=== PATIENT | male | born 1965 | race Caucasian/White ===

== ENCOUNTER 2017-10-14 12:00 | Emergency (ER) | payer MEDICARE ==
[2017-10-14] MEDS ORDERED: LIDOCAINE 1% MPF 5 ML VIAL ONE (13:00)
--- NOTE | 2017-10-14 13:34 | EDPHYS ---
Physician Documentation [facility] Name: Brennon Pinedo Age: 52 yrs Sex: Male : 1965 Arrival Date: 10/14/2017 Time: 12:03 Bed 13 Private MD: out of town, doctor ED Physician Cody Sierra HPI: 10/14 13:36 This 52 yrs old Male presents to ER via Ambulatory with complaints of jr8 Laceration To Hand. 13:36 The patient has a laceration related to: working, occurred at home. The laceration(s) jr8 is(are) located on the left hand. Onset: The symptoms/episode began/occurred acutely, today. Associated signs and symptoms: The patient has no apparent associated signs or symptoms. The patient has not experienced similar symptoms in the past. The patient has not recently seen a physician. was cut with glass accidently . Historical: - Allergies: 12:38 No Known Allergies; lk1 - PMHx: 12:38 Hypertension; CHF; chronic kidney disease; lk1 - PSHx: 12:38 L BKA; Heart stents; lk1 - Immunization history:: Adult Immunizations up to date. - Social history:: Smoking status: Patient/guardian denies using tobacco. - Ebola Screening: : No symptoms or risks identified at this time. ROS: 13:36 Eyes: Negative for injury, pain, redness, and discharge, ENT: Negative for injury, jr8 pain, and discharge, Neck: Negative for injury, pain, and swelling, Cardiovascular: Negative for chest pain, palpitations, and edema, Respiratory: Negative for shortness of breath, cough, wheezing, and pleuritic chest pain, Abdomen/GI: Negative for abdominal pain, nausea, vomiting, diarrhea, and constipation, Back: Negative for injury and pain, MS/Extremity: Negative for injury and deformity, Neuro: Negative for headache, weakness, numbness, tingling, and seizure. 13:36 Skin: Positive for laceration(s), of the left hand. Exam: 13:36 Cardiovascular: Regular rate and rhythm with a normal S1 and S2. No gallops, murmurs, jr8 or rubs. Normal PMI, no JVD. No pulse deficits. Respiratory: Lungs have equal breath sounds bilaterally, clear to auscultation and percussion. No rales, rhonchi or wheezes noted. No increased work of breathing, no retractions or nasal flaring. MS/ Extremity: Pulses equal, no cyanosis. Neurovascular intact. Full, normal range of motion. Neuro: Awake and alert, GCS 15, oriented to person, place, time, and situation. Cranial nerves II-XII grossly intact. Motor strength 5/5 in all extremities. Sensory grossly intact. Cerebellar exam normal. Normal gait. 13:36 Skin: injury, laceration(s), the wound is approximately 3 cm(s), with a depth of .5 cm(s), of the left hand, that can be described as no foreign body, linear, with mild bleeding. Vital Signs: 12:39 BP 158 / 76; Pulse 60; Resp 16; Temp 97.4(TE); Pulse Ox 95% on R/A; Weight 163.29 kg lk1 (R); Height 5 ft. 7 in. (170.18 cm); Pain 0/10; 12:39 Body Mass Index 56.38 (163.29 kg, 170.18 cm) lk1 Laceration: 13:32 Wound Repair of 3cm ( 1.2in ) subcutaneous laceration to left hand. Linear shaped.. jr8 Distal neuro/vascular/tendon intact. Anesthesia: Local anesthetic administered with 3 mls of 1% lidocaine. Wound prep: Extensive cleansing with betadine, Wound irrigation with saline, Wound explored extensively. Skin closed with 4 4-0 Prolene using interrupted sutures and sterile technique. Patient tolerated well. MDM: 12:47 Patient medically screened. [facility] 13:32 Data reviewed: vital signs, nurses notes. [facility] 13:33 Data reviewed: and as a result, I will discharge patient. Data interpreted: Pulse jr8 oximetry: on room air is 95 %. Interpretation: normal. Counseling: I had a detailed discussion with the patient and/or guardian regarding: the historical points, exam findings, and any diagnostic results supporting the discharge/admit diagnosis, the need for outpatient follow up, a family practitioner, to return to the emergency department if symptoms worsen or persist or if there are any questions or concerns that arise at home. Response to treatment: the patient's symptoms have markedly improved after treatment. 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 Exp: paddy 11/19/2019. Lot #: [id number]. } Route: IM; Site: right deltoid; 13:39 Follow up: Response: No adverse reaction hj Disposition: 10/14/17 13:34 Discharged to Home. Impression: Laceration without foreign body of left hand. - Condition is Stable. - Discharge Instructions: Laceration Care, Adult. - Medication Reconciliation Form, Thank You Letter, Antibiotic Education, Prescription Opioid Use form. - Follow up: Private Physician; When: 7 - 10 days; Reason: Wound Recheck, Recheck today's complaints, Continuance of care, Staple/Suture removal, Re-evaluation by your physician. - Problem is new. - Symptoms have improved. Addendum: 10/21/2017 11:22 Co-signature as Attending Physician, Cody Sierra MD I agree with the assessment and k dr plan of care. Signatures: Cody Sierra MD MD kdr Roszak, Josh, PA PA jr8 Nigel Lockhart RN RN Karyn Varghese RN RN lk1 Corrections: (The following items were deleted from the chart) 10/14 13:46 13:34 10/14/2017 13:34 Discharged to Home. Impression: Laceration without foreign body hj of left hand. Condition is Stable. Forms are Medication Reconciliation Form, Thank You Letter, Antibiotic Education, Prescription Opioid Use. Follow up: Private Physician; When: 7 - 10 days; Reason: Wound Recheck, Recheck today's complaints, Continuance of care, Staple/Suture removal, Re-evaluation by your physician. Problem is new. Symptoms have improved. jr8
--- NOTE | 2017-10-14 13:34 | ER ---
Nurse's Notes [facility] Name: Brennon Pinedo Age: 52 yrs Sex: Male : 1965 Arrival Date: 10/14/2017 Time: 12:03 Bed 13 Private MD: out of town, doctor Diagnosis: Laceration without foreign body of left hand Presentation: 10/14 12:36 Presenting complaint: Patient states: "I threw my trash away and a glass container cut lk1 my hand (left)". Transition of care: patient was not received from another setting of care. Complicating Factors: There are no complicating factors for this patient. Onset of symptoms was October 14, 2017 at 11:30. Risk Assessment: Do you want to hurt yourself or someone else? Patient reports no desire to harm self or others. Initial Sepsis Screen: Does the patient meet any 2 criteria? No. Patient's initial sepsis screen is negative. Does the patient have a suspected source of infection? No. Patient's initial sepsis screen is negative. Care prior to arrival: None. 12:36 Method Of Arrival: Ambulatory lk1 12:36 Acuity: STEPHANIE 4 lk1 Historical: - Allergies: 12:38 No Known Allergies; lk1 - PMHx: 12:38 Hypertension; CHF; chronic kidney disease; lk1 - PSHx: 12:38 L BKA; Heart stents; lk1 - Immunization history:: Adult Immunizations up to date. - Social history:: Smoking status: Patient/guardian denies using tobacco. - Ebola Screening: : No symptoms or risks identified at this time. Screenin:15 Abuse screen: Denies threats or abuse. Denies injuries from another. Nutritional hj screening: No deficits noted. Tuberculosis screening: No symptoms or risk factors identified. Fall Risk None identified. Assessment: 13:14 General: Appears in no apparent distress. uncomfortable, Behavior is calm, cooperative, hj appropriate for age. Pain: Complains of pain in left hand. Neuro: Level of Consciousness is awake, alert, obeys commands, Oriented to person, place, time, situation, Appropriate for age. Cardiovascular: Capillary refill < 3 seconds Patient's skin is warm and dry. Respiratory: Airway is patent Respiratory effort is even, unlabored, Respiratory pattern is regular, symmetrical. GI: No signs and/or symptoms were reported involving the gastrointestinal system. : No signs and/or symptoms were reported regarding the genitourinary system. EENT: No signs and/or symptoms were reported regarding the EENT system. Derm: No signs and/or symptoms reported regarding the dermatologic system. Musculoskeletal: No signs and/or symptoms reported regarding the musculoskeletal system. 13:15 Injury Description: Laceration. hj 13:45 Injury Description: Laceration is. Vital Signs: 12:39 BP 158 / 76; Pulse 60; Resp 16; Temp 97.4(TE); Pulse Ox 95% on R/A; Weight 163.29 kg lk1 (R); Height 5 ft. 7 in. (170.18 cm); Pain 0/10; 12:39 Body Mass Index 56.38 (163.29 kg, 170.18 cm) lk1 ED Course: 12:03 Patient arrived in ED. mr 12:03 out of town, doctor is Private Physician. mr 12:37 Triage completed. lk1 12:40 Arm band placed on right wrist. lk1 12:47 [facility] jr8 12:47 Cody Sierra MD is Attending Physician. jr8 13:13 Nigel Lockhart RN is Primary Nurse. 13:15 Patient has correct armband on for positive identification. Bed in low position. Call hj light in reach. Side rails up X 1. 13:45 No provider procedures requiring assistance completed. Patient did not have IV access hj during this emergency room visit. Administered Medications: 13:33 Drug: Tetanus-Diphtheria Toxoid Adult 0.5 ml {Rn Radiology: Chiasma. Exp: 11/19/2019. Lot #: [id number]. } Route: IM; Site: right deltoid; 13:39 Follow up: Response: No adverse reaction Outcome: 13:34 Discharge ordered by . jr8 13:45 Discharged to home ambulatory. 13:45 Condition: stable 13:45 Discharge instructions given to patient, Instructed on discharge instructions, follow up and referral plans. wound care, Demonstrated understanding of instructions, follow-up care, wound care. 13:46 Patient left the ED. Signatures: Janet Guzamn mr Prudencio Forte PA PA jr8 Nigel Lockhart RN RN hj Kluge, Leah, RN RN lk1
[2017-10-14] MEDS ORDERED: TETANUS & DIPHTHERIA TOX,ADULT 0.5 ML VIAL ONE (13:37)
[2017-10-14 13:49] VITALS: BP 158/76; TEMP 97.4; O2SAT 95
== END 2017-10-14 13:46 | disposition home or self-care (01) ==
LOC: ER 12:00
PROC: 0JQK0ZZ Repair Left Hand Subcutaneous Tissue and Fascia, Open Approach (ICD-10-PCS; principal; 2017-10-14)
DX: S61.412A Laceration without foreign body of left hand, initial encounter (principal); I13.0 Hypertensive heart and chronic kidney disease with heart failure and stage 1 through stage 4 chronic kidney disease, or unspecified chronic kidney disease; N18.9 Chronic kidney disease, unspecified; I50.9 Heart failure, unspecified; W25.XXXA Contact with sharp glass, initial encounter; Y93.9 Activity, unspecified; Y92.018 Other place in single-family (private) house as the place of occurrence of the external cause
CPT/HCPCS: 90714; 99283

== ENCOUNTER 2017-11-07 02:33 | Inpatient (IN) | payer MEDICARE ==
[2017-11-07 03:19] LABS: Arterial Blood Carboxyhemoglob 1.7 % (0-1.5); Blood Gas Oxyhemoglobin 89.8 % (94-97); Blood O2 Saturation 92.5 % (92-98.5)
[2017-11-07] MEDS ORDERED: ONDANSETRON 4 MG/2 ML VIAL ONE (03:21)
[2017-11-07 03:35] LABS: Absolute Lymphocytes (CBC) 1.6 K/uL (0.7-4.9); Absolute Monocytes 0.8 K/uL (0.1-1.3); Absolute Neutrophil 9.2 K/uL (1.8-8.0); Basophils % 0.5 % (0-1.3); Hematocrit 43.6 % (39.6-49.0); Lymphocytes % 13.9 % (15.3-44.8); MCH 33.1 pg (27.0-35.0); MCV 99.3 fL (80-100); Monocytes % 6.6 % (3.3-12.3); RBC Red Blood Cell Count 4.39 M/uL (4.33-5.43)
[2017-11-07 03:36] LABS: Protime INR 1.06
[2017-11-07 03:56] LABS: Bilirubin Direct 0.5 mg/dL (0-0.2); Bilirubin Total 1.2 mg/dL (0.2-1.0); Protein, Total 6.9 g/dL (6.4-8.2)
[2017-11-07 03:57] LABS: Potassium 7.4 mmol/L (3.5-5.1)
[2017-11-07] MEDS ORDERED: IPRATROPIUM BROM 0.5MG/2.5ML ONE (04:09)
[2017-11-07] MEDS ORDERED: ALBUTEROL 2.5 MG/3 ML NEB SOL ONE ×2 (04:09→04:34)
[2017-11-07] MEDS ORDERED: INSULIN -REGULAR HUMAN 50 UNIT/0.5 ML ML ONE (04:09)
[2017-11-07] MEDS ORDERED: SODIUM BICARB 50 MEQ/50ML VIAL ONE (04:10)
[2017-11-07] MEDS ORDERED: D50W 25 GM/50 ML SYRINGE IV ONE ×3 (04:10→20:31)
[2017-11-07] MEDS ORDERED: SOD POLYSTYREN SUL 15 GM/60 ML UCUP ONE (04:10)
[2017-11-07] MEDS ORDERED: Caclcium Chloride 10% INJ SYR IV ONE (04:11)
--- NOTE | 2017-11-07 04:36 | ER ---
Nurse's Notes [facility] Name: Brennon Pinedo Age: 52 yrs Sex: Male : 1965 Arrival Date: 11/07/2017 Time: 02:33 Bed 15 Private MD: out of town, doctor Diagnosis: Hyperkalemia. Severe bradycardia. Chronic kidney disease. Morbid obesity Presentation: 11/07 02:50 Presenting complaint: Patient states: I've been feeling nauseous, light headed and tl2 dizzy for the past week. Denies pain. Transition of care: patient was not received from another setting of care. Onset of symptoms was October 31, 2017. Risk Assessment: Do you want to hurt yourself or someone else? Patient reports no desire to harm self or others. Initial Sepsis Screen: Does the patient meet any 2 criteria? No. Patient's initial sepsis screen is negative. Does the patient have a suspected source of infection? No. Patient's initial sepsis screen is negative. Care prior to arrival: None. 02:50 Method Of Arrival: Ambulatory tl2 02:50 Acuity: STEPHANIE 2 tl2 Triage Assessment: 02:56 General: Appears in no apparent distress. uncomfortable, Behavior is calm, cooperative, tl2 appropriate for age. Pain: Denies pain. Neuro: Level of Consciousness is awake, alert, obeys commands, Oriented to person, place, time, situation. Neuro: Reports dizziness, weakness. Cardiovascular: Denies chest pain, Rhythm is sinus bradycardia. Respiratory: Airway is patent Respiratory effort is even, unlabored, Respiratory pattern is tachypnea. GI: Reports nausea. : No signs and/or symptoms were reported regarding the genitourinary system. Derm: Skin is pink, warm \T\ dry. Historical: - Allergies: 02:56 No Known Allergies; tl2 - Home Meds: 02:56 atorvastatin 40 mg oral tab 1 tab once daily [Active]; levothyroxine 125 mcg tab 1 tab tl2 once daily [Active]; zinc sulfate 220 (50) mg Oral cap [Active]; furosemide 20 mg Oral tab 1 tab 3 times per day [Active]; clopidogrel 75 mg oral tab 1 tab once daily [Active]; atorvastatin 40 mg oral tab 1 tab once daily [Active]; allopurinol 300 mg Oral tab 1 tab once daily [Active]; metoprolol tartrate 50 mg Oral tab 1 tab 2 times per day [Active]; diltiazem HCl 120 mg Oral cpER 1 cap TID [Active]; lisinopril 40 mg Oral tab 1 tab once daily [Active]; aspirin 81 mg Oral chew 1 tab once daily [Active]; - PMHx: 02:56 CHF; chronic kidney disease; Hypertension; Diabetes - NIDDM; tl2 - PSHx: 02:56 Heart stents; tl2 - Immunization history:: Adult Immunizations up to date. - Social history:: Smoking status: Patient/guardian denies using tobacco. - Ebola Screening: : No symptoms or risks identified at this time. Screenin:58 Abuse screen: Denies threats or abuse. Nutritional screening: No deficits noted. tl2 Tuberculosis screening: No symptoms or risk factors identified. Fall Risk Ambulatory Aid- Crutches/Cane/Walker (15 pts). Gait- Impaired (20 pts.). Assessment: 03:15 Reassessment: O2 sat decreased to 84%, placed pt on 3 L O2, increased to 93%. Pt in no tl2 apparent distress. General: see triage assessment. 03:15 General: Appears distressed, comfortable, obese, Behavior is cooperative, appropriate bp for age, anxious. Pain: Denies pain. Neuro: Level of Consciousness is awake, alert, obeys commands, Oriented to person, place, time, situation, Appropriate for age. Cardiovascular: Rhythm is junctional rhythm. Respiratory: Airway is patent Respiratory effort is even, labored, Respiratory pattern is tachypnea. GI: Abdomen is obese, Reports nausea. : Reports OLIGURIA. EENT: No deficits noted. Derm: No deficits noted. Musculoskeletal: Circulation, motion, and sensation intact. Range of motion: intact in all extremities, GEN WEAKNESS. 04:00 Reassessment: CRITICAL LAB VALUE K 7.4. PROVIDER NOTIFIED. bp 04:58 Reassessment: REPEAT BMP DRAWN/SENT, ICU ADMIT IN PROCESS. ADMIT MD AT B/S FOR EVAL. bp 06:05 Reassessment: ADMIT ON HOLD FOR ICU BED AVAILABILITY. bp Vital Signs: 02:56 BP 146 / 68; Pulse 41; Resp 26; Temp 97.7; Pulse Ox 94% on R/A; Weight 167.38 kg; tl2 Height 5 ft. 7 in. (170.18 cm); Pain 0/10; 03:15 BP 120 / 54; Pulse 36; Resp 17; Pulse Ox 94% on 3 lpm NC; tl2 04:00 BP 118 / 52; Pulse 37; Resp 15; Pulse Ox 95% on NC; bp 04:30 BP 128 / 61; Pulse 55; Resp 15; Pulse Ox 96% ; bp 04:58 BP 138 / 65; Pulse 59; Resp 18; Pulse Ox 100% ; bp 06:00 BP 115 / 93; Pulse 61; Resp 14; Pulse Ox 92% on NC; bp 02:56 Body Mass Index 57.79 (167.38 kg, 170.18 cm) tl2 Vitals: 03:15 Cardiac Rhythm Assessment Sinus katty. tl2 ED Course: 02:33 Patient arrived in ED. ds1 02:34 out of town, doctor is Private Physician. ds1 02:37 Masoud Olivarez, VIKTORIYA is Primary Nurse. bp 02:42 Sal Mackenzie MD is Attending Physician. pkl 02:52 Triage completed. tl2 02:56 Arm band placed on right wrist. tl2 02:58 Patient has correct armband on for positive identification. Placed in gown. Bed in low tl2 position. Call light in reach. Side rails up X 1. 03:15 X-ray completed. Portable x-ray completed in exam room. Patient tolerated procedure tm4 well. 03:16 Inserted saline lock: 20 gauge in right wrist, using aseptic technique. Blood collected.tl2 03:18 XRAY Chest (1 view) In Process Unspecified. EDMS 03:57 Notified ED physician of a critical lab result(s). potassium 7.4. fc 04:33 Vickie White MD is Hospitalizing Provider. pkl 04:58 No provider procedures requiring assistance completed. Patient admitted, IV remains in bp place. Administered Medications: 03:22 Drug: Zofran 4 mg Route: IVP; Site: right wrist; tl2 04:26 Follow up: Response: No adverse reaction; Nausea is decreased bp 04:10 Drug: DuoNeb (3:1) (2.5 mg - 0.5 mg) 3 ml Route: Nebulizer; bp 04:26 Follow up: Response: No adverse reaction bp 04:10 Drug: Kayexalate 30 grams Route: PO; bp 04:26 Follow up: Response: No adverse reaction bp 04:10 Drug: Calcium Chloride 1 grams Route: IVP; Site: right hand; bp 04:27 Follow up: Response: No adverse reaction bp 04:11 Drug: D50W 50 ml Route: IVP; Site: right hand; bp 04:27 Follow up: Response: No adverse reaction bp 04:12 Drug: Insulin Regular Human 10 units {Co-Signature: tl2 (Elizabeth Rangel RN).} Route: IVP; bp Site: right hand; 04:27 Follow up: Response: No adverse reaction bp 04:13 Drug: Sodium Bicarbonate 1 amp Route: IVP; Site: right hand; bp 04:27 Follow up: Response: No adverse reaction bp Outcome: 04:35 Decision to Hospitalize by Provider. pkl 06:19 Admitted to ICU accompanied by nurse, via stretcher, room 3, with oxygen, on monitor, bp with chart, Report called to ROBERTO SADLER 06:19 Condition: stable 06:19 Instructed on the need for admit. 06:33 Patient left the ED. ak1 Signatures: Dispatcher [employer] EDMS Sal Mackenzie MD MD pkl Fátima Valdivia tm4 Meghan Vinson, RN RN Emmy Moyer ds1 Liat Reeves RN RN ak1 Elizabeth Rangel RN RN tl2 Masoud Olivarez RN RN bp Elizabeth Rangel RN tl2 Corrections: (The following items were deleted from the chart) 03:33 03:15 Pulse 36bpm; Resp 17bpm; Pulse Ox 94% 3 lpm Nasal Cannula; tl2 tl2 04:59 04:58 Reassessment: REPEAT BMP DRAWN/SENT, ICU ADMIT IN PROCESS bp bp
--- NOTE | 2017-11-07 04:36 | EDPHYS ---
Physician Documentation [facility] Name: Brennon Pinedo Age: 52 yrs Sex: Male : 1965 Arrival Date: 11/07/2017 Time: 02:33 Bed 15 Private MD: out of town, doctor ED Physician Sal Mackenzie HPI: 11/07 03:04 This 52 yrs old Male presents to ER via Ambulatory with complaints of General pkl Weakness, Nausea. 03:04 The patient has shortness of breath at rest. Onset: The symptoms/episode began/occurred pkl 1 week(s) ago. Associated signs and symptoms: Pertinent positives: nausea, lightheaded and generalized weakness. Historical: - Allergies: 02:56 No Known Allergies; tl2 - Home Meds: 02:56 atorvastatin 40 mg oral tab 1 tab once daily [Active]; levothyroxine 125 mcg tab 1 tab tl2 once daily [Active]; zinc sulfate 220 (50) mg Oral cap [Active]; furosemide 20 mg Oral tab 1 tab 3 times per day [Active]; clopidogrel 75 mg oral tab 1 tab once daily [Active]; atorvastatin 40 mg oral tab 1 tab once daily [Active]; allopurinol 300 mg Oral tab 1 tab once daily [Active]; metoprolol tartrate 50 mg Oral tab 1 tab 2 times per day [Active]; diltiazem HCl 120 mg Oral cpER 1 cap TID [Active]; lisinopril 40 mg Oral tab 1 tab once daily [Active]; aspirin 81 mg Oral chew 1 tab once daily [Active]; - PMHx: 02:56 CHF; chronic kidney disease; Hypertension; Diabetes - NIDDM; tl2 - PSHx: 02:56 Heart stents; tl2 - Immunization history:: Adult Immunizations up to date. - Social history:: Smoking status: Patient/guardian denies using tobacco. - Ebola Screening: : No symptoms or risks identified at this time. ROS: 03:04 Eyes: Negative for injury, pain, redness, and discharge, ENT: Negative for injury, pkl pain, and discharge, Neck: Negative for injury, pain, and swelling, Cardiovascular: Negative for chest pain, palpitations, and edema. 03:04 Respiratory: Positive for shortness of breath. 03:04 Abdomen/GI: Positive for morbid obesity. 03:04 Back: Negative for acute changes. 03:04 : Negative for urinary symptoms. 03:04 MS/extremity: Negative for acute changes. 03:04 Skin: Negative for rash. 03:04 Neuro: Negative for altered mental status. Exam: 03:04 Head/Face: Normocephalic, atraumatic. Eyes: Pupils equal round and reactive to light, pkl extra-ocular motions intact. Lids and lashes normal. Conjunctiva and sclera are non-icteric and not injected. Cornea within normal limits. Periorbital areas with no swelling, redness, or edema. ENT: Nares patent. No nasal discharge, no septal abnormalities noted. Tympanic membranes are normal and external auditory canals are clear. Oropharynx with no redness, swelling, or masses, exudates, or evidence of obstruction, uvula midline. Mucous membranes moist. Neck: Trachea midline, no thyromegaly or masses palpated, and no cervical lymphadenopathy. Supple, full range of motion without nuchal rigidity, or vertebral point tenderness. No Meningismus. Chest/axilla: Normal chest wall appearance and motion. Nontender with no deformity. No lesions are appreciated. Cardiovascular: Regular rate and rhythm with a normal S1 and S2. No gallops, murmurs, or rubs. Normal PMI, no JVD. No pulse deficits. Respiratory: Lungs have equal breath sounds bilaterally, clear to auscultation and percussion. No rales, rhonchi or wheezes noted. No increased work of breathing, no retractions or nasal flaring. 03:04 Abdomen/GI: Inspection: morbid obesity, Bowel sounds: normal, Palpation: abdomen is soft and non-tender, in all quadrants. 03:04 Back: Exam negative for acute changes. 03:04 : Exam negative for dysuria. 03:04 Musculoskeletal/extremity: Exam is negative for acute changes. 03:04 Skin: Exam negative for rash. 03:04 Neuro: Orientation: appropriate for stated age, Mentation: is normal, Cranial nerves: grossly normal, Motor: is normal. Vital Signs: 02:56 BP 146 / 68; Pulse 41; Resp 26; Temp 97.7; Pulse Ox 94% on R/A; Weight 167.38 kg; tl2 Height 5 ft. 7 in. (170.18 cm); Pain 0/10; 03:15 BP 120 / 54; Pulse 36; Resp 17; Pulse Ox 94% on 3 lpm NC; tl2 04:00 BP 118 / 52; Pulse 37; Resp 15; Pulse Ox 95% on NC; bp 04:30 BP 128 / 61; Pulse 55; Resp 15; Pulse Ox 96% ; bp 04:58 BP 138 / 65; Pulse 59; Resp 18; Pulse Ox 100% ; bp 06:00 BP 115 / 93; Pulse 61; Resp 14; Pulse Ox 92% on NC; bp 02:56 Body Mass Index 57.79 (167.38 kg, 170.18 cm) tl2 MDM: 02:42 Patient medically screened. pkl 04:32 Data reviewed: vital signs, nurses notes, lab test result(s), EKG, radiologic studies, pkl plain films. 11/07 03:01 Order name: Basic Metabolic Panel; Complete Time: 04:20 pkl 11/07 03:01 Order name: CBC with Diff; Complete Time: 04:20 pkl 11/07 03:01 Order name: Ckmb; Complete Time: 04:20 pkl 11/07 03:01 Order name: CPK; Complete Time: 04:20 pkl 11/07 03:01 Order name: LFT's; Complete Time: 04:20 pkl 11/07 03:01 Order name: Magnesium; Complete Time: 04:20 pkl 11/07 03:01 Order name: NT PRO-BNP; Complete Time: 04:20 pkl 11/07 03:01 Order name: PT-INR; Complete Time: 04:20 pkl 11/07 03:01 Order name: Ptt, Activated; Complete Time: 04:20 pkl 11/07 03:01 Order name: Troponin (emerg Dept Use Only); Complete Time: 04:20 pkl 11/07 03:01 Order name: XRAY Chest (1 view) pkl 11/07 03:01 Order name: ABG; Complete Time: 03:24 pkl 11/07 04:23 Order name: Chem 7: Repeat 30 minutes after medications administered; Complete Time: tl2 06:00 11/07 03:01 Order name: EKG; Complete Time: 03:02 pkl 11/07 03:01 Order name: Cardiac monitoring; Complete Time: 03:16 pkl 11/07 03:01 Order name: EKG - Nurse/Tech; Complete Time: 03:17 pkl 11/07 03:01 Order name: IV Saline Lock; Complete Time: 03:17 pkl 11/07 03:01 Order name: Labs collected and sent; Complete Time: : pkl 11/07 03:01 Order name: O2 Per Protocol; Complete Time: : pkl 11/07 03:01 Order name: O2 Sat Monitoring; Complete Time: : pkl Administered Medications: 03:22 Drug: Zofran 4 mg Route: IVP; Site: right wrist; tl2 04:26 Follow up: Response: No adverse reaction; Nausea is decreased bp 04:10 Drug: DuoNeb (3:1) (2.5 mg - 0.5 mg) 3 ml Route: Nebulizer; bp 04:26 Follow up: Response: No adverse reaction bp 04:10 Drug: Kayexalate 30 grams Route: PO; bp 04:26 Follow up: Response: No adverse reaction bp 04:10 Drug: Calcium Chloride 1 grams Route: IVP; Site: right hand; bp 04:27 Follow up: Response: No adverse reaction bp 04:11 Drug: D50W 50 ml Route: IVP; Site: right hand; bp 04:27 Follow up: Response: No adverse reaction bp 04:12 Drug: Insulin Regular Human 10 units {Co-Signature: tl2 (Elizabeth Rangel RN).} Route: IVP; bp Site: right hand; 04:27 Follow up: Response: No adverse reaction bp 04:13 Drug: Sodium Bicarbonate 1 amp Route: IVP; Site: right hand; bp 04:27 Follow up: Response: No adverse reaction bp Disposition: 04:32 Critical Care:. pkl Disposition: 11/07/17 04:35 Hospitalization ordered by Vickie White for Inpatient Admission. Preliminary diagnosis is Hyperkalemia. Severe bradycardia. Chronic kidney disease. Morbid obesity. - Bed requested for Intensive Care Unit. - Status is Inpatient Admission. ak1 - Condition is Stable. - Problem is new. - Symptoms are unchanged. UTI on Admission? No Signatures: Dispatcher [employer] EDKY Lisa Parker RN RN mw Lam, Pin, MD MD pkl Liat Reeves RN RN ak1 Elizabeth Rangel RN RN tl2 Masoud Olivarez RN RN bp Elizabeth Rangel RN tl2 Corrections: (The following items were deleted from the chart) 04:48 04:35 Hospitalization Ordered by Vickie White MD for Inpatient Admission. Preliminary mw diagnosis is Hyperkalemia. Severe bradycardia. Chronic kidney disease. Morbid obesity. Bed requested for Intensive Care Unit. Status is Inpatient Admission. Condition is Stable. Problem is new. Symptoms are unchanged. UTI on Admission? No. pkl 06:33 04:48 11/07/2017 04:35 Hospitalization Ordered by Vickie White MD for Inpatient ak1 Admission. Preliminary diagnosis is Hyperkalemia. Severe bradycardia. Chronic kidney disease. Morbid obesity. Bed requested for Intensive Care Unit. Status is Inpatient Admission. Condition is Stable. Problem is new. Symptoms are unchanged. UTI on Admission? No. mw
[2017-11-07] MEDS ORDERED: FUROSEMIDE 40 MG/4 ML VIAL IV ONE ×3 (05:06→20:30)
[2017-11-07 05:22] LABS: Potassium 6.9 mmol/L (3.5-5.1)
--- NOTE | 2017-11-07 05:26 | P.HP ---
Certification for Inpatient Patient admitted to: Inpatient With expected LOS: >2 Midnights Practitioner: I am a practitioner with admitting privileges, knowledge of patient current condition, hospital course, and medical plan of care. Services: Services provided to patient in accordance with Admission requirements found in Title 42 Section 412.3 of the Code of Federal Regulations Patient History Date of Service: 11/07/17 Reason for admission: hyperkalemia History of Present Illness: Mr Pinedo is a 52 years old male with history of morbid obesity, DM II, CKD, HTN , CAD, who start about 1 week ago, feeling progressively more tired. He also was complaining of SOB. Today, he start feeling generalized body cramps, associated with nausea. He states that was making less urine than usual the last few days. He denied chest pain, or palpitations. At arrival to ED, EKG was remarkable for junctional rhythm at 30 bpm. Potassium level was 7.4. CXR remarkable for pulmonary edema. He was afebrile at arrival, O2 Sat between 83-93 % on RA. Allergies No Known Allergies Allergy (Unverified 01/18/12 17:03) Home medications list reviewed: Yes Home Medications: Diltiazem HCl [Cardizem Cd] 120 mg PO TID 01/19/12 Insulin Glargine Human [Lantus*] 100 unit SQ TID 01/19/12 Lisinopril 40 mg PO DAILY 01/19/12 Metoprolol Tartrate 50 mg PO BID 01/19/12 Clopidogrel Bisulfate [Plavix*] 75 mg PO DAILY #30 tablet 01/22/12 [place]-3 Fatty Acids/Fish Oil [Fish Oil 1,000 mg Softgel] 1 each PO DAILY Atorvastatin Calcium [Lipitor*] 40 mg PO BEDTIME #30 tab 05/28/13 Allopurinol [Zyloprim*] 1 tab PO DAILY 04/29/17 Aspirin 1 tab PO DAILY 04/29/17 Ferrous Sulfate [Ferrous Sulfate*] 1 tab PO DAILY 04/29/17 Fluocinonide [Lidex] 1 dose TOP DAILY 04/29/17 Furosemide [Lasix] 0.5 tab PO DAILY 04/29/17 Insulin Glargine,Hum.rec.anlog [Janice Luevano] 100 units SQ BID 04/29/17 - Past Medical/Surgical History Diabetic: Yes -: chf -: htn -: hypothyrid -: CKD -: lbka -: cardiac stents - Family History Family History: Reviewed- Non-Contributory - Social History Smoking Status: Former smoker Alcohol use: No CD- Drugs: No Caffeine use: Yes Place of Residence: Home Review of Systems 10-point ROS is otherwise unremarkable Physical Examination - Physical Exam General: Alert, In no apparent distress HEENT: Atraumatic, PERRLA, Mucous membr. moist/pink, EOMI, Sclerae nonicteric Neck: Supple, 2+ carotid pulse no bruit, No LAD, JVD distended Respiratory: Diminished, Crackles/rales (bilateral rales) Cardiovascular: Regular rate/rhythm, Normal S1 S2 Gastrointestinal: Normal bowel sounds, No tenderness Musculoskeletal: No tenderness Integumentary: No rashes Neurological: Normal speech, Normal tone, Normal affect Lymphatics: No axilla or inguinal lymphadenopathy - Studies Laboratory Data (last 24 hrs) 11/07/17 03:05: PT 12.5, INR 1.06, APTT 31.4 11/07/17 03:05: WBC 11.8 H, Hgb 14.6, Hct 43.6, Plt Count 152 11/07/17 03:05: Sodium 137, Potassium 7.4 H*, BUN 59 H, Creatinine 3.40 H, Glucose 171 H, Magnesium 2.0, Total Bilirubin 1.2 H, AST 31, ALT 49, Alkaline Phosphatase 170 H Assessment and Plan - Problems (Diagnosis) (1) Acute kidney injury superimposed on CKD Current Visit: Yes Status: Acute (2) Hyperkalemia Current Visit: Yes Status: Acute (3) Bradycardia Current Visit: Yes Status: Acute (4) CAD (coronary artery disease) Current Visit: Yes Status: Acute Qualifiers: Coronary Disease-Associated Artery/Lesion type: [place] artery [place] vs. transplanted heart: [place] heart Associated angina: without angina Qualified Code(s): I25.10 - Atherosclerotic heart disease of [place] coronary artery without angina pectoris (5) Morbid obesity with BMI of 50.0-59.9, adult Current Visit: No Status: Acute - Plan Mr Pinedo will be admitted to the hospital due to hyperkalemia, pulmonary edema secondary to acute on CKD. Initial cardiac rhythm was junctional at 30 bpm. After administered calcium chloride, glucose-insulin, Kayexalate and sodium bicarbonate, his rhythm changed to sinus at 60 bpm. This patient has indication for emergent HD. Will consult Dr Tse and also Dr Garibay for HD catheter placement. - Advance Directives Does patient have a Living Will: No Does patient have a Durable POA for Healthcare: No - Code Status/Comfort Care Code Status Assessed: Yes Code Status: Full Code
[2017-11-07] MEDS ORDERED: ONDANSETRON 4 MG/2 ML VIAL IV PRN (06:21)
[2017-11-07] MEDS: INSULIN -REGULAR HUMAN 50 UNIT/0.5 ML ML SQ SCH ×4 (06:21→21:00)
[2017-11-07] MEDS ORDERED: GLUCAGON 1 MG/VIAL IM PRN (07:02)
[2017-11-07] MEDS ORDERED: D50W 25 GM/50 ML SYRINGE IV PRN (07:02)
[2017-11-07] MEDS ORDERED: INSULIN -REGULAR HUMAN 50 UNIT/0.5 ML ML IV ONE (07:04)
[2017-11-07] MEDS ORDERED: ALBUTEROL 2.5 MG/3 ML NEB SOL NEB ONE ×2 (07:05→20:30)
[2017-11-07] MEDS ORDERED: CALCIUM GLUCONATE 1 GM IVPB 1 GM/50 ML BAG IV ONE ×2 (07:25→20:52)
[2017-11-07] MEDS ORDERED: SOD POLYSTYREN SUL 15 GM/60 ML UCUP PO ONE (08:00)
[2017-11-07] MEDS ORDERED: CALCIUM GLUC 10% INJ 4.65 MEQ in NA CHLORIDE 0.9% 100 ML IV ONE ×2 (08:00→20:30)
--- NOTE | 2017-11-07 08:39 | RAD REPORT ---
EXAM DESCRIPTION: RAD - Chest Single View - 11/07/2017 3:18 am CLINICAL HISTORY: Dizziness, weakness, shortness of breath, chronic kidney disease, history of CHF COMPARISON: Portable chest May 2013 TECHNIQUE: AP portable chest image was obtained 0311 hours . FINDINGS: Lung volumes are relatively low. Large body habitus, shallow inspiration and portable tech nique limit the examination. Cardiomegaly is present. Vascular engorgement and prominent central lung markings noted. Mediastinum is distorted by rotation. Left base is obscured by exam limitations and cardiomegaly. No tracheal dev iation. No pneumothorax is seen and no large pleural effusion present. No gross bony abnormality seen . No acute aortic findings suspected. IMPRESSION: Moderate CHF/ volume overload pattern. Cardiomegaly, portable technique and large body habitus limit assessment of infiltrate or atelectasis in the left base.
[2017-11-07 08:47] LABS: Thyroid Stimulating Hormone 4.39 uIU/mL (0.36-3.74)
--- NOTE | 2017-11-07 09:04 | P.OP ---
Preoperative diagnosis: Acute Renal Failure Postoperative diagnosis: Acute Renal Failure Primary procedure: Placement of Temporary LEFT Femoral Hemodialysis Catheter Secondary procedure: Ultrasound guidance and microintroducer used Anesthesia: Local 1% lidocaine Estimated blood loss: <30cc Specimen: None Findings: Dark Non-pusatile blood returned Complications: None Transferred to: ICU Condition: Serious
[2017-11-07 11:16] LABS: Potassium 6.2 mmol/L (3.5-5.1)
[2017-11-07] MEDS ORDERED: NA CHLORIDE 0.9% 1,000 ML IV PRN (11:45)
[2017-11-07] MEDS ORDERED: MANNITOL 25% 12.5 GM/50 ML VIAL IV PRN (11:45)
[2017-11-07] MEDS ORDERED: ALBUMIN HUMAN 25% 50 ML IV SCH (12:00)
--- NOTE | 2017-11-07 12:20 | CON ---
Date of Consultation: 11/07/2017 Reason For Consultation: Need for emergent hemodialysis. Brief History Of Present Illness: The patient is a 52-year-old male with a history of morb id obesity, diabetes type 2, CKD, hypertension, and coronary artery disease, who stated about 1 week ago began feeling progressively more fatigued and tired. He was also having increased shortness of b reath. He came to the hospital with generalized weakness, cramps, nausea, and he was making less uri ne the last few days. He had no chest pain, palpitations. in the emergency room, his EKG was remark able for a junctional rhythm at 30 beats per minute and his potassium level was 7.4 on admission. He additionally had a chest x-ray, which showed pulmonary edema. He was afebrile. His O2 sats were be tween 83 and 93% on room air. Therefore, I am consulted to place an emergent hemodialysis catheter f or the above-stated problems, acute kidney dysfunction. Past Medical History: As above, CHF, hypertension, hypothyroidism, and CKD. Past Surgical History: He has had cardiac stents placed as well. Social History: He is a former smoker. Denies alcohol or recreational drug use. Allergies: NO KNOWN DRUG ALLERGIES. Medications: Include Cardizem, Lantus, lisinopril, metoprolol, Plavix, fish oil, Lipitor, allopurino l, aspirin, ferrous sulfate, Lidex, Lasix, and insulin glargine. Review of Systems: A 10-point review of systems other than HPI denies. Physical Examination: Vital Signs: At the time of my examination, his BMI is 40.3. General: He is awake, alert, and conversive. HEENT: He is normocephalic. He has supplemental nasal cannula oxygen administered at this time. Neck: Supple. No JVD. Chest: Normal expansion and excursion. Cardiac: Regular rate and rhythm currently. Pulmonary: Decreased breath sounds bilaterally. Abdomen: Very obese. Extremities: There is edema and obesity present in all 4 extremities, more significant lower extremit ies than upper. Skin: Warm and dry otherwise. Laboratory Data: He had a laboratory exam, which reveals a white blood cell count of 11.8, hemoglobi n is 14.6, hematocrit of 43.6, and platelet count is 152. His PT is 12.5, INR 1.06, and PTT 31.4. H is last chemistry shows a potassium of 6.9, sodium 140, chloride 111, carbon dioxide 25, BUN 60, crea tinine 3.4, glucose is 122, and calcium 9.0. His alkaline phosphatase on admission was 170. Total b ilirubin 1.7. His troponin was less than 0.02. CK-MB is 1.0. His blood gas showed a pH 7.33, pCO2 39, pO2 68, bicarb is 28.3, base excess -4.9, oxyhemoglobin is 89.8. ABG, O2 saturation is 92.5,, in spired O2 was 21% on this. He had a chest x-ray performed as described from the emergency room. Assessment And Plan: This is a 52-year-old male, who presents with signs and symptoms of acute kidne y failure on chronic symptoms include the likely fluid overload, rising creatinine, hyperkalemia, and electrolyte abnormalities. I have been asked to place a temporary hemodialysis catheter for the abo ve-stated problem. I have explained the risks, benefits, and alternatives of the above-stated plan i ncluding, but not limited to bleeding, infection, damage to surrounding tissues, need for further ope rations and procedures. The patient agrees to proceed as indicated. DAMIR/LYUDMILA Voice ID: [id number] Report ID: [id number]
[2017-11-07 13:01] LABS: Urine Protein/Creatinine Ratio 3.97 ratio (<0.15)
--- NOTE | 2017-11-07 16:26 | CON ---
Date of Consultation: 11/07/2017 History Of Present Illness: This is a pleasant 52-year-old gentleman with significant past medical h istory of diabetes, complicated with neuropathy and nephropathy, hypertension, coronary artery diseas e complicated with congestive heart failure, chronic kidney disease, baseline creatinine of 2, GFR of 30 back in June 2017. The patient was in his regular state of health till almost 10 days ago when the patient started having shortness of breath, decreased urine output. For that reason, he reported to the emergency room. In the emergency room a primary workup showed elevated BUN and creatinine, a nd severe hyperkalemia with bradycardia; for that reason, the patient get the treatment for hyperkale georgina and admitted to the ICU. In the ICU his potassium is still elevated and still bradycardia. We g ave him another around of calcium gluconate, albuterol and D50 with insulin and Lasix. The patient i s still short winded. The patient denied taking any nonsteroidal. No IV contrast. According to the patient, the patient was in the ER almost 1 month back, at that time, he was prescribed some antibio tic. The patient do not remember the name of the antibiotic. The patient denied any fever or chills . We called dialysis for urgent dialysis. Past Medical History: Include: 1.Hypertension. 2.Diabetes complicated with neuropathy and nephropathy. 3.Peripheral vascular disease, status post left below-knee amputation. 4.Hyperlipidemia. 5.Coronary artery disease status post PTCA. 6.Uroplasty. 7.Congestive heart failure. Social History: Ex-smoker 1 pack for 30 years, stop back in 2009, active alcohol. No drugs abuse. Allergies: NO KNOWN DRUG ALLERGY. Past Surgical History: 1.Left below-knee amputation. 2.PTCA. Family History: Positive for diabetes, hypertension, hyperlipidemia, questionable chronic kidney dis ease with the mother. Review of Systems: Head and Neck: No red eye. No ear pain. GI: No nausea, no vomiting. : Has difficulty urinating even with the Lasix, has nocturia. DIABETES PHYSICIAN: Not applicable. Respiratory: Has shortness of breath. Cardiovascular: Has leg swelling. Has orthopnea. Musculoskeletal: No joint pain. Endocrine: No polydipsia. Skin: No rash. Neuro: Has neuropathy. Musculoskeletal: No joint pain. Home Medications: Include omega-3, metoprolol, lisinopril 40, insulin, Lasix half tablet daily, ferr ous sulfate, diltiazem, atorvastatin, allopurinol 1 tablet daily. Medications: Current medication in the hospital include insulin. Physical Examination: Vital Signs: When I saw the patient, the patient lying in bed, on nasal cannula. Blood pressure of 122/68, pulse of 86. Chest: Crackles bilateral with decreased entry both base. Heart: S1, S2. Regular. Abdomen: Morbidly obese. Could not appreciate any organomegaly or any bruit. Extremity: +1 edema. Left below-knee amputation. Neurological: Alert and oriented x3. No focal. No tremor. Vascular exam: No carotid bruit. Could not appreciate any renal bruits given the body habit. Laboratory Data: WBC 11.8, H and H 14.6/43.6, platelet 152. Sodium 140, potassium 6.9, bicarb 25, B UN 60, creatinine 3.4, calcium of 9. BNP 2700, earlier potassium 7.4 back in June, creatinine 2, GF R of 30. ABG; pH 7.33, CO2 39, O2 68, base access -5. Assessment And Plan: 1.Acute kidney injury on chronic kidney disease secondary to cardiorenal, over volume with hyperkale georgina symptomatic with bradycardia. I going to go ahead and arrange for urgent dialysis. The patient is going to be dialyzed on low-potassium bath and I am going to start the patient on diuresis to esta blish better volume control and more potassium diuresis. Unfortunately could not do renal scan, coul d not do Ruiz as the patient had difficulty cannulating the Ruiz. We will do ultrasound and bladde r scan. I am going to go ahead and send for renal ultrasound, protein, creatinine and we will follow up. 2.Hyperkalemia, symptomatic, already received cocktail. We will get the patient urgent dialysis. T he patient is going to be dialyze on 2 K bath for 2 hours. Then 1 K bath for the last 1 hour. We wi ll try to challenge the patient with fluid removal and we will follow up. 3.Acidosis, hypercapnic respiratory acidosis. Continue treatment. 4.Congestive heart failure exacerbation. Start the patient on Lasix. We will dialyze the patient an d challenge. 5.Diabetes as by primary. Case discussed with the patient, verbalized understanding. Discussed with staff, time spent 75 minut es. PLATA/LYUDMILA Voice ID: [id number] Report ID: [id number]
--- NOTE | 2017-11-07 19:48 | OP ---
Date of Procedure: 11/07/2017 Surgeon: Jasen Garibay MD, Preoperative Diagnosis: Acute renal failure. Postoperative Diagnosis: Acute renal failure. Procedure Performed: Placement of an ultrasound-guided temporary left femoral hemodialysis catheter. Additionally, micro introducer set was used. Anesthesia: Local 1% lidocaine without epinephrine. Estimated Blood Loss: Less than 30 cc. Specimen: None. Findings: Dark red nonpulsatile blood was returned and ultrasound guidance was used to cannulate the femoral vein directly under visualization. Complications: None. Disposition: The patient remained in the ICU in serious condition. Procedure In Detail: After informed consent was obtained, the patient was prepped and draped in the usual sterile fashion after adequate anesthesia was achieved with lidocaine in the area of the left f emoral vein. I used ultrasound guidance to isolate the left femoral vein in this patient, who had a very large abdominal pannus. I used a micro introducer set to cannulate this under direct visualizat ion. Dark red nonpulsatile blood was returned and the micro wire was advanced at this time. The nee dle was removed at this time. A small puncture was made with a scalpel around the insertion site adj acent to the micro wire. After this was performed, the micro introducer sheath was introduced. The micro wire out was called at this time. Dark red nonpulsatile blood was returned at this time. Hubert dard wire was then advanced through the introducer sheath after removing the inner catheter without i ncident or complication. The wire advanced quite easily and the sheath was removed. Sequential dila tation was performed in Seldinger technique over the wire and the catheter was introduced into the le ft femoral vein without evidence of complication. The wire out was called for the second time and da rk red nonpulsatile blood was returned. At this time, the catheter was found to be in good position, flushed quite easily, and was packed with heparin 2 cc per port and the catheter was stitched into t he adjacent skin and sterile dressing was placed over the top. The patient tolerated the procedure w ithout evidence of complication and remained in the ICU in serious condition. All counts were correc t at the end of the case. DAMIR/LYUDMILA Voice ID: [id number] Report ID: [id number]
[2017-11-07] MEDS ORDERED: NA CHLORIDE 0.9% 50 ML ONE (20:53)
--- NOTE | 2017-11-07 23:41 | RAD REPORT ---
EXAM DESCRIPTION: US - Renal Ultrasound-Complete - 11/07/2017 9:38 pm CLINICAL HISTORY: Acute kidney injury COMPARISON: CT study June 17, 2016 FINDINGS: The right kidney measures 11.9 x 5.9 x 6.5 cm. The left kidney measures 12.8 x 7.5 x 7.1 cm.. Cortical thickness is normal. Echogenicity is increased slightly. This may simply be the affects of body habitus rather than medical renal disease. No hydronephrosis or suspicious renal mass. Urinary bladder assessment was very limited. Exam was limited by large body habitus and immobility of the patient IMPRESSION: No hydronephrosis or suspicious renal mass. Increased cortical echogenicity is present and could be body habitus artifact or medical renal diseas e.
[2017-11-08 05:17] LABS: Absolute Lymphocytes (CBC) 0.8 K/uL (0.7-4.9); Basophils % 0.5 % (0-1.3); Eosinophils % 0.3 % (0-4.4); Hematocrit 41.7 % (39.6-49.0); MCH 32.8 pg (27.0-35.0); MCV 99.8 fL (80-100); MPV 9.2 fL (7.6-11.3); Monocytes % 12.4 % (3.3-12.3); RBC Red Blood Cell Count 4.18 M/uL (4.33-5.43)
[2017-11-08 05:35] VITALS: BMI 54.8
[2017-11-08 05:37] LABS: Albumin 2.8 g/dL (3.4-5.0); Phosphorus 4.3 mg/dL (2.5-4.9); Potassium 5.2 mmol/L (3.5-5.1)
[2017-11-08] MEDS: INSULIN -REGULAR HUMAN 50 UNIT/0.5 ML ML SQ SCH ×4 (07:30→20:35)
--- NOTE | 2017-11-08 07:43 | EKG ---
Test Date: 2017-11-07 Test Time: 02:51:20 Marine Steam Fitter: TIFFANY MEASUREMENT RESULTS: Intervals: Rate: 35 [place]: QRSD: 102 QT: 512 QTc: 390 [place]: P: OR: QRS: 142 T: 91 INTERPRETIVE STATEMENTS: Junctional bradycardia Incomplete right bundle branch block Right ventricular hypertrophy with repolarization abnormality Abnormal ECG Compared to ECG 05/24/2013 19:30:18 Incomplete right bundle-branch block now present Right ventricular hypertrophy now present Early repolarization now present Sinus rhythm no longer present Electronically Signed On 11-08-17 07:42:35 CDT by Hosea Cervantes
[2017-11-08] MEDS ORDERED: METOPROLOL TARTRATE 5 MG/5 ML INJ IV STA (09:24)
[2017-11-08] MEDS ORDERED: METOPROLOL TARTRATE 5 MG/5 ML INJ IV ONE (09:29)
--- NOTE | 2017-11-08 11:32 | RAD REPORT ---
EXAM DESCRIPTION: RAD - Chest Single View - 11/08/2017 11:23 am CLINICAL HISTORY: CHF Chest pain. COMPARISON: Chest Single View dated 11/07/2017; CHEST SINGLE VIEW dated 05/27/2013; CHEST SINGLE VIEW d ated 05/24/2013; CHEST SINGLE VIEW dated 01/19/2012 FINDINGS: Portable technique limits examination quality. Mild bilateral pulmonary opacities are again noted, compatible pulmonary edema. The heart is signific antly prominent. No displaced fractures. IMPRESSION: Mild CHF is again noted, appearing mildly improved since the comparative study.
[2017-11-08 11:41] LABS: Urine Appearance TURBID; Urine Bilirubin NEGATIVE (NEG); Urine Blood 3+ (NEG); Urine Color DK YELLOW; Urine Glucose NEGATIVE (NEG); Urine Protein 3+ (NEG); Urine Specific Gravity 1.015 (1.005-1.030)
[2017-11-08 12:14] LABS: Urine Microscopic Reflex ORDER UMIC
--- NOTE | 2017-11-08 12:20 | PN ---
Date of Progress Note: 11/08/2017 Subjective: The patient seen and examined, chart reviewed, and case discussed with RN. The patient receiving dialysis. Has no complaints. Feels better. Medications: List reviewed. Review of Systems: Negative except as above. Objective: Vital Signs: Temperature 97.1, heart rate 84, blood pressure 131/48 , respirations 18, and O2 94% on 2 L via nasal cannula. General: Awake, alert, oriented x3, not in any acute distress. Appears older than stated age. Morbidly obese male. BMI 54. CV: S1, S2. No murmurs. Peripheral pulses present. Respiratory: Diminished breath sounds. Some crackles heard. No use of accessory muscles. No tachypnea Gastrointestinal: Abdomen is distended. No tenderness to palpation. Positive bowel sounds. Umbilical hernia present. Extremities: No clubbing, cyanosis. The patient does have lower extremity edema right. Left BKA Skin: Excoriation of the skin of the abdominal pannus in the inguinal fold. Neurologic: Nonfocal. Laboratory Data: Sodium 143, potassium 5.2, chloride 106, CO2 31, BUN 38, creatinine 2.7, glucose 180, calcium 8.6, phosphorus 4.3, and albumin 2.8. WBC 7.8, H and H 13.7 and 41.7, platelets 118, neutrophils 76%. Blood cultures pending. Renal ultrasound, no hydronephrosis or suspicious renal mass. Increased cortical echogenicity is present and could be body habitus artifact or medical renal disease. Assessment: A 52-year-old male with; 1. Acute on chronic kidney injury. The patient has been dialyzed emergently due to electrolyte abnormalities, fluid status. 2. Hyperkalemia, improving. 3. Bradycardia, improved. The patient had a run of supraventricular tachycardia, rate in the 130s. We will treat accordingly. Give metoprolol 5 mg IV x1. Continue to monitor. 4. Coronary artery disease, [place] artery, [place] heart without angina. 5. Morbid obesity. Body mass index 54. 6. Essential hypertension. 7. Diabetes mellitus type 2, insulin requiring with hyperglycemia. We will continue with sliding scale insulin and home dose of insulin. 8. s/p L BKA Plan: We will continue dialysis. Monitor heart rate. Gastrointestinal and deep venous thrombosis prophylaxis addressed. /LYUDMILA Voice ID: [id number] Report ID: [id number] MTDD
[2017-11-08 12:45] LABS: Urine Bacteria >50 /HPF (NONE SEEN); Urine Culture Reflex Order REFLEXED; Urine RBC >50 /HPF (NONE SEEN)
[2017-11-08] MEDS: METOPROLOL TAR 50 MG TAB PO SCH ×2 (13:01→20:34)
[2017-11-08 13:19] LABS: Phosphorus 3.3 mg/dL (2.5-4.9)
--- NOTE | 2017-11-08 13:26 | EKG ---
Test Date: 2017-11-08 Test Time: 09:07:07 Managing Consultant Clinical Professor: DEANNA MEASUREMENT RESULTS: Intervals: Rate: 158 [place]: QRSD: 96 QT: 314 QTc: 509 [place]: P: [place]: QRS: 182 T: 102 INTERPRETIVE STATEMENTS: Atrial fibrillation with rapid ventricular response Right superior axis deviation Pulmonary disease pattern Incomplete right bundle branch block Right ventricular hypertrophy Marked ST abnormality, possible inferior subendocardial injury Abnormal ECG Compared to ECG 11/07/2017 02:51:20 Atrial fibrillation with rapid ventricular response now present Right superior axis now present ST (T wave) deviation now present Junctional rhythm is no longer present Electronically Signed On 11-08-17 13:25:26 CDT by Hosea Cervantes
[2017-11-08] MEDS: ATORVASTATIN 40 MG TAB PO SCH (20:35)
--- NOTE | 2017-11-08 23:00 | PN ---
Date of Progress Note: 11/08/2017 Chief Complaint: Acute kidney injury, nonoliguric in setting of chronic kidney disease stage 3, associated with hyperkalemia. Subjective: The patient is admitted to ICU because of severe hyperkalemia associated with bradycardia. The patient denies IV contrast. He was not taking nonsteroidal anti-inflammatory medications. He was found to have elevated BUN and creatinine, worsening of the renal function, and hyperkalemia. The patient is scheduled to have dialysis today. On arrival to the hospital, potassium was 6.9 and bicarbonate was 25, BUN 60, and creatinine 3.4. The patient was medicated with Kayexalate, subsequently urgent dialysis was ordered , and the patient has a temporary dialysis catheter. The patient was found to have hypercapnic respiratory acidosis and has CHF exacerbation and was started on Lasix. Review of Systems: The patient is feeling better. He remains on O2 nasal cannula. Review of Systems: Denies fever, chills. He is complaining of generalized weakness. Denies chest pain, nausea, or vomiting. Objective: Lungs: Crackles bilaterally present. Heart: S1, S2. Abdomen: Soft, benign. Extremities: 1+ edema. Laboratory Data: Hemoglobin 13.7, WBC 7.8, platelet count is 118,000. Sodium 141, potassium 5.0, chloride 105, CO2 30, BUN 24, creatinine 2.2, calcium 8.6, phosphorus 3.3, and magnesium 2.2. Impression And Plan: 1. Acute kidney injury, severe, associated with hyperkalemia, symptomatic. Urine output is somewhat improving. The patient has urine output up to 300 per shift. Continue Lasix for volemia control and for congestive heart failure control. The patient will have dialysis today to control hyperkalemia. Continue low-potassium diet. 2. Fluid overload anasarca. The patient received ultrafiltration today to treat fluid overload. 3. Chronic kidney disease stage 3, associated with diabetes mellitus, hypertension. Monitor electrolytes and continue to assess ABG. The patient developed respiratory acidosis associated with hypoxemia, respiratory failure, congestive heart failure. 4. Chronic kidney disease stage 3. JACK inhibitor on hold because of hyperkalemia. Potassium on arrival to the hospital primarily was 7.4. ABG showed pH of 7.33, pCO2 was 39, and O2 saturation was 68. BNP was up to 2700. I spent total 36 min including 26 min to coordinate care plan EB/MODL Voice ID: [id number] Report ID: [id number] YEFRI
[2017-11-09 05:19] LABS: Absolute Lymphocytes (CBC) 1.7 K/uL (0.7-4.9); Absolute Neutrophil 6.5 K/uL (1.8-8.0); Basophils % 0.3 % (0-1.3); Hematocrit 41.9 % (39.6-49.0); Lymphocytes % 18.4 % (15.3-44.8); MCH 33.1 pg (27.0-35.0); MCV 99.8 fL (80-100); MPV 9.3 fL (7.6-11.3); Monocytes % 10.4 % (3.3-12.3); RBC Red Blood Cell Count 4.19 M/uL (4.33-5.43)
[2017-11-09 05:30] LABS: Albumin 2.8 g/dL (3.4-5.0); Phosphorus 3.7 mg/dL (2.5-4.9); Potassium 5.3 mmol/L (3.5-5.1)
[2017-11-09] MEDS: LEVOTHYROXINE SOD 0.125 MG TAB PO SCH (06:18)
[2017-11-09] MEDS: INSULIN -REGULAR HUMAN 50 UNIT/0.5 ML ML SQ SCH ×4 (07:28→21:21)
--- NOTE | 2017-11-09 07:39 | EKG ---
Test Date: 2017-11-08 Test Time: 22:04:03 Senior Data Architect: RT-O MEASUREMENT RESULTS: Intervals: Rate: 65 SD: 176 QRSD: 96 QT: 414 QTc: 430 [place]: P: 44 SD: 176 QRS: 66 T: 93 INTERPRETIVE STATEMENTS: Normal sinus rhythm Low voltage QRS Incomplete right bundle branch block Borderline ECG Compared to ECG 11/08/2017 09:07:07 Low QRS voltage now present Atrial fibrillation no longer present Right superior axis no longer present Right ventricular hypertrophy no longer present ST (T wave) deviation no longer present Electronically Signed On 11-09-17 07:39:20 CDT by Hosea Cervantes
[2017-11-09] MEDS: METOPROLOL TAR 50 MG TAB PO SCH ×2 (08:17→21:19)
[2017-11-09] MEDS ORDERED: SOD POLYSTYREN SUL 15 GM/60 ML UCUP PO ONE (08:19)
--- NOTE | 2017-11-09 11:39 | PN ---
Date of Progress Note: 11/09/2017 Subjective: The patient seen and examined, chart reviewed, and case discussed with RN. The patient had dialysis yesterday. Otherwise doing well. No complaints. Shortness of breath has improved. Review of Systems: Negative except as above. Medications: List reviewed. Objective: Vital Signs: Temperature 98, heart rate 74, blood pressure 118/63, respirations 24, oxygen saturation 94% on 3 L via nasal cannula. General: Awake, alert, oriented x3, not in any acute distress. Mildly ill- appearing male, morbidly obese, BMI 56. CV: S1 and S2. pulses are present. Respiratory: Diminished breath sounds, however, improving. No wheezing. The patient is slightly tachypneic. Gastrointestinal: Abdomen is soft, nontender, nondistended. Positive bowel sounds. Extremities: No clubbing, cyanosis. Peripheral edema present. Neurologic: Nonfocal. Laboratory Data: Sodium 139, potassium 5.3, chloride 104, CO2 30, BUN 41, creatinine 3.2, glucose 161, calcium 8.3, and albumin 2.8. WBC 9.3, H and H 13.9 and 41.9, platelets 146. Blood cultures, no growth to date. EKG shows normal sinus rhythm, rate of 65, incomplete right bundle-branch block. Chest x- ray from 11/07/2017, mild CHF noted, appearing mildly improved since comparative study. Assessment: A 52-year-old male with; 1. Acute on chronic kidney injury. The patient had dialysis yesterday. 2. Hyperkalemia. We will continue with Kayexalate. Level is corrected after dialysis. 3. Bradycardia. The patient had run of supraventricular tachycardia, was on metoprolol. 4. Coronary artery disease, [place] artery and [place] heart without angina, stable. 5. Morbid obesity. Body mass index 54. 6. Essential hypertension, stable. 7. Diabetes mellitus type 2, insulin requiring with hyperglycemia. We will continue sliding scale insulin and home dose. 8. Gastrointestinal and deep venous thrombosis prophylaxis addressed. 9. Afib w RVR new onset: start anti-coagulation. Metoprolol for rate control. Plan: Move out of ICU if okay with Nephrology. Monitor potassium level. SA/MODL Voice ID: [id number] Report ID: [id number] MTDD
--- NOTE | 2017-11-09 11:50 | RAD REPORT ---
EXAM DESCRIPTION: RAD - Abdomen 1 View (KUB) - 11/09/2017 11:43 am CLINICAL HISTORY: Abdominal pain, hyperkalemia COMPARISON: None. FINDINGS: Portable supine images were obtained. Exam is very limited due to large body habitus can u se of portable technique. Normal size air-filled stomach is identified. Nondilated large and small bowel loops are identifiable . No free air or pneumatosis identifiable on this examination. Dilated bowel loops are not confirmed. No suspicious calcifications. No significant bony findings IMPRESSION: No gross abnormality identified. Exam is very limited.
--- NOTE | 2017-11-09 13:12 | PN ---
Date of Progress Note: 11/09/2017 Subjective: The patient admitted with acute kidney injury, severe hyperkalemia. Dialyzed yesterday and today. Managed to remove so far off 3kg. Still shortness of breath. Cannot lay flat. Objective: Vital Signs: Blood pressure 118/63, pulse of 73. Had urine output only 200. Chest: Crackles bilateral. Heart: S1, S2. Regular. Had AFib yesterday, converted. Pause of few seconds , resolved spontaneously. Abdomen: Morbidly obese. No tenderness. Extremities: +1 edema. Laboratory Data: Chest x-ray, congestion with left-sided pleural effusion. WBC 9.3, H and H 13.9/41.9, and platelet 146. Sodium 139, potassium 5.3, bicarb 30, BUN 41, creatinine 3.2, even though after dialysis yesterday, calcium 8.3 phos 3.7, albumin 2.8. Current Medications: The patient is on include; 1. Atorvastatin. 2. Metoprolol 50 b.i.d. 3. Tylenol. 4. Levothyroxine. Assessment And Plan: 1. Acute kidney injury on chronic kidney disease. Still over volume. 2. Hyperkalemia. I am going to arrange for dialysis today. We will avoid giving any Kayexalate. 3. Hypertension. Currently blood pressure on the lower side. We will utilize the blood pressure for more ultrafiltration. 4. Congestive heart failure as by cardiology. 5. Persistent hyperkalemia. CK within normal limit. TSH not elevated, still pending. CT could not be done given his condition that he cannot lay flat. We will get abdominal x-ray. We will follow up again. Please avoid any Kayexalate. Urinalysis. Case was discussed with the patient, who verbalized understanding. JESSY Voice ID: [id number] Report ID: [id number] YEFRI
[2017-11-09] MEDS ORDERED: ENOXAPARIN 30 MG/0.3 ML SQ SCH (17:00)
[2017-11-09] MEDS ORDERED: Enoxaparin 120 MG/0.8 ML SYR SQ SCH (17:00)
[2017-11-09] MEDS: ATORVASTATIN 40 MG TAB PO SCH (21:19)
[2017-11-10 04:58] LABS: Absolute Lymphocytes (CBC) 1.6 K/uL (0.7-4.9); Absolute Neutrophil 5.2 K/uL (1.8-8.0); Basophils % 0.8 % (0-1.3); Eosinophils % 1.6 % (0-4.4); Hematocrit 43.2 % (39.6-49.0); Lymphocytes % 20.2 % (15.3-44.8); MCH 33.3 pg (27.0-35.0); MCV 99.5 fL (80-100); Monocytes % 12.4 % (3.3-12.3); RBC Red Blood Cell Count 4.34 M/uL (4.33-5.43)
[2017-11-10 05:22] LABS: Albumin 2.8 g/dL (3.4-5.0); Phosphorus 3.5 mg/dL (2.5-4.9); Potassium 4.9 mmol/L (3.5-5.1)
[2017-11-10] MEDS: LEVOTHYROXINE SOD 0.125 MG TAB PO SCH (06:31)
[2017-11-10] MEDS: INSULIN -REGULAR HUMAN 50 UNIT/0.5 ML ML SQ SCH ×5 (07:27→21:41)
[2017-11-10] MEDS: METOPROLOL TAR 50 MG TAB PO SCH ×2 (08:31→20:08)
--- NOTE | 2017-11-10 10:26 | RAD REPORT ---
EXAM DESCRIPTION: RAD - Chest Single View - 11/10/2017 9:35 am CLINICAL HISTORY: CHF/volume overload COMPARISON: November 08 TECHNIQUE: AP portable chest image was obtained 0900 hours . FINDINGS: Lungs are underinflated. Large body habitus, shallow inspiration and portable imaging acce ntuate chest findings. The failure/ volume overload pattern seen November 08 has improved but not fully resolved. No progressive finding. Cardiac silhouette remains enlarged. No pneumothorax or enlarging pleural effusion. No gross bony abnormality seen. No acute aortic findings suspected. IMPRESSION: Partial resolution of CHF/ volume overload pattern.
--- NOTE | 2017-11-10 12:08 | P.PN ---
Subjective Date of Service: 11/10/17 Chief Complaint: hyperkalemia doing much better, sleep flat no SOB Physical Examination - Vital Signs Temperature: 97.6 F Blood Pressure: 129/67 Pulse: 64 Respirations: 24 Pulse Ox (%): 97 - Physical Exam General: Alert, In no apparent distress, Obese HEENT: Atraumatic, PERRLA, EOMI Neck: Supple, JVD not distended Respiratory: Clear to auscultation bilaterally, Normal air movement Cardiovascular: Regular rate/rhythm, Normal S1 S2 Gastrointestinal: Normal bowel sounds, No tenderness Musculoskeletal: No tenderness Integumentary: No rashes Neurological: Normal speech, Normal tone, Normal affect Lymphatics: No axilla or inguinal lymphadenopathy - Studies Medications List Reviewed: Yes Assessment And Plan - Current Problems (Diagnosis) (1) Acute kidney injury superimposed on CKD Onset Date: 11/08/17 Current Visit: Yes Status: Acute (2) Bradycardia Onset Date: 11/08/17 Current Visit: Yes Status: Acute (3) CAD (coronary artery disease) Onset Date: 11/08/17 Current Visit: Yes Status: Acute Qualifiers: Coronary Disease-Associated Artery/Lesion type: [place] artery [place] vs. transplanted heart: [place] heart Associated angina: without angina Qualified Code(s): I25.10 - Atherosclerotic heart disease of [place] coronary artery without angina pectoris (4) Hyperkalemia Onset Date: 11/08/17 Current Visit: Yes Status: Acute (5) Morbid obesity with BMI of 50.0-59.9, adult Onset Date: 11/08/17 Current Visit: Yes Status: Acute (6) Chronic renal failure syndrome Current Visit: No Status: Acute (7) Congestive heart failure Current Visit: No Status: Acute (8) Diabetes Current Visit: No Status: Acute (9) History of left below knee amputation Current Visit: No Status: Acute (10) Hx of heart artery stent Current Visit: No Status: Acute (11) Lymphedema Current Visit: No Status: Acute - Plan clinically improving with HD PLANS --Cont HD as per nephrology --Start Levaquin 250mg for UTI --Tele --Floor today
[2017-11-10] MEDS: levoFLOXacin 250 MG TAB PO SCH (15:02)
--- NOTE | 2017-11-10 15:30 | CON ---
Identification: A 52-year-old man. Additional Attending Physician: Dr. Chandler. Chief Complaint: Shortness of breath on exertion. Reason For Cardiology Consult: Atrial fib. History Of Present Illness: Mr. Pinedo is a gentleman, who has had renal failure progressing over sev eral years. In 2011, Dr. Saldivar did a cardiac cath and at that time, he needed a stent. It was 1 v essel disease. It was in the mid circumflex and successful stent. Since then, he has had no chest p ain or acute coronary syndrome. He is in the hospital because he developed renal failure. His potas sium was over 8 and creatinine nearly 4, so he has been on dialysis for about 3 days and yesterday, h e had AFib. Response was rapid. He was given metoprolol. He is now in sinus rhythm. He does not r ecall having AFib before. Medications: Outpatient medications have been metoprolol, lisinopril, diltiazem, atorvastatin, furos emide, and levothyroxine. Presently, he is getting metoprolol. He is no longer getting diltiazem be cause he was bradycardic a bit ago and he is getting heparin and enoxaparin. Physical Examination: General: He is 5 feet 7 inches, morbidly obese, 353 pounds. HEENT: Normal. Lungs: Clear. Heart: Regular rate and rhythm. Abdomen: Soft. Extremities: He has had a left [id number] amputation. Right leg has lymphedema. He is under wr aps. No wounds. Distal pulses diminished. The patient is in sinus rhythm now. I think perhaps his AFib was caused by this profound metabolic a bnormalities. We can use metoprolol. This is the only antiarrhythmic drug for now. We can consider long-term anticoagulation with either Coumadin or Eliquis 2.5 b.i.d. It would probably be a better idea to give him Coumadin, but for now, we will leave him on Lovenox. JONATHAN/KEVINL Voice ID: [id number] Report ID: [id number]
[2017-11-10] MEDS: FUROSEMIDE 40 MG/4 ML VIAL IV SCH (16:23)
[2017-11-10] MEDS ORDERED: Enoxaparin 120 MG/0.8 ML SYR SQ SCH (17:00)
[2017-11-10] MEDS ORDERED: ENOXAPARIN 80 MG/0.8 ML SQ SCH (17:00)
--- NOTE | 2017-11-10 17:21 | ECHO ---
HEIGHT: 5 ft 7 in WEIGHT: 353 lb 6 oz DATE OF STUDY: 11/10/[address]: Hosea Cervantes MD 2-DIMENSIONAL: YES M.MODE: YES DOPPLER: YES COLOR FLOW: YES TDS: YES PORTABLE: DEFINITY: BUBBLE STUDY: DIAGNOSIS: ATRIAL FIBRILLATION CARDIAC HISTORY: CATHERIZATION: YES SURGERY: NO PROSTHETIC VALVE: NO PACEMAKER: NO MEASUREMENTS (cm) DIASTOLIC (NORMALS) SYSTOLIC (NORMALS) IVSd 1.4 (0.6-1.2) LA Diam 3.7 (1.9-4.0) LVEF 58% LVIDd 4.3 (3.5-5.7) LVIDs 3.0 (2.0-3.5) %FS 30% LVPWd 1.2 (0.6-1.2) Ao Diam 3.0 (2.0-3.7) 2 DIMENSIONAL ASSESSMENT: RIGHT ATRIUM: NORMAL LEFT ATRIUM: DILATED RIGHT VENTRICLE: NORMAL LEFT VENTRICLE: LEFT VENTRICULAR HYPERTROPHY TRICUSPID VALVE: NORMAL MITRAL VALVE: NORMAL PULMONIC VALVE: NORMAL AORTIC VALVE: NORMAL PERICARDIAL EFFUSION: NONE AORTIC ROOT: NORMAL LEFT VENTRICULAR WALL MOTION: NORMAL DOPPLER/COLOR FLOW: NORMAL COMMENTS: NORMAL LEFT VENTRICULAR EJECTION FRACTION. LEFT VENTRICULAR HYPERTROPHY. DILATED LEFT ATRIUM. NORMAL SINUS RHYTHM. TECHNOLOGIST: LUIS RODRIGUEZ
--- NOTE | 2017-11-10 18:54 | PN ---
Date of Progress Note: 11/10/2017 Subjective: The patient doing slightly better. Shortness of breath subsided. Physical Examination: Vital Signs: Blood pressure 128/67, pulse of 64, afebrile. General: The patient still oliguric. Had urine output only 400. We manage yesterday to ultrafiltra te 2800. Chest: Crackles bilateral base. Heart: S1, S2. Regular. Abdomen: Soft, nontender. Extremities: +1 edema. Laboratory Data: WBC 8, H and H 14.4/43.2, platelet 123. Sodium 139, potassium 4.9, bicarb 33, BUN 40, creatinine of 3, calcium 8.5, phos 3.5. Current Medications: The patient on include Levaquin 250 daily, Lovenox, atorvastatin, metoprolol 50 b.i.d., Tylenol, Zofran, and levothyroxine. Assessment And Plan: 1.Acute kidney injury on chronic kidney disease. Still over volume. Hyperkalemia has been subside. I going to do another session of dialysis today, then we will schedule the patient to be Wednesday, , and Wednesday and we will watch for recovery in between. 2.Hypertension, controlled, optimal. Continue current medication. 3.Hyperkalemia secondary to renal failure. Still hopefully today after finishing dialysis, the nivia ent will be able to do the CAT scan as patient CK and TSH was within normal limit. Just to rule out any other source for his hyperkalemia. 4.Congestive heart failure. We will establish better volume control with the ultra filtration. Hop efully tomorrow we can start the patient on diuresis back. 5.Urinary tract infection secondary to Escherichia coli. Continue cephalosporin and we will follow up. SHERLYN/LYUDMILA Voice ID: [id number] Report ID: [id number]
--- NOTE | 2017-11-10 19:39 | CON ---
History Of Present Illness: A 52-year-old male with a history of morbid obesity , diabetes type 2, chronic kidney disease, hypertension Crohn disease, who has seen Dr. Aguilar in the past. He is not sure why. He is a poor historian, but he said Dr. Aguilar performed a cystoscopy and he is not sure what the results were or what the plan is for. The only thing he knows is that he has some urgency and frequency. Apparently, he came in with shortness of breath with nausea, muscle pain, and aches. He is now on dialysis and a Ruiz catheter was attempted, placement about 4-5 days ago in the ER. Since then, he has been having gross hematuria. He is on Lovenox daily. There is blood at the meatus. Chest x-ray on admission shows pulmonary edema. Potassium was 7.4 when he was admitted. Allergies: NO KNOWN DRUG ALLERGIES. Medications: Diltiazem, insulin, lisinopril, metoprolol, Plavix, fish oil, Lipitor, allopurinol, aspirin, ferrous sulfate, Lasix, and insulin. Past Medical History: Diabetes, hypertension, hypothyroid, chronic kidney disease, below the knee amputation on the left, cardiac stents in the past. Family History: Noncontributory. Social History: Former smoker. No alcohol. No drug use. Some caffeine use. Resides at home. Review of Systems: A 10-point review of systems otherwise unremarkable. Physical Examination: General: The patient is afebrile. Stable. Has 2 friends in the room with him. HEENT: Atraumatic, normocephalic. Neck: Supple. Respiratory: Clear. Heart: S1, S2. Abdomen: Soft, nontender. Musculoskeletal: No tenderness. Extremities: He has a left xhfay-bui-jayd amputation and he had blood at the meatus on the scrotum. The nurse said his urine has been bloody. Studies: Show he has a renal ultrasound done 11/05/2017, showed no hydro, no suspicious renal masses, but difficult ultrasound due to body habitus. He had an echocardiogram that showed normal left ventricular ejection fraction, left ventricular hypertrophy, dilated left atrium. Normal sinus rhythm. Assessment: Possible urethral trauma or gross hematuria since he has been in the hospital. The patient is on blood thinners. Unable to stop bleeding. Therefore, I am recommending we do a cystoscopy, possible fulguration, get a catheter in the patient since they want a catheter to monitor his I's and O's. He has acute kidney injury superimposed on chronic kidney disease, history of bradycardia, history of coronary artery disease, history of hyperkalemia, history of morbid obesity with body mass index of greater than 50, history of chronic renal failure, history of congestive heart failure, history of diabetes , history of left xsqma-jeb-jqch amputation, history of heart stents, history of lymphedema. Assessment: Possible traumatic urethra, gross hematuria over the last 5 days. Plan: For cystoscopy, fulguration, Ruiz placement in a.m. The patient ate dinner so it would not be until 6:30 a.m. to do case. He understands the risks and benefits, alternatives and wishes to proceed. Informed consent obtained. CARMINA Voice ID: [id number] Report ID: [id number] YEFRI
[2017-11-10] MEDS: ATORVASTATIN 40 MG TAB PO SCH (20:08)
[2017-11-11 04:17] LABS: HBsAG Nonreactive (Nonreactive)
[2017-11-11 05:33] LABS: Absolute Lymphocytes (CBC) 1.5 K/uL (0.7-4.9); Absolute Neutrophil 4.8 K/uL (1.8-8.0); Basophils % 0.6 % (0-1.3); Eosinophils % 1.7 % (0-4.4); Hematocrit 43.5 % (39.6-49.0); Lymphocytes % 20.5 % (15.3-44.8); MCH 32.7 pg (27.0-35.0); MCV 98.8 fL (80-100); MPV 8.7 fL (7.6-11.3); Monocytes % 12.9 % (3.3-12.3)
[2017-11-11 05:38] LABS: Albumin 2.9 g/dL (3.4-5.0); Phosphorus 4.1 mg/dL (2.5-4.9); Potassium 4.7 mmol/L (3.5-5.1)
[2017-11-11] MEDS: LEVOTHYROXINE SOD 0.125 MG TAB PO SCH (05:47)
[2017-11-11] MEDS ORDERED: NA CHLORIDE 0.9% 0 ML ONE (06:02)
[2017-11-11] MEDS ORDERED: NA CHLORIDE 0.9% 500 ML ONE (06:04)
[2017-11-11] MEDS ORDERED: SUCCINYLCHOLINE 20 MG/ML (10 ML) IV ONE (06:34)
[2017-11-11] MEDS ORDERED: FENTANYL CITR 100 MCG/2 ML ONE (06:36)
[2017-11-11] MEDS ORDERED: PROPOFOL 200 MG/20 ML VIAL IV ONE (06:36)
[2017-11-11] MEDS: INSULIN -REGULAR HUMAN 50 UNIT/0.5 ML ML SQ SCH ×6 (07:30→20:58)
[2017-11-11] MEDS ORDERED: OXYBUTYNIN CHLORIDE 5 MG TAB ONE (07:31)
[2017-11-11] MEDS: CLOPIDOGREL 75 MG TABLET PO SCH (08:23)
[2017-11-11] MEDS: levoFLOXacin 250 MG TAB PO SCH (09:49)
[2017-11-11] MEDS: FUROSEMIDE 40 MG/4 ML VIAL IV SCH ×2 (09:50→17:59)
[2017-11-11] MEDS: METOPROLOL TAR 50 MG TAB PO SCH ×2 (09:51→20:57)
--- NOTE | 2017-11-11 14:59 | P.PN ---
Subjective Date of Service: 11/11/17 Chief Complaint: hyperkalemia She has seen and examined at bedside with RN. Chart reviewed. Case discussed with nephrology. Currently patient is being monitored closely for his improvement in BUN and creatinine for the next 24-48 hr. Patient has no complaints to offer overnight states that he has been having some difficulty speaking and feels that he needs to go the bathroom but has not been able to see properly overnight. No other complaints to offer. Review of Systems General: As per HPI Physical Examination - Vital Signs Temperature: 97.1 F Blood Pressure: 129/63 Pulse: 43 Respirations: 16 Pulse Ox (%): 94 - Physical Exam General: Alert, In no apparent distress HEENT: Atraumatic, PERRLA, EOMI Neck: Supple, JVD not distended Respiratory: Clear to auscultation bilaterally, Normal air movement Cardiovascular: Regular rate/rhythm, Normal S1 S2 Gastrointestinal: Normal bowel sounds, No tenderness Musculoskeletal: No tenderness Integumentary: No rashes Neurological: Normal speech, Normal tone, Normal affect Lymphatics: No axilla or inguinal lymphadenopathy - Studies Medications List Reviewed: Yes Assessment & Plan - Problems (Diagnosis) (1) Acute kidney injury superimposed on CKD Onset Date: 11/08/17 Current Visit: Yes Status: Acute Plan: VIK on CKD -nephrology consulted. Appreciated recommendations. -currently patient has temporary dialysis catheter. The plan is for us to monitor BUN and creatinine for next 24-48 hr if patient has worsening of his BUN and creatinine. We will plan for a permanent catheter and patient will be on Wednesday dialysis. If patient has improvement in his BUN and creatinine that patient will be followed up outpatient with Nephrology for close monitoring. -currently BUN and creatinine stable (2) CAD (coronary artery disease) Onset Date: 11/08/17 Current Visit: Yes Status: Chronic Qualifiers: Coronary Disease-Associated Artery/Lesion type: [place] artery [place] vs. transplanted heart: [place] heart Associated angina: without angina Qualified Code(s): I25.10 - Atherosclerotic heart disease of [place] coronary artery without angina pectoris (3) Congestive heart failure Current Visit: No Status: Chronic (4) Diabetes Current Visit: No Status: Chronic Qualifiers: Diabetes mellitus type: type 2 Diabetes mellitus communication spec insulin use: without communication spec use Diabetes mellitus complication status: with skin complications Diabetes mellitus complication detail: with foot ulcer Qualified Code(s): E11.621 - Type 2 diabetes mellitus with foot ulcer; L97.509 - Non-pressure chronic ulcer of other part of unspecified foot with unspecified severity (5) Gout Current Visit: No Status: Chronic Qualifiers: Gout site: knee Gout etiology: unspecified cause Chronicity: chronic Laterality: unspecified laterality Qualified Code(s): M1A.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, unspecified knee, without tophus (tophi) (6) History of left below knee amputation Current Visit: No Status: Chronic (7) Hx of heart artery stent Current Visit: No Status: Chronic (8) Morbid obesity with BMI of 50.0-59.9, adult Onset Date: 11/08/17 Current Visit: Yes Status: Chronic Discharge Plan: Home Plan to discharge in: 24 Hours - Code Status/Comfort Care Code Status Assessed: Yes Critical Care: No
[2017-11-11] MEDS ORDERED: ALLOPURINOL 300 MG TAB PO ONE (15:00)
[2017-11-11] MEDS: ATORVASTATIN 40 MG TAB PO SCH (20:57)
--- NOTE | 2017-11-11 21:49 | PN ---
Date of Progress Note: 11/11/2017 Subjective: The patient was admitted with acute kidney injury secondary to cardiorenal complicated w ith severe hyperkalemia, had jwjt-[id number] dialysis of 4 session. Currently his potassium started merritt ng controlled. The patient still oliguric, last dialysis yesterday, feeling better. Physical Examination: General: When I saw the patient, the patient lying in bed, not in any distress, still on nasal cannu la. Vital Signs: Blood pressure of 138/70, pulse of 88. Chest: Crackles bilateral. Heart: S1, S2. Regular. Systolic murmur. Abdomen: Soft, nontender. Extremity: Plus edema on the left. Above-knee amputation on the right. Neuro: Alert, oriented x3. Non focal. Current Medications: 1.Tylenol. 2.Breathing treatment. 3.Allopurinol 300. 4.Cholecalciferol. 5.Atorvastatin. 6.Plavix. 7.Insulin. 8.Lasix 40 b.i.d. 9.Metoprolol. Laboratory Data: WBC 7.5, H and H 14.4/43.5. Sodium 138, potassium 4.7, bicarb 29, BUN 44, creatini ne 3.1, calcium 8.6, phos 4.1. Assessment And Plan: 1.Acute kidney injury on chronic kidney disease secondary to cardiorenal, still on the wet side for recovery. I am going to continue dialysis on Wednesday, Wednesday, Wednesday. We will check labs tomorrow . If kidney function start to improve as the predialysis at that time would watch, if it is not, the patient is going to need PermCath for arrangement for outpatient hemodialysis. 2.Hypertension. We will keep vitalizing the blood pressure to establish better volume control with the dialysis and ultrafiltration and diuresis. 3.Coronary artery disease. Continue current treatment. 4.Congestive heart failure. As above, we will ultrafiltrate and diurese. 5.Hyperkalemia, resolved. 6.Chronic obstructive pulmonary disease. Continue BiPAP. Case discussed with hospitalist and agreed on the plan. Discussed with Dr. Jones. Discussed with th e patient who verbalized understanding. JESSY Voice ID: [id number] Report ID: [id number]
[2017-11-12] MEDS: LEVOTHYROXINE SOD 0.125 MG TAB PO SCH (06:00)
[2017-11-12] MEDS: INSULIN -REGULAR HUMAN 50 UNIT/0.5 ML ML SQ SCH ×4 (07:30→20:54)
[2017-11-12] MEDS: CLOPIDOGREL 75 MG TABLET PO SCH (09:00)
[2017-11-12] MEDS: VITAMIN D 1000 UNIT TAB PO SCH (09:00)
[2017-11-12] MEDS: ALLOPURINOL 300 MG TAB PO SCH ×2 (09:00→17:06)
[2017-11-12] MEDS: FERROUS SULFATE 325 MG TAB PO SCH (09:00)
[2017-11-12] MEDS: DOCOSAHEXANOIC AC/EPA 1000 MG PO SCH (09:00)
[2017-11-12] MEDS: FUROSEMIDE 40 MG/4 ML VIAL IV SCH ×2 (09:00→17:06)
[2017-11-12] MEDS: levoFLOXacin 250 MG TAB PO SCH ×2 (09:00→17:06)
[2017-11-12] MEDS: METOPROLOL TAR 50 MG TAB PO SCH ×2 (09:00→20:53)
[2017-11-12] MEDS: ASCORBIC ACID 500 MG TABLET PO SCH (09:00)
[2017-11-12] MEDS: ZINC SULFATE 220 MG CAP PO SCH (09:00)
[2017-11-12 09:18] LABS: Albumin 2.8 g/dL (3.4-5.0); Phosphorus 4.7 mg/dL (2.5-4.9); Potassium 4.6 mmol/L (3.5-5.1)
--- NOTE | 2017-11-12 11:30 | P.PN ---
Subjective Date of Service: 11/12/17 Chief Complaint: hyperkalemia She has seen and examined at bedside with RN. Chart reviewed. Case discussed with nephrology. BUN/CR elevated this AM. Patient currently is in dialysis. Had breakfast this morning. Will keep NPO at this time for possibility of permanent catheter today. Overnight desaturated down to 70% on 2 L nasal cannula. Oxygen was turned up and patient saturated 94% on 4 L of nasal cannula Review of Systems General: As per HPI Physical Examination - Vital Signs Temperature: 97.4 F Blood Pressure: 129/65 Pulse: 59 Respirations: 20 Pulse Ox (%): 95 - Physical Exam General: Alert, In no apparent distress HEENT: Atraumatic, PERRLA, EOMI Neck: Supple, JVD not distended Respiratory: Normal air movement, Crackles/rales Cardiovascular: Regular rate/rhythm, Normal S1 S2 Gastrointestinal: Normal bowel sounds, No tenderness Musculoskeletal: No tenderness Integumentary: No rashes Neurological: Normal speech, Normal tone, Normal affect Lymphatics: No axilla or inguinal lymphadenopathy - Studies Medications List Reviewed: Yes Assessment & Plan - Problems (Diagnosis) (1) Acute kidney injury superimposed on CKD Onset Date: 11/08/17 Current Visit: Yes Status: Acute Plan: VIK on CKD -nephrology consulted. Appreciated recommendations. -currently patient has temporary dialysis catheter. Due to Worsening of the BUN.CR, We will plan for a permanent catheter and patient will be on Wednesday dialysis. (2) CAD (coronary artery disease) Onset Date: 11/08/17 Current Visit: Yes Status: Chronic Qualifiers: Coronary Disease-Associated Artery/Lesion type: [place] artery [place] vs. transplanted heart: [place] heart Associated angina: without angina Qualified Code(s): I25.10 - Atherosclerotic heart disease of [place] coronary artery without angina pectoris (3) Congestive heart failure Current Visit: No Status: Chronic (4) Diabetes Current Visit: No Status: Chronic Qualifiers: Diabetes mellitus type: type 2 Diabetes mellitus rn long term care insulin use: without fpc use Diabetes mellitus complication status: with skin complications Diabetes mellitus complication detail: with foot ulcer Qualified Code(s): E11.621 - Type 2 diabetes mellitus with foot ulcer; L97.509 - Non-pressure chronic ulcer of other part of unspecified foot with unspecified severity (5) Gout Current Visit: No Status: Chronic Qualifiers: Gout site: knee Gout etiology: unspecified cause Chronicity: chronic Laterality: unspecified laterality Qualified Code(s): M1A.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, unspecified knee, without tophus (tophi) (6) History of left below knee amputation Current Visit: No Status: Chronic (7) Hx of heart artery stent Current Visit: No Status: Chronic (8) Morbid obesity with BMI of 50.0-59.9, adult Onset Date: 11/08/17 Current Visit: Yes Status: Chronic Discharge Plan: Home Plan to discharge in: 48 Hours - Code Status/Comfort Care Code Status Assessed: Yes Critical Care: No
[2017-11-12] MEDS: ATORVASTATIN 40 MG TAB PO SCH (20:53)
--- NOTE | 2017-11-13 00:28 | PN ---
Date of Progress Note: 11/12/2017 Chief Complaint/history Of Present Illness: Acute kidney injury secondary to cardiorenal syndrome as sociated with hyperkalemia. The patient is dialysis dependent. He received dialysis daily with 4-se ssion course. The patient is feeling better today. He remains borderline oliguric. Last dialysis w as done on November 08, although the patient is feeling better. Blood pressure has been in good control. Review of Systems: Denies fever or chills. Physical Examination: Lungs: Few crackles at bases. Heart: S1, S2. Abdomen: Soft, benign. Extremities: Slight edema. Laboratory Data: Hemoglobin 14.4, WBC 7.5, platelet count is 127,000. Sodium 137, potassium 4.6, ch loride 101, CO2 29, BUN 58, creatinine 3.4, creatinine level is trending up. Plan is to monitor urine output. Urine output is somewhat improving. Over the last 24 hours, urine output increased up to 1.5 L. Continue diuretic as needed for cardiorenal syndrome. Assessment And Plan: 1.Hyperuricemia. The patient is on allopurinol. Currently, gout is controlled. 2.Vitamin D deficiency. Continue D3 replacement. 3.Anemia with iron deficiency. Continue iron supplement. 4.Cardiorenal syndrome, on Lasix. The patient will continue Lasix. Monitor potassium and renal panel. 5.Diabetes mellitus with renal manifestation. Continue insulin. JASON/KEVINL Voice ID: [id number] Report ID: [id number]
[2017-11-13 05:28] LABS: Potassium 4.9 mmol/L (3.5-5.1)
[2017-11-13] MEDS: LEVOTHYROXINE SOD 0.125 MG TAB PO SCH (05:33)
[2017-11-13] MEDS: INSULIN -REGULAR HUMAN 50 UNIT/0.5 ML ML SQ SCH ×4 (08:22→22:02)
[2017-11-13] MEDS: CLOPIDOGREL 75 MG TABLET PO SCH ×2 (09:00→09:28)
[2017-11-13] MEDS: ACETAMINOPHEN 500 MG TAB PO PRN ×2 (09:26→14:46)
[2017-11-13] MEDS: VITAMIN D 1000 UNIT TAB PO SCH (09:27)
[2017-11-13] MEDS: ASCORBIC ACID 500 MG TABLET PO SCH (09:27)
[2017-11-13] MEDS: METOPROLOL TAR 50 MG TAB PO SCH ×2 (09:28→22:00)
[2017-11-13] MEDS: DOCOSAHEXANOIC AC/EPA 1000 MG PO SCH (09:28)
[2017-11-13] MEDS: FERROUS SULFATE 325 MG TAB PO SCH (09:28)
[2017-11-13] MEDS: levoFLOXacin 250 MG TAB PO SCH (09:28)
[2017-11-13] MEDS: ALLOPURINOL 300 MG TAB PO SCH (09:29)
[2017-11-13] MEDS: ZINC SULFATE 220 MG CAP PO SCH (09:29)
[2017-11-13] MEDS: FUROSEMIDE 40 MG/4 ML VIAL IV SCH (09:29)
--- NOTE | 2017-11-13 12:22 | P.PN ---
Subjective Date of Service: 11/13/17 Chief Complaint: hyperkalemia She has seen and examined at bedside with RN. Chart reviewed. Case discussed with nephrology. Patient got dialysis yesterday. Feeling much better this morning. Still has been complaining of having some shortness of breath. No other complaints overnight. Awaiting improvement in kidney function at this time. Tentatively scheduled to place a permanent catheter on Wednesday Review of Systems General: As per HPI Physical Examination - Vital Signs Temperature: 98.4 F Blood Pressure: 138/53 Pulse: 64 Respirations: 18 Pulse Ox (%): 96 - Physical Exam General: Alert, In no apparent distress, Oriented x3, Obese HEENT: Atraumatic Neck: Supple, JVD not distended Respiratory: Clear to auscultation bilaterally, Normal air movement Cardiovascular: Regular rate/rhythm, Normal S1 S2 Gastrointestinal: Normal bowel sounds, No tenderness Musculoskeletal: Other (Left BKA and Right LE wrapped in artur wrap) Integumentary: No rashes Neurological: Normal speech, Normal tone, Normal affect Lymphatics: No axilla or inguinal lymphadenopathy - Studies Medications List Reviewed: Yes Assessment & Plan - Problems (Diagnosis) (1) Acute kidney injury superimposed on CKD Onset Date: 11/08/17 Current Visit: Yes Status: Acute Plan: VIK on CKD -nephrology consulted. Appreciated recommendations. -currently patient has temporary dialysis catheter. -Monitoring for improvement of BUN.CR. -If further Worsening of the BUN.CR, We will plan for a permanent catheter. -BUN/CR improved today. Pt however s.p Dialysis yesterday (2) CAD (coronary artery disease) Onset Date: 11/08/17 Current Visit: Yes Status: Chronic Qualifiers: Coronary Disease-Associated Artery/Lesion type: [place] artery [place] vs. 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 [facility] use Diabetes mellitus complication status: with skin complications Diabetes mellitus complication detail: with foot ulcer Qualified Code(s): E11.621 - Type 2 diabetes mellitus with foot ulcer; L97.509 - Non-pressure chronic ulcer of other part of unspecified foot with unspecified severity (5) Gout Current Visit: No Status: Chronic Qualifiers: Gout site: knee Gout etiology: unspecified cause Chronicity: chronic Laterality: unspecified laterality Qualified Code(s): M1A.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, unspecified knee, without tophus (tophi) (6) History of left below knee amputation Current Visit: No Status: Chronic (7) Hx of heart artery stent Current Visit: No Status: Chronic (8) Morbid obesity with BMI of 50.0-59.9, adult Onset Date: 11/08/17 Current Visit: Yes Status: Chronic (9) Idiopathic stricture of urethra Current Visit: Yes Status: Acute Plan: S.P Cystoscopy POD # 2 -Ruiz Catheter in Place -Will observe Discharge Plan: Home Plan to discharge in: 72 Hours - Code Status/Comfort Care Code Status Assessed: Yes Critical Care: No
[2017-11-13] MEDS: FUROSEMIDE 40 MG TABLET PO SCH (16:20)
[2017-11-13] MEDS: ATORVASTATIN 40 MG TAB PO SCH (22:01)
--- NOTE | 2017-11-14 04:26 | PN ---
Date of Progress Note: 11/13/2017 Chief Complaint: Cenlk-ok-cqvifzf kidney injury. History Of Present Illness: The patient is undergoing reevaluation with daily renal panel to check for any evidence of renal function recovery. His serum creatinine is plateauing, yesterday creatinine was 3.4. Review of Systems: Denies complaints. Physical Examination: Lungs: Few crackles at bases. Heart: S1, S2. Abdomen: Soft, benign. Extremities: Edema in both legs. Laboratory Data: Hemoglobin 14.4, WBC 7.5, platelet count is 127,000. Sodium 135, potassium 4.9, chloride 102, CO2 29, BUN 57, creatinine 3.3, glucose 118, calcium 9.2. Impression And Plan: 1. Acute kidney injury, in early recovery phase. Continue to monitor electrolytes and fluid balance. Avoid nonsteroidal anti-inflammatory medication. 2. Hypertension. Blood pressure controlled. 3. Fluid overload. The patient may require diuretics. Continue current treatment. DUYEN Voice ID: [id number] Report ID: [id number] YEFRI
[2017-11-14] MEDS: LEVOTHYROXINE SOD 0.125 MG TAB PO SCH (05:53)
[2017-11-14] MEDS: INSULIN -REGULAR HUMAN 50 UNIT/0.5 ML ML SQ SCH ×4 (07:30→21:54)
[2017-11-14] MEDS: DOCOSAHEXANOIC AC/EPA 1000 MG PO SCH (08:47)
[2017-11-14] MEDS: METOPROLOL TAR 50 MG TAB PO SCH ×2 (08:47→21:52)
[2017-11-14] MEDS: ZINC SULFATE 220 MG CAP PO SCH (08:47)
[2017-11-14] MEDS: levoFLOXacin 250 MG TAB PO SCH (08:47)
[2017-11-14] MEDS: VITAMIN D 1000 UNIT TAB PO SCH (08:47)
[2017-11-14] MEDS: FERROUS SULFATE 325 MG TAB PO SCH (08:48)
[2017-11-14] MEDS: ALLOPURINOL 300 MG TAB PO SCH (08:48)
[2017-11-14] MEDS: CLOPIDOGREL 75 MG TABLET PO SCH (08:48)
[2017-11-14] MEDS: ASCORBIC ACID 500 MG TABLET PO SCH (08:48)
[2017-11-14] MEDS: FUROSEMIDE 40 MG TABLET PO SCH ×2 (08:48→17:09)
[2017-11-14 10:35] LABS: Potassium 4.7 mmol/L (3.5-5.1)
--- NOTE | 2017-11-14 11:29 | P.PN ---
Subjective Date of Service: 11/14/17 Chief Complaint: hyperkalemia She has seen and examined at bedside with RN. Chart reviewed. Case discussed with nephrology. No other complaints overnight. Awaiting improvement in kidney function at this time. Tentatively scheduled to place a permanent catheter on Wednesday Review of Systems General: As per HPI Physical Examination - Vital Signs Temperature: 96.9 F Blood Pressure: 160/77 Pulse: 59 Respirations: 17 Pulse Ox (%): 96 - Physical Exam General: Alert, In no apparent distress, Oriented x3 HEENT: Atraumatic, PERRLA, EOMI Neck: Supple, JVD not distended Respiratory: Normal air movement, Crackles/rales Cardiovascular: Regular rate/rhythm, Normal S1 S2 Gastrointestinal: Normal bowel sounds, No tenderness Musculoskeletal: No tenderness Integumentary: Other (left sided BKA) Neurological: Normal speech, Normal tone, Normal affect Lymphatics: No axilla or inguinal lymphadenopathy - Studies Medications List Reviewed: Yes Assessment & Plan - Problems (Diagnosis) (1) Acute kidney injury superimposed on CKD Onset Date: 11/08/17 Current Visit: Yes Status: Acute Plan: VIK on CKD -nephrology consulted. Appreciated recommendations. -currently patient has temporary dialysis catheter. -Monitoring for improvement of BUN.CR. -If further Worsening of the BUN.CR, We will plan for a permanent catheter. (2) CAD (coronary artery disease) Onset Date: 11/08/17 Current Visit: Yes Status: Chronic Qualifiers: Coronary Disease-Associated Artery/Lesion type: [place] artery [place] vs. transplanted heart: [place] heart Associated angina: without angina Qualified Code(s): I25.10 - Atherosclerotic heart disease of [place] coronary artery without angina pectoris (3) Congestive heart failure Current Visit: No Status: Chronic (4) Diabetes Current Visit: No Status: Chronic Qualifiers: Diabetes mellitus type: type 2 Diabetes mellitus jail insulin use: without jail use Diabetes mellitus complication status: with skin complications Diabetes mellitus complication detail: with foot ulcer Qualified Code(s): E11.621 - Type 2 diabetes mellitus with foot ulcer; L97.509 - Non-pressure chronic ulcer of other part of unspecified foot with unspecified severity (5) Gout Current Visit: No Status: Chronic Qualifiers: Gout site: knee Gout etiology: unspecified cause Chronicity: chronic Laterality: unspecified laterality Qualified Code(s): M1A.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, unspecified knee, without tophus (tophi) (6) History of left below knee amputation Current Visit: No Status: Chronic (7) Hx of heart artery stent Current Visit: No Status: Chronic (8) Morbid obesity with BMI of 50.0-59.9, adult Onset Date: 11/08/17 Current Visit: Yes Status: Chronic (9) Idiopathic stricture of urethra Current Visit: Yes Status: Acute Plan: S.P Cystoscopy POD # 2 -Ruiz Catheter in Place -Will observe Discharge Plan: Home Plan to discharge in: 72 Hours - Code Status/Comfort Care Code Status Assessed: Yes Critical Care: No
--- NOTE | 2017-11-14 16:50 | RAD REPORT ---
EXAM DESCRIPTION: RAD - Chest Single View - 11/14/2017 3:49 pm CLINICAL HISTORY: Dyspnea COMPARISON: November 10 TECHNIQUE: AP portable chest image was obtained 1529 hours . FINDINGS: No focal consolidation or mass. Interstitial and minimal alveolar opacities are present. U pper lobe vasculature is mildly prominent. Heart size is upper normal for body habitus and portable i maging. Lung markings have increased over the comparison. No measurable pleural effusion and no pneum othorax. No gross bony abnormality seen. No acute aortic findings suspected. IMPRESSION: Interstitial and alveolar opacities have increased since November 10. Heart size is upper normal. Mild failure or volume overload suspected. Focal pneumonia is less likely.
--- NOTE | 2017-11-14 19:28 | PN ---
Date of Progress Note: 11/11/2017 Mr. Pinedo was admitted to Dr. Orta on 11/07/2017. Dr. Cervantes saw him because he had at [facility] fibrillation. He is now in sinus rhythm after beta-blockers. He is on hemodialysis now for acu te renal failure. Echocardiogram that was done yesterday showed LVH with normal ejection fraction. He should go home on beta-brittany and anticoagulant, probably Coumadin or the Eliquis depending on wh at his primary care physician decides. We would like to see him in the office in about 2 weeks. JESUS/LYUDMILA Voice ID: [id number] Report ID: [id number]
[2017-11-14] MEDS: ATORVASTATIN 40 MG TAB PO SCH (21:51)
--- NOTE | 2017-11-15 04:13 | PN ---
Date of Progress Note: 11/14/2017 Chief Complaint: Acute kidney injury on advanced chronic kidney disease, nonoliguric. History: Azotemia has worsened over last 24 hours. The patient is to have permanent dialysis catheter placement to continue dialysis in outpatient setting. The patient has multiple medical problems including history of congestive heart failure. He has been on diuretics for anasarca. The patient is bedbound. Remains on oxygen. He has diabetic kidney disease and hypertensive kidney disease. BUN is 71 today, creatinine 3.20. Review of Systems: Denies PND, orthopnea. Has dyspnea on exertion. Denies nausea, vomiting, melena, hematemesis. Physical Examination: Lungs: Crackles bilaterally present. Heart: S1, S2. Abdomen: Obese, soft, nontender. Extremities: Anasarca. Vital Signs: Blood pressure 140/64, SpO2 94% on 2 L nasal cannula, temperature 97. Laboratory Work: Sodium 134, potassium 4.7, chloride 101, CO2 29, BUN 71, creatinine 3.20, calcium 9.2. Impression And Plan: 1. Acute kidney injury, cardiorenal syndrome, fluid overload, anasarca. Plan is to continue dialysis 3 times per week. The patient has multiple comorbidities. He presented to the hospital with severe fluid overload, shortness of breath. He was admitted to ICU. The patient was started on dialysis for severe fluid overload and the patient will need to continue dialysis 3 times per week. Re-evaluate kidney function and electrolytes , continue renal diet and po fluid restriction, patient is dialysis dependent, continue dialysis. 2. Hypertension. Continue blood pressure medication. 3. Diabetes mellitus. Continue insulin. 4. Congestive heart failure, anasarca. Continue Lasix and dialysis with ultrafiltration. Adjust ultrafiltration goal to control fluid overload. I spemt total 36 min including 26 min to coordinate care plan. JASON/LYUDMILA Voice ID: [id number] Report ID: [id number] YEFRI
[2017-11-15 05:44] LABS: Potassium 4.6 mmol/L (3.5-5.1)
[2017-11-15] MEDS: LEVOTHYROXINE SOD 0.125 MG TAB PO SCH (06:00)
[2017-11-15] MEDS: INSULIN -REGULAR HUMAN 50 UNIT/0.5 ML ML SQ SCH ×4 (07:30→21:33)
[2017-11-15] MEDS: METOPROLOL TAR 50 MG TAB PO SCH ×2 (08:39→21:33)
[2017-11-15] MEDS: DOCOSAHEXANOIC AC/EPA 1000 MG PO SCH (09:00)
[2017-11-15] MEDS: ASCORBIC ACID 500 MG TABLET PO SCH (09:00)
[2017-11-15] MEDS: VITAMIN D 1000 UNIT TAB PO SCH (09:00)
[2017-11-15] MEDS: CLOPIDOGREL 75 MG TABLET PO SCH (09:00)
[2017-11-15] MEDS: FERROUS SULFATE 325 MG TAB PO SCH (09:00)
[2017-11-15] MEDS: ZINC SULFATE 220 MG CAP PO SCH (09:00)
--- NOTE | 2017-11-15 12:04 | PN ---
Date of Progress Note: 11/15/2017 Subjective: The patient is seen and examined. Chart reviewed and case discussed with RN. The patient is still continuing on hemodialysis. Review of Systems: Negative except as above. Medications: List reviewed. Physical Examination: Vital Signs: Temperature 97.5, heart rate 67, blood pressure 115/51, respirations 18, O2 94% on 2 L via nasal cannula. General: Awake, alert, oriented x3. Morbidly obese male, BMI 55. No acute distress, CV: S1, S2. No murmurs. Peripheral pulses present. Respiratory: Moving air well bilaterally. No wheezing. Gastrointestinal: Abdomen is soft, nontender, nondistended. Positive bowel sounds. Extremities: No clubbing, cyanosis. The patient does have lower extremity edema. Neurologic: Nonfocal. Laboratory Data: Sodium 135, potassium 4.6, chloride 100, CO2 29, BUN 80, creatinine 3.2, glucose 316, calcium 9.5. Blood cultures, no growth. Urine culture shows E. coli. Assessment And Plan: A 52-year-old male with: 1. Acute on chronic kidney injury. The patient continues on dialysis. Creatinine is stable. Appreciate Nephrology input. We will continue to monitor. May need a permanent catheter placement. 2. Coronary artery disease, [place] artery and [place] heart without angina. 3. Congestive heart failure, chronic, diastolic, EF is 58%. 4. Hypertensive heart disease. 5. Diabetes mellitus type 2 without long-term use of insulin. 6. Gout. 7. History of left BKA. 8. History of stricture of the urethra status post cystoscopy, postoperative day #3. Ruiz catheter in place. 9. Morbid obesity, BMI 55. 10. Gastrointestinal and deep venous thrombosis prophylaxis addressed. 11. Afib: currently sinus rhythm. Anti-coag on hold due to hematuria 12. Gross hematuria: improved. Catheter in place. Appreciate Dr. Victor input. SA/MODL Voice ID: [id number] Report ID: [id number] MTDD
[2017-11-15] MEDS: ALLOPURINOL 300 MG TAB PO SCH (13:32)
[2017-11-15] MEDS: levoFLOXacin 250 MG TAB PO SCH (13:32)
[2017-11-15] MEDS: FUROSEMIDE 40 MG TABLET PO SCH ×2 (13:40→17:00)
[2017-11-15] MEDS: ATORVASTATIN 40 MG TAB PO SCH (21:33)
--- NOTE | 2017-11-16 01:55 | PN ---
Subjective: The patient is doing well. Catheter does not hurt anymore as it was before. [facility] Catheter is draining well though. Vital signs stable. Urine output is g ood. He is still on dialysis. Laboratory Data: Shows white count 7.5, H and H 14 and 43, platelet count 127. Chemistry shows gluc ose 248, sodium 135, potassium 4.6, chloride 100, carbon dioxide 29, BUN 80, creatinine 3.2, GFR is 2 0, and microbiology shows E. coli infection. His urine that grew on 11/08/2017, was sensitive to Krzysztof trim, nitrofurantoin, Levaquin, and Cipro. The patient is on Levaquin now. Assessment: Urinary tract infection, urethral stricture, status post direct visual internal urethrot evelia, urine clear. Plan: Continue to leave the catheter in for at least 7 days. Treat the UTI. Continue medical manag ement. Renal dialysis as per Nephrology. PB/MODL Voice ID: [id number] Report ID: [id number]
--- NOTE | 2017-11-16 03:50 | PN ---
Chief Complaint: Acute kidney injury on advanced chronic kidney disease, nonoliguric. History Of Present Illness: The patient has severe azotemia. The patient is on diuretics to control volume overload. Dialysis will be resumed today via temporary dialysis catheter. The patient has acute on chronic kidney injury. Renal function has not improved significantly. Review of Systems: Denies fever, chills. Physical Examination: Lungs: Crackles bilaterally present. Heart: S1, S2. Abdomen: Soft, obese, benign. Extremities: Edema present in both legs. Lab Work: Hemoglobin 14.4, WBC 7.5, platelet count is 127,00. Chemistries: Sodium 135, potassium 4.3, chloride 100, CO2 29, BUN 80, creatinine 3.20, glucose 316, calcium 9.5. Impression And Plan: 1. Acute kidney injury. Dialysis is scheduled today with ultrafiltration. Monitor blood pressure closely. 2. Continue diuretics. 3. Anemia CKD. Monitor hemoglobin level. Adjust CRISTIANO. 4. Diabetes mellitus. Continue insulin per sliding scale. 5. Congestive heart failure, anasarca. Lasix will be used to control volemia. The patient needs to continue dialysis for azotemia control and volemia control. JASON/MODL Voice ID: [id number] Report ID: [id number] YEFRI
[2017-11-16] MEDS: LEVOTHYROXINE SOD 0.125 MG TAB PO SCH (06:00)
[2017-11-16] MEDS: INSULIN -REGULAR HUMAN 50 UNIT/0.5 ML ML SQ SCH ×6 (10:00→21:10)
[2017-11-16] MEDS: FUROSEMIDE 40 MG TABLET PO SCH ×2 (10:41→17:44)
[2017-11-16] MEDS: levoFLOXacin 250 MG TAB PO SCH (10:41)
[2017-11-16] MEDS: METOPROLOL TAR 50 MG TAB PO SCH ×2 (10:42→21:09)
[2017-11-16] MEDS: ALLOPURINOL 300 MG TAB PO SCH (10:43)
[2017-11-16] MEDS ORDERED: NS 0.9% VIAL 10 ML ONE (11:26)
[2017-11-16] MEDS ORDERED: LIDOCAINE 1% MPF 5 ML VIAL ONE (11:27)
[2017-11-16] MEDS ORDERED: HEPARIN 5000 UNIT/ML 1 ML VIAL ONE (11:27)
[2017-11-16] MEDS ORDERED: NA CHLORIDE 0.9% 100 ML IV ONE (11:27)
[2017-11-16] MEDS ORDERED: NA CHLORIDE 0.9% 500 ML ONE (11:28)
--- NOTE | 2017-11-16 11:58 | PN ---
Subjective: The patient is resting in bed. Objective: Vital Signs: Stable. Making urine Assessment: Status post direct vision internal urethrotomy. The patient on dialysis for acute on ch ronic renal failure. Plan: To keep the catheter at least for 7 days or at least while in the hospital and will follow up as an outpatient for serial dilations q. monthly. TERRI/LYUDMILA Voice ID: [id number] Report ID: [id number]
[2017-11-16] MEDS ORDERED: PROPOFOL 200 MG/20 ML VIAL IV ONE (13:10)
[2017-11-16] MEDS ORDERED: MORPHINE 4 MG/ML SYR ONE (13:11)
[2017-11-16] MEDS ORDERED: ONDANSETRON 4 MG/2 ML VIAL ONE (13:11)
[2017-11-16] MEDS ORDERED: FENTANYL CITR 100 MCG/2 ML ONE (13:12)
--- NOTE | 2017-11-16 13:32 | P.OP ---
Preoperative diagnosis: ESRD Postoperative diagnosis: same Primary procedure: RIJ Tesio Catheter Secondary procedure: Fluoroscopy Anesthesia: General Estimated blood loss: min Specimen: none Findings: normal anatomy Complications: None Transferred to: Recovery Room Condition: Good
--- NOTE | 2017-11-16 13:51 | RAD REPORT ---
EXAM DESCRIPTION: RAD - Fluoroscopy <1 Hour - 11/16/2017 1:41 pm FINDINGS: Fluoroscopic assisted Tessio catheter placement performed. The 2 submitted images show no suspicious or unexpected findings. Fluoro time was less than 0.1 minutes. Cumulative dose was 1.17 mGy.
--- NOTE | 2017-11-16 14:40 | RAD REPORT ---
EXAM DESCRIPTION: RAD - Chest Single View - 11/16/2017 2:15 pm CLINICAL HISTORY: Tessio catheter placement COMPARISON: November 14 TECHNIQUE: AP portable chest image was obtained 1403 hours . FINDINGS: Right-sided Tessio catheter has been placed. Long and short arm of the catheter are in the proximal and mid SVC. No pneumothorax. Heart, vasculature and lung markings are similar to the prior day study. Shallow inspiration accentua jeana these findings. IMPRESSION: Tessio catheter in good position. No pneumothorax.
--- NOTE | 2017-11-16 14:58 | PREOPCON ---
Reason: The patient needs Tesio catheter. History Of Present Illness: The patient is a 52-year-old gentleman with multiple medical problems wa s admitted with congestive heart failure, neuropathy and nephropathy and required emergent dialysis. Dr. Garibay placed a left groin temporary catheter and now the patient requires a Tesio catheter in his neck or chest so he can be discharged home. As Dr. Garibay is out of town, I was consulted. The patient is awake and alert. No complaints. No fever or chills. Review of Systems: Otherwise unremarkable. Past Medical History: Hypertension, diabetes, end-stage renal disease, peripheral vascular disease, status post left below-knee amputation, hyperlipidemia, coronary artery disease, status post PTCA, ur oplasty, congestive heart failure. Allergies: NONE. Social History: The patient did smoke and quit 8 years ago. Does not do any IV drugs; however, he d oes drink alcohol. Family History: Significant for diabetes, hypertension. Physical Examination: Vital Signs: Stable, afebrile. General: Awake, alert, and oriented x3. Head and Neck: No masses. Chest: Clear. Heart: S1, S2. Abdomen: Soft. Extremities: Neurovascularly intact. Neuro: Nonfocal. Laboratory Data: Reviewed. Assessment: End-stage renal disease. Plan: We will attempt to put a Tesio catheter. The patient understands the risks, benefits, and alt ernatives and agrees to the procedure. GABY/LYUDMILA Voice ID: [id number] Report ID: [id number]
[2017-11-16] MEDS: DOCOSAHEXANOIC AC/EPA 1000 MG PO SCH (15:19)
[2017-11-16] MEDS: ASCORBIC ACID 500 MG TABLET PO SCH (15:19)
[2017-11-16] MEDS: FERROUS SULFATE 325 MG TAB PO SCH (15:20)
[2017-11-16] MEDS: VITAMIN D 1000 UNIT TAB PO SCH (15:21)
[2017-11-16] MEDS: ZINC SULFATE 220 MG CAP PO SCH (15:21)
[2017-11-16] MEDS: CLOPIDOGREL 75 MG TABLET PO SCH (15:26)
--- NOTE | 2017-11-16 18:05 | PN ---
Date of Progress Note: 11/16/2017 Subjective: The patient is seen and examined. Chart reviewed and case discussed with Dr. Kapoor. Th e patient currently n.p.o., awaiting Tesio catheter placement. Review of Systems: Negative except as above. Medications: List reviewed. Physical Examination: Vital Signs: Temperature 97.2, heart rate 60, blood pressure 116/70, respirations 18, O2 93% on 1.5 L via nasal cannula. General: Awake, alert, oriented x3, not in any acute distress. Appears older than stated age, ill-a ppearing male, BMI 55. CV: S1, S2. Regular rate and rhythm. Peripheral pulses present. Respiratory: Moving air well bilaterally. No wheezing. Gastrointestinal: Abdomen is soft, nontender, nondistended. Positive bowel sounds. Extremities: No clubbing, cyanosis. The patient does have lower extremity edema bilaterally. Neurologic: Nonfocal. Laboratory Data: Sodium 135. Blood glucose level ranging from 267 to 213. Blood cultures, no growt h to date. Urine culture growing E. coli. Assessment And Plan: A 52-year-old male with: 1.Acute on chronic kidney injury. Continue dialysis. The patient is going for Tesio catheter place ment by Dr. Kapoor today. Appreciate Nephrology input. 2.Coronary artery disease, [place] artery and [place] heart without angina, stable. 3.Chronic diastolic heart failure with EF 58%. Monitor I's and O's. Fluid restriction. 4.Hypertensive heart disease. 5.Diabetes mellitus type 2 without long-term use of insulin with hyperglycemia. Continue sliding sc saroj insulin. 6.Gout. 7.History of left BKA. 8.Stricture of the urethra status post cystoscopy, postoperative day #4. The patient will need fritz hly dilatations. Appreciate Dr. Junior's input. 9.Morbid obesity, BMI 55. 10.Atrial fibrillation, currently in sinus rhythm. Anticoagulation on hold due to hematuria. 11.Gross hematuria, improved. Catheter in place. 12.Gastrointestinal and deep venous thrombosis prophylaxis addressed. Plan: Tesio catheter placement today. Appreciate Dr. Kapoor's input. SA/MODL Voice ID: [id number] Report ID: [id number]
[2017-11-16] MEDS: ATORVASTATIN 40 MG TAB PO SCH (21:10)
--- NOTE | 2017-11-17 00:23 | OP ---
Date of Procedure: 11/16/2017 Surgeon: Jose Kapoor MD Preoperative Diagnosis: End-stage renal disease. Postoperative Diagnosis: End-stage renal disease. Procedure Performed: Placement of right internal jugular Tesio catheter and interpretation of intrao perative fluoroscopy. Estimated Blood Loss: Minimal. Specimen: None. Findings: Normal anatomy. Anesthesia: General. Complications: None. Disposition: The patient tolerated the procedure in stable condition and taken to Recovery in good g eneral condition. Operative Note: The patient was brought to the OR and placed in supine position. General anesthesia was begun. The patient was prepped and draped in the usual sterile fashion. Lidocaine 1% infiltrat ed locally. An 18-gauge needle was used to access the right IJ vein. Guidewire was passed. Positio n was confirmed with fluoroscopy. A counterincision was made on the right anterior chest. Tunneling device was used to tunnel the catheter between the 2 wounds. Seldinger technique used, vein dilated , and then tip of the catheter placed in the SVC under fluoroscopy. Catheter was flushed with hepari n and packed with heparin with good blood flow, and then 3-0 chromic was used to close the subcutaneo us tissue and 3-0 nylon was used to secure the tube to the chest wall. Sterile dressing was applied. The patient was awakened and taken to Recovery Room in good general condition, and a chest x-ray has been ordered. GABY/LYUDMILA Voice ID: [id number] Report ID: [id number]
--- NOTE | 2017-11-17 02:34 | PN ---
Date of Progress Note: 11/16/2017 Subjective: The patient was admitted with acute kidney injury secondary to cardiorenal, required prateek lysis, with hyperkalemia. Objective: Vital Signs: When I saw the patient, blood pressure of 135/59, pulse of 60. Chest: Clear to auscultation. Heart: S1, S2. Regular. Abdomen: Soft, nontender. Extremities: Below-knee amputation on the right. Laboratory Data: H and H 14.4/43.5. Sodium 138, potassium 4.2. Medications: Reviewed. Assessment And Plan: 1.Acute kidney injury on advanced chronic kidney disease secondary to cardiorenal. We will continue dialysis. We will arrange for the dialysis tomorrow. 2.Hypertension, controlled optimal. Continue current medication. 3.Anemia of chronic kidney disease. No need for CRISTIANO. 4.Congestive heart failure. Currently better volume control. We will continue dialysis. The patiginna nt is cleared from the renal standpoint for discharge planning. JESSY Voice ID: [id number] Report ID: [id number]
[2017-11-17 05:01] LABS: Absolute Lymphocytes (CBC) 1.9 K/uL (0.7-4.9); Absolute Neutrophil 5.3 K/uL (1.8-8.0); Eosinophils % 1.5 % (0-4.4); Hematocrit 43.1 % (39.6-49.0); Lymphocytes % 22.2 % (15.3-44.8); MCH 32.5 pg (27.0-35.0); MCV 96.1 fL (80-100); MPV 9.1 fL (7.6-11.3); Monocytes % 11.8 % (3.3-12.3); RBC Red Blood Cell Count 4.49 M/uL (4.33-5.43)
[2017-11-17 05:19] LABS: Bilirubin Total 0.9 mg/dL (0.2-1.0); Potassium 4.9 mmol/L (3.5-5.1); Protein, Total 7.5 g/dL (6.4-8.2)
[2017-11-17] MEDS: LEVOTHYROXINE SOD 0.125 MG TAB PO SCH (06:01)
[2017-11-17] MEDS: INSULIN -REGULAR HUMAN 50 UNIT/0.5 ML ML SQ SCH ×7 (07:30→22:12)
[2017-11-17] MEDS: DOCOSAHEXANOIC AC/EPA 1000 MG PO SCH (08:19)
[2017-11-17] MEDS: ZINC SULFATE 220 MG CAP PO SCH (08:19)
[2017-11-17] MEDS: VITAMIN D 1000 UNIT TAB PO SCH (08:20)
[2017-11-17] MEDS: ALLOPURINOL 300 MG TAB PO SCH (08:20)
[2017-11-17] MEDS: CLOPIDOGREL 75 MG TABLET PO SCH (08:20)
[2017-11-17] MEDS: FERROUS SULFATE 325 MG TAB PO SCH (08:20)
[2017-11-17] MEDS: levoFLOXacin 250 MG TAB PO SCH (08:20)
[2017-11-17] MEDS: ASCORBIC ACID 500 MG TABLET PO SCH (08:20)
[2017-11-17] MEDS: FUROSEMIDE 40 MG TABLET PO SCH ×2 (08:21→17:00)
[2017-11-17] MEDS: METOPROLOL TAR 50 MG TAB PO SCH (08:21)
--- NOTE | 2017-11-17 13:42 | PN ---
Date of Progress Note: 11/17/2017 Subjective: The patient is doing well. The patient is status post PermCath placement yesterday, greg erated well. Physical Examination: Vital Signs: Blood pressure 144/61, pulse of 55. The patient still have some good urine output of 1 500. Chest: Clear to auscultation. Heart: S1, S2. Regular. Abdomen: Soft, nontender. Extremities: Plus edema. Below-knee amputation. Laboratory Data: H and H 14.6/43. Sodium 137, potassium 4.9, bicarb 29, BUN 92, creatinine 4.1, GFR of 15. Current Medications: The patient is on, its include: 1.Levaquin 250. 2.Oral iron. 3.Plavix. 4.Tylenol. 5.Lasix 80 b.i.d. 6.Zofran. 7.Insulin. 8.Allopurinol 300. 9.Cholecalciferol 2000. Assessment And Plan: 1.Acute kidney injury on chronic kidney disease, oliguric, over volume. Continue dialysis Wednesday, W , Wednesday. Scheduled for dialysis today. Okay for discharge after dialysis and if catheter or, to remove the temporary catheter. 2.Secondary hyperparathyroidism, stable. 3.Vitamin D deficiency. Decrease the dose to 1000 daily. 4.Hypertension, currently blood pressure on the lower side. We will decrease metoprolol to 25 b.i.d . 5.Gout. Decrease allopurinol to 100 daily. 6.Congestive heart failure. Continue diuresis. Continue ultrafiltration on the dialysis. JESSY Voice ID: [id number] Report ID: [id number]
--- NOTE | 2017-11-17 17:26 | PN ---
Subjective: The patient is in dialysis today. Plan to go home soon home. Objective: Vital Signs: Stable. Laboratory Data: H and H 14 and 43. Sodium 137, potassium 4.9, bicarb 29, BUN 92, creatinine 4.1, G FR 15. Assessment: Postoperative day 7 from a cysto, direct vision internal urethrotomy, Ruiz placement. Plan: Plan is to remove the catheter tonight at midnight. The patient may void and go home in the [facility]. We will send him home on some prophylactic antibiotics once a day. He will see me in a week, review dialyzing and possibly try to redialyzing once a month from there. TERRI/LYUDMILA Voice ID: [id number] Report ID: [id number]
--- NOTE | 2017-11-17 17:26 | DS ---
Date of Discharge: 11/17/2017 Consultants: Dr. West and Dr. Wolfe with Nephrology, Dr. Saldivar with Cardiology, Dr. Junior with Urology, Dr. Garibay with General Surgery, and Dr. Kapoor with General Surgery. Procedures: On 11/07/2017, placement of temporary left femoral hemodialysis catheter. On 11/11/2017 , Dr. Junior; cystoscopy, insertion of Ruiz catheter, fulguration. Procedures on 11/16/[address] Myra dennison; placement of right internal jugular Tesio catheter. Admitting Diagnoses: 1.Acute kidney injury superimposed on chronic kidney disease. 2.Hyperkalemia. 3.Bradycardia. 4.Coronary artery disease, [place] artery and [place] heart without angina. 5.Morbid obesity, BMI 51. Discharge Diagnoses: 1.Acute on chronic kidney injury, on dialysis. 2.Coronary artery disease, [place] artery and [place] heart without angina, stable. 3.Chronic diastolic heart failure, EF 58%. 4.Hypertensive heart disease. 5.Diabetes mellitus type 2 without long-term use of insulin with hyperglycemia. 6.Gout. 7.History of left BKA. 8.Stricture of the urethra, status post cystoscopy, postoperative day #5. We will continue with mon thly dilatations by Dr. Junior, Urology. 9.Morbid obesity, BMI 51. 10.Atrial fibrillation, paroxysmal, currently in sinus rhythm. We will resume anticoagulation. 11.Gross hematuria, resolved. 12.Urinary tract infection secondary to Escherichia coli. Hospital Course: The patient is a 52-year-old male, who was admitted to the hospital for hyperkalemi a. The patient has history of morbid obesity, diabetes, chronic kidney disease, hypertension, lai ry artery disease. He was found to have elevated potassium level of 7.4. His EKG showed junctional rhythm at 30 beats per minute. His chest x-ray also showed pulmonary edema. The patient was hypoxic about 83%. He was started on emergency dialysis with catheter placement by Dr. Garibay in the femor al artery. The patient was given cocktail to correct the potassium level, which did improve. The pa tient subsequently went into atrial fibrillation with RVR and was seen by Cardiology. The patient wa s placed on anticoagulation; however, developed gross hematuria. Anticoagulation was stopped. The p atient did convert back to sinus rhythm. He was seen by Dr. Junior with Urology, who performed the pr ocedure as mentioned above. With Ruiz catheter placement, his hematuria resolved. The patient was continued on hemodialysis by Nephrology and the chair time with dialysis outpatient dialysis center w as set up. The patient otherwise did well. He was able to ambulate well with assist. His white cou nt normalized. He was able to be on reduced level of oxygen; however, did qualify for home O2, which was set up by social workers. The patient did also have UTI secondary to Escherichia coli. The pat ient was found to have E. coli growing in his urine culture and was treated with antibiotics. Blood cultures were negative. The patient did complete treatment for the UTI. The patient was then cleare d for discharge. His anticoagulation will be resumed. He will need to follow up with multiple consu ltants including Cardiology for his atrial fibrillation as well as Dr. Junior with Urology for acute d ilatation of the urethra as well as Nephrology for his kidney function. The patient will continue [facility] dialysis as an outpatient. Followup: The patient to followup with his primary care physician in 2-3 days. Return to ER for wor sening condition. Physical Examination: General: Awake, alert, oriented x3, not in any acute distress. Appears older than stated age. Morb idly obese male. Respiratory: Moving air well bilaterally. No wheezing. No stridor. No use of accessory muscles. Gastrointestinal: Abdomen is soft, nontender, nondistended. Positive bowel sounds. No guarding or rigidity. Extremities: The patient has left BKA and does have right lower extremity edema. Neurologic: Nonfocal. Total time spent discharging the patient was 41 minutes. /LYUDMILA Voice ID: [id number] Report ID: [id number]
[2017-11-17] MEDS: METOPROLOL TAR 25 MG TAB PO SCH (20:11)
[2017-11-17] MEDS: ATORVASTATIN 40 MG TAB PO SCH (20:12)
[2017-11-17] MEDS ORDERED: APIXABAN 5 MG TABLET PO SCH (21:00)
[2017-11-17 23:29] VITALS: O2SAT 95
[2017-11-18] MEDS: LEVOTHYROXINE SOD 0.125 MG TAB PO SCH (05:09)
[2017-11-18 05:51] LABS: Albumin 3.2 g/dL (3.4-5.0); Potassium 4.7 mmol/L (3.5-5.1); Protein, Total 7.9 g/dL (6.4-8.2)
[2017-11-18] MEDS: INSULIN -REGULAR HUMAN 50 UNIT/0.5 ML ML SQ SCH ×6 (07:30→16:37)
[2017-11-18] MEDS: levoFLOXacin 250 MG TAB PO SCH (08:31)
[2017-11-18] MEDS: ZINC SULFATE 220 MG CAP PO SCH (08:33)
[2017-11-18] MEDS: DOCOSAHEXANOIC AC/EPA 1000 MG PO SCH (08:33)
[2017-11-18] MEDS: FERROUS SULFATE 325 MG TAB PO SCH (08:33)
[2017-11-18] MEDS: ASCORBIC ACID 500 MG TABLET PO SCH (08:33)
[2017-11-18] MEDS: CLOPIDOGREL 75 MG TABLET PO SCH (08:33)
[2017-11-18] MEDS: METOPROLOL TAR 25 MG TAB PO SCH (08:34)
[2017-11-18] MEDS: FUROSEMIDE 40 MG TABLET PO SCH ×2 (08:36→16:36)
[2017-11-18] MEDS ORDERED: ALLOPURINOL 100 MG TAB PO SCH (09:00)
[2017-11-18] MEDS ORDERED: VITAMIN D 1000 UNIT TAB PO SCH (09:00)
[2017-11-18 13:18] VITALS: TEMP 97
--- NOTE | 2017-11-18 15:34 | PN ---
Date of Progress Note: 11/18/2017 Subjective: The patient is seen and examined. Chart reviewed and case discussed with RN and Dr. Db moseley. The patient has been able to void after the Ruiz catheter has been removed; however, urinary ou tput has been on the low side. Review of Systems: Negative except as above. Medications: List reviewed. Physical Examination: Vital Signs: Temperature is 96.9, heart rate 68, blood pressure 127/58, respirations 17, O2 93% on 2 L via nasal cannula. General: Awake, alert, oriented x3. Morbidly obese male, BMI 51. CV: S1, S2. No murmurs. Regular rate and rhythm. Peripheral pulses present on the right lower ext remity. Respiratory: Clear to auscultation bilaterally. No wheezing. No stridor. No use of accessory musc les. Gastrointestinal: Abdomen is soft, nontender, nondistended. Positive bowel sounds. Extremities: No clubbing, cyanosis. The patient does have right lower extremity edema. Musculoskeletal: Left BKA. Neurologic: Nonfocal. Laboratory Data: Sodium 137, potassium 4.7, chloride 103, CO2 25, BUN 77, creatinine 4, glucose 255, calcium 9.1, phosphorus 3.5. Urine culture shows E. coli. Assessment And Plan: A 52-year-old male with: 1.Acute on chronic kidney injury, now on dialysis. 2.Coronary artery disease, [place] artery and [place] heart without angina, stable. 3.Urinary tract infection secondary to Escherichia coli, treatment completed. 4.Chronic diastolic heart failure, EF 58%. 5.Hypertensive heart disease. 6.Diabetes mellitus type 2 without long-term use of insulin with hyperglycemia. 7.Gout. 8.History of left BKA. 9.Urethral stricture status post cystoscopy, postoperative day #6. Will need monthly dilatation. 10.Morbid obesity, BMI 51. 11.Atrial fibrillation, paroxysmal, currently in sinus rhythm. Anticoagulation on hold due to hemat uria. 12.Gross hematuria, resolved. Plan: Discharge home once cleared by Dr. Junior, Urology. The patient may need a Ruiz catheter plac ement if urinary output is satisfactory. SA/MODL Voice ID: [id number] Report ID: [id number]
[2017-11-18 16:39] VITALS: BP 113/55
--- NOTE | 2017-11-18 18:55 | PN ---
Date of Progress Note: 11/18/2017 Chief Complaint: Accelerated and chronic kidney disease. Acute kidney injury, severe. History Of Present Illness: The patient has severe advanced chronic kidney disease. He developed acute kidney injury, he is dialysis dependent. The patient has history of congestive heart failure with diastolic dysfunction, fluid overload. He is on p.o. fluid restriction and he is maintained on dialysis for acute kidney injury with anasarca and severe azotemia. BUN predialysis was up to 80. The patient at this point may need to continue dialysis and I discussed with the patient that this may be his new baseline with end-stage renal disease. Review of Systems: Denies fever or chills. Physical Examination: Lungs: Clear to auscultation bilaterally. Heart: S1, S2. Abdomen: Soft, benign. Extremities: Edema present in both legs. Laboratory Data: BUN 77, creatinine 4.0. Sodium 137, potassium 4.7, and chloride 103, CO2 25. Impression And Plan: 1. End-stage renal disease. The patient will continue dialysis 3 times per week. 2. Renal osteodystrophy. Continue renal diet and binders. 3. Obesity. Monitor hyperlipidemia panel. 4. Peripheral vascular disease, history of left [id number], survey workup with primary team. 5. Diastolic congestive heart failure. Continue blood pressure medication. Hypertensive heart disease, volemia control with dialysis. Continue diuretics. JASON/LYUDMILA Voice ID: [id number] Report ID: [id number] YEFRI
== END 2017-11-18 17:41 | disposition home or self-care (01) | DRG 673 ==
LOC: ER 02:33 → ERHOLD 04:57 → 3RD-ICU 06:16 → 2ND 11-10 13:19 → 4TH 11-12 15:43
PROVIDERS: ADMIT Internal Medicine; ATTEND Family Medicine
PROC: 5A1D70Z Performance of Urinary Filtration, Intermittent, Less than 6 Hours Per Day (ICD-10-PCS; 2017-11-07)
PROC: 06HN33Z Insertion of Infusion Device into Left Femoral Vein, Percutaneous Approach (ICD-10-PCS; 2017-11-07)
PROC: 0T7D8ZZ Dilation of Urethra, Via Natural or Artificial Opening Endoscopic (ICD-10-PCS; 2017-11-11)
PROC: 0T9B70Z Drainage of Bladder with Drainage Device, Via Natural or Artificial Opening (ICD-10-PCS; 2017-11-11)
PROC: 02HV33Z Insertion of Infusion Device into Superior Vena Cava, Percutaneous Approach (ICD-10-PCS; 2017-11-16)
PROC: 0JH63XZ Insertion of Tunneled Vascular Access Device into Chest Subcutaneous Tissue and Fascia, Percutaneous Approach (ICD-10-PCS; principal; 2017-11-16 11:45)
DX: N17.9 Acute kidney failure, unspecified (principal); I50.33 Acute on chronic diastolic (congestive) heart failure; J96.91 Respiratory failure, unspecified with hypoxia; I13.2 Hypertensive heart and chronic kidney disease with heart failure and with stage 5 chronic kidney disease, or end stage renal disease; N39.0 Urinary tract infection, site not specified; Z68.43 Body mass index [BMI] 50.0-59.9, adult; E11.22 Type 2 diabetes mellitus with diabetic chronic kidney disease; N18.6 End stage renal disease; N25.0 Renal osteodystrophy; E66.01 Morbid (severe) obesity due to excess calories; E11.51 Type 2 diabetes mellitus with diabetic peripheral angiopathy without gangrene; I25.10 Atherosclerotic heart disease of native coronary artery without angina pectoris; B96.20 Unspecified Escherichia coli [E. coli] as the cause of diseases classified elsewhere; E11.65 Type 2 diabetes mellitus with hyperglycemia; N35.9 Urethral stricture, unspecified; I48.0 Paroxysmal atrial fibrillation; M1A.0690 Idiopathic chronic gout, unspecified knee, without tophus (tophi); E87.5 Hyperkalemia; R00.1 Bradycardia, unspecified; Z99.81 Dependence on supplemental oxygen; N25.81 Secondary hyperparathyroidism of renal origin; E55.9 Vitamin D deficiency, unspecified; D63.1 Anemia in chronic kidney disease; E11.21 Type 2 diabetes mellitus with diabetic nephropathy; E03.9 Hypothyroidism, unspecified; I89.0 Lymphedema, not elsewhere classified; J44.9 Chronic obstructive pulmonary disease, unspecified; E11.40 Type 2 diabetes mellitus with diabetic neuropathy, unspecified; Z89.512 Acquired absence of left leg below knee; Z87.891 Personal history of nicotine dependence; Z95.5 Presence of coronary angioplasty implant and graft; Z79.02 Long term (current) use of antithrombotics/antiplatelets; Z79.82 Long term (current) use of aspirin; Z79.4 Long term (current) use of insulin
CPT/HCPCS: 36415; 71045; 74018; 76000; 76770; 80048; 80053; 80069; 80076; 81003; 81015; 82550; 82553; 82570; 82805; 82962; 83735; 83880; 84100; 84132; 84156; 84439; 84443; 84484; 85025; 85610; 85730; 86317; 86704; 86706; 87040; 87077; 87086; 87088; 87186; 87340; 90935; 93005; 93306; 94640; 97163; 99285; C1752; J0330; J0610; J1644; J1650; J2405; J3010; J7030

== ENCOUNTER 2018-06-25 15:05 | Emergency (ER) | payer MEDICARE ==
--- OUTSIDE RECORDS SUMMARY | 2018-06-25 15:07 | XMS REPORT ---
:1965 Author Organization [facility] Address [address] [place] [address] Care Team Providers Name Role Phone Unavailable Unavailable Unavailable Problems This patient has no known problems. Allergies, Adverse Reactions, Alerts This patient has no known allergies or adverse reactions. Medications This patient has no known medications.
[2018-06-25 15:57] LABS: Absolute Lymphocytes (CBC) 0.5 K/uL (0.7-4.9); Absolute Monocytes 0.3 K/uL (0.1-1.3); Absolute Neutrophil 9.6 K/uL (1.8-8.0); Basophils % 0.3 % (0-1.3); Eosinophils % 0.1 % (0-4.4); Lymphocytes % 4.7 % (15.3-44.8); MPV 8.6 fL (7.6-11.3); Monocytes % 3.1 % (3.3-12.3)
[2018-06-25 16:29] LABS: Potassium 4.5 mmol/L (3.5-5.1)
--- NOTE | 2018-06-25 16:52 | EDPHYS ---
Physician Documentation [facility] Name: Brennon Pinedo Age: 53 yrs Sex: Male : 1965 Arrival Date: 06/25/2018 Time: 15:10 Bed 28 Private MD: ED Physician Eron Schwab HPI: 06/25 16:08 This 53 yrs old Male presents to ER via EMS with complaints of jr8 AMS/Hypoglycemia . 16:08 The patient presents with confusion, decreased mental status, decreased responsiveness. jr8 Onset: The symptoms/episode began/occurred acutely, today. Possible causes: low blood sugar, the patient uses insulin. Associated signs and symptoms: The patient has no apparent associated signs or symptoms. Current symptoms: In the emergency department the patient's symptoms have improved, markedly. Patient's baseline: Neuro: alert and fully oriented, Motor: no deficits, Ambulation: walks without assistance, Speech: normal. It is unknown whether or not the patient has had similar symptoms in the past. The patient has not recently seen a physician. Patient stated that he was having trouble thinking and talking. EMS called and found to have low blood sugar. Glucose given and now back to baseline. Stated that he took his insulin last night. Was around 300 mg/dl before taking it. Unknown why it dropped so much. Historical: - Allergies: 15:17 No Known Allergies; rv - Home Meds: 15:17 allopurinol 300 mg Oral tab 1 tab once daily [Active]; aspirin 81 mg Oral chew 1 tab rv once daily [Active]; atorvastatin 40 mg Oral tab 1 tab once daily [Active]; clopidogrel 75 mg Oral tab 1 tab once daily [Active]; furosemide 20 mg Oral tab 1 tab 3 times per day [Active]; 15:19 atorvastatin 40 mg Oral tab 1 tab once daily [Active]; diltiazem HCl 120 mg Oral cpER 1 rv cap TID [Active]; levothyroxine 125 mcg tab 1 tab once daily [Active]; lisinopril 40 mg Oral tab 1 tab once daily [Active]; metoprolol tartrate 50 mg Oral tab 1 tab 2 times per day [Active]; zinc sulfate 220 (50) mg Oral cap [Active]; 15:51 Novolin N 100 unit/mL Sub-Q susp 80 unit IN AM [Active]; Novolin N 100 unit/mL Sub-Q rv susp 70 unit IN PM [Active]; - PMHx: 15:17 CHF; chronic kidney disease; Diabetes - NIDDM; Hypertension; rv - PSHx: 15:19 AMPUTATION, LEFT LEG; rv - Immunization history:: Adult Immunizations unknown. - Social history:: Smoking status: Patient/guardian denies using tobacco, the patient reports quitting approximately 10 years ago. - Ebola Screening: : Patient negative for fever greater than or equal to 101.5 degrees Fahrenheit, and additional compatible Ebola Virus Disease symptoms Patient denies exposure to infectious person Patient denies travel to an Ebola-affected area in the 21 days before illness onset. ROS: 16:08 Eyes: Negative for injury, pain, redness, and discharge, ENT: Negative for injury, jr8 pain, and discharge, Neck: Negative for injury, pain, and swelling, Cardiovascular: Negative for chest pain, palpitations, and edema, Respiratory: Negative for shortness of breath, cough, wheezing, and pleuritic chest pain, Abdomen/GI: Negative for abdominal pain, nausea, vomiting, diarrhea, and constipation, Back: Negative for injury and pain, MS/Extremity: Negative for injury and deformity, Skin: Negative for injury, rash, and discoloration. 16:08 Neuro: Positive for altered mental status, speech changes. Exam: 16:08 Eyes: Pupils equal round and reactive to light, extra-ocular motions intact. Lids and jr8 lashes normal. Conjunctiva and sclera are non-icteric and not injected. Cornea within normal limits. Periorbital areas with no swelling, redness, or edema. ENT: Nares patent. No nasal discharge, no septal abnormalities noted. Tympanic membranes are normal and external auditory canals are clear. Oropharynx with no redness, swelling, or masses, exudates, or evidence of obstruction, uvula midline. Mucous membranes moist. Neck: Trachea midline, no thyromegaly or masses palpated, and no cervical lymphadenopathy. Supple, full range of motion without nuchal rigidity, or vertebral point tenderness. No Meningismus. Cardiovascular: Regular rate and rhythm with a normal S1 and S2. No gallops, murmurs, or rubs. Normal PMI, no JVD. No pulse deficits. Respiratory: Lungs have equal breath sounds bilaterally, clear to auscultation and percussion. No rales, rhonchi or wheezes noted. No increased work of breathing, no retractions or nasal flaring. Abdomen/GI: Soft, non-tender, with normal bowel sounds. No distension or tympany. No guarding or rebound. No evidence of tenderness throughout. Back: No spinal tenderness. No costovertebral tenderness. Full range of motion. Skin: Warm, dry with normal turgor. Normal color with no rashes, no lesions, and no evidence of cellulitis. MS/ Extremity: Pulses equal, no cyanosis. Neurovascular intact. Full, normal range of motion. Neuro: Awake and alert, GCS 15, oriented to person, place, time, and situation. Cranial nerves II-XII grossly intact. Motor strength 5/5 in all extremities. Sensory grossly intact. Cerebellar exam normal. Normal gait. Vital Signs: 15:10 BP 158 / 60 RA; Pulse 87; Resp 20 S; Temp 98(O); Pulse Ox 96% on R/A; Weight 90.72 kg rv (R); 15:30 BP 145 / 66 RA; Pulse 79; Resp 19 S; Pulse Ox 97% on R/A; rv 15:45 BP 125 / 43 RA; Pulse 75; Resp 16 S; Pulse Ox 98% on R/A; rv 16:30 BP 131 / 118 RA; Pulse 80; Resp 19 S; Pulse Ox 97% on R/A; rv 17:00 BP 133 / 90; Pulse 76; Resp 17; Pulse Ox 98% ; rv MDM: 15:19 Patient medically screened. [facility] 16:49 Data reviewed: vital signs, nurses notes, lab test result(s), and as a result, I will [facility] discharge patient. Data interpreted: Pulse oximetry: on room air is 97 %. Interpretation: normal. Counseling: I had a detailed discussion with the patient and/or guardian regarding: the historical points, exam findings, and any diagnostic results supporting the discharge/admit diagnosis, the need for outpatient follow up, a family practitioner, to return to the emergency department if symptoms worsen or persist or if there are any questions or concerns that arise at home. Response to treatment: the patient's symptoms have resolved after treatment. ED course: Patients sugar has been maintaining at acceptable level. Patient has eaten a meal here. Feels much better. Will d/c home to f/u with PCP . 06/25 15:35 Order name: CBC with Diff; Complete Time: 16:10 8 06/25 15:35 Order name: Basic Metabolic Panel; Complete Time: 16:32 jr8 06/25 15:35 Order name: IV; Complete Time: 15:41 jr8 06/25 15:35 Order name: Diet [place] 2000 [place]; Complete Time: 15:35 jr8 06/25 16:57 Order name: Glucose, Ancillary Testing; Complete Time: 17:19 EDMS 06/25 16:57 Order name: Glucose, Ancillary Testing; Complete Time: 17:19 EDMS Administered Medications: No medications were administered Point of Care Testing: Blood Glucose: 15:29 Blood Glucose: 156 mg/dL; rv Ranges: Critical Glucose Levels:Adult <50 mg/dl or >400 mg/dl <40 mg/dl or >180 mg/dl Disposition: 06/25/18 16:51 Discharged to Home. Impression: Hypoglycemia, unspecified. - Condition is Stable. - Discharge Instructions: Hypoglycemia, Blood Glucose Monitoring, Adult. - Medication Reconciliation Form, Thank You Letter, Antibiotic Education, Prescription Opioid Use form. - Follow up: Private Physician; When: 1 - 2 days; Reason: Recheck today's complaints, Continuance of care, Re-evaluation by your physician. - Problem is new. - Symptoms are resolved. Addendum: 06/27/2018 09:28 Co-signature as Attending Physician, Eron Schwab MD I agree with the assessment and c lang plan of care. Signatures: Dispatcher [employer] Eron Zarco MD MD cha Roszak, Josh, PA PA jr8 Juan Luis Marina RN RN rv Corrections: (The following items were deleted from the chart) 06/25 17:22 16:51 06/25/2018 16:51 Discharged to Home. Impression: Hypoglycemia, unspecified. rv Condition is Stable. Forms are Medication Reconciliation Form, Thank You Letter, Antibiotic Education, Prescription Opioid Use. Follow up: Private Physician; When: 1 - 2 days; Reason: Recheck today's complaints, Continuance of care, Re-evaluation by your physician. Problem is new. Symptoms are resolved. jr8
--- NOTE | 2018-06-25 16:52 | ER ---
Nurse's Notes [facility] Name: Brennon Pinedo Age: 53 yrs Sex: Male : 1965 Arrival Date: 06/25/2018 Time: 15:10 Bed 28 Private MD: Diagnosis: Hypoglycemia, unspecified Presentation: 06/25 15:11 Presenting complaint: EMS states: "EMS CALLED FOR SEIZURE. STEPMOTHER STATED THAT rv PATIENT WAS CONFUSED AND OUT OF HIS USUAL SELF. SUGAR WAS ONLY 64, GIVEN ORAL GLUCOSE AND TACOS. EVENTUALLY MENTATION IMPROVED. THE STEPMOTHER ALSO STATED THAT LAST NIGHT HE WAS UNSTEADY. PATIENT DOES NOT RECALL FROM FALLING OUT OF BED. PATIENT WAS ON THE BED WHEN EMS GOT THERE.". Transition of care: patient was not received from another setting of care. Onset of symptoms was June 25, 2018 at 14:40. Risk Assessment: Do you want to hurt yourself or someone else? Patient reports no desire to harm self or others. Initial Sepsis Screen: Does the patient meet any 2 criteria? No. Patient's initial sepsis screen is negative. Does the patient have a suspected source of infection? No. Patient's initial sepsis screen is negative. Care prior to arrival: None. 15:11 Method Of Arrival: EMS: [facility] rv 15:11 Acuity: STEPHANIE 3 rv Triage Assessment: 15:20 General: Appears in no apparent distress. comfortable, Behavior is calm, cooperative. rv Pain: Denies pain. EENT: No deficits noted. No signs and/or symptoms were reported regarding the EENT system. Neuro: Level of Consciousness is awake, alert, obeys commands, Oriented to person, place, time, situation. Cardiovascular: Capillary refill < 3 seconds. Respiratory: Airway is patent. GI: No signs and/or symptoms were reported involving the gastrointestinal system. : No signs and/or symptoms were reported regarding the genitourinary system. Derm: Wound noted FOREHEAD. Musculoskeletal: No signs and/or symptoms reported regarding the musculoskeletal system. Historical: - Allergies: 15:17 No Known Allergies; rv - Home Meds: 15:17 allopurinol 300 mg Oral tab 1 tab once daily [Active]; aspirin 81 mg Oral chew 1 tab rv once daily [Active]; atorvastatin 40 mg Oral tab 1 tab once daily [Active]; clopidogrel 75 mg Oral tab 1 tab once daily [Active]; furosemide 20 mg Oral tab 1 tab 3 times per day [Active]; 15:19 atorvastatin 40 mg Oral tab 1 tab once daily [Active]; diltiazem HCl 120 mg Oral cpER 1 rv cap TID [Active]; levothyroxine 125 mcg tab 1 tab once daily [Active]; lisinopril 40 mg Oral tab 1 tab once daily [Active]; metoprolol tartrate 50 mg Oral tab 1 tab 2 times per day [Active]; zinc sulfate 220 (50) mg Oral cap [Active]; 15:51 Novolin N 100 unit/mL Sub-Q susp 80 unit IN AM [Active]; Novolin N 100 unit/mL Sub-Q rv susp 70 unit IN PM [Active]; - PMHx: 15:17 CHF; chronic kidney disease; Diabetes - NIDDM; Hypertension; rv - PSHx: 15:19 AMPUTATION, LEFT LEG; rv - Immunization history:: Adult Immunizations unknown. - Social history:: Smoking status: Patient/guardian denies using tobacco, the patient reports quitting approximately 10 years ago. - Ebola Screening: : Patient negative for fever greater than or equal to 101.5 degrees Fahrenheit, and additional compatible Ebola Virus Disease symptoms Patient denies exposure to infectious person Patient denies travel to an Ebola-affected area in the 21 days before illness onset. Screenin:21 Abuse screen: Denies threats or abuse. Denies injuries from another. Nutritional rv screening: No deficits noted. Tuberculosis screening: No symptoms or risk factors identified. Fall Risk Fall in past 12 months (25 points). Secondary diagnosis (15 points) impaired mobility, No IV (0 pts). Ambulatory Aid- Crutches/Cane/Walker (15 pts). Gait- Impaired (20 pts.). Mental Status- Oriented to own ability (0 pts). Total Mehta Fall Scale indicates High Risk Score (45 or more points). Fall prevention measures have been instituted. Side Rails Up X 2 Placed Close to Nursing Station Frequent Obs/Assessments Occuring As available patient and family educated on Fall Prevention Program and Strategies. Assessment: 15:21 Reassessment: SE TRIAGE NOTES. rv 16:37 Reassessment: Patient appears in no apparent distress at this time. No changes from rv previously documented assessment. Patient and/or family updated on plan of care and expected duration. Pain level reassessed. Patient is alert, oriented x 3, equal unlabored respirations, skin warm/dry/pink. Vital Signs: 15:10 BP 158 / 60 RA; Pulse 87; Resp 20 S; Temp 98(O); Pulse Ox 96% on R/A; Weight 90.72 kg rv (R); 15:30 BP 145 / 66 RA; Pulse 79; Resp 19 S; Pulse Ox 97% on R/A; rv 15:45 BP 125 / 43 RA; Pulse 75; Resp 16 S; Pulse Ox 98% on R/A; rv 16:30 BP 131 / 118 RA; Pulse 80; Resp 19 S; Pulse Ox 97% on R/A; rv 17:00 BP 133 / 90; Pulse 76; Resp 17; Pulse Ox 98% ; rv ED Course: 15:10 Patient arrived in ED. la1 15:14 Triage completed. rv 15:19 Prudencio Forte PA is PHCP. jr8 15:19 Eron Schwab MD is Attending Physician. jr8 15:21 Patient has correct armband on for positive identification. Bed in low position. Call rv light in reach. Side rails up X2. Pulse ox on. NIBP on. 15:22 Patient placed in an exam room, on a stretcher, on pulse oximetry, Patient notified of rv wait time. 15:47 Basic Metabolic Panel Sent. rv 15:47 CBC with Diff Sent. rv 16:56 No provider procedures requiring assistance completed. Maintain EMS IV. Dressing rv intact. Good blood return noted. Site clean \\T\\ dry. Gauge \\T\\ site: G20 LEFT AC. IV discontinued, bleeding controlled, No redness/swelling at site. Pressure dressing applied. Administered Medications: No medications were administered Point of Care Testing: Blood Glucose: 15:29 Blood Glucose: 156 mg/dL; rv Ranges: Outcome: 16:51 Discharge ordered by . jr8 16:57 Discharged to home ambulatory. rv 16:57 Condition: good 16:57 Discharge instructions given to patient, family, Instructed on discharge instructions, follow up and referral plans. Demonstrated understanding of instructions, follow-up care. 17:22 Patient left the ED. rv Signatures: Prudencio Forte PA PA jr8 Ernie Eldridge RN RN la1 Juan Luis Marina RN RN rv
[2018-06-25 17:37] VITALS: TEMP 98
[2018-06-25 17:42] VITALS: BP 133/90; O2SAT 98
== END 2018-06-25 17:22 | disposition home or self-care (01) ==
LOC: ER 15:05
DX: E11.649 Type 2 diabetes mellitus with hypoglycemia without coma (principal); I12.9 Hypertensive chronic kidney disease with stage 1 through stage 4 chronic kidney disease, or unspecified chronic kidney disease; E11.22 Type 2 diabetes mellitus with diabetic chronic kidney disease; N18.9 Chronic kidney disease, unspecified; I50.9 Heart failure, unspecified; Z79.4 Long term (current) use of insulin; Z79.82 Long term (current) use of aspirin
CPT/HCPCS: 36415; 80048; 82962; 85025; 99284

== ENCOUNTER 2019-08-10 08:53 | Inpatient (IN) | payer MEDICARE ==
--- NOTE | 2019-08-10 09:34 | RAD REPORT ---
EXAM DESCRIPTION: CT - Ct Stroke Brain Wo Cont - 08/10/2019 9:27 am CLINICAL HISTORY: CONFUSED Headache, drowsiness COMPARISON: No comparisons TECHNIQUE: All CT scans are performed using dose optimization technique as appropriate and may inclu de automated exposure control or mA/KV adjustment according to patient size. FINDINGS: No intracranial hemorrhage, hydrocephalus or extra-axial fluid collection.Subtle moderate high area of diminished density is seen the left temporoparietal region territory suspicious for rowan y findings of acute CVA. Moderate size polyp versus mucous retention cyst left maxillary antrum. The paranasal sinuses and mas toids are otherwise clear. The calvarium is intact. Atherosclerosis. IMPRESSION: Findings suspicious for nonhemorrhagic moderate acute CVA left temporoparietal region. The findings were discussed with Dr. Sierra On 08/10/2019 at 9:30 a.m. by telephone.
[2019-08-10 09:35] LABS: Absolute Lymphocytes (CBC) 1.5 K/uL (0.7-4.9); Basophils % 0.5 % (0-1.3); Hematocrit 37.7 % (39.6-49.0); Lymphocytes % 17.8 % (15.3-44.8); MPV 8.9 fL (7.6-11.3); RBC Red Blood Cell Count 3.65 M/uL (4.33-5.43)
[2019-08-10 09:40] LABS: Protime INR 0.93
[2019-08-10 09:43] LABS: Potassium 4.7 mmol/L (3.5-5.1)
--- NOTE | 2019-08-10 09:56 | EDPHYS ---
Physician Documentation [facility] Name: Brennon Pinedo Age: 54 yrs Sex: Male : 1965 Arrival Date: 08/10/2019 Time: 08:55 Bed 20 Private MD: ED Physician Cody Sierra HPI: 08/09 09:55 This 54 yrs old Male presents to ER via Wheelchair with complaints of Altered kdr Mental Status. 09:55 The patient presents with confusion, dysphasia. Onset: The symptoms/episode kdr began/occurred at an unknown time. Possible causes: CVA or TIA, the patient woke up with the symptoms, also reports dysphasia. Associated signs and symptoms: The patient has no apparent associated signs or symptoms. Current symptoms: In the emergency department the patient's symptoms are unchanged from the initial presentation. Patient's baseline: Neuro: alert and fully oriented, Motor: no deficits, Ambulation: walks with assist only, Speech: normal for age. The patient has not experienced similar symptoms in the past. The patient has not recently seen a physician. Historical: - Allergies: 09:00 No Known Allergies; aa5 - Home Meds: 09:03 allopurinol 300 mg Oral tab 1 tab once daily [Active]; aspirin 81 mg Oral chew 1 tab rb1 once daily [Active]; atorvastatin 40 mg Oral tab 1 tab once daily [Active]; clopidogrel 75 mg Oral tab 1 tab once daily [Active]; furosemide 20 mg Oral tab 1 tab once daily [Active]; Novolin N 100 unit/mL Sub-Q susp 70 unit IN PM [Active]; Novolin N 100 unit/mL Sub-Q susp 80 unit IN AM [Active]; zinc sulfate 220 (50) mg Oral cap [Active]; fluticasone propionate (bulk) miscellaneous [Active]; - PMHx: 09:00 CHF; chronic kidney disease; Diabetes - NIDDM; Hypertension; aa5 09:03 CHF; chronic kidney disease; Diabetes - NIDDM; Hypertension; rb1 09:36 Seizures; rb1 - PSHx: 09:00 AMPUTATION, LEFT LEG; aa5 09:03 AMPUTATION, LEFT LEG; Dialysis shunt- left upper arm; rb1 - Immunization history:: Adult Immunizations unknown. - Social history:: Smoking status: unknown. ROS: 09:55 Constitutional: Negative for fever, chills, and weight loss, Eyes: Negative for injury, kdr pain, redness, and discharge, Neck: Negative for injury, pain, and swelling, Cardiovascular: Negative for chest pain, palpitations, and edema, Respiratory: Negative for shortness of breath, cough, wheezing, and pleuritic chest pain, Abdomen/GI: Negative for abdominal pain, nausea, vomiting, diarrhea, and constipation, Back: Negative for injury and pain, Skin: Negative for injury, rash, and discoloration, Psych: Negative for depression, anxiety, suicide ideation, homicidal ideation, and hallucinations, Allergy/Immunology: Negative for hives, rash, and allergies, Endocrine: Negative for neck swelling, polydipsia, polyuria, polyphagia, and marked weight changes, Hematologic/Lymphatic: Negative for swollen nodes, abnormal bleeding, and unusual bruising. 09:55 Neuro: Positive for altered mental status, speech changes. Exam: 10:52 Constitutional: This is a well developed, well nourished patient who is awake, alert, kdr and in no acute distress. Head/Face: Normocephalic, atraumatic. Eyes: Pupils equal round and reactive to light, extra-ocular motions intact. Lids and lashes normal. Conjunctiva and sclera are non-icteric and not injected. Cornea within normal limits. Periorbital areas with no swelling, redness, or edema. Neck: Trachea midline, no thyromegaly or masses palpated, and no cervical lymphadenopathy. Supple, full range of motion without nuchal rigidity, or vertebral point tenderness. No Meningismus. Chest/axilla: Normal chest wall appearance and motion. Nontender with no deformity. No lesions are appreciated. Cardiovascular: Regular rate and rhythm with a normal S1 and S2. No gallops, murmurs, or rubs. Normal PMI, no JVD. No pulse deficits. Respiratory: Lungs have equal breath sounds bilaterally, clear to auscultation and percussion. No rales, rhonchi or wheezes noted. No increased work of breathing, no retractions or nasal flaring. 10:52 Abdomen/GI: Inspection: obese Bowel sounds: active, Palpation: soft, nontender. 10:52 Neuro: Orientation: appropriate for stated age, Mentation: Gets many but not all commands correct - unclear what his baseline mentation is, slow to respond, confused, Cerebellar function: normal finger to nose testing, able to perform alternating rapid hand movements. 10:52 Neuro: The patient has prominent expressive aphasia.. kdr Vital Signs: 09:03 BP 170 / 56; Pulse 58; Resp 19; Temp 98.0(O); Pulse Ox 99% on R/A; Weight 167.3 kg (R); rb1 Height 5 ft. 7 in. (170.18 cm) (R); Pain 0/10; 09:58 BP 159 / 47; Pulse 68; Resp 20; Pulse Ox 95% on R/A; Pain 0/10; rb1 10:58 BP 138 / 65; Pulse 69; Resp 16; Pulse Ox 96% on R/A; rb1 11:35 BP 136 / 52; Pulse 70; Resp 21; Pulse Ox 96% on NC; rb1 09:03 Body Mass Index 57.77 (167.30 kg, 170.18 cm) rb1 MDM: 09:55 Patient medically screened. kdr 10:57 Data reviewed: vital signs, nurses notes, lab test result(s), EKG, radiologic studies. kdr Counseling: I had a detailed discussion with the patient and/or guardian regarding: the historical points, exam findings, and any diagnostic results supporting the discharge/admit diagnosis, lab results, radiology results, the need for further work-up and treatment in the hospital. Physician consultation: Bennie Diaz MD. ED course: The patient was out of the window for any acute intervention - last known well was last night at 11:00 PM. 08/09 09:06 Order name: Basic Metabolic Panel; Complete Time: 12:55 kdr 08/09 09:06 Order name: CBC with Diff; Complete Time: 12:55 kdr 08/09 09:06 Order name: Protime (+inr); Complete Time: 12:55 kdr 08/09 09:06 Order name: Ptt, Activated; Complete Time: 12:55 kdr 08/09 09:20 Order name: Glucose, Ancillary Testing; Complete Time: 09:34 EDMS 08/09 10:33 Order name: Gastric Occult Blood aa5 08/09 09:06 Order name: CT Stroke Brain w/o Contrast; Complete Time: 12:55 kdr 08/09 09:06 Order name: Stroke CXR 1 View; Complete Time: 12:55 kdr 08/09 09:06 Order name: EKG; Complete Time: 09:07 kdr 08/09 09:06 Order name: Accucheck; Complete Time: : kdr 08/09 09:06 Order name: Cardiac monitoring; Complete Time: : kdr 08/09 09:06 Order name: EKG - Nurse/Tech; Complete Time: 09:48 kdr 08/09 11:33 Order name: Gastric Occult Blood; Complete Time: 12:55 EDMS 08/09 09:06 Order name: IV Saline Lock; Complete Time: : kdr 08/09 09:06 Order name: Labs collected and sent; Complete Time: : kdr 08/09 09:06 Order name: NPO; Complete Time: : kdr 08/09 09:06 Order name: O2 Per Protocol; Complete Time: : kdr 08/09 09:06 Order name: O2 Sat Monitoring; Complete Time: : kdr 08/09 09:06 Order name: Stroke Swallow Screen; Complete Time: 09:48 kdr Administered Medications: 10:30 Drug: Zofran (Ondansetron) 4 mg Route: IVP; Site: right antecubital; aa5 10:35 Follow up: Response: No adverse reaction aa5 10:45 Follow up: Response: No adverse reaction rb1 Point of Care Testing: Blood Glucose: 09:10 Blood Glucose: 106 mg/dL; rb1 Ranges: Critical Glucose Levels:Adult <50 mg/dl or >400 mg/dl <40 mg/dl or >180 mg/dl Disposition: 08/10/19 09:55 Hospitalization ordered by Clarence Fulton for Inpatient Admission. Preliminary diagnosis is Cerebral infarction due to unspecified occlusion or stenosis of left middle cerebral artery. - Bed requested for Telemetry/MedSurg (Inpatient). - Status is Inpatient Admission. rb1 - Condition is Serious. - Problem is new. - Symptoms are unchanged. Signatures: Dispatcher [employer] EDGila Cao RN RN dw Cody Sierra MD MD kdr Calderon, Audri, RN RN aa5 Kaylynn Doe, RN RN rb1 Corrections: (The following items were deleted from the chart) 09:37 09:03 Allergies: No Known Allergies; rb1 rb1 10:42 09:55 Hospitalization Ordered by Clarence Fulton DO for Inpatient Admission. Preliminary diagnosis is Cerebral infarction due to unspecified occlusion or stenosis of left middle cerebral artery. Bed requested for Telemetry/MedSurg (Inpatient). Status is Inpatient Admission. Condition is Serious. Problem is new. Symptoms are unchanged. kdr 11:46 10:42 08/10/2019 09:55 Hospitalization Ordered by Clarence Fulton DO for Inpatient rb1 Admission. Preliminary diagnosis is Cerebral infarction due to unspecified occlusion or stenosis of left middle cerebral artery. Bed requested for Telemetry/MedSurg (Inpatient). Status is Inpatient Admission. Condition is Serious. Problem is new. Symptoms are unchanged. dw
--- NOTE | 2019-08-10 09:56 | ER ---
Nurse's Notes [facility] Name: Brennon Pinedo Age: 54 yrs Sex: Male : 1965 Arrival Date: 08/10/2019 Time: 08:55 Bed 20 Private MD: Diagnosis: Cerebral infarction due to unspecified occlusion or stenosis of left middle cerebral artery Presentation: 08/09 09:00 Chief complaint: Pt's father states "he just woke up today at 7:30 am didn't know who aa5 he was or where he was at". Last know normal was 08/09/19 at 2300 reported by father. Pt's father states "I think he is due for dialysis today". Pt is A\\T\\O x 0, expressive aphasia noted. No arm drift noted. 09:00 Coronavirus screen: Proceed with normal triage. Patient denies a cough. Patient denies aa5 shortness of breath or difficulty breathing. Patient denies measured and/or subjective temperature greater than 100.4F prior to today's visit. Patient denies travel on a cruise ship or to a country the [facility] currently lists as an affected area. Patient denies contact with known and/or suspected case of COVID-19. 09:00 Ebola Screen: Patient negative for fever greater than or equal to 101.5 degrees aa5 Fahrenheit, and additional compatible Ebola Virus Disease symptoms. 09:03 Risk Assessment: Do you want to hurt yourself or someone else? Patient reports no rb1 desire to harm self or others. Onset of symptoms is unknown. 09:03 Method Of Arrival: Wheelchair rb1 09:03 Acuity: STEPHANIE 2 aa5 09:03 Initial Sepsis Screen: Does the patient meet any 2 criteria? No. Patient's initial rb1 sepsis screen is negative. Does the patient have a suspected source of infection? No. Patient's initial sepsis screen is negative. Triage Assessment: 09:03 General: Appears in no apparent distress. comfortable, Behavior is calm, cooperative. rb1 Pain: Denies pain. Neuro: Level of Consciousness is confused, Oriented to person, Soccer Ball Assembler are equal bilaterally Moves all extremities. Gait is steady, Speech with expressive aphasia noted, Facial symmetry appears normal, Pupils are PERRLA, Reports having difficulty answering questions correctly. Cardiovascular: Capillary refill < 3 seconds is brisk in bilateral fingers. Respiratory: Airway is patent Respiratory effort is even, unlabored, Respiratory pattern is regular, symmetrical. GI: No signs and/or symptoms were reported involving the gastrointestinal system. : Reports Dialysis. Derm: Skin is dusky, right lower leg. Dialysis shunt in the left upper arm. Musculoskeletal: Amputation of left leg. Historical: - Allergies: 09:00 No Known Allergies; aa5 - Home Meds: 09:03 allopurinol 300 mg Oral tab 1 tab once daily [Active]; aspirin 81 mg Oral chew 1 tab rb1 once daily [Active]; atorvastatin 40 mg Oral tab 1 tab once daily [Active]; clopidogrel 75 mg Oral tab 1 tab once daily [Active]; furosemide 20 mg Oral tab 1 tab once daily [Active]; Novolin N 100 unit/mL Sub-Q susp 70 unit IN PM [Active]; Novolin N 100 unit/mL Sub-Q susp 80 unit IN AM [Active]; zinc sulfate 220 (50) mg Oral cap [Active]; fluticasone propionate (bulk) miscellaneous [Active]; - PMHx: 09:00 CHF; chronic kidney disease; Diabetes - NIDDM; Hypertension; aa5 09:03 CHF; chronic kidney disease; Diabetes - NIDDM; Hypertension; rb1 09:36 Seizures; rb1 - PSHx: 09:00 AMPUTATION, LEFT LEG; aa5 09:03 AMPUTATION, LEFT LEG; Dialysis shunt- left upper arm; rb1 - Immunization history:: Adult Immunizations unknown. - Social history:: Smoking status: unknown. Screenin:03 Abuse screen: Denies threats or abuse. Nutritional screening: No deficits noted. rb1 Tuberculosis screening: No symptoms or risk factors identified. Fall Risk No fall in past 12 months (0 pts). Secondary diagnosis (15 points) seizures, impaired mobility, IV access (20 points). Ambulatory Aid- Crutches/Cane/Walker (15 pts). Gait- Impaired (20 pts.). Mental Status- Overestimates/Forgets Limitations (15 pts.). Total Mehta Fall Scale indicates High Risk Score (45 or more points). Fall prevention measures have been instituted. Side Rails Up X 2 Placed Close to Nursing Station 1:1 Attendant Assigned Frequent Obs/Assessments Occuring As available patient and family educated on Fall Prevention Program and Strategies. 09:48 Patient has been NPO before screening. The patient is alert, able to follow commands. rb1 The patient does not exhibit slurred or garbled speech The patient is not exhibiting difficulty speaking. Difficulty finding the appropriate words. The patient does not exhibit difficulty understanding words. The patient is able to swallow own secretions with no drooling or need for suction. Patient tolerated one teaspoon of water. No drooling, immediate coughing, gurgling, or clearing of the throat was noted. The patient tolerated 90mL of water. No drooling, immediate coughing, gurgling, or clearing of the throat was noted. The patient passed the bedside swallow screening. Oral medications may be given as ordered. Contact Physician for further diet orders. Provider notified of bedside swallow screening results: Clarence Fulton DO. Assessment: 09:03 General: see triage assessment. rb1 09:16 Reassessment: Pt to CT via stretcher . aa5 09:48 Reassessment: Dr. Fulton at the pt. bedside. rb1 10:00 Reassessment: Patient appears in no apparent distress at this time. Pt. is watching TV. rb1 Still exhibits expressive aphasia. 10:30 Reassessment: Pt noted to be actively vomiting, pt vomited 300 ml of brownish colored aa5 vomit. MD was notified and Zofran ordered. . 11:00 Reassessment: Pt. is vomiting, vomited 150 ml of brownish colored emesis. rb1 11:22 Reassessment: Patient appears in no apparent distress at this time. Pt. still exhibits rb1 expressive aphasia at this time. No vomiting noted at this time. 11:35 Reassessment: Gave report to VIKTORIYA Banda. Information from the [facility] was given. All rb1 questions asked and answered. Vital Signs: 09:03 BP 170 / 56; Pulse 58; Resp 19; Temp 98.0(O); Pulse Ox 99% on R/A; Weight 167.3 kg (R); rb1 Height 5 ft. 7 in. (170.18 cm) (R); Pain 0/10; 09:58 BP 159 / 47; Pulse 68; Resp 20; Pulse Ox 95% on R/A; Pain 0/10; rb1 10:58 BP 138 / 65; Pulse 69; Resp 16; Pulse Ox 96% on R/A; rb1 11:35 BP 136 / 52; Pulse 70; Resp 21; Pulse Ox 96% on NC; rb1 09:03 Body Mass Index 57.77 (167.30 kg, 170.18 cm) rb1 ED Course: 08:55 Patient arrived in ED. ag5 09:00 Arm band placed on Patient placed. aa5 09:03 Patient has correct armband on for positive identification. Placed in gown. Bed in low rb1 position. Call light in reach. Side rails up X2. graphic design manager on. Pulse ox on. NIBP on. Warm blanket given. 09:05 Cody Sierra MD is Attending Physician. kdr 09:13 Inserted saline lock: 20 gauge in right forearm, using aseptic technique. aa5 09:15 Initial lab(s) drawn, by ms, sent to lab. Inserted saline lock: 20 gauge in right aa5 antecubital area, using aseptic technique. Blood collected. 09:17 Kaylynn Doe, RN is Primary Nurse. rb1 09:20 Triage completed. rb1 09:27 CT Stroke Brain w/o Contrast In Process Unspecified. EDMS 09:30 Stroke CXR 1 View In Process Unspecified. EDMS 09:36 Clarence Fulton DO is Hospitalizing Provider. kdr 09:59 EKG done, by weatherization technician. reviewed by Cody Sierra MD. at1 11:46 No provider procedures requiring assistance completed. Patient admitted, IV remains in rb1 place. Administered Medications: 10:30 Drug: Zofran (Ondansetron) 4 mg Route: IVP; Site: right antecubital; aa5 10:35 Follow up: Response: No adverse reaction aa5 10:45 Follow up: Response: No adverse reaction rb1 Point of Care Testing: Blood Glucose: 09:10 Blood Glucose: 106 mg/dL; rb1 Ranges: Outcome: 09:55 Decision to Hospitalize by Provider. kdr 11:46 Patient left the ED. rb1 11:46 Admitted to Med/surg accompanied by tech, via stretcher, room 220, with chart, Report rb1 called to VIKTORIYA Banad 11:46 Condition: stable 11:46 Instructed on the need for admit. Signatures: Dispatcher [employer] EDNH Cody Sierra MD MD kdr Dee Le RN RN aa5 Crystal Bowen, build manager EKG Tat1 Kaylynn Doe, RN RN rb1 Alana Castañeda ag5 Corrections: (The following items were deleted from the chart) 09:03 Chief complaint: Parent and/or Guardian states: Father reports last known normal aa5 was a 1130 last night. Pt. is having difficulty speaking and unable to respond appropriately to questions. rb1 : 09:03 Acuity: STEPHANIE 3 rb1 aa5 09:35 09:03 BP 170 / 56; Pulse 58bpm; Resp 19bpm; Pulse Ox 99% RA; Pain 0/10; rb1 rb1 09:37 09:03 Allergies: No Known Allergies; rb1 rb1 13:59 10:00 Reassessment: Patient appears in no apparent distress at this time. Pt. is rb1 watching TV rb1
[2019-08-10] MEDS ORDERED: ONDANSETRON 4 MG/2 ML VIAL ONE (10:31)
--- NOTE | 2019-08-10 10:47 | P.HP ---
Certification for Inpatient Patient admitted to: Inpatient With expected LOS: >2 Midnights Patient will require the following post-hospital care: Rehabilitation Practitioner: I am a practitioner with admitting privileges, knowledge of patient current condition, hospital course, and medical plan of care. Services: Services provided to patient in accordance with Admission requirements found in Title 42 Section 412.3 of the Code of Federal Regulations Patient History Date of Service: 08/10/19 Primary Care Provider: Unknown; Nephrology-Dr. West, Card-Dr. Saldivar Reason for admission: Expressive aphasia History of Present Illness: 54-year-old male with history of diastolic CHF, CAD, end-stage renal disease on hemodialysis, diabetes, hypertension, gout and paroxysmally atrial fibrillation. Patient also has a history of left BKA. Patient presented with expressive aphasia. He is not able to give accurate his tory. Most of the information came from the ER physician. It is reported that he was doing fine when he went to bed at 11:00 p.m. last night. When he woke up he was confused and not able to express where he was at. He has difficulty expressing words. There are no deficits to his extremities. There is no indication of headache, fever, chills, nausea or vomiting. No diarrhea or constipation. Patient was sent to the ER for further evaluation. In the ER patient was evaluated. Vital signs stable. Hemoglobin 12, sodium 138, potassium 4.7, BUN of 35, creatinine 6.9 with a GFR of 8. Glucose 126. CT shows acute nonhemorrhagic left temporoparietal region CVA. Patient admitted for further evaluation and treatment. When I saw the patient ER, he did not appear in any distress. He was not able to express his words. Allergies No Known Allergies Allergy (Verified 11/08/17 05:38) Home medications list reviewed: Yes Home Medications: Allopurinol 300 mg PO DAILY 11/10/17 Ascorbic Acid [Vitamin C*] 1,000 mg PO DAILY 11/10/17 Aspirin [Aspirin EC 81 MG] 81 mg PO DAILY 11/10/17 Atorvastatin Calcium 40 mg PO BEDTIME 11/10/17 Cholecalciferol (Vitamin D3) [Vitamin D3] 2,000 unit PO DAILY 11/10/17 Clopidogrel Bisulfate [Plavix*] 75 mg PO DAILY 11/10/17 Docosahexanoic AC/Epa [Fish Oil 1,000 MG*] 1,200 mg PO DAILY 11/10/17 Ferrous Sulfate [Ferrous Sulfate*] 325 mg PO DAILY 11/10/17 Furosemide 20 mg PO DAILY 11/10/17 Insulin -Regular Human [Novolin -R*] 35 unit SQ TID 11/10/17 Insulin NPH Human [Novolin N (Humulin N)*] 100 units SQ BID 11/10/17 Levothyroxine [Synthroid*] 0.125 mg PO DAILY 11/10/17 Metoprolol Tartrate 50 mg PO BID 11/10/17 Zinc Sulfate [Zinc Sulfate*] 220 mg PO DAILY 11/10/17 Docusate Calcium [Surfak] 240 mg PO BID #14 cap 11/11/17 Oxybutynin Chloride [Ditropan Xl] 10 mg PO DAILY #7 tab.er.24 11/11/17 traMADol HCL [Ultram] 50 mg PO Q6H PRN #15 tab 11/11/17 - Past Medical/Surgical History Diabetic: Yes -: Diastolic CHF -: Hypertension -: Hypothyroidism -: Diabetes mellitus type 2 -: End-stage renal disease on hemodialysis -: CAD -: Paroxysmally atrial fibrillation -: Hyperlipidemia -: Prior left BKA. -: Left BKA -: Carotid stents Psychosocial/ Personal History: Patient lives at home - Family History Family History: Reviewed- Non-Contributory - Social History Smoking Status: Unknown if ever smoked Alcohol use: No CD- Drugs: No Caffeine use: Yes Place of Residence: Home Review of Systems is unable to be obtained Physical Examination - Physical Exam General: Alert, In no apparent distress, Other (Patient not able to express his words. He is able to comprehend but lacks the ability to speak his words) HEENT: Atraumatic, Normocephalic, EOMI Neck: Supple Respiratory: Clear to auscultation bilaterally, Normal air movement Cardiovascular: Normal pulses, Regular rate/rhythm Gastrointestinal: Normal bowel sounds, Soft and benign, Non-distended, No tenderness, No masses, No rebound, No guarding Musculoskeletal: No erythema, No tenderness, No warmth Integumentary: No warmth, No cyanosis, Other (Left BKA prostatic) Neurological: Normal strength at 5/5 x4 extr, Normal tone, Normal affect, Abnormal speech - Studies Laboratory Data (last 24 hrs) 08/10/19 09:17: PT 11.0, INR 0.93, APTT 32.0 08/10/19 09:17: WBC 8.7, Hgb 12.2 L, Hct 37.7 L, Plt Count 126 L 08/10/19 09:17: Sodium 138, Potassium 4.7, BUN 35 H, Creatinine 6.99 H*, Glucose 126 H Assessment and Plan - Plan Impression: Expressive aphasia secondary to acute nonhemorrhagic left temporoparietal region CVA End-stage renal disease on hemodialysis Hypertension Diabetes mellitus type 2 Hyperlipidemia Hypothyroidism Paroxysmal atrial fibrillation Gout CAD with prior stent Left below-knee amputation with prosthetic Plan: Expressive aphasia secondary to acute nonhemorrhagic left temporoparietal region CVA: Patient will be admitted for further evaluation. Stroke protocol in place. Will continue with aspirin, Plavix. Will provide DVT prophylaxis- heparin. Case discussed with Neurology. Await further recommendations. Case also discuss with nephrology as the patient will require dialysis. Will console cardiology for further recommendation. Will obtain echo, carotid Doppler and MRI to further evaluate. Will order speech, physical and occupational therapy. Patient would benefit with inpatient rehab. Will discuss with family about plan of care and to obtain more information. Will also need to evaluate advanced directives. End-stage renal disease on hemodialysis: Nephrology consulted. Patient will require dialysis. Hypertension: Obtain and restart home medication. Diabetes mellitus type 2: Will check A1c. Will continue Accu-Cheks and provide sliding scale. Hyperlipidemia: Will provide Lipitor 80 mg. Will obtain fasting lipid panel. Hypothyroidism: Obtain and verify home medication. Will need to restart. Will check tsh. Paroxysmal atrial fibrillation: Patient in normal sinus rhythm. Prior history of atrial fibrillation. Will discuss further with cardiology. Gout: Obtain and restart home medication. CAD with prior stent: Obtain echo. Will discuss further with cardiology. Left below-knee amputation with prosthetic: Continue to monitor. Physical therapy ordered. Discharge Plan: Other (Inpatient rehab) Plan to discharge in: Greater than 2 days - Advance Directives Does patient have a Living Will: No Does patient have a Durable POA for Healthcare: No - Code Status/Comfort Care Code Status Assessed: No (Will need to reassess with family) Time Spent Managing Pts Care (In Minutes): 55
--- NOTE | 2019-08-10 11:36 | RAD REPORT ---
EXAM DESCRIPTION: RAD - Chest Single View - 08/10/2019 9:32 am CLINICAL HISTORY: confused Chest pain. COMPARISON: Chest Single View dated 11/16/2017; Chest Single View dated 11/14/2017; Chest Single View dated 11/10/2017; Abdomen 1 View (KUB) dated 11/09/2017 FINDINGS: Portable technique limits examination quality. Mild to moderate pulmonary edema is seen. The heart is significantly enlarged. No displaced fractures . IMPRESSION: CHF.
[2019-08-10] MEDS ORDERED: ONDANSETRON 4 MG/2 ML VIAL IV PRN (12:06)
[2019-08-10] MEDS ORDERED: ACETAMINOPHEN 500 MG TAB PO PRN (12:06)
[2019-08-10] MEDS: INSULIN -REGULAR HUMAN 50 UNIT/0.5 ML ML SQ SCH ×2 (12:06→18:00)
--- NOTE | 2019-08-10 13:14 | CON ---
Date of Consultation: 08/10/2019 Reason For Consultation: Elevated BUN and creatinine, fluid management. History Of Present Illness: This is a pleasant 54-year-old gentleman, well known to me from dialysis with significant past medical history of end-stage renal disease, on hemodialysis Wednesday, Wednesday, Wednesday, diabetes complicated with neuropathy and nephropathy, peripheral vascular disease, status po st left below-knee amputation, coronary artery disease status post PTCA complicated with congestive h eart failure. Patient came to the hospital with altered mental status, found to have temporal infarc tion. Patient was admitted. Patient was found to have electrolyte imbalance. Without any nausea, a ny vomiting. Creatinine was elevated up to 6, for that reason, we have been consulted. Patient torsten es any fevers, any chills. Allergies: NO KNOWN DRUG ALLERGIES. Home Medications: Include allopurinol, aspirin, atorvastatin, Plavix, Lasix insulin, levothyroxine, metoprolol, oxybutynin, and tramadol. Past Medical History: 1.Diabetes complicated with neuropathy and nephropathy. 2.End-stage renal disease, on hemodialysis Wednesday, Wednesday, Wednesday. 3.Hypertension. 4.Coronary artery disease status post PTCA complicated with congestive heart failure. 5.Peripheral vascular disease status post left below-knee amputation. 6.Carotid stenosis status post endarterectomy. Past Surgical History: Include enterectomy PTCA, left below-knee amputation, AV fistula. Family History: Positive for hypertension and diabetes. Social History: Lives with family. Denies smoking. Denies drinking. Denies drugs abuse. Review of Systems: Unobtainable. Patient is confused, but denies any shortness of breath. Physical Examination: Vital Signs: When I saw the patient, patient was lying in bed. Blood pressure 133/90, pulse of 76 a febrile. Chest: Clear to auscultation. Heart: S1-S2 regular. Abdomen: Soft, nontender. Extremities: Left below-knee amputation. Right venous stasis change. Trace edema. Neuro: Nonfocal, confused. Cranial nerves intact. Laboratory Data: WBC 8.7, H and H 12.2/37.7. Sodium 138, potassium 4.7, bicarb 27, BUN 35, creatini ne 6.9, calcium of 10. Current Medications: The patient on include as above. Assessment And Plan: 1.End-stage renal disease with electrolyte imbalance. I going to do dialysis as scheduled. 2.Electrolyte imbalance secondary to renal failure with alkalosis, going to be corrected on dialysis . We will dialyze the patient on low-potassium bath. 3.Hypertension with the presence of cerebrovascular accident. Goal for blood pressure 150 to 160 cu rrently. We will follow up with Neurology. 4.Secondary hyperparathyroid stable with the presence of hypercalcemia. Hold any calcium based bind er. Hold vitamin D. 5.Anemia of chronic kidney disease. Hemoglobin on the goal with the presence of CVA. Hold CRISTIANO. 6.Diabetes as by primary. 7.Cerebrovascular accident. Follow up with Neurology. 8.Peripheral vascular disease, stable. 9.Coronary artery disease with congestive heart failure. We will try to establish better volume wit h dialysis tomorrow. SHERLYN/LYUDMILA Voice ID: [id number] Report ID: [id number]
--- NOTE | 2019-08-10 17:21 | RAD REPORT ---
EXAM DESCRIPTION: MRI - Brain Wo Cont - 08/10/2019 4:46 pm CLINICAL HISTORY: Left temporoparietal CVA COMPARISON: Ct Stroke Brain Wo Cont dated 08/10/2019 TECHNIQUE: Sagittal T1-weighted images were obtained along with axial PD, heavily T2-weighted and T2 -FLAIR images. Axial DWI and ADC mapping sequences were also obtained along with coronal heavily T2-w eighted images. FINDINGS: No intracranial hemorrhage is present. Diffusion-weighted imaging shows a large 7 centimet er area of abnormal signal involving a substantial portion of the left parietal and temporal lobes. T here is corresponding diminished signal on ADC mapping. Hyperintense T2/ IR signal is present. Mild c ortical edema and sulcal effacement changes are present. There is no midline shift. Currently no sign ificant degree of mass effect on the left lateral ventricle. No other areas of acute infarction identified. No extra-axial fluid collections. Gil-matter/white ma tter junction is preserved. Signal voids are seen as a normal finding in the major intracranial vesse ls. No globe or orbital content abnormality. Mastoid air cells are clear. Large retention cyst in the left maxillary sinus. No acute sinus finding . IMPRESSION: Large nonhemorrhagic CVA involving a substantial portion of the left parietal and tempor al lobes. This is the correlate to the CT finding. No significant mass effect and no midline shift. No other areas of infarction.
--- NOTE | 2019-08-10 17:32 | EKG ---
Test Date: 2019-08-10 Test Time: 09:44:34 Medical Device Assembler: DEANNA MEASUREMENT RESULTS: Intervals: Rate: 67 CA: 206 QRSD: 106 QT: 450 QTc: 475 Stacy: P: 85 CA: 206 QRS: -10 T: 84 INTERPRETIVE STATEMENTS: Normal sinus rhythm Incomplete right bundle branch block Borderline ECG Compared to ECG 11/08/2017 22:04:03 No significant changes Electronically Signed On 08-10-19 17:31:43 CDT by Kalen Saldivar
[2019-08-10] MEDS: METOPROLOL TAR 25 MG TAB PO SCH (18:00)
[2019-08-10] MEDS: ATORVASTATIN 80 MG TAB PO SCH (22:19)
[2019-08-10] MEDS: HEPARIN 5000 UNIT/ML 1 ML VIAL SQ SCH (22:20)
--- NOTE | 2019-08-11 00:04 | CON ---
Date of Consultation: 08/10/[address] Fulton' service on 08/10/2019. Reason For Consultation: Congestive heart failure. History Of Present Illness: Mr. Pinedo is a 54-year-old white male with multiple medical problems. Robbin chacko has a history of PAD status post left leg amputation, has a history of CAD status post circumflex s tent in 2011, has a history of diabetes, hypertension, dyslipidemia, gout, and end-stage renal diseas e, on hemodialysis. He came in with shortness of breath and expressive aphasia. He was found to hav e an acute CVA in the left temporoparietal region. His creatinine was 6.99. Last echocardiogram in 2018, was normal. It was difficult to obtain adequate history from Mr. Pinedo, but when I saw him, he did have some difficulty with shortness of breath, but no chest pain, nausea, vomiting, diaphoresis, PND, orthopnea, pedal edema, palpitations, or syncope. Past Medical History: As stated above. Allergies: NONE. Review of Systems: Negative. Social History: Negative. Family History: Noncontributory. Medications: Include aspirin, Plavix, Lipitor, allopurinol, Lasix, insulin, Synthroid, and metoprolo l. Physical Examination: General: He was alert and oriented x3, was having difficulty expressing himself, although he could t alk. He was answering questions appropriately. Vital Signs: Stable, afebrile. Sinus rhythm. HEENT: Negative. Neck: Supple with no bruit. Chest: Clear. Cardiac: Revealed a regular rhythm and rate. No murmurs, gallops, or rubs. Abdomen: Benign. Extremities: Revealed no clubbing, cyanosis, or edema. He is status post left BKA. Diagnostic Data: Basically except for the CT of the head showing acute CVA in the left temporopariet al lesions were pretty unremarkable. His creatinine is 6.99 and troponin and BNP were negative. Impression And Plan: 1.Acute cerebrovascular accident. 2.Coronary artery disease status post stent in 2011, of the circumflex. 3.Peripheral arterial disease status post left leg amputation. 4.Diabetes. 5.Hypertension. 6.Dyslipidemia. 7.Gout. 8.End-stage renal disease, on hemodialysis. MRI is still pending. Hemodialysis is planned for tomorrow. Echocardiogram is pending. I agree wit h his present regimen. Neurological consultation is pending. We will see what the echocardiogram sh ows before making any final decisions from a cardiovascular standpoint. No plan for any intervention from a coronary standpoint considering his acute CVA for now. His echocardiogram will be done to ru le out congestive heart failure and thrombus or vegetations. I will continue to follow him. JESUS/LYUDMILA Voice ID: [id number] Report ID: [id number]
--- NOTE | 2019-08-11 00:07 | CON ---
Reason For Consultation: Consultation called because of stroke. History Of Present Illness: Mr. Pinedo is a 54-year-old right-handed patient with multiple medical problems including end-stage renal disease, on hemodialysis, congestive heart failure, diabetes mellitus, hypertension, gout, and paroxysmal atrial fibrillation along with a history of left [id number]-gyq-qnta amputation related to diabetes mellitus, who comes into the [facility] with difficulty communicating and diagnosed with an expressive aphasia. The patient apparently went to bed around 11 p.m. on August 08 and then woke up confused, not able to get his words and thoughts properly to express himself. He had no weakness noted in the upper or lower extremities and it is a proximal left lower extremity swrvu-ivj-kern amputation on the left. At [facility], his head CT scan showed an acute nonhemorrhagic stroke at the left temporoparietal junction and the area is likely to be disconnecting his Wernicke's from Broca's area producing transcortical aphasia. Further, he had difficulty seeing objects in the right visual field. His NIH Stroke Scale was 9. He was not on full anticoagulation, but was on aspirin and Plavix. He was put on Lipitor 80 mg at bedtime along with Lopressor and DVT prophylaxis of heparin 5000 units subcutaneously twice daily. Since his stroke, the patient's aphasia has not changed significantly. Past Medical History: As indicated. Allergies: NO KNOWN DRUG ALLERGIES. Home Medications: Allopurinol 300 mg daily, vitamin C 1000 mg daily, aspirin 81 mg daily, atorvastatin 40 mg at bedtime, vitamin D3 2000 units daily, Plavix 75 mg daily, fish oil 1000 mg daily, ferrous sulfate 325 mg daily, furosemide 20 mg daily, insulin 35 units 3 times daily, this is regular Novolin insulin and he takes Humulin insulin 100 units subcutaneously twice daily, Synthroid 0.125 mg daily, metoprolol 50 mg daily, zinc sulfate 220 mg daily, Surfak 240 mg twice daily, Ditropan XL 10 mg daily, Ultram 50 mg daily. Past Surgical History: Left below-knee amputation, carotid stents. Social History: No alcohol, tobacco, or IV drug use. Patient lives independently in his home. Family History: Noncontributory. Review of Systems: The patient was not very reliable given his aphasic stroke to give a review of systems. Apparently, there was no recent fevers, chills, nausea, vomiting, or arthralgias. Physical Examination: Vital Signs: Blood pressure 155/70, pulse 75, respiratory rate 18, temperature 97.6, oxygen saturation 94% room air. Weight 368 pounds, height 5 feet 7 inches, BMI in the range of extreme obesity of 57.6. General: Mr. Pinedo is sitting in his bed, in no acute distress. HEENT: He appears normocephalic, atraumatic. His sclerae are anicteric. Oropharynx is pink and moist. EXTREMITIES: He has significant venous stasis changes in the right lower extremity to the mid leg and he has left ugrld-aqd-qbmn amputation. Upper extremities showed no significant cyanosis or edema otherwise. Heart: Regular. Abdomen: Very protuberant and obese. Neurologic: He is alert and oriented to person and situation. He has difficulty following commands and difficulty expressing his thoughts. His words, however, sound very clear, but the content is not clear. He has paraphasic and semantic errors. Otherwise on cranial nerves, he appears to have a right visual field deficit, otherwise intact cranial nerves. Motor examination in the upper extremities 5/5 strength proximally and distally. There is stocking-glove loss in the right lower extremity and the upper extremities. Reflexes depressed in the upper and lower extremities. Coordination intact in both upper extremities. Gait, he does have a tendency to be unsteady. He will be ambulated with physical therapy using gait belt since he is a very heavy patient at 368 pounds, 2 therapists will likely be required to ambulate the patient safely. Laboratory Studies: White blood cell count 8.7, hemoglobin 12.2, platelets 126. INR 0.93. Chemistries show sodium 138, potassium 4.7, chloride 101, carbon dioxide 27, BUN 35, creatinine 6.99, glucose ranged from 106 to 173, calcium 10.0. Assessment: Mr. Pinedo is a 54-year-old patient with moderate acute left temporoparietal junction stroke producing a transcortical aphasia and right homonymous hemianopsia. He has multiple stroke risk factors including congestive heart failure, end-stage renal disease, on hemodialysis, hypertension, and reported paroxysmal atrial fibrillation. He is on aspirin, Plavix, high-dose statin, folic acid, deep vein thrombosis prophylaxis along with medications for diabetes and hypertension. Plan: 1. Patient may be evaluated for possible inpatient rehabilitation. 2. Should continue with aspirin and Plavix unless the patient is evaluated by Cardiology and deemed to be a good candidate for full anticoagulation such as Eliquis 5 mg twice daily or higher dosage given his weight, but he does have significant renal dysfunction and therefore renal dosing will have to take precedence. 3. He has aphasic stroke and visual field deficits. He will benefit from speech therapy and should have clearance by Speech for his swallowing. 4. Since his end-stage renal disease is managed by the Renal Service, he will require ongoing dialysis, which will be okay as the patient is doing physical therapy. Patient again will be evaluated for potential admission to the inpatient rehabilitation unit. ARDEN/LYUDMILA Voice ID: [id number] Report ID: [id number] MTDD
[2019-08-11] MEDS: METOPROLOL TAR 25 MG TAB PO SCH ×2 (05:43→19:31)
[2019-08-11] MEDS: PANTOPRAZOLE 40MG TABLET PO SCH (05:43)
[2019-08-11 05:53] LABS: Absolute Lymphocytes (CBC) 1.8 K/uL (0.7-4.9); Basophils % 0.6 % (0-1.3); Hematocrit 35.5 % (39.6-49.0); Lymphocytes % 15.1 % (15.3-44.8); MPV 8.5 fL (7.6-11.3); RBC Red Blood Cell Count 3.46 M/uL (4.33-5.43)
[2019-08-11 07:26] LABS: Magnesium 2.9 mg/dL (1.8-2.4); T4,Total 9.8 ug/dL (4.5-12.1); Thyroid Stimulating Hormone 1.5 uIU/mL (0.360-3.740)
[2019-08-11 07:28] LABS: Potassium 5.8 mmol/L (3.5-5.1)
[2019-08-11] MEDS: INSULIN -REGULAR HUMAN 50 UNIT/0.5 ML ML SQ SCH ×4 (07:30→21:00)
--- NOTE | 2019-08-11 07:45 | RAD REPORT ---
EXAM DESCRIPTION: USCarotid Artery Bilateral08/10/2019 9:51 pm CLINICAL HISTORY: CVA COMPARISON: None FINDINGS: The velocity of the right internal carotid artery equals 112 cm/sec. The right ICA/CCA rat io 1.3 The velocity of the left internal carotid artery equals 101 cm/sec. The left ICA/CCA ratio 0.8 Mild plaque is present within the carotid arteries. The vertebral arteries demonstrate antegrade flow IMPRESSION: Mild plaque within the carotid arteries without evidence of a hemodynamically significan t stenosis NASCET criteria used. Mild 0-49% stenosis Moderate 50-69% stenosis Severe 70-99% stenosis
[2019-08-11] MEDS: ASPIRIN EC 81 MG TAB PO SCH (08:57)
[2019-08-11] MEDS ORDERED: CLOPIDOGREL 75 MG TABLET PO SCH (09:00)
--- NOTE | 2019-08-11 10:29 | PN ---
Date of Progress Note: 08/11/2019 Mr. Pinedo was admitted with an acute CVA. He has end-stage renal disease and is undergoing hemodialy sis today. He has a history of coronary artery disease. He is status post left BKA. He has hyperte nsion, dyslipidemia, and diabetes. He has also had a history of carotid stent. A carotid Doppler is pending. He was seen by Nephrology as well as Neurology by Dr. Diaz. Recommendation was for sp eech therapy. The patient has had documented paroxysmal atrial fibrillation and I believe with his r isk factors and his CVA, I think he should be on Eliquis 5 mg b.i.d. I will discuss the case further with his primary care attending. JESUS/LYUDMILA Voice ID: [id number] Report ID: [id number]
[2019-08-11] MEDS: HEPARIN 5000 UNIT/ML 1 ML VIAL SQ SCH (10:49)
--- NOTE | 2019-08-11 11:41 | P.PN ---
Subjective Date of Service: 08/11/19 Primary Care Provider: Unknown; Nephrology-Dr. West, Card-Dr. Saldivar Chief Complaint: Expressive aphasia Subjective: Improving Subjective 54 Y/o man with HX of ESRD , CAD on ASA and plavix, admitted for AMS , found to have ischemic infract Today cont to have sensor aphasia K 5.8 , H today PT/OT plan to dc plavix and start Eliquis Physical Examination: General: AAOX3, sensory aphasia , obeses neck: supple, no elevated JVD Heart: RRR, normal S1,2 no murmur or rub chest CTAB, no rales or whezes Abdomen: soft , NT ext : lt BKA , Rt leg edema ESRD on HD Cont HD , renal dose meds CVA neurology on bpard ASA , plavix an ststain PT/OT Anemia of chronic disease Cont epogen metabolic bone disaese cont binders Hyperkalmeia HD today DM as pr PCP HTN controlled total time spent 35min Physical Examination - Vital Signs Temperature: 98.0 F Blood Pressure: 118/50 Pulse: 71 Respirations: 16 Pulse Ox (%): 97
--- NOTE | 2019-08-11 14:35 | P.PN ---
Subjective Date of Service: 08/11/19 Primary Care Provider: Unknown; Nephrology-Dr. West, Card-Dr. Saldivar Chief Complaint: Expressive aphasia Subjective: Other (Patient still having difficulty with his speech.) Physical Examination - Vital Signs Temperature: 97.2 F Blood Pressure: 154/69 Pulse: 68 Respirations: 16 Pulse Ox (%): 90 - Physical Exam General: Alert, Cooperative HEENT: Atraumatic Neck: Supple Respiratory: Clear to auscultation bilaterally, Normal air movement Cardiovascular: Normal pulses, Regular rate/rhythm Gastrointestinal: Normal bowel sounds, Soft and benign, Non-distended Neurological: Normal strength at 5/5 x4 extr, Normal tone, Normal affect, Abnormal speech - Studies Medications List Reviewed: Yes Assessment & Plan Discharge Plan: Other (Inpatient rehab) Plan to discharge in: 72 Hours Physician Review Additional Text: Impression: Transcortical aphasia with right homonymous hemianopsia secondary to acute nonhemorrhagic left temporoparietal region CVA End-stage renal disease on hemodialysis Hypertension Diabetes mellitus type 2 Hyperlipidemia Hypothyroidism Paroxysmal atrial fibrillation Gout CAD with prior stent Left below-knee amputation with prosthetic Plan: Transcortical aphasia with right homonymous hemianopsia secondary to acute nonhemorrhagic left temporoparietal region CVA: Case discussed with Neurology and Cardiology. Continue with current plan of care. Speech, physical therapy and occupational therapy to assess. Will discontinue Plavix and add Eliquis. Will see if the patient qualifies for inpatient rehab. Will need to discuss with family members about plan of care. Message is left with family. s. End-stage renal disease on hemodialysis: Nephrology consulted. Patient will require dialysis. Hypertension: Obtain and restart home medication. Diabetes mellitus type 2: Will check A1c. Will continue Accu-Cheks and provide sliding scale. Hyperlipidemia: Will provide Lipitor 80 mg. Will obtain fasting lipid panel. Hypothyroidism: Obtain and verify home medication. Will need to restart. Will check tsh. Paroxysmal atrial fibrillation: Will start Eliquis. Gout: Obtain and restart home medication. CAD with prior stent: Obtain echo. Will discuss further with cardiology. Left below-knee amputation with prosthetic: Continue to monitor. Physical therapy ordered. Time Spent Managing Pts Care (In Minutes): 55
[2019-08-11] MEDS: APIXABAN 5 MG TABLET PO SCH (20:53)
[2019-08-11] MEDS: ATORVASTATIN 80 MG TAB PO SCH (20:53)
[2019-08-12] MEDS: PANTOPRAZOLE 40MG TABLET PO SCH (06:02)
[2019-08-12] MEDS: METOPROLOL TAR 25 MG TAB PO SCH ×2 (06:02→17:00)
[2019-08-12 06:43] VITALS: BMI 50.6
[2019-08-12 06:50] LABS: Magnesium 2.5 mg/dL (1.8-2.4)
[2019-08-12 06:58] LABS: Potassium 5.8 mmol/L (3.5-5.1)
[2019-08-12 07:04] LABS: Basophils % 0.6 % (0-1.3); Hematocrit 34.2 % (39.6-49.0); Lymphocytes % 16.5 % (15.3-44.8); MPV 8.4 fL (7.6-11.3); RBC Red Blood Cell Count 3.36 M/uL (4.33-5.43)
[2019-08-12] MEDS: INSULIN -REGULAR HUMAN 50 UNIT/0.5 ML ML SQ SCH ×4 (07:30→21:00)
[2019-08-12] MEDS: APIXABAN 5 MG TABLET PO SCH ×2 (08:30→22:43)
[2019-08-12] MEDS: ASPIRIN EC 81 MG TAB PO SCH ×2 (08:32→09:57)
--- NOTE | 2019-08-12 09:35 | P.PN ---
Subjective Date of Service: 08/12/19 Primary Care Provider: Unknown; Nephrology-Dr. West, Card-Dr. Saldivar Chief Complaint: Expressive aphasia Subjective: Improving (still with receptive and expressive aphasia) Physical Examination - Vital Signs Temperature: 98.0 F Blood Pressure: 143/66 Pulse: 62 Respirations: 20 Pulse Ox (%): 92 - Physical Exam General: Alert, In no apparent distress, Other (Still with receptive and expressive aphasia) HEENT: Atraumatic Neck: Supple Respiratory: Clear to auscultation bilaterally, Normal air movement Cardiovascular: Normal pulses, Regular rate/rhythm Gastrointestinal: Normal bowel sounds, Soft and benign, Non-distended Musculoskeletal: No erythema, No tenderness, No warmth Integumentary: No tenderness/swelling, No erythema, No warmth, No cyanosis Neurological: Normal strength at 5/5 x4 extr, Normal tone, Abnormal speech - Studies Medications List Reviewed: Yes Assessment & Plan Discharge Plan: Other (Inpatient rehab) Plan to discharge in: 48 Hours Physician Review Additional Text: Impression: Transcortical aphasia with right homonymous hemianopsia secondary to acute nonhemorrhagic left temporoparietal region CVA End-stage renal disease on hemodialysis Hypertension Diabetes mellitus type 2 Hyperlipidemia Hypothyroidism Paroxysmal atrial fibrillation Gout CAD with prior stent Left below-knee amputation with prosthetic Plan: Transcortical aphasia with right homonymous hemianopsia secondary to acute nonhemorrhagic left temporoparietal region CVA: Patient still with expressive and receptive aphasia. Case discussed with Neurology yesterday. Will continue with aspirin and Eliquis. Will have patient work with physical therapy, speech therapy and occupational therapy. Will continue to try to have patient approved for inpatient rehab. Continue to monitor closely. Continue stroke protocol medications. Will discuss with family. End-stage renal disease on hemodialysis: Nephrology consulted. Patient will likely require dialysis. Hypertension: Continue and monitor medications Diabetes mellitus type 2: Will check A1c. Will continue Accu-Cheks and provide sliding scale. Hyperlipidemia: Will continue Lipitor 80 mg. Hypothyroidism: Continue Paroxysmal atrial fibrillation: Patient now on Eliquis. Continue with rate control medication Gout: Continue medication. CAD with prior stent: Obtain echo. Case discussed with cardiology. He agrees with current plan of care. Left below-knee amputation with prosthetic: Continue to monitor. Physical therapy ordered. Time Spent Managing Pts Care (In Minutes): 55
[2019-08-12] MEDS ORDERED: CODEINE 30MG/APAP 300MG TAB PO PRN (09:36)
[2019-08-12] MEDS: ZINC SULFATE 220 MG CAP PO SCH (09:57)
[2019-08-12] MEDS: FOLIC ACID 1 MG TABLET PO SCH (09:57)
[2019-08-12] MEDS: FUROSEMIDE 20 MG TABLET PO SCH (09:57)
[2019-08-12] MEDS: allopurinoL 300 MG TAB PO SCH (09:58)
--- NOTE | 2019-08-12 15:27 | PN ---
Date of Progress Note: 08/12/2019 Mr. Pinedo came in with CVA in the temporoparietal region. Has a history of atrial fibrillation that is paroxysmal. He is now on Eliquis. He is in sinus rhythm. He has not improved much since he has been here. He is getting speech therapy. He has a history of CAD, PAD status post left BKA. He has a history of diabetes, hypertension, and dyslipidemia. He has a history of cerebrovascular disease. His carotid Doppler was negative, however. He has a history of end-stage renal disease, on hemodia lysis. Nephrology and Neurology are following him. Today, he is in sinus rhythm. His potassium is 5.8. His creatinine is 7.19. He is on Eliquis, aspirin, metoprolol, and insulin. We will continue his present regimen. JESUS/LYUDMILA Voice ID: [id number] Report ID: [id number]
[2019-08-12] MEDS: ATORVASTATIN 80 MG TAB PO SCH (22:43)
[2019-08-13 05:35] LABS: Absolute Lymphocytes (CBC) 1.8 K/uL (0.7-4.9); Basophils % 0.6 % (0-1.3); Lymphocytes % 16.8 % (15.3-44.8); MPV 8.2 fL (7.6-11.3); RBC Red Blood Cell Count 3.26 M/uL (4.33-5.43)
[2019-08-13] MEDS: METOPROLOL TAR 25 MG TAB PO SCH ×2 (05:43→17:10)
[2019-08-13] MEDS: PANTOPRAZOLE 40MG TABLET PO SCH (05:44)
[2019-08-13 05:49] LABS: Magnesium 2.7 mg/dL (1.8-2.4); Potassium 4.4 mmol/L (3.5-5.1)
[2019-08-13] MEDS: INSULIN -REGULAR HUMAN 50 UNIT/0.5 ML ML SQ SCH ×4 (07:30→22:55)
[2019-08-13 08:49] VITALS: O2SAT 93
[2019-08-13] MEDS ORDERED: HOME MED [FLUTICASONE 50MCG NASAL SPRAY] NAS SCH (09:00)
[2019-08-13] MEDS: allopurinoL 300 MG TAB PO SCH (09:00)
[2019-08-13] MEDS: ZINC SULFATE 220 MG CAP PO SCH (09:00)
[2019-08-13] MEDS: APIXABAN 5 MG TABLET PO SCH ×2 (09:01→20:25)
[2019-08-13] MEDS: ASPIRIN EC 81 MG TAB PO SCH (09:01)
[2019-08-13] MEDS: FUROSEMIDE 20 MG TABLET PO SCH (09:02)
[2019-08-13] MEDS: FOLIC ACID 1 MG TABLET PO SCH (09:03)
--- NOTE | 2019-08-13 13:59 | P.PN ---
Subjective Date of Service: 08/13/19 Primary Care Provider: Unknown; Nephrology-Dr. West, Card-Dr. Saldivar Chief Complaint: Expressive aphasia Subjective: Improving (Speech is better.) Physical Examination - Vital Signs Temperature: 98.3 F Blood Pressure: 109/53 Pulse: 65 Respirations: 18 Pulse Ox (%): 92 - Physical Exam General: Alert, Other (Overall communication with speech is improved) HEENT: Atraumatic Neck: Supple Respiratory: Clear to auscultation bilaterally, Normal air movement Cardiovascular: Normal pulses, Regular rate/rhythm Neurological: Normal strength at 5/5 x4 extr, Normal tone, Abnormal speech (Speech improved) - Studies Medications List Reviewed: Yes Assessment & Plan Discharge Plan: Other (Inpatient rehab) Plan to discharge in: 24 Hours Physician Review Additional Text: Impression: Transcortical aphasia with right homonymous hemianopsia secondary to acute nonhemorrhagic left temporoparietal region CVA End-stage renal disease on hemodialysis Hypertension Diabetes mellitus type 2 Hyperlipidemia Paroxysmal atrial fibrillation Gout CAD with prior stent Left below-knee amputation with prosthetic Plan: Transcortical aphasia with right homonymous hemianopsia secondary to acute nonhemorrhagic left temporoparietal region CVA: Overall his expressive and receptive aphasia has improved. Continue to work with physical therapy and occupational therapy. Case has been discussed with Neurology. Continue current medications. Anticipate approval to inpatient rehab tomorrow. Continue stroke protocol. Will discuss with family End-stage renal disease on hemodialysis: Nephrology consulted. Continue dialysis. Hypertension: Continue and monitor medications Diabetes mellitus type 2: Will check A1c. Will continue Accu-Cheks and provide sliding scale. Hyperlipidemia: Will continue Lipitor 80 mg. Paroxysmal atrial fibrillation: Patient now on Eliquis. Continue with rate control medication. Case discussed with cardiology. Echo ordered. Gout: Continue medication. CAD with prior stent: Obtain echo. Case discussed with cardiology. He agrees with current plan of care. Left below-knee amputation with prosthetic: Continue to monitor. Physical therapy ordered. Time Spent Managing Pts Care (In Minutes): 55
[2019-08-13] MEDS: ATORVASTATIN 80 MG TAB PO SCH (20:25)
--- NOTE | 2019-08-13 22:27 | PN ---
Date of Progress Note: 08/13/2019 Chief Complaint: End-stage renal disease. History Of Present Illness: Patient was found to have hyperkalemia and dialysis was done to control electrolytes. Patient was found to have hyperkalemia of moderate degree. Potassium was 5.8. There is no evidence of metabolic acidosis. Patient has dialysis done on Wednesday, Wednesday and Wednesday. He received dialysis yesterday, despite dialysis potassium level is elevated and patient will have cathy tional treatment today. Review of Systems: Denies new complaints. Physical Examination: General: Not in acute distress. Heart: S1, S2. No pericardial friction, rub. Abdomen: Soft, benign, nontender. Extremities: No edema. Impression And Plan: 1.End-stage renal disease, dialysis is done today. Continue to monitor electrolytes. 2.Cerebrovascular accident. Neurology on-board. Patient is taking Plavix, statin, and aspirin. Manuel steward is advancing with PT-OT. 3.Anemia of chronic kidney disease. Continue Epogen. 4.Metabolic bone disease. Continue binders. Monitor phosphorus level. 5.Hyperkalemia. Continue low-potassium diet and plan dialysis accordingly. Patient will continue r enal diet and diabetic diet. EB/MODL Voice ID: [id number] Report ID: [id number]
--- NOTE | 2019-08-13 23:12 | PN ---
Date of Progress Note: 08/13/2019 Chief Complaint: End-stage renal disease, on dialysis. History Of Present Illness: Patient received an additional dialysis session yesterday. Potassium le jose has improved, normalized today. Patient is on low-potassium diet. Hypertension, blood pressure is controlled. Review of Systems: Patient is alert. Speech is improving. Physical Examination: Lungs: Clear to auscultation bilaterally. Heart: S1, S2. Abdomen: Soft, benign. Extremities: No edema. Impression And Plan: 1.End-stage renal disease, next dialysis tomorrow. 2.Diabetes mellitus type 2. Continue insulin. 3.Gout, asymptomatic. 4.Anemia of chronic kidney disease. Monitor hemoglobin level. Adjust treatment with CRISTIANO accordingl y. 5.Renal osteodystrophy. Continue to monitor phosphorus level and advance binders as tolerated. EB/MODL Voice ID: [id number] Report ID: [id number]
[2019-08-14] MEDS: METOPROLOL TAR 25 MG TAB PO SCH (05:39)
[2019-08-14] MEDS: PANTOPRAZOLE 40MG TABLET PO SCH (05:39)
[2019-08-14] MEDS: INSULIN -REGULAR HUMAN 50 UNIT/0.5 ML ML SQ SCH ×2 (07:30→12:02)
[2019-08-14] MEDS: FOLIC ACID 1 MG TABLET PO SCH (08:51)
[2019-08-14] MEDS: ASPIRIN EC 81 MG TAB PO SCH (08:51)
[2019-08-14] MEDS: APIXABAN 5 MG TABLET PO SCH (08:51)
[2019-08-14] MEDS: ZINC SULFATE 220 MG CAP PO SCH (08:52)
[2019-08-14] MEDS: FUROSEMIDE 20 MG TABLET PO SCH (08:52)
[2019-08-14] MEDS: allopurinoL 300 MG TAB PO SCH (08:52)
[2019-08-14 10:04] VITALS: TEMP 98.2
--- NOTE | 2019-08-14 10:58 | P.DS ---
Admission Date: 08/10/19 Discharge Date: 08/14/19 Primary Care Provider: Unknown; Nephrology-Dr. West, Card-Dr. Saldivar Disposition: TRANSFER TO INPATIENT REHAB Discharge Condition: GOOD Reason for Admission: Expressive aphasia Consultations: Nephrology-Dr. West Neurology-Dr. Diaz Cardiology-Dr. Saldivar Procedures: MRI Brain: FINDINGS: No intracranial hemorrhage is present. Diffusion-weighted imaging shows a large 7 centimeter area of abnormal signal involving a substantial portion of the left parietal and temporal lobes. There is corresponding diminished signal on ADC mapping. Hyperintense T2/ IR signal is present. Mild cortical edema and sulcal effacement changes are present. There is no midline shift. Currently no significant degree of mass effect on the left lateral ventricle. No other areas of acute infarction identified. No extra-axial fluid collections. Igl-matter/white matter junction is preserved. Signal voids are seen as a normal finding in the major intracranial vessels. No globe or orbital content abnormality. Mastoid air cells are clear. Large retention cyst in the left maxillary sinus. No acute sinus finding. IMPRESSION: Large nonhemorrhagic CVA involving a substantial portion of the left parietal and temporal lobes. This is the correlate to the CT finding. No significant mass effect and no midline shift. No other areas of infarction. Carotid Doppler: FINDINGS: The velocity of the right internal carotid artery equals 112 cm/sec. The right ICA/CCA ratio 1.3 The velocity of the left internal carotid artery equals 101 cm/sec. The left ICA/CCA ratio 0.8 Mild plaque is present within the carotid arteries. The vertebral arteries demonstrate antegrade flow IMPRESSION: Mild plaque within the carotid arteries without evidence of a hemodynamically significant stenosis NASCET criteria used. ECHO: Done pending at discharge Medical Problem List: Transcortical aphasia with right homonymous hemianopsia secondary to acute nonhemorrhagic left temporoparietal region CVA End-stage renal disease on hemodialysis Hypertension Diabetes mellitus type 2 Hyperlipidemia Paroxysmal atrial fibrillation now on chronic anti coagulation therapy Gout CAD with prior stent Left below-knee amputation with prosthetic Brief History of Present Illness: 54-year-old male with history of diastolic CHF, CAD, end-stage renal disease on hemodialysis, diabetes, hypertension, gout and paroxysmally atrial fibrillation. Patient also has a history of left BKA. Patient presented with expressive aphasia. He is not able to give accurate history. Most of the information came from the ER physician. It is reported that he was doing fine when he went to bed at 11:00 p.m. last night. When he woke up he was confused and not able to express where he was at. He has difficulty expressing words. There are no deficits to his extremities. There is no indication of headache, fever, chills, nausea or vomiting. No diarrhea or constipation. Patient was sent to the ER for further evaluation. In the ER patient was evaluated. Vital signs stable. Hemoglobin 12, sodium 138, potassium 4.7, BUN of 35, creatinine 6.9 with a GFR of 8. Glucose 126. CT shows acute nonhemorrhagic left temporoparietal region CVA. Patient admitted for further evaluation and treatment. When I saw the patient ER, he did not appear in any distress. He was not able to express his words. Hospital Course: Patient presented with expressive and receptive aphasia. Patient found to have acute nonhemorrhagic left temporal parietal region CVA. This caused transcortical aphasia with right homonymous hemianopsia. During the course of his stay patient was seen by nephrology, cardiology and neurology. Patient previously on aspirin and Plavix. Because of his atrial fibrillation patient now on Eliquis. Plavix has been discontinued. Patient has worked with physical therapy, occupational therapy and speech. At discharge patient has been accepted to inpatient rehab. He will continue with therapy there. At discharge patient will continue with aspirin 81 mg daily, folic acid 1 mg daily, Eliquis 5 mg 1 pill twice daily, Lipitor 80 mg daily, and blood pressure medication- metoprolol 25 mg 1 pill twice daily. Patient will be transferred to inpatient rehab. Patient with underlying end-stage renal disease on hemodialysis. Nephrology was consulted. Patient received dialysis. At discharge patient will continue with dialysis as directed. Patient will continue with allopurinol 300 mg daily. Patient will continue with a 1500 cc per day fluid restriction and low-salt diet. Patient may continue with Lasix 20 mg daily. May need to hold medication if fluid restriction well controlled. Patient with hypertension. Blood pressure stable. At discharge he will continue with his current medication metoprolol 25 mg 1 pill twice daily. Patient with diabetes mellitus type 2. A1c 7.3. Patient previously on regular insulin 3 times a day. Patient has been very well controlled in the hospital. Will recommend to continue with a 2000 ADA diet. Patient may continue with insulin sliding scale protocol. Patient with hyperlipidemia. Medication has been adjusted. At discharge he will continue with Lipitor 80 mg daily. As mentioned above patient with history of paroxysmal atrial fibrillation. Medications now have been adjusted. Patient will continue with Eliquis 5 mg 1 pill twice daily. This was recommended by neurology and cardiology. Echo will be done prior to discharge. This can be further addressed by cardiology. Patient with history of CAD and prior stent. This is remained stable. Continue with above recommendation. As stated above patient will no longer take Plavix. Patient on aspirin and Eliquis. Patient with left below-knee amputation now with prosthetic. Patient will continue with physical therapy in inpatient rehab. Vital Signs/Physical Exam: Temp Pulse Resp BP Pulse Ox 98.2 F 67 20 119/81 91 08/14/19 08:00 08/14/19 08:52 08/14/19 08:00 08/14/19 08:52 08/14/19 08:00 General: Alert, Other (Patient now better able to communicate but still with receptive and expressive aphasia) HEENT: Atraumatic Neck: Supple Respiratory: Clear to auscultation bilaterally, Normal air movement Cardiovascular: Normal pulses, Regular rate/rhythm Gastrointestinal: Normal bowel sounds, Soft and benign, Non-distended, No tenderness, No masses, No rebound, No guarding Musculoskeletal: No erythema, No tenderness, No warmth Integumentary: No tenderness/swelling, No erythema, No warmth, No cyanosis Neurological: Normal strength at 5/5 x4 extr, Normal tone, Normal affect, Abnormal speech Laboratory Data at Discharge: WBC 10.4 K/uL (4.3-10.9) 08/13/19 05:18 Hgb 10.8 g/dL (13.6-17.9) L 08/13/19 05:18 Hct 33.0 % (39.6-49.0) L 08/13/19 05:18 Plt Count 145 K/uL (152-406) L D 08/13/19 05:18 PT 11.0 SECONDS (9.5-12.5) 08/10/19 09:17 INR 0.93 08/10/19 09:17 APTT 32.0 SECONDS (24.3-36.9) 08/10/19 09:17 Sodium 135 mmol/L (136-145) L 08/13/19 05:18 Potassium 4.4 mmol/L (3.5-5.1) 08/13/19 05:18 BUN 38 mg/dL (7-18) H 08/13/19 05:18 Creatinine 6.92 mg/dL (0.55-1.3) H* 08/13/19 05:18 Glucose 162 mg/dL (74-106) H 08/13/19 05:18 Magnesium 2.7 mg/dL (1.8-2.4) H 08/13/19 05:18 Triglycerides 102 mg/dL (<150) 08/11/19 05:33 Cholesterol 86 mg/dL (<200) 08/11/19 05:33 HDL Cholesterol 34 mg/dL (40-60) L 08/11/19 05:33 Cholesterol/HDL Ratio 2.53 08/11/19 05:33 Home Medications: Allopurinol 300 mg PO DAILY 11/10/17 Furosemide 20 mg PO DAILY 11/10/17 Zinc Sulfate [Zinc Sulfate*] 220 mg PO DAILY 11/10/17 Codeine/APAP [Tylenol #3*] 1 tab PO Q4H PRN 08/10/19 Fluticasone [Flonase 50MCG Nasal Angora*] 2 sprays IN DAILY 08/10/19 Apixaban [Eliquis] 5 mg PO BID #60 tablet 08/14/19 Aspirin [Aspirin EC 81 MG] 81 mg PO DAILY #90 08/14/19 Atorvastatin Calcium [Lipitor] 80 mg PO BEDTIME #30 tab 08/14/19 Famotidine [Pepcid] 20 mg PO DAILY #30 tab 08/14/19 Folic Acid 1 mg PO DAILY #90 tablet 08/14/19 Metoprolol Tartrate [Lopressor*] 25 mg PO BID 6AM 6PM #60 tab 08/14/19 New Medications: Aspirin [Aspirin EC 81 MG] 81 mg PO DAILY #90 Apixaban [Eliquis] 5 mg PO BID #60 tablet Folic Acid 1 mg PO DAILY #90 tablet Atorvastatin Calcium [Lipitor] 80 mg PO BEDTIME #30 tab Metoprolol Tartrate [Lopressor*] 25 mg PO BID 6AM 6PM #60 tab Famotidine [Pepcid] 20 mg PO DAILY #30 tab Patient Discharge Instructions: 1. Transfer to inpatient rehab. 2. Patient presented with expressive and receptive aphasia. Patient found to have acute nonhemorrhagic left temporal parietal region CVA. This caused transcortical aphasia with right homonymous hemianopsia. During the course of his stay patient was seen by nephrology, cardiology and neurology. Patient previously on aspirin and Plavix. Because of his atrial fibrillation patient now on Eliquis. Plavix has been discontinued. Patient has worked with physical therapy, occupational therapy and speech. At discharge patient has been accepted to inpatient rehab. He will continue with therapy there. At discharge patient will continue with aspirin 81 mg daily, folic acid 1 mg daily, Eliquis 5 mg 1 pill twice daily, Lipitor 80 mg daily, and blood pressure medication-metoprolol 25 mg 1 pill twice daily. Patient will be transferred to inpatient rehab. 3. Patient with underlying end-stage renal disease on hemodialysis. Nephrology was consulted. Patient received dialysis. At discharge patient will continue with dialysis as directed. Patient will continue with allopurinol 300 mg daily. Patient will continue with a 1500 cc per day fluid restriction and low-salt diet. Patient may continue with Lasix 20 mg daily. May need to hold medication if fluid restriction well controlled. 4. Patient with hypertension. Blood pressure stable. At discharge he will continue with his current medication metoprolol 25 mg 1 pill twice daily. 5. Patient with diabetes mellitus type 2. A1c 7.3. Patient previously on regular insulin 3 times a day. Patient has been very well controlled in the hospital. Will recommend to continue with a 1999 ADA diet. Patient may continue with insulin sliding scale protocol. 6. Patient with hyperlipidemia. Medication has been adjusted. At discharge he will continue with Lipitor 80 mg daily. 7. As mentioned above patient with history of paroxysmal atrial fibrillation. Medications now have been adjusted. Patient will continue with Eliquis 5 mg 1 pill twice daily. This was recommended by neurology and cardiology. Echo will be done prior to discharge. This can be further addressed by cardiology. 8. Patient with history of CAD and prior stent. This is remained stable. Continue with above recommendation. As stated above patient will no longer take Plavix. Patient on aspirin and Eliquis. 9. Patient with left below-knee amputation now with prosthetic. Manuel steward will continue with physical therapy in inpatient rehab. Diet: ADA (2000 ADA) Activity: Ad alex Time spent managing pt's care (in minutes): 55
[2019-08-14 13:38] LABS: Potassium 5.4 mmol/L (3.5-5.1)
[2019-08-14 14:00] VITALS: BP 118/57
--- NOTE | 2019-08-15 00:47 | PN ---
Date of Progress Note: 08/14/2019 Chief Complaint: End-stage renal disease. History Of Present Illness: Patient is admitted to the hospital because of CVA. Dialysis was done o wednesday to control potassium level today. Potassium was 5.4. Patient is to have dialysis for met abolic clearance to control electrolytes and to provide ultrafiltration. Review of Systems: Denies new complaints. Physical Examination: Lungs: Clear to auscultation bilaterally. Heart: S1, S2. Abdomen: Soft, benign. Extremities: No edema. Impression And Plan: 1.End-stage renal disease. Dialysis was scheduled. Monitor electrolytes. 2.Hypertension. Continue blood pressure medication. 3.Diabetes mellitus. Continue insulin. Adjust treatment according to blood glucose. 4.Anemia of chronic kidney disease. Adjust erythropoietin-stimulating agent as needed. 5.Renal osteodystrophy. Continue binders and monitor phosphorus level. EB/MODL Voice ID: [id number] Report ID: [id number]
== END 2019-08-14 12:53 | DRG 64 ==
LOC: ER 08:53 → ERHOLD 10:27 → 2ND 11:40
PROVIDERS: ADMIT Family Medicine; ATTEND Internal Medicine
PROC: 5A1D70Z Performance of Urinary Filtration, Intermittent, Less than 6 Hours Per Day (ICD-10-PCS; principal; 2019-08-12)
DX: I63.9 Cerebral infarction, unspecified (principal); N18.6 End stage renal disease; I50.32 Chronic diastolic (congestive) heart failure; I13.2 Hypertensive heart and chronic kidney disease with heart failure and with stage 5 chronic kidney disease, or end stage renal disease; E87.3 Alkalosis; E11.22 Type 2 diabetes mellitus with diabetic chronic kidney disease; Z99.2 Dependence on renal dialysis; Z89.512 Acquired absence of left leg below knee; R47.01 Aphasia; Z79.82 Long term (current) use of aspirin; Z79.02 Long term (current) use of antithrombotics/antiplatelets; Z79.899 Other long term (current) drug therapy; Z79.4 Long term (current) use of insulin; Z79.890 Hormone replacement therapy; E03.9 Hypothyroidism, unspecified; E78.5 Hyperlipidemia, unspecified; I48.0 Paroxysmal atrial fibrillation; M10.9 Gout, unspecified; Z95.5 Presence of coronary angioplasty implant and graft; E11.40 Type 2 diabetes mellitus with diabetic neuropathy, unspecified; E11.51 Type 2 diabetes mellitus with diabetic peripheral angiopathy without gangrene; I25.10 Atherosclerotic heart disease of native coronary artery without angina pectoris; E21.1 Secondary hyperparathyroidism, not elsewhere classified; D63.8 Anemia in other chronic diseases classified elsewhere; R29.709 NIHSS score 9; H53.47 Heteronymous bilateral field defects
CPT/HCPCS: 36415; 70450; 70551; 71045; 80048; 80061; 82271; 82947; 83036; 83735; 83986; 84436; 84443; 85025; 85610; 85730; 90935; 92523; 93005; 93880; 96374; 97116; 97161; 97530; 99285; J1644; J2405

== ENCOUNTER 2019-08-11 10:50 | Inpatient (IN) | payer MEDICARE ==
--- NOTE | 2019-08-14 11:06 | R.PREADM ---
SCREENING DATE AND TIME 08/14/2019 10:06 (CDT) ANTICIPATED REHAB ADMISSION DATE 08/16/2019 REFERRING FACILITY [facility] REFERRAL DATE AND TIME 08/14/2019 10:06 (CDT) ACUTE ADMIT DATE 08/10/2019 Previous Rehabilitation(s): No. 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 Bennie Diaz M.D. MR# [id number] [id number] NAME JOHN PINEDO [address]ESS [address] [place]IP [address] DATE OF 1965 AGE 54 SSN# [id number] GENDER male MARITAL STATUS RACE white ADMIT FROM 02 - [facility] PRE-HOSPITAL LIVING SETTING 01 - Home (private home/apt. board/care, assisted living, long-term, transitional living) HOME TYPE AND DETAILS Type of home: single family house # of steps within the residence: 0 # of steps to enter the residence: 0 PRE-HOSPITAL LIVING WITH Family/Relatives FAMILY SUPPORT Yes PRIMARY FAMILY CONTACT NAME Radha Moore PRIMARY FAMILY CONTACT PHONE PHONE PRIMARY FAMILY CONTACT ON ADM.? no IS PRIMARY FAMILY CONTACT AUTH. REP.? no 1ST EMERGENCY CONTACT Radha Moore 1ST CONTACT PHONE PHONE 1ST CONTACT ON ADM. no IS 1ST CONTACT AUTH. REP.? no PHONE 2ND CONTACT ON ADM.? no PATIENT EMPLOYMENT STATUS Not Working PATIENT EMPLOYER No Employer PAYOR INFORMATION: 1ST PAYOR NAME [facility] 1ST PAYOR PHONE [phone] 1ST PAYOR INJURY/ILLNESS DUE TO ACCIDENT? No ANOTHER CONSTITUTION PARTY RESPONSIBLE? No PRIMARY REHAB/ACUTE DIAGNOSIS: ACUTE CVA ONSET DATE 08/11/2019 REHAB IMPAIRMENT CATEGORY (SHAHID): 01 Stroke (STR) MEETS 60% rule AFFECTED EXTREMITIES: LLE, and LUE PRIMARY DIAGNOSIS-RELATED SURGERIES: No surgeries related to the primary diagnosis were performed. SUMMARY OF ACUTE HOSPITALIZATION: Pt. is a 54 yo Right-handed white male. On 08/11/2019 Pt. presented to [facility] with sudden onset of left-side weakness. On 08/11/2019 he was admitted to [facility] with diagnosis ACUTE CVA. His impairment category is Stroke 01 - Left Body (Right Brain) (01.1). Pre-morbidly, Pt. was independent/mod-I in Safety Awareness, Balance, Self-Care, and Transfers Contro l; and he had good Locomotion, Social Cognition, Sphincter Control, Endurance, and Communication. Currently, he has deficits of Safety Awareness, Endurance, Balance, Transfers Control, and Sphincter Control. Pt. is now referred to [facility] for acute in-patient rehabilitation in order to maximize patient's functional independence in activities of daily living, strength, ROM, and mobi lity. Patient has realistic goal of being discharged at assistance level 6-Aden to reside at Home with Fam kenzie/Relatives. John Pinedo is a 54 year old male that lives in a single story house independently. He has a history of diastolic CHF, CAD end stage renal disease on hemodialysis, diabetes, hypertension, gout and paroxysmally atrial fibrillation. Patient also has a history of left BKA. He presented with expressive aphasia. He is not able to give accurate history. He reported to be doing fine when he went to bed at 11 pm. last night. When he woke up he was confused and not able to express where he was at. He has difficulty expressing words. There are no deficits to his extremities. He was sent to the ER for further evaluation. Patient was sent to Patient was transferred to [facility] inpt rehab and is hemodynamically stable with relatively stable labs. He is now medically stable but in need of 24 hour nursing, doctor supervision and oversight while reasonably expected to participate in 3 hours of therapy a day/15 hours per week and receive care with intensive interdisciplinary approach. COVID-19 screening performed; spoke with patient via phone. Patient denies new onset of fever, cough, difficulty breathing, sore throat, body aches and non-allergy nasal congestion in the past 24 hours. Patient denies travel outside of [place] in the past 14 days. Patient denies any contact with someone who has a confirmed diagnosis of or is under investigation for COVID-19 in the past 14 days. a PAST MEDICAL HISTORY DIASTOLIC CHF DIABETIC HYPERTENSION END STAGE RENAL DISEASE ON HEMODIALYSIS CAD PAROXYSMALLY ATRIAL FIBRILLATION HYPERLIPIDEMIA PRIOR LEFT BKA LEFT BKA CAROTID STENTS MEDICATION ALLERGIES: No Known Drug Allergies (NKDA) ENVIRONMENTAL ALLERGIES: - Substance Allergies None Known - Other Allergies None Known CODE STATUS: Full code WEIGHT/HEIGHT/BMI: WEIGHT GHULAM 323 LBS HEIGHT 5' 7" BMI N/A DIET: - Diet Type Regular - Diet - Solid Texture Regular - Diet - Liquid Texture Regular - Tube Feed N/A REVIEW OF SYSTEMS: - Gen Alert and awake Lying in bed No apparent distress Oriented to: person, time, and place - Vital Signs Temperature: 97.2 F SBP/DBP: 154/69 Pulse: 68 Resp: 16 Vital signs stable, afebrile - CVS RRR VITAL SIGNS Temperature: 97.2 F SBP/DBP: 154/69 Pulse:68 Resp: 16 Vital signs stable, afebrile MEDICATIONS/TREATMENT: Other- See attached MAR (Medication Administration Record). CURRENT SPHINCTER CONTROL: Pre-hospital bladder status: unspecified # of bladder accidents in the last 7 days prior to screenin Pre-hospital bowel status: unspecified # of bowel accidents in the last 7 days prior to screenin Last Bowel Movement Date: 08/11/2019 CURRENT LOCOMOTION STATUS: distance walked 80 feet DETAILED CURRENT FUNCTIONAL STATUS: - Bladder accident frequency: Ind - No accidents in the past 7 days - Bowel accident frequency: Ind - No accidents in the past 7 days - Walking score based on distance walked: 0(N/A) - Wheelchair score based on distance traveled: 0(N/A) QI SCORES: - Self-Care A. Eating 06-Independent B. Oral hygiene 03-Partial/moderate assistance C. Toileting hygiene 03-Partial/moderate assistance E. Shower/bathe self 03-Partial/moderate assistance F. Upper body dressing 03-Partial/moderate assistance G. Lower body dressing 03-Partial/moderate assistance H. Putting on/taking off footwear 88-Not attempted due to medical condition or safety concerns - Mobility A. Roll left and right 03-Partial/moderate assistance B. Sit to lying 03-Partial/moderate assistance C. Lying to sitting on side of bed 03-Partial/moderate assistance D. Sit to stand 03-Partial/moderate assistance F. Toilet transfer 03-Partial/moderate assistance G. Car transfer 88-Not attempted due to medical condition or safety concerns I. Walk 10 feet 03-Partial/moderate assistance J. Walk 50 feet with two turns 88-Not attempted due to medical condition or safety concerns K. Walk 150 feet 88-Not attempted due to medical condition or safety concerns L. Walking 10 feet on uneven surfaces 88-Not attempted due to medical condition or safety concerns M. 1 step (curb) 88-Not attempted due to medical condition or safety concerns N. 4 steps 88-Not attempted due to medical condition or safety concerns O. 12 steps 88-Not attempted due to medical condition or safety concerns P. Picking up object 03-Partial/moderate assistance R. Wheel 50 feet with two turns 88-Not attempted due to medical condition or safety concerns S. Wheel 150 feet 88-Not attempted due to medical condition or safety concerns - Bladder and Bowel Bladder continence 0-Always continent Bowel continence 0-Always continent - Endurance Good - Balance Fair - Safety Awareness Good CURRENT FUNC. DEFICITS: Mobility, Balance, and Self-Care CURRENT / PREVIOUS ASSISTIVE DEVICES: 3-in-1 [facility] Bed Rolling Walker Wheelchair HISTORY OF FALLS. HAS THE PATIENT HAD TWO OR MORE FALLS IN THE PAST YEAR OR ANY FALL WITH INJURY IN T HE PAST YEAR?: No PRIOR SURGERY. DID THE PATIENT HAVE MAJOR SURGERY DURING THE 100 DAYS PRIOR TO ADMISSION?: No THERAPY NOTES FROM ACUTE CARE: Attached. SPECIAL NEEDS: - Safety Concerns Skin breakdown precautions needed due to skin breakdown risk PRECAUTIONS: - Weight Bearing Precaution WBAT left LE PATIENT NEEDS ACTIVE AND ONGOING THERAPEUTIC INTERVENTION OF MULTIPLE THERAPY DISCIPLINES, INCLUDING: - Occupational Therapy Cognitive Retraining. Visual Perceptual Training. - Dietary and Nutrition Adequate Nutrition. Nutritional Education. Nutritional Supplements. - Speech Therapy Cognitive Training. Expressive Language Skills. Memory Strategies. Receptive Language Skills. Speech Intelligibility Training. PATIENT NEEDS CLOSE MEDICAL SUPERVISION BY A REHABILITATION PHYSICIAN FOR: Coordination of Treatment Team PATIENT REQUIRES 24X7 REHAB NURSING FOR MEDICAL AND FUNCTIONAL MGT. OF THE FOLLOWING DEFICITS: Disease Management Medication Management Patient/Family Education Providing Safe Environment PATIENT REQUIRES INTENSIVE, COORDINATED INTERDISCIPLINARY APPROACH TO REHAB: Arranging Home Equipment/Services Discharge Planning Family Intervention/Training Air Crew Officer/Case Management PATIENT REHAB POTENTIAL: Sarina PINEDO is able and expected to receive 3 hours of individualized therapy daily on at least 5 of beverly ry 7 days Sarina Dutta prognosis for significant practical improvement within a reasonable period of time appears Good Expected level of measurable improvement will be of a practical value to Sarina PINEDO's functional capaci ty or adaptations to impairments Has a viable Discharge Plan Medically appropriate; condition is sufficiently stable to participate in intensive rehab program DISCHARGE PLAN: - Estimated Length of Stay (days) 17. - Consensus on plan Discharge plan has been discussed with primary caregiver. Patient/Family is in agreement with the lara n. Primary caregiver is in agreement with the plan. - Patient/Family Goals Return home independently. - Planned Living Setting Upon Discharge Home, to live with Family/Relatives. Transitional Living. RECOMMENDED CARE LEVEL: IRF RECOMMENDATION DETAILS: Recommended Admission to Comprehensive Rehabilitation Program to Increase Functional Odin SCREENER'S COMPLETENESS CONFIRMATION: - Screening Confirmation The patient data collection on this preadmission screening form is finished PHYSICIANS REVIEW AND ADMISSION DETERMINATION Admit - Based on my review of the Pre-Admission Screening results, in my medical judgment and experie nce, I concur with the findings and recommend admission to [facility], as this patient requires an IRF level of care. SIGNATURE PANEL: Clinical Liaison - [electronically] signed by Martina Bentley on 08/14/2019 at 10:48 (CDT) Clinical Liaison - [electronically] signed by Danette Monroy RN on 08/14/2019 at 10:59 (CDT) Physician Reviewer - [electronically] signed by Dr. Bennie Diaz M.D. on 08/14/2019 at 11:06 (CDT )
--- OUTSIDE RECORDS SUMMARY | 2019-08-14 13:02 | XMS REPORT ---
:1965 Author Organization [facility] t Address [address] [place] [address] Care Team Providers Name Role Phone Unavailable Unavailable Unavailable Problems This patient has no known problems. Allergies, Adverse Reactions, Alerts This patient has no known allergies or adverse reactions. Medications This patient has no known medications.
--- OUTSIDE RECORDS SUMMARY | 2019-08-14 13:04 | XMS REPORT | Summary of Care ---
:1965 Author Organization [facility] Address [address] [place] [address] Care Team Providers Name Role Phone Carlos Eduardo Primary Care Provider Reason for Visit Reason Comments Refill Request Encounter Details Date Type Department Care Team Description 06/29/2019 Refill [facility] Endocrinology- Jorge Luis Beyer MD Refill Request [address] Professional Office [place], [place] [id number] [place] [address] Dr. Harm[address] [place] [address] Allergies No Known Allergiesdocumented as of this encounter (statuses as of 06/29/2019) Medications Medication Sig Dispensed Refills Start Date End Date Status atorvastatin Take 40 mg by 0 Act delvis (LIPITOR) 40 mg mouth at tablet bedtime. furosemide (LASIX) Take 20 mg by 0 Active 20 mg tablet mouth daily. clopidogrel Take 75 mg by 0 Acti ve (PLAVIX) 75 mg mouth daily. tablet aspirin 81 mg Take 1 Tab by 90 Tab 3 12/02/2012 A ctive tablet mouth daily. Ferrous Sulfate Take 28 mg by 0 Active (IRON) 27 mg iron mouth. 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 [id number]-[id number] Take by 0 Active sh oil (FISH OIL) mouth. 720-1,200 mg Cap blood sugar Use to check 300 Strip 1 03/19/2019 Acti ve diagnostic glucose 3X (ONETOUCH ULTRA daily. 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 mellitus with renal manifestations not at goal insulin NPH Inject 80 50 mL 3 02/09/2019 Discont inued (NOVOLIN N NPH units in am 0 (Re order) U-100 INSULIN) 100 and 70 units unit/mL injection at night insulin regular inject 30-40 36 mL 3 02/09/2019 Discontinued human (NOVOLIN R Units under 0 ( Reorder) REGULAR U-100 the skin 3 INSULN) 100 unit/mL (three) times injectionIndication daily before s: Type 2 diabetes meals. 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 documented as of this encounter Last Filed Vital Signs Not on filedocumented in this encounter Plan of Treatment Date Type Specialty Care Team Description 08/01/2019 Office Visit Endocrinology Diabetes & Nick Beyer MD Metabolism [address] [place] [address] [phone] Health Maintenance Due Date Last Done Comments HEPATITIS C (HCV) SCREEN 1965 PNEUMOCOCCAL 0-64 YEARS COMBINED 1970 SERIES (1 of 1 - PPSV23) EYE EXAM 1974 DTaP,Tdap,and Td Vaccines (1 - 1975 Tdap) COLONOSCOPY 2014 Zoster Recombinant Vaccine 2014 (SHINGRIX) (1 of 2) INFLUENZA VACCINE (#1) 2018 LUNG CANCER SCREEN: Recommended 2019 for age 55-80 with 30 + pack year history CREATININE (SERUM) 06/22/2019 06/21/2018, 03/10/2017, 11/08/2008 LDL-C 06/22/2019 06/21/2018, 03/10/2017, 12/20/2008, Additional history exists HgA1C 06/27/2019 12/27/2018, 06/21/2018, 03/15/2018, Additional history exists FOOT EXAM 12/28/2019 12/27/2018, 12/27/2018, 09/07/2017, Additional history exists documented as of this encounter Results Not on filedocumented in this encounter Visit Diagnoses Diagnosis Type 2 diabetes mellitus with renal sarthak festations not at goal documented in this encounter Insurance Payer Benefit Plan / Subscriber ID Effective Phone Address T ype Group Dates [facility] [id number] 2016-[place] [facility] HEALTHCARE - COMPLETE [place] [facility] [place] documented as of this encounter
--- OUTSIDE RECORDS SUMMARY | 2019-08-14 13:05 | XMS REPORT | Summary of Care ---
:1965 Author Organization [facility] Address [address] [place] [address] Care Team Providers Name Role Phone Carlos Eduardo Primary Care Provider Reason for Visit Reason Comments Refill Request Encounter Details Date Type Department Care Team Description 08/08/2019 Refill [facility] Endocrinology- Jorge Luis Beyer MD Refill Request [address] Professional Office [place], [place] [id number] [place] [address] Dr. 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 [id number] Take by 0 Active sh oil (FISH OIL) mouth. 720-1,200 mg Cap blood sugar Use to check 300 Strip 1 03/19/2019 Acti ve diagnostic glucose 3X (ONETOUCH ULTRA daily. 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 documented as of this encounter (statuses as of 08/10/2019) Active Problems Problem Noted Date ESRD (end stage renal disease) 03/15/2018 Primary hypothyroidism 03/10/2017 Essential hypertension 03/10/2017 Dyslipidemia 03/10/2017 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 03/10/2017 Edema 12/02/2012 documented as of this encounter (statuses as of 08/10/2019) Resolved Problems Problem Noted Date Resolved Date Chronic kidney disease, unspecified CKD stage 03/10/2017 03/15/2018 documented as of this encounter (statuses as of 08/10/2019) Social History Tobacco Use Types Packs/Day Years [...] Treatment Date Type Specialty Care Team Description 12/05/2019 Office Visit Endocrinology Diabetes & Ncik Beyer MD [place] [address] [place] [address] [phone] Health Maintenance Due Date Last Done Comments HEPATITIS C (HCV) SCREEN 1965 PNEUMOCOCCAL 0-64 YEARS COMBINED 1970 SERIES (1 of 1 - PPSV23) DTaP,Tdap,and Td Vaccines (1 - 1975 Tdap) COLONOSCOPY 2014 Zoster Recombinant Vaccine 2014 (SHINGRIX) (1 of 2) INFLUENZA VACCINE (#1) 2018 LUNG CANCER SCREEN: Recommended 2019 for age 55-80 with 30 + pack year history CREATININE (SERUM) 06/22/2019 06/21/2018, 03/10/2017, 11/08/2008 LDL-C 06/22/2019 06/21/2018, 03/10/2017, 12/20/2008, Additional history exists HgA1C 06/27/2019 12/27/2018, 06/21/2018, 03/15/2018, Additional history exists EYE EXAM 10/15/2019 10/14/2018 FOOT EXAM 12/28/2019 12/27/2018, 12/27/2018, 09/07/2017, Additional history exists documented as of this encounter Results Not on filedocumented in this encounter Visit Diagnoses Diagnosis Type 2 diabetes mellitus with renal sarthak festations not at goal documented in this encounter Insurance Payer Benefit Plan / Subscriber ID Effective Dates Phone Addre ss Type Group [facility] [id number] 2019-Present PPO HEALTHCARE/AARP documented as of this encounter
--- OUTSIDE RECORDS SUMMARY | 2019-08-14 13:05 | XMS REPORT | Summary of Care ---
:1965 Author Organization [facility] Address [address] [place] [address] Care Team Providers Name Role Phone Carlos Eduardo Primary Care Provider Reason for Visit Reason Comments Refill Request Novolin R 100 units/ml vial Encounter Details Date Type Department Care Team Description 08/09/2019 Refill [facility] Jorge Luis Beyer MD Refill Request (Novolin Endocrinology- [place] [id number] [facility] R 100 units/ml vial) Professional Office [address] [address] [address] [place] [address] [phone] Allergies No Known Allergiesdocumented as of this encounter (statuses as of 08/09/2019) Medications Medication Sig Dispensed Refills Start Date [...] tabletIndications: MOUTH EVERY Unspecified MORNING hypothyroidism Insulin [place], Use as 100 Each 1 03/10/2017 Ac tive Disposable, (BD directed ULTRAFINE III MINI PEN) 31 gauge x 07/02" NdleIndications: 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 [id number]-fi Take by 0 Active sh oil (FISH OIL) mouth. 720-1,200 mg Cap blood sugar Use to check 300 Strip 1 03/19/2019 Acti ve diagnostic glucose 3X (ONETOUCH ULTRA daily. 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 insulin regular inject 30-40 40 mL 5 08/09/2019 Active human (NOVOLIN R Units under REGULAR [...] as of this encounter (statuses as of 08/09/2019) Active Problems Problem Noted Date ESRD (end stage renal disease) 03/15/2018 Primary hypothyroidism 03/10/2017 Essential hypertension 03/10/2017 Dyslipidemia 03/10/2017 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 03/10/2017 Edema 12/02/2012 documented as of this encounter (statuses as of 08/09/2019) Resolved Problems Problem Noted Date Resolved Date Chronic kidney disease, unspecified CKD stage 03/10/2017 03/15/2018 documented as of this encounter (statuses as of 08/09/2019) Social History Tobacco Use Types Packs/Day Years [...] Description 12/05/2019 Office Visit Endocrinology Diabetes & Beyer, Nick arnett MD Metabolism [address] [place] [address] [phone] Health Maintenance Due Date Last Done Comments [...] Effective Dates Phone Addre ss Type Group [facility] [id number] 2019-Present PPO HEALTHCARE/AARP documented as of this encounter
--- OUTSIDE RECORDS SUMMARY | 2019-08-14 13:05 | XMS REPORT | Summary of Care ---
:[address] [facility] Address [address] [place] [address] Care Team Providers Name Role Phone Carlos Eduardo Primary Care Provider Reason for Visit Reason Comments Follow-up Diabetes Mellitus II Encounter Details Date Type Department Care Team Description 08/01/2019 Telemedicine Visit [facility] Beyer, [place], Type 2 d iabetes mellitus with renal manifestations not at goal (Primary Dx); Endocrinology- Essential hypertension; [address] Dyslipidemia; Professional [facility] Primary hypothyroidism Office [address] [address] 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 03/10/2017 Edema 12/02/2012 documented as of this encounter (statuses as of 08/01/2019) Resolved Problems Problem Noted Date Resolved Date Chronic kidney disease, unspecified CKD stage 03/10/2017 03/15/2018 documented as of this encounter (statuses as of 08/01/2019) Social History Tobacco Use Types Packs/Day Years [...] Signs Not on filedocumented in this encounter Patient Instructions Patient InstructionsJorge Luis Beyer MD - 08/01/2019 3:00 PM CDTChange insulin N 85 units in am and 65 units at night Continue insulin- R 30-40 units with meal three time a day ,with taking extra 4units for lunch dose documented in this encounter Progress Notes Jorge Luis Beyer MD - 08/01/2019 3:00 PM CDT TELEHEALTH NOTE Verbal consent obtained from Patient: Brennon Pinedo due to the COVID-19 pandemic for telehealthservices provided below. Communication with patient was conducted via Telephone due to patient unable to obtain video call option. Location of Patient: Home Location of Provider: Office Date of Service: 08/01/2019 Chief Complaint: Type 2 diabetes mellitus- follow up HPI: Brennon Pinedo is a 54 year old male with Past Medical History: Diagnosis Date CAD (coronary artery disease) DM (diabetes mellitus) HTN (hypertension) who is called today for f/u Diabetes Mellitus Type 2. Patient's diabetes is complicated by atherogenic diet, diabetic ulcer/wound, hyperlipidemia, hypertension , hypothyroidism, macrovascular complications: Congestive Heart Failure, Coronary Artery Disease, Peripheral Vascular Disease and S/P left Extremity Amputation ( BKA) , nephropathy: with ESRD, , neuropathy: Peripheral and lower extremity, obesity, retinopathy and sedentary lifestyle. A1C has been fairly controlled at 6-7 range ESRD: Sees Dr Bartlett, started dialysis since 11/2017, MWF Last visit [facility] 12/2018 with A1C at 6.7. Patient was advised to continue Diabetes regimen: Insulin N 80 units in am and 70 units at night insulin- R 30-40 unit tidac sliding scale Glucose readings: checks 2-3 times daily. Fastin-175. Most 100-150 Evening: post meal. About 50 % of time 200-250 Denies hypoglycemia Diet: Not compliant, single, eats out. Meals at noon, 6 pm and 9 PM. With frequent snacks in afternoon. Reports more carbs intake recently Exercise: Not active, dyspnea on exertion, Left leg prosthesis Hypothyroidism: takes LT4 at 125 mcg daily. Normal TFTs in 06/2018 Dyslipidemia: taking Lipitor 40 mg per patient DIABETIC HEALTH MAINTENANCE Last Ophthalmology visit was 09/2018 reported no retinopathy, [place]. Patient on JACK/ARB therapy - No ESRD Patient on ASA therapy - Yes. Patient on Statin/Fibrate therapy - Yes. Patient instructed about daily feet exams, last sensation exam was 12/27/2018 , Sees Dr Dias q 3 months for right chronic wound Last flu shot: 2018 Patient has received Nutrition/Diet/Diabetes Education on Yes. MEDICATIONS: Patient's Medications START taking these medications No medications on file CONTINUE taking these medications which have NOT CHANGED ALLOPURINOL (ZYLOPRIM) 100 MG TABLET ASPIRIN 81 MG TABLET Take 1 Tab by mouth daily. ATORVASTATIN (LIPITOR) 40 MG TABLET Take 40 mg by mouth at bedtime. BLOOD SUGAR DIAGNOSTIC ([employer] ULTRA BLUE TEST STRIP) STRIP Use to check glucose 3X daily. DX:E11.29 CLOPIDOGREL (PLAVIX) 75 MG TABLET Take 75 mg by mouth daily. FERROUS SULFATE (IRON) 27 MG IRON TAB Take 28 mg by mouth. FUROSEMIDE (LASIX) 20 MG TABLET Take 20 mg by mouth daily. INSULIN NEEDLES, DISPOSABLE, (BD ULTRAFINE III MINI PEN) 31 GAUGE X 3/16" NDLE Use as directed INSULIN REGULAR HUMAN (NOVOLIN R REGULAR U-100 INSULN) 100 UNIT/ML INJECTION inject 30-40 Units under the skin 3 (three) times daily before meals. LEVOTHYROXINE (SYNTHROID) 125 MCG TABLET TAKE ONE TABLET BY MOUTH EVERY MORNING [id number]-FISH OIL (FISH OIL) 720-1,200 MG CAP Take by mouth. SEVELAMER 800 MG TABLET ZINC SULFATE ORAL Take by mouth. START taking Modified Medications as Prescribed Modified Medication Previous Medication INSULIN NPH (NOVOLIN N NPH U-100 INSULIN) 100 UNIT/ML INJECTION insulin NPH (NOVOLIN N NPH U-100 INSULIN) 100 unit/mL injection Inject 85 units in am and 65 units at night Inject 80 units in am and 70 units at night STOP taking these medications No medications on file ROS Constitutional:+weight gain, denies fatigue and hair loss Eyes: denies blurry vision, denies diplopia and denies pain. Neck: denies pain, denies swollen glands Cardiovascular: denies chest pain , denies irregular pulse and denies palpitations. Respiratory: denies dyspnea on exertion and + shortness of breath. Gastrointestinal: denies abdominal pain, denies constipation and denies diarrhea. Genitourinary: denies burning and denies dysuria. Musculoskeletal: denies back pain, denies muscle pain and denies weakness. Skin: denies dry skin and denies hair changes. Neuro: + numbness in right foot , denies tingling and denies tremor. Psych: negative. Endocrine:denies intolerance to cold, denies intolerance to heat, denies polydipsia, denies polyphagia TELEHEALTH EXAM Chest/ Lungs: Patient not short of breath during phone encounter. Breathing sounds are normal on thephone. Neuro: Patient answering questions appropriately. Alert. No additional exam as this is a telephone encounter. No results found for: POCGLU CREATININE Date Value 06/21/2018 9.10 mg/dL (H) 11/08/2008 0.68 MG/DL (L) Creatinine, Serum-LC (mg/dL) Date Value 03/10/2017 2.34 (H) CHOL Date Value 06/21/2018 66 mg/dL (L) 12/20/2008 175 MG/DL Cholesterol, Total-LC (mg/dL) Date Value 03/10/2017 108 HDL CHOL (MG/DL) Date Value 12/20/2008 40 HDL Cholesterol-LC (mg/dL) Date Value 03/10/2017 33 (L) HDL (mg/dL) Date Value 06/21/2018 22 (L) LDL CHOL Date Value 06/21/2018 26 mg/dL 12/20/2008 86 MG/DL LDL Cholesterol Calc-LC (mg/dL) Date Value 03/10/2017 38 TRIG Date Value 06/21/2018 92 mg/dL 12/20/2008 243 MG/DL (H) Triglycerides-LC (mg/dL) Date Value 03/10/2017 185 (H) No results found for: ALBUCREAT, UALBCREAT POCT HBA1C (%) Date Value 12/27/2018 6.7 (A) 06/21/2018 5.7 HGB A1C (%) Date Value 11/08/2008 7.5 (H) ASSESSMENT/ PLAN Brennon Pinedo is a 54 year old male with PMH as above presenting with: 1. 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 -A1C (target=6-7%): 5.7 (07/05)--->6.7(01/05) at target -glucose range: hyperglycemia post dinner - without hypoglycemia -complication: neuropathy nephropathy macrovascular: CAD -medication limitation: Metformin stopped due to CKD, Toujeo stopped due to cost -diet:noncompliant -exercise: limited by Left leg prosthesis Plan -reinterated to check glucose at least BID alternating fasting and 2 hours post meals -urged compliance with diet/exercise - insulin NPH (NOVOLIN N NPH U-100 INSULIN) 100 unit/mL injection; Inject 85 units in am and 65 units at night Dispense: 50 mL; Refill: 1 - GLYCOSYLATED HEMOGLOBIN (A1C); Future Patient Instructions Change insulin N 85 units in am and 65 units at night Continue insulin- R 30-40 units with meal three time a day ,with taking extra 4units for lunch dose 2. Essential hypertension Per cardiology and nephrology 3. Dyslipidemia Comment: lipid was at target plan Continue Lipitor - LIPID PANEL (72470)(TOTAL CHOLESTEROL, TRIGLYCERIDES, HDL); Future 4. Primary hypothyroidism Comment:pt denies hypo/hyperyhyroid symptoms Plan: Continue current LT4 - THYROID STIMULATING HORMONE; Future - T4 FREE; After visit summary (AVS ) documentation will be available through [employer]Need for this encounter. A total of 25 minutes was spent on the Telephone due to patient unable to obtain video call option. Jorge Luis Beyer MD documented in this encounter Plan of Treatment Name Type Priority Associated Diagnoses Order S chedule LIPID PANEL (92379)(TOTAL LAB Routine Dyslipidemia Ex pected: CHOLESTEROL, 08/01/2019, Exp ires: TRIGLYCERIDES, HDL) 08/01/19 21 THYROID STIMULATING LAB Routine Primary hypothyroidis m Expected: HORMONE 08/01/2019, Exp ires: 07/31/2020 T4 FREE LAB Routine Primary hypothyroidism Expec khalida: 08/01/2019, Exp ires: 07/31/2020 GLYCOSYLATED HEMOGLOBIN LAB Routine Type 2 diabetes m rom Expected: (A1C) with renal manifestations , Expires: not at goal 07/31/2020 Health Maintenance Due Date Last Done Comments [...] with renal sarthak festations not at goal - Primary Essential hypertension Unspecified essential hypertension Dyslipidemia Other and unspecified hyperlipidemia Primary hypothyroidism Unspecified hypothyroidism documented in this encounter Insurance Payer Benefit Plan / Subscriber ID Effective Dates Phone Addre ss Type Group [facility] [id number] 2019-Present [facility] HEALTHC[facility]/AARP documented as of this encounter
[2019-08-14] MEDS: METOPROLOL TAR 25 MG TAB PO SCH (17:36)
[2019-08-14] MEDS ORDERED: GLUCAGON 1 MG/VIAL IM PRN (18:38)
[2019-08-14] MEDS ORDERED: D50W 25 GM/50 ML SYRINGE/VIAL IV PRN (18:38)
[2019-08-14] MEDS: APIXABAN 5 MG TABLET PO SCH ×2 (20:00→21:05)
[2019-08-14] MEDS: INSULIN -REGULAR HUMAN 50 UNIT/0.5 ML ML SQ SCH (21:00)
[2019-08-14] MEDS: DOCUSATE NA/SENNA CONC 1 TAB PO PRN (21:05)
[2019-08-14] MEDS: MELATONIN 3 MG TABLET PO PRN (21:05)
[2019-08-14] MEDS: ATORVASTATIN 80 MG TAB PO SCH (21:05)
[2019-08-15] MEDS: METOPROLOL TAR 25 MG TAB PO SCH ×2 (05:22→16:55)
[2019-08-15 06:12] LABS: Absolute Lymphocytes (CBC) 1.3 K/uL (0.7-4.9); Basophils % 0.6 % (0-1.3); Hematocrit 32.5 % (39.6-49.0); Lymphocytes % 13.8 % (15.3-44.8); MPV 8.1 fL (7.6-11.3); RBC Red Blood Cell Count 3.21 M/uL (4.33-5.43)
[2019-08-15 06:59] LABS: Albumin 3.2 g/dL (3.4-5.0); Magnesium 2.6 mg/dL (1.8-2.4); Potassium 4.4 mmol/L (3.5-5.1); Prealbumin 33.2 mg/dL (20-40)
[2019-08-15] MEDS: INSULIN -REGULAR HUMAN 50 UNIT/0.5 ML ML SQ SCH ×4 (07:30→20:06)
[2019-08-15] MEDS: FUROSEMIDE 20 MG TABLET PO SCH (08:10)
[2019-08-15] MEDS: FAMOTIDINE 20 MG TAB PO SCH (08:11)
[2019-08-15] MEDS: APIXABAN 5 MG TABLET PO SCH ×2 (08:11→20:05)
[2019-08-15] MEDS: FOLIC ACID 1 MG TABLET PO SCH (08:11)
[2019-08-15] MEDS: ASPIRIN EC 81 MG TAB PO SCH (08:11)
[2019-08-15] MEDS: allopurinoL 300 MG TAB PO SCH (08:11)
[2019-08-15] MEDS: ZINC SULFATE 220 MG CAP PO SCH (08:11)
[2019-08-15] MEDS: FLUTICASONE 50MCG NASAL SPRAY NAS SCH (08:38)
[2019-08-15] MEDS ORDERED: MAGNESIUM CITRATE 300 ML BOT PO SCH (14:00)
--- NOTE | 2019-08-15 14:40 | R.HP ---
FACILITY: [facility] ENCOUNTER DATE AND TIME: 08/15/2019 14:32 (CDT) MR#: [id number] NAME JOHN ABREU ADDRESS: [address] [place] [address]: [place]IP [id number] PHONE: DATE OF : 1965 AGE: 54 SSN# [id number] GENDER: Male DEXTERITY Right-handed MARITAL STATUS RACE White PRE-HOSPITAL LIVING SETTING 01 - Home (private home/apt. board/care, assisted living, skilled nursing, transitional living) PRE-HOSPITAL LIVING WITH Family/Relatives ENCOUNTER PHYSICIAN: Dr. Bennie Diaz M.D. REFERRING DOCTOR: DATE OF ADMISSION: 08/14/2019 12:59 (CDT) REFERRING FACILITY [facility] HOME TYPE AND DETAILS: Type of home: single family house # of steps within the residence: 0 # of steps to enter the residence: 0 ONSET DATE: 08/11/2019 PRIMARY DIAGNOSIS-RELATED SURGERIES: No surgeries related to the primary diagnosis were performed. HISTORY OF PRESENT ILLNESS (HPI): Pt. is a 54 yo Right-handed white male. On 08/11/2019 Pt. presented to [facility] with sudden onset of left-side weakness. On 08/11/2019 he was admitted to [facility] with diagnosis ACUTE CVA. His impairment category is Stroke 01 - Left Body (Right Brain) (01.1). Pre-morbidly, Pt. was independent/mod-I in Safety Awareness, Balance, Self-Care, and Transfers Contro l; and he had good Locomotion, Social Cognition, Sphincter Control, Endurance, and Communication. Currently, he has deficits of Safety Awareness, Endurance, Balance, Transfers Control, and Sphincter Control. Pt. is now referred to [facility] for acute in-patient rehabilitation in order to maximize patient's functional independence in activities of daily living, strength, ROM, and mobi lity. Patient has realistic goal of being discharged at assistance level 6-Aden to reside at Home with Fam kenzie/Relatives. John Abreu is a 54 year old male that lives in a single story house independently. He has a history of diastolic CHF, CAD end stage renal disease on hemodialysis, diabetes, hypertension, gout and paroxysmally atrial fibrillation. Patient also has a history of left BKA. He presented with expressive aphasia. He is not able to give accurate history. He reported to be doing fine when he went to bed at 11 pm. last night. When he woke up he was confused and not able to express where he was at. He has difficulty expressing words. There are no deficits to his extremities. He was sent to the ER for further evaluation. Patient was sent to Patient was transferred to [facility] inpt rehab and is hemodynamically stable with relatively stable labs. He is now medically stable but in need of 24 hour nursing, doctor supervision and oversight while reasonably expected to participate in 3 hours of therapy a day/15 hours per week and receive care with intensive interdisciplinary approach. COVID-19 screening performed; spoke with patient via phone. Patient denies new onset of fever, cough, difficulty breathing, sore throat, body aches and non-allergy nasal congestion in the past 24 hours. Patient denies travel outside of [place] in the past 14 days. Patient denies any contact with someone who has a confirmed diagnosis of or is under investigation for COVID-19 in the past 14 days. a MEDICATION ALLERGIES: No Known Drug Allergies (NKDA) ENVIRONMENTAL ALLERGIES: - Substance Allergies None Known - Other Allergies None Known PAST MEDICAL HISTORY: DIASTOLIC CHF DIABETIC HYPERTENSION END STAGE RENAL DISEASE ON HEMODIALYSIS CAD PAROXYSMALLY ATRIAL FIBRILLATION HYPERLIPIDEMIA PRIOR LEFT BKA LEFT BKA CAROTID STENTS FAMILY HISTORY: Family history is not contributory. SOCIAL HISTORY: - Home Living Family/Relatives REVIEW OF SYSTEMS: - Gen No Chills No Fatigue No Fever - Eyes No Double Vision No itchiness - ENMT No Difficulty Swallowing - CVS No Chest Discomfort No Chest Pain No Fatigue No Weight Gain - Resp No Cough No Shortness of Breath - GI Continent No Abdominal Pain No Constipation No Diarrhea - Continent No Kidney Pain No Painful Urination No Urinary Urgency - MSK No Joint Pain No Muscle Cramps No Stiffness - Skin No Itching No Rash No Suspicious Lesions - Neuro No Coordination Difficulty No Difficulty with Concentration No Memory Loss No Seizures No Weakness - Psych No Anxiety No Depression No HIV Exposure No Persistent Infections No Seasonal Allergies - Endo No Cold/Heat Intolerance No Excessive Hunger No Excessive Thirst No Excessive Urination PHYSICAL EXAM - Gen Alert and awake Lying in bed No apparent distress Oriented to: person, time, and place - Skin No skin breakdown. No abnormalities - Eyes No abnormalities - ENMT No abnormalities - Neck No abnormalities - CVS RRR - Chest Clear - Abd Soft - GI Soft Deferred - No abnormalities - Ext Right BKA with prosthesis in place. - MSK 4/5 weakness in both lower extremities. - Neuro No focal deficits - Psych No abnormalities VITAL SIGNS Temperature: 97.2 F SBP/DBP: 154/69 Pulse:68 Resp: 16 NURSING: - Shower allowing shower - Bladder care per protocol - Skin care per protocol PRECAUTIONS: - Weight Bearing Precaution WBAT left LE ACTIVITIES OOB only with supervision QI SCORES: - Self-Care A. Eating 06-Independent B. Oral hygiene 03-Partial/moderate assistance C. Toileting hygiene 03-Partial/moderate assistance E. Shower/bathe self 03-Partial/moderate assistance F. Upper body dressing 03-Partial/moderate assistance G. Lower body dressing 03-Partial/moderate assistance H. Putting on/taking off footwear 88-Not attempted due to medical condition or safety concerns - Mobility A. Roll left and right 03-Partial/moderate assistance B. Sit to lying 03-Partial/moderate assistance C. Lying to sitting on side of bed 03-Partial/moderate assistance D. Sit to stand 03-Partial/moderate assistance F. Toilet transfer 03-Partial/moderate assistance G. Car transfer 88-Not attempted due to medical condition or safety concerns I. Walk 10 feet 03-Partial/moderate assistance J. Walk 50 feet with two turns 88-Not attempted due to medical condition or safety concerns K. Walk 150 feet 88-Not attempted due to medical condition or safety concerns L. Walking 10 feet on uneven surfaces 88-Not attempted due to medical condition or safety concerns M. 1 step (curb) 88-Not attempted due to medical condition or safety concerns N. 4 steps 88-Not attempted due to medical condition or safety concerns O. 12 steps 88-Not attempted due to medical condition or safety concerns P. Picking up object 03-Partial/moderate assistance R. Wheel 50 feet with two turns 88-Not attempted due to medical condition or safety concerns S. Wheel 150 feet 88-Not attempted due to medical condition or safety concerns - Bladder and Bowel Bladder continence 0-Always continent Bowel continence 0-Always continent - Endurance Good - Balance Fair - Safety Awareness Good CURRENT FUNC. DEFICITS: Mobility, Balance, and Self-Care MEDICATIONS: - Other See attached MAR (Medication Administration Record) ASSESSMENT: Pt. is a 54 yo Right-handed white male.On 08/11/2019 Pt. presented to [facility] with topete dden onset of left-side weakness.On 08/11/2019 he was admitted to [facility] with diagno sis ACUTE CVA.His impairment category is Stroke 01 - Left Body (Right Brain) (01.1).Pre-morbidly, Pt . was independent/mod-I in Safety Awareness, Balance, Self-Care, and Transfers Control; and he had go od Locomotion, Social Cognition, Sphincter Control, Endurance, and Communication.Currently, he has de ficits of Safety Awareness, Endurance, Balance, Transfers Control, and Sphincter Control.Pt. is now r eferred to [facility] for acute in-patient rehabilitation in order to maximize patient's functional independence in activities of daily living, strength, ROM, and mobility.- Rehab Goal Patient has realistic goal of being discharged at assistance level 6-Aden to reside at Home with Fam kenzie/Relatives. John Abreu is a 54 year old male that lives in a single story house independently. He has a history of diastolic CHF, CAD end stage renal disease on hemodialysis, diabetes, hypertension, gout and paroxysmally atrial fibrillation. Patient also has a history of left BKA. He presented with expressive aphasia. He is not able to give accurate history. He reported to be doing fine when he went to bed at 11 pm. last night. When he woke up he was confused and not able to express where he was at. He has difficulty expressing words. There are no deficits to his extremities. He was sent to the ER for further evaluation. Patient was sent to Patient was transferred to [facility] inpt rehab and is hemodynamically stable with relatively stable labs. He is now medically stable but in need of 24 hour nursing, doctor supervision and oversight while reasonably expected to participate in 3 hours of therapy a day/15 hours per week and receive care with intensive interdisciplinary approach. COVID-19 screening performed; spoke with patient via phone. Patient denies new onset of fever, cough, difficulty breathing, sore throat, body aches and non-allergy nasal congestion in the past 24 hours. Patient denies travel outside of [place] in the past 14 days. Patient denies any contact with someone who has a confirmed diagnosis of or is under investigation for COVID-19 in the past 14 days.aREHAB PLAN: for Dementia, TBI, Stroke, or others - Physical Therapy Gait dysfunction - to improve, our physical therapists will perform initial evaluation of pt's status upon admission and devise an individualized program for Gait Training, and Wheel Chair mobility Inability to transfer - to improve, our physical therapists will perform initial evaluation of pt's s tatus upon admission and devise an individualized program for Bed mobility Need for home safety evaluation - to improve, our physical therapists will perform initial evaluation of pt's status upon admission and devise an individualized program for Home Evaluation Need in caregiver upon discharge - to improve, our physical therapists will perform initial evaluatio n of pt's status upon admission and devise an individualized program for Caregiver Training New precaution - to improve, our physical therapists will perform initial evaluation of pt's status u harjit admission and devise an individualized program for Patient precaution education Poor balance - to improve, our physical therapists will perform initial evaluation of pt's status upo n admission and devise an individualized program for Balance Training Poor endurance - to improve, our physical therapists will perform initial evaluation of pt's status u harjit admission and devise an individualized program for Endurance Training Achieving independence - to improve, our physical therapists will perform initial evaluation of pt's status upon admission and devise an individualized program for Community Reintegration Activities - Occupational Therapy Need for home health care worker - to improve, our occupation therapists will perform initial evaluation of pt's s tatus upon admission and devise an individualized program for Caregiver Training MEDICAL PLAN: - Diet Type Start Regular - Diet - Liquid Texture Start Regular - Tube Feed Start N/A - Bladder care per protocol - Weight Bearing Precaution WBAT left LE - Skin care per protocol - Other See attached MAR (Medication Administration Record) - Diet - Solid Texture Regular - Shower shower DISCHARGE PLAN: - Estimated Length of Stay (days) 17. - Consensus on plan Discharge plan has been discussed with primary caregiver. Patient/Family is in agreement with the lara n. Primary caregiver is in agreement with the plan. - Patient/Family Goals Return home independently. - Planned Living Setting Upon Discharge Home, to live with Family/Relatives. Transitional Living. SIGNATURE PANEL: (CDT)
--- NOTE | 2019-08-15 14:42 | PAPE ---
PATIENT: [facility] MR# [id number] REFERRING DOCTOR EVALUATION DATE AND TIME 08/15/2019 14:41 (CDT) NAME JOHN ABREU DATE OF 1965 AGE 54 PHONE SSN# [id number] GENDER male EVALUATING PHYSICIAN Dr. Bennie Diaz M.D. ADMISSION DIAGNOSIS: ACUTE CVA ONSET DATE 08/11/2019 POST-ADMISSION FUNCTIONAL/MEDICAL STATUS: - Bladder Same accident frequency: Ind - No accidents in the past 7 days - Bowel Same accident frequency: Ind - No accidents in the past 7 days - Walking Same score based on distance walked: 0(N/A) - Wheelchair Same score based on distance traveled: 0(N/A) STATUS CHANGE EVALUATION: No change in Functional or Medical Status is identified compared with Pre-Admission screening. PATIENT NEEDS CLOSE MEDICAL SUPERVISION BY A REHABILITATION PHYSICIAN FOR: Coordination of Treatment Team PATIENT REQUIRES 24X7 REHAB NURSING FOR MEDICAL AND FUNCTIONAL MGT. OF THE FOLLOWING DEFICITS: Disease Management Medication Management Patient/Family Education Providing Safe Environment PATIENT REQUIRES INTENSIVE, COORDINATED INTERDISCIPLINARY APPROACH TO REHAB: Arranging Home Equipment/Services Discharge Planning Family Intervention/Training Accounts Payable Analyst/Case Management LIST OF IDENTIFIED AND POTENTIAL PROBLEMS: Alteration in leisure activities Bladder, Incontinence Bowel, Incontinence Infection, Actual or Potential Mobility Impaired Pain, Alteration in Comfort Self Care Deficit Skin Integrity, Actual or Potential Urinary Tract Infection (UTI), Actual or Potential PATIENT COULD BE AT RISK FOR COMPLICATIONS FROM ADVERSE MEDICAL CONDITIONS DUE TO HIS/HER COMORBIDITI ES AND THE RIGORS OF THE INTENSIVE REHABILLITATION PROGRAM. METHODS OR INTERVENTIONS TO AVOID COMPLIC ATIONS INCLUDE: - Bleeding Stroke patients assessed for lethargy or change in status. - Infection Clinical staff to assess and manage the signs and symptoms of infection including fever, redness, war mth, etc. - Urinary Tract Infection - Aspiration Clinical staff will assess and manage coughing, drooling, congestion. - Falls Patient will be evaluated for Fall Precautions and will be placed on Fall Precautions as indicated pe r protocol. - Skin Breakdown Nursing will assess skin daily using assessment tool and will place on Skin Breakdown Precautions as indicated per protocol. - Pain Clinical staff may employ non-medication methods such as massage, distraction, decrease stimulus, etc . as needed. Clinical staff will assess patient's pain level every shift per protocol to assess and e nsure pain management effectiveness. Medications will be given and the pain level re-assessed. PRELIMINARY PLAN OF CARE: - Physical Therapy Patient needs Physical Therapy for a daily minimum of 1.5 hours at least 5 out of 7 days, to improve: Mobility, Strengthening, Transfers, Stretching, ROM, Endurance, Ability to manage stairs, Gait, and Balance. - Speech Therapy Patient needs Speech Therapy for a daily minimum of 0.5 hours at least 5 out of 7 days, to improve: S wallowing, Cognition, Language Skills, and Compensatory Strategies. - Rehabilitation Nursing Patient requires 24x7 Rehabilitation Nursing for: Pain Issues, Identifying and preventing risk factor s, Monitoring and reporting current medical conditions, Assisting with ambulation and transfer, Melissa ting with all ADL-s, Teaching patients about disease process and medications, Family teaching, Provid ing safe environment, Bowel and Bladder Issues, Skin Integrity, and Medication Management. Patient needs Accounts Payable Analyst and/or Case Management for: Discharge Planning, Arranging Home Equipmen t or Services, and Family Interventions. - Dietary and Nutrition Services Patient needs Dietary and Nutrition Services for: Adequate Nutrition, Nutritional Supplements, and Nu tritional Education. - Occupational Therapy Patient needs Occupational Therapy for a daily minimum of 1.5 hours at least 5 out of 7 days, to impr ove Activities of Daily Living, including: Eating, Grooming, Bathing, Dressing, Toileting, Toilet Tra nsfers, Community Reintegration, Higher functional activities, Adaptive Equipment, Splinting, Househo ld Tasks, and Other activities as determined. QI SCORES: - Self-Care A. Eating 06-Independent B. Oral hygiene 03-Partial/moderate assistance C. Toileting hygiene 03-Partial/moderate assistance E. Shower/bathe self 03-Partial/moderate assistance F. Upper body dressing 03-Partial/moderate assistance G. Lower body dressing 03-Partial/moderate assistance H. Putting on/taking off footwear 88-Not attempted due to medical condition or safety concerns - Mobility A. Roll left and right 03-Partial/moderate assistance B. Sit to lying 03-Partial/moderate assistance C. Lying to sitting on side of bed 03-Partial/moderate assistance D. Sit to stand 03-Partial/moderate assistance F. Toilet transfer 03-Partial/moderate assistance G. Car transfer 88-Not attempted due to medical condition or safety concerns I. Walk 10 feet 03-Partial/moderate assistance J. Walk 50 feet with two turns 88-Not attempted due to medical condition or safety concerns K. Walk 150 feet 88-Not attempted due to medical condition or safety concerns L. Walking 10 feet on uneven surfaces 88-Not attempted due to medical condition or safety concerns M. 1 step (curb) 88-Not attempted due to medical condition or safety concerns N. 4 steps 88-Not attempted due to medical condition or safety concerns O. 12 steps 88-Not attempted due to medical condition or safety concerns P. Picking up object 03-Partial/moderate assistance R. Wheel 50 feet with two turns 88-Not attempted due to medical condition or safety concerns S. Wheel 150 feet 88-Not attempted due to medical condition or safety concerns - Bladder and Bowel Bladder continence 0-Always continent Bowel continence 0-Always continent - Endurance Good - Balance Fair - Safety Awareness Good POTENTIAL FUNCTIONAL GOALS FOR PATIENT TO ACHIEVE BY DISCHARGE: - Safety Precaution Patient will remain free from falls or injury at time of discharge. - Bed Mobility Patient will perform bed mobility at 4-Elham level of assistance. - Transfers Patient will complete transfers from bed to chair at 4-Elham level of assistance. - Mobility Patient will ambulate 150 ft with 4-Elham level of assistance with RW. PATIENT REHAB POTENTIAL Sarina ABREU is able and expected to receive 3 hours of individualized therapy daily on at least 5 of beverly 7 days Sarina JACKSONs prognosis for significant practical improvement within a reasonable period of time appears Good Expected level of measurable improvement will be of a practical value to Sarina JACKSONs functional capaci ty or adaptations to impairments Has a viable Discharge Plan Medically appropriate; condition is sufficiently stable to participate in intensive rehab program DISCHARGE PLAN: - Estimated Length of Stay (days) 17. - Consensus on plan Discharge plan has been discussed with primary caregiver. Patient/Family is in agreement with the lara n. Primary caregiver is in agreement with the plan. - Patient/Family Goals Return home independently. - Planned Living Setting Upon Discharge Home, to live with Family/Relatives. Transitional Living. CONCLUSION ON REHABILITATION NECESSITY: I have evaluated patient's pre-admission functional status and, comparing it to the patient's post-ad mission functional status now, I conclude that the pre-admission assessment was accurate. Patient's c ondition on admission supports the medical necessity of admission to IR[facility]. It is safe to proceed with patient's therapy program. SIGNATURE PANEL: (CDT)
[2019-08-15] MEDS: MELATONIN 3 MG TABLET PO PRN (20:05)
[2019-08-15] MEDS: DOCUSATE NA/SENNA CONC 1 TAB PO PRN (20:05)
[2019-08-15] MEDS: ATORVASTATIN 80 MG TAB PO SCH (20:06)
[2019-08-16] MEDS: METOPROLOL TAR 25 MG TAB PO SCH ×2 (05:19→17:02)
[2019-08-16] MEDS: INSULIN -REGULAR HUMAN 50 UNIT/0.5 ML ML SQ SCH ×4 (07:30→21:19)
[2019-08-16] MEDS: FLUTICASONE 50MCG NASAL SPRAY NAS SCH (07:39)
[2019-08-16] MEDS: ASPIRIN EC 81 MG TAB PO SCH (07:40)
[2019-08-16] MEDS: ZINC SULFATE 220 MG CAP PO SCH (07:40)
[2019-08-16] MEDS: FAMOTIDINE 20 MG TAB PO SCH (07:41)
[2019-08-16] MEDS: allopurinoL 300 MG TAB PO SCH (07:41)
[2019-08-16] MEDS: FOLIC ACID 1 MG TABLET PO SCH (07:41)
[2019-08-16] MEDS: FUROSEMIDE 20 MG TABLET PO SCH (07:41)
[2019-08-16] MEDS: APIXABAN 5 MG TABLET PO SCH ×2 (07:41→21:19)
--- NOTE | 2019-08-16 10:46 | RAD REPORT ---
EXAM DESCRIPTION: RAD - Barium Swallow Modified - 08/16/2019 10:36 am CLINICAL HISTORY: EvaL Dysphagia COMPARISON: Renal Ultrasound-Complete dated 11/07/2017 TECHNIQUE: The patient was given liquid, semi-solid and solid forms of barium. Lateral view fluorosc opic imaging was performed in conjunction with speech pathology service. FINDINGS: Mild vallecular residue. Mild to moderate pyriform residue. Mild posterior wall residue. Oral hold was noted with pureed and mechanical soft texture. Distaste for bolus may have contributed . Mechanical soft bolus was expelled by the patient. Swallow onset was timely. There is reduced bas e of tongue retraction, reduced contraction of the posterior pharyngeal wall and reduced laryngeal el evation. There was no penetration or aspiration observed with thin, nectar, and pureed. Mild to mode rate residual was noted on the base of tongue, the valleculae, pyriforms and the posterior pharyngeal wall. Total fluoroscopy time: 2.8 minutes
--- NOTE | 2019-08-16 11:39 | CON ---
Date of Consultation: 08/16/2019 Reason For Consultation: Elevated BUN, creatinine; fluid management; hypertension. History Of Present Illness: This is a 54-year-old gentleman with significant past medical history of : 1.End-stage renal disease, on hemodialysis Wednesday, Wednesday, Wednesday. 2.Diabetes complicated with neuropathy and nephropathy. 3.Hypertension. 4.Coronary artery disease status post PTCA complicated with congestive heart failure. 5.Peripheral vascular disease status post left below-knee amputation. 6.Carotid stenosis status post endarterectomy. Patient was admitted to the hospital with temporal CVA. Patient was transferred to rehab for further rehabilitation. Patient underwent swallow study today. Patient feeling weak. We have been consulted to maintain his dialysis and because of the electrolyte imbalance. Past Medical History: Includes as above. Allergies: NO KNOWN DRUGS ALLERGY. Current Medications In The Hospital: Include: 1.Atorvastatin. 2.Heparin. 3.Eliquis. 4.Lasix. 5.Folic acid. 6.Pepcid. 7.Bisacodyl. 8.Allopurinol. 9.Melatonin. Past Surgical History: Includes: 1.Endarterectomy. 2.Left below-knee amputation. 3.AV fistula. 4.PTCA. Family History: Positive for hypertension and diabetes. Social History: Lives with family. Denies smoking. Denies drinking. Denies drugs abuse. Review of Systems: None obtainable. Physical Examination: Vital Signs: When I saw the patient, blood pressure 142/58, pulse of 62. Chest: Crackles on the base. Heart: S1, S2. Regular. Abdomen: Soft, nontender, obese. Extremities: Venous stasis on the right. Left below-knee amputation. Neuro: Alert, follows simple command, confused. Laboratory Data: WBC 9.6, H and H 10.7/32.5, platelets 140. Sodium 138, potassium 4.4, bicarb 27, B UN 43, creatinine 7.9, calcium 8.8, magnesium 2.6. Current Medications: The patient on include: 1.Eliquis 5 mg b.i.d. 2.Heparin. 3.Metoprolol 25 b.i.d. 4.Atorvastatin. 5.Lasix. 6.Folic acid. Assessment And Plan: 1.End-stage renal disease, over volume. We will dialyze the patient today. We will challenge the p atient. 2.Hypertension. We will utilize blood pressure for ultrafiltration to establish better volume contr ol. 3.Cerebrovascular accident. Given the end-stage renal disease, I am going to go ahead and decrease Eliquis to 2.5 mg. Continue supportive treatment. Follow up swallow. Follow up with rehab. 4.Anemia of chronic kidney disease. We will start the patient on erythropoiesis-stimulating agent if hemoglobin drops further. 5.Over volume. The patient is going to be challenged today. JESSY Voice ID: [id number] Report ID: [id number]
--- NOTE | 2019-08-16 16:28 | R.PN ---
ENCOUNTER DATE AND TIME: 08/16/2019 16:13 (CDT) NAME JOHN ABREU DATE OF : 1965 DATE OF ADMISSION: 08/14/2019 12:59 (CDT) ACUTE CVACHIEF COMPLAINT: Aphasic stroke, right sided weakness and chronic left BKA SUBJECTIVE: Pt denied any Shortness of Breath. Pt denied any depression. WBC 9.6, Hgb 10.7, glucose 166 to 320. Will start metformin 250 mg in the morning. Ambulated 510' with contact guard assistance using a rolling walker. VITAL SIGNS Temperature: 97.2 F SBP/DBP: 154/69 Pulse:68 Resp: 16 MEDICATION ALLERGIES: No Known Drug Allergies (NKDA) ENVIRONMENTAL ALLERGIES: - Substance Allergies None Known - Other Allergies None Known NURSING: - Shower allowing shower - Bladder care per protocol - Skin care per protocol PRECAUTIONS: - Weight Bearing Precaution WBAT left LE ACTIVITIES OOB only with supervision THERAPIES: - Occupational Therapy Cognitive Retraining. Visual Perceptual Training. - Dietary and Nutrition Adequate Nutrition. Nutritional Education. Nutritional Supplements. - Speech Therapy Cognitive Training. Expressive Language Skills. Memory Strategies. Receptive Language Skills. Speech Intelligibility Training. PHYSICAL EXAM - Gen Alert and awake Lying in bed No apparent distress Oriented to: person, time, and place - Skin No skin breakdown. No abnormalities - Eyes No abnormalities - ENMT No abnormalities - Neck No abnormalities - CVS RRR - Chest Clear - Abd Soft - GI Soft Deferred - No abnormalities - Ext Right BKA with prosthesis in place. - MSK 4/5 weakness in both lower extremities. - Neuro No focal deficits - Psych No abnormalities ASSESSMENT: Pt. is a 54 yo Right-handed white male.On 08/11/2019 Pt. presented to [facility] with topete dden onset of left-side weakness.On 08/11/2019 he was admitted to [facility] with diagno sis ACUTE CVA.His impairment category is Stroke 01 - Left Body (Right Brain) (01.1).Pre-morbidly, Pt . was independent/mod-I in Safety Awareness, Balance, Self-Care, and Transfers Control; and he had go od Locomotion, Social Cognition, Sphincter Control, Endurance, and Communication.Currently, he has de ficits of Safety Awareness, Endurance, Balance, Transfers Control, and Sphincter Control.Pt. is now r eferred to [facility] for acute in-patient rehabilitation in order to maximize patient's functional independence in activities of daily living, strength, ROM, and mobility.- Rehab Goal Patient has realistic goal of being discharged at assistance level 6-Aden to reside at Home with Fam kenzie/Relatives. MDM/PLAN: - Physical Therapy Gait dysfunction - to improve, our physical therapists will perform initial evaluation of pt's statu s upon admission and devise an individualized program for Gait Training, and Wheel Chair mobility Inability to transfer - to improve, our physical therapists will perform initial evaluation of pt's status upon admission and devise an individualized program for Bed mobility Need for home safety evaluation - to improve, our physical therapists will perform initial evaluatio n of pt's status upon admission and devise an individualized program for Home Evaluation Need in caregiver upon discharge - to improve, our physical therapists will perform initial evaluati on of pt's status upon admission and devise an individualized program for Caregiver Training New precaution - to improve, our physical therapists will perform initial evaluation of pt's status upon admission and devise an individualized program for Patient precaution education Poor balance - to improve, our physical therapists will perform initial evaluation of pt's status up on admission and devise an individualized program for Balance Training Poor endurance - to improve, our physical therapists will perform initial evaluation of pt's status upon admission and devise an individualized program for Endurance Training Achieving independence - to improve, our physical therapists will perform initial evaluation of pt's status upon admission and devise an individualized program for Community Reintegration Activities - Occupational Therapy Need for career services assistant - to improve, our occupation therapists will perform initial evaluation of pt's status upon admission and devise an individualized program for Caregiver Training - Other See attached MAR (Medication Administration Record) - Diet Type Continue Regular - Diet - Liquid Texture Continue Regular - Tube Feed Continue N/A - Bladder care per protocol - Weight Bearing Precaution WBAT left LE - Skin care per protocol - Diet - Solid Texture Continue Regular - Shower allowing shower for Dementia, TBI, Stroke, or others FUNCTIONAL STATUS: UPDATED AT WEEKLY TEAM CONFERENCE - Bladder Same accident frequency: 7-Ind - No accidents in the past 7 days - Bowel Same accident frequency: 7-Ind - No accidents in the past 7 days - Walking Same score based on distance walked: 0(N/A) - Wheelchair Same score based on distance traveled: 0(N/A) FUNCTIONAL STATUS: - Self-Care A. Eating Aden B. Grooming Aden C. Bathing sup D. Dressing - Upper Aden E. Dressing - Lower sup F. Toileting sup - Sphincter Control G. Bladder control modA H. Bowel control Aden - Transfers Control I. Bed/Chair/Wheelchair sup J. Toilet sup K. Tub/Shower sup - Locomotion L. Walk/Wheelchair (B) Elham M. Stairs Elham - Communication N. Comprehension (B) Elham O. Expression (B) Elham - Social Cognition P. Social Interaction Elham Q. Problem Solving Elham R. Memory sup - Endurance Good - Balance Fair - Safety Awareness Fair QI SCORES: - Self-Care A. Eating 06-Independent B. Oral hygiene 03-Partial/moderate assistance C. Toileting hygiene 03-Partial/moderate assistance E. Shower/bathe self 03-Partial/moderate assistance F. Upper body dressing 03-Partial/moderate assistance G. Lower body dressing 03-Partial/moderate assistance H. Putting on/taking off footwear 88-Not attempted due to medical condition or safety concerns - Mobility A. Roll left and right 03-Partial/moderate assistance B. Sit to lying 03-Partial/moderate assistance C. Lying to sitting on side of bed 03-Partial/moderate assistance D. Sit to stand 03-Partial/moderate assistance F. Toilet transfer 03-Partial/moderate assistance G. Car transfer 88-Not attempted due to medical condition or safety concerns I. Walk 10 feet 03-Partial/moderate assistance J. Walk 50 feet with two turns 88-Not attempted due to medical condition or safety concerns K. Walk 150 feet 88-Not attempted due to medical condition or safety concerns L. Walking 10 feet on uneven surfaces 88-Not attempted due to medical condition or safety concerns M. 1 step (curb) 88-Not attempted due to medical condition or safety concerns N. 4 steps 88-Not attempted due to medical condition or safety concerns O. 12 steps 88-Not attempted due to medical condition or safety concerns P. Picking up object 03-Partial/moderate assistance R. Wheel 50 feet with two turns 88-Not attempted due to medical condition or safety concerns S. Wheel 150 feet 88-Not attempted due to medical condition or safety concerns - Bladder and Bowel Bladder continence 0-Always continent Bowel continence 0-Always continent - Endurance Good - Balance Fair - Safety Awareness Good CURRENT [facility]. DEFICITS: Mobility, Balance, and Self-Care SIGNATURE PANEL: (CDT)
[2019-08-16] MEDS: ATORVASTATIN 80 MG TAB PO SCH (21:18)
[2019-08-16] MEDS: MELATONIN 3 MG TABLET PO PRN (21:19)
[2019-08-17] MEDS: METOPROLOL TAR 25 MG TAB PO SCH ×2 (05:18→16:56)
[2019-08-17 05:59] LABS: Absolute Lymphocytes (CBC) 1.3 K/uL (0.7-4.9); Basophils % 0.5 % (0-1.3); Hematocrit 32.2 % (39.6-49.0); Lymphocytes % 15.2 % (15.3-44.8); MPV 8.4 fL (7.6-11.3); RBC Red Blood Cell Count 3.14 M/uL (4.33-5.43)
[2019-08-17 06:29] LABS: Albumin 3.1 g/dL (3.4-5.0); Magnesium 2.4 mg/dL (1.8-2.4); Potassium 4.4 mmol/L (3.5-5.1); Prealbumin 31.6 mg/dL (20-40)
[2019-08-17] MEDS ORDERED: METFORMIN HCL 500 MG TAB PO SCH (08:00)
[2019-08-17] MEDS: INSULIN -REGULAR HUMAN 50 UNIT/0.5 ML ML SQ SCH ×4 (08:29→20:21)
[2019-08-17] MEDS: FLUTICASONE 50MCG NASAL SPRAY NAS SCH (08:30)
[2019-08-17] MEDS: ZINC SULFATE 220 MG CAP PO SCH (08:31)
[2019-08-17] MEDS: ASPIRIN EC 81 MG TAB PO SCH (08:31)
[2019-08-17] MEDS: FOLIC ACID 1 MG TABLET PO SCH (08:32)
[2019-08-17] MEDS: FUROSEMIDE 20 MG TABLET PO SCH (08:32)
[2019-08-17] MEDS: allopurinoL 300 MG TAB PO SCH (08:32)
[2019-08-17] MEDS: FAMOTIDINE 20 MG TAB PO SCH (08:32)
[2019-08-17] MEDS: APIXABAN 5 MG TABLET PO SCH ×2 (08:32→20:21)
--- NOTE | 2019-08-17 17:50 | R.PN ---
ENCOUNTER DATE AND TIME: 08/17/2019 17:42 (CDT) NAME JOHN ABREU DATE OF : 1965 DATE OF ADMISSION: 08/14/2019 12:59 (CDT) ACUTE CVACHIEF COMPLAINT: Aphasic stroke, right sided weakness and chronic left BKA SUBJECTIVE: Pt denied any Shortness of Breath. Pt denied any depression. WBC 8.8, Hgb 10.6 Training And Development Officer 7.48, glucose 203 to 256. Will increase metformin to 500 mg in the morning. Ambulated 540' with contact guard assistance using a rolling walker. VITAL SIGNS Temperature: 98.1 F SBP/DBP: 131/61 Pulse: 64 Resp: 16 MEDICATION ALLERGIES: No Known Drug Allergies (NKDA) ENVIRONMENTAL ALLERGIES: - Substance Allergies None Known - Other Allergies None Known NURSING: - Shower allowing shower - Bladder care per protocol - Skin care per protocol PRECAUTIONS: - Weight Bearing Precaution WBAT left LE ACTIVITIES OOB only with supervision THERAPIES: - Occupational Therapy Cognitive Retraining. Visual Perceptual Training. - Dietary and Nutrition Adequate Nutrition. Nutritional Education. Nutritional Supplements. - Speech Therapy Cognitive Training. Expressive Language Skills. Memory Strategies. Receptive Language Skills. Speech Intelligibility Training. PHYSICAL EXAM - Gen Alert and awake Lying in bed No apparent distress Oriented to: person, time, and place - Skin No skin breakdown. No abnormalities - Eyes No abnormalities - ENMT No abnormalities - Neck No abnormalities - CVS RRR - Chest Clear - Abd Soft - GI Soft Deferred - No abnormalities - Ext Right BKA with prosthesis in place. - MSK 4/5 weakness in both lower extremities. - Neuro No focal deficits - Psych No abnormalities ASSESSMENT: Pt. is a 54 yo Right-handed white male.On 08/11/2019 Pt. presented to [facility] with topete dden onset of left-side weakness.On 08/11/2019 he was admitted to [facility] with diagno sis ACUTE CVA.His impairment category is Stroke 01 - Left Body (Right Brain) (01.1).Pre-morbidly, Pt . was independent/mod-I in Safety Awareness, Balance, Self-Care, and Transfers Control; and he had go od Locomotion, Social Cognition, Sphincter Control, Endurance, and Communication.Currently, he has de ficits of Safety Awareness, Endurance, Balance, Transfers Control, and Sphincter Control.Pt. is now r eferred to [facility] for acute in-patient rehabilitation in order to maximize patient's functional independence in activities of daily living, strength, ROM, and mobility.- Rehab Goal Patient has realistic goal of being discharged at assistance level 6-Aden to reside at Home with Fam kenzie/Relatives. MDM/PLAN: - Physical Therapy Gait dysfunction - to improve, our physical therapists will perform initial evaluation of pt's statu s upon admission and devise an individualized program for Gait Training, and Wheel Chair mobility Inability to transfer - to improve, our physical therapists will perform initial evaluation of pt's status upon admission and devise an individualized program for Bed mobility Need for home safety evaluation - to improve, our physical therapists will perform initial evaluatio n of pt's status upon admission and devise an individualized program for Home Evaluation Need in caregiver upon discharge - to improve, our physical therapists will perform initial evaluati on of pt's status upon admission and devise an individualized program for Caregiver Training New precaution - to improve, our physical therapists will perform initial evaluation of pt's status upon admission and devise an individualized program for Patient precaution education Poor balance - to improve, our physical therapists will perform initial evaluation of pt's status up on admission and devise an individualized program for Balance Training Poor endurance - to improve, our physical therapists will perform initial evaluation of pt's status upon admission and devise an individualized program for Endurance Training Achieving independence - to improve, our physical therapists will perform initial evaluation of pt's status upon admission and devise an individualized program for Community Reintegration Activities - Occupational Therapy Need for care director rn - to improve, our occupation therapists will perform initial evaluation of pt's status upon admission and devise an individualized program for Caregiver Training - Other See attached MAR (Medication Administration Record) - Diet Type Continue Regular - Diet - Liquid Texture Continue Regular - Tube Feed Continue N/A - Bladder care per protocol - Weight Bearing Precaution WBAT left LE - Skin care per protocol - Diet - Solid Texture Continue Regular - Shower allowing shower for Dementia, TBI, Stroke, or others FUNCTIONAL STATUS: UPDATED AT WEEKLY TEAM CONFERENCE - Bladder Same accident frequency: 7-Ind - No accidents in the past 7 days - Bowel Same accident frequency: 7-Ind - No accidents in the past 7 days - Walking Same score based on distance walked: 0(N/A) - Wheelchair Same score based on distance traveled: 0(N/A) FUNCTIONAL STATUS: - Self-Care A. Eating Aden B. Grooming Aden C. Bathing sup D. Dressing - Upper Aden E. Dressing - Lower sup F. Toileting sup - Sphincter Control G. Bladder control modA H. Bowel control Aden - Transfers Control I. Bed/Chair/Wheelchair sup J. Toilet sup K. Tub/Shower sup - Locomotion L. Walk/Wheelchair (B) Elham M. Stairs Elham - Communication N. Comprehension (B) Elham O. Expression (B) Elham - Social Cognition P. Social Interaction Elham Q. Problem Solving Elham R. Memory sup - Endurance Good - Balance Fair - Safety Awareness Fair QI SCORES: - Self-Care A. Eating 06-Independent B. Oral hygiene 03-Partial/moderate assistance C. Toileting hygiene 03-Partial/moderate assistance E. Shower/bathe self 03-Partial/moderate assistance F. Upper body dressing 03-Partial/moderate assistance G. Lower body dressing 03-Partial/moderate assistance H. Putting on/taking off footwear 88-Not attempted due to medical condition or safety concerns - Mobility A. Roll left and right 03-Partial/moderate assistance B. Sit to lying 03-Partial/moderate assistance C. Lying to sitting on side of bed 03-Partial/moderate assistance D. Sit to stand 03-Partial/moderate assistance F. Toilet transfer 03-Partial/moderate assistance G. Car transfer 88-Not attempted due to medical condition or safety concerns I. Walk 10 feet 03-Partial/moderate assistance J. Walk 50 feet with two turns 88-Not attempted due to medical condition or safety concerns K. Walk 150 feet 88-Not attempted due to medical condition or safety concerns L. Walking 10 feet on uneven surfaces 88-Not attempted due to medical condition or safety concerns M. 1 step (curb) 88-Not attempted due to medical condition or safety concerns N. 4 steps 88-Not attempted due to medical condition or safety concerns O. 12 steps 88-Not attempted due to medical condition or safety concerns P. Picking up object 03-Partial/moderate assistance R. Wheel 50 feet with two turns 88-Not attempted due to medical condition or safety concerns S. Wheel 150 feet 88-Not attempted due to medical condition or safety concerns - Bladder and Bowel Bladder continence 0-Always continent Bowel continence 0-Always continent - Endurance Good - Balance Fair - Safety Awareness Good CURRENT [facility]. DEFICITS: Mobility, Balance, and Self-Care SIGNATURE PANEL: (CDT)
[2019-08-17] MEDS: ATORVASTATIN 80 MG TAB PO SCH (20:21)
[2019-08-17] MEDS: DOCUSATE NA/SENNA CONC 1 TAB PO PRN (20:21)
[2019-08-17] MEDS: MELATONIN 3 MG TABLET PO PRN (20:21)
[2019-08-18] MEDS: METOPROLOL TAR 25 MG TAB PO SCH ×2 (05:18→17:26)
[2019-08-18] MEDS: INSULIN -REGULAR HUMAN 50 UNIT/0.5 ML ML SQ SCH ×4 (07:30→21:23)
[2019-08-18] MEDS ORDERED: METFORMIN HCL 500 MG TAB PO SCH (08:00)
[2019-08-18] MEDS: FLUTICASONE 50MCG NASAL SPRAY NAS SCH (08:43)
[2019-08-18] MEDS: FAMOTIDINE 20 MG TAB PO SCH (08:43)
[2019-08-18] MEDS: FUROSEMIDE 20 MG TABLET PO SCH (08:44)
[2019-08-18] MEDS: APIXABAN 5 MG TABLET PO SCH ×2 (08:44→20:25)
[2019-08-18] MEDS: ASPIRIN EC 81 MG TAB PO SCH (08:44)
[2019-08-18] MEDS: FOLIC ACID 1 MG TABLET PO SCH (08:44)
[2019-08-18] MEDS: ZINC SULFATE 220 MG CAP PO SCH (08:44)
[2019-08-18] MEDS: allopurinoL 300 MG TAB PO SCH (08:45)
--- NOTE | 2019-08-18 09:51 | P.RH.PN ---
Estimated Length of Stay: 16 Expected Discharge Date: 08/29/19 Discharge Disposition Plan: Home Family Support: Yes Fdc Goal: Mobility, Transfers, Self Care Vital Signs: Last Vital Signs Temp 97.7 F 08/18/19 08:00 Pulse 61 08/18/19 08:44 Resp 20 08/18/19 08:00 BP 157/57 H 08/18/19 08:44 Pulse Ox 92 08/18/19 08:00 Laboratory: Laboratory Last Values WBC 8.8 K/uL (4.3-10.9) 08/17/19 05:22 RBC 3.14 M/uL (4.33-5.43) L 08/17/19 05:22 Hgb 10.6 g/dL (13.6-17.9) L 08/17/19 05:22 Hct 32.2 % (39.6-49.0) L 08/17/19 05:22 MCV 102.8 fL (80-100) H 08/17/19 05:22 MCH 33.8 pg (27.0-35.0) 08/17/19 05:22 MCHC 32.8 g/dL (32.0-36.0) 08/17/19 05:22 RDW 15.4 % (12.1-15.2) H 08/17/19 05:22 Plt Count 137 K/uL (152-406) L 08/17/19 05:22 MPV 8.4 fL (7.6-11.3) 08/17/19 05:22 Neutrophils % 76.9 % (41.7-73.7) H 08/17/19 05:22 Lymphocytes % 15.2 % (15.3-44.8) L 08/17/19 05:22 Monocytes % 6.5 % (3.3-12.3) 08/17/19 05:22 Eosinophils % 0.9 % (0-4.4) 08/17/19 05:22 Basophils % 0.5 % (0-1.3) 08/17/19 05:22 Absolute Neutrophils 6.8 K/uL (1.8-8.0) 08/17/19 05:22 Absolute Lymphocytes 1.3 K/uL (0.7-4.9) 08/17/19 05:22 Absolute Monocytes 0.6 K/uL (0.1-1.3) 08/17/19 05:22 Absolute Eosinophils 0.1 K/uL (0-0.5) 08/17/19 05:22 Absolute Basophils 0.0 K/uL (0-0.5) 08/17/19 05:22 Sodium 138 mmol/L (136-145) 08/17/19 05:22 Potassium 4.4 mmol/L (3.5-5.1) 08/17/19 05:22 Chloride 100 mmol/L (98-107) 08/17/19 05:22 Carbon Dioxide 28 mmol/L (21-32) 08/17/19 05:22 BUN 39 mg/dL (7-18) H 08/17/19 05:22 Creatinine 7.48 mg/dL (0.55-1.3) H* 08/17/19 05:22 Estimated GFR 8 mL/min (=/>90) L 08/17/19 05:22 Glucose 226 mg/dL (74-106) H 08/17/19 05:22 POC Glucose 190 mg/dl (65-120) H 08/18/19 06:47 Calcium 8.9 mg/dL (8.5-10.1) 08/17/19 05:22 Magnesium 2.4 mg/dL (1.8-2.4) 08/17/19 05:22 Albumin 3.1 g/dL (3.4-5.0) L 08/17/19 05:22 Prealbumin 31.6 mg/dL (20-40) 08/17/19 05:22 Weight: 325 lb 14.4 oz Wound Present: Yes Closed Surgical Incision Present: No Negative Pressure Wound Therapy Present: No Physician Update: His speech and language is improving slowly. She is on pureed diet. He is walking 150' contact guard he has fair endurance. Comment: 2 small open wounds on right lower leg, covered with bandaids Functional Improvement: pt has demonstrated progress toward his functional goals. pt's communicaton is slightly improving each day. pt is becoming more stable during ambulation and functional transfers as well. Skilled PT services continue to be necessary to enhance functional performance and safety. Summary: Patient's care plan and custom dressmaker goals have been reviewed and revised as necessary. Please see the Rehabilitation Signature page for all necessary si gnatures.
[2019-08-18] MEDS ORDERED: D50W 25 GM/50 ML SYRINGE/VIAL IV PRN (11:26)
[2019-08-18] MEDS ORDERED: GLUCAGON 1 MG/VIAL IM PRN (11:26)
--- NOTE | 2019-08-18 11:57 | P.PN ---
Subjective Date of Service: 08/18/19 Subjective 54 Y/o man with HX of ESRD , CAD on ASA and plavix, admitted for AMS , found to have ischemic infract Today No new complaints stable VS HD today will dc metformin start on Lantus Physical Examination: General: AAOX3, sensory aphasia , obeses neck: supple, no elevated JVD Heart: RRR, normal S1,2 no murmur or rub chest CTAB, no rales or whezes Abdomen: soft , NT ext : lt BKA , Rt leg edema ESRD on HD Cont HD , renal dose meds CVA neurology on bpard ASA , Eliquis an ststain PT/OT Anemia of chronic disease Cont epogen metabolic bone disaese cont binders DM will dc metfomrin Start Lantus HTN controlled total time spent 35min Physical Examination - Vital Signs Temperature: 97.7 F Blood Pressure: 157/57 Pulse: 61 Respirations: 20 Pulse Ox (%): 92
--- NOTE | 2019-08-18 14:20 | FAST ---
ENCOUNTER DATE AND TIME: 08/18/2019 08:00 (CDT) NAME JOHN ABREU DATE OF : 1965 DATE OF ADMISSION: 08/14/2019 12:59 (CDT) PHONE: AGE: 54 N# [id number] GENDER: Male ENCOUNTER PHYSICIAN: Dr. Bennie Diaz M.D. ADMISSION DIAGNOSIS: - Stroke 01 - Left Body (Right Brain) (01.1) ACUTE CVA. EATING: Not assessed/no information CODE: - ORAL HYGIENE: ORAL HYGIENE - STEP 1: Does the patient complete the activity by him/herself with no assistance (physical, verbal/nonverbal cueing, setup/clean-up)? No. ORAL HYGIENE - STEP 2: Does the patient need only setup/clean-up assistance from one helper? No. ORAL HYGIENE - STEP 3: Does the patient need only verbal/nonverbal cueing or touching/steadying/contact guard assistance fro m one helper? Yes. 1. [id number] ADMISSION PERFORMANCE: Supervision or touching assistance CODE: 04 TOILETING HYGIENE: Not assessed/no information CODE: - BATHING: SHOWER/BATHE SELF - STEP 1: Does the patient complete the activity by him/herself with no assistance (physical, verbal/nonverbal cueing, setup/clean-up)? No. SHOWER/BATHE SELF - STEP 2: Does the patient need only setup/clean-up assistance from one helper? No. SHOWER/BATHE SELF - STEP 3: Does the patient need only verbal/nonverbal cueing or touching/steadying/contact guard assistance fro m one helper? Yes. 1. [id number] ADMISSION PERFORMANCE: Supervision or touching assistance CODE: 04 DRESSING - UPPER BODY: DRESSING - UPPER BODY - STEP 1: Does the patient complete the activity by him/herself with no assistance (physical, verbal/nonverbal cueing, setup/clean-up)? No. DRESSING - UPPER BODY - STEP 2: Does the patient need only setup/clean-up assistance from one helper? No. DRESSING - UPPER BODY - STEP 3: Does the patient need only verbal/nonverbal cueing or touching/steadying/contact guard assistance fro m one helper? Yes. 1. [id number] ADMISSION PERFORMANCE: Supervision or touching assistance CODE: 04 DRESSING - LOWER BODY: DRESSING - LOWER BODY - STEP 1: Does the patient complete the activity by him/herself with no assistance (physical, verbal/nonverbal cueing, setup/clean-up)? No. DRESSING - LOWER BODY - STEP 2: Does the patient need only setup/clean-up assistance from one helper? No. DRESSING - LOWER BODY - STEP 3: Does the patient need only verbal/nonverbal cueing or touching/steadying/contact guard assistance fro m one helper? No. DRESSING - LOWER BODY - STEP 4: Does the patient need physical assistance - for example lifting or trunk support from one helper - wi th the helper providing less than half of the effort? No. DRESSING - LOWER BODY - STEP 5: Does the patient need physical assistance - for example lifting or trunk support from one helper - wi th the helper providing more than half of the effort? Yes. 1. [id number] ADMISSION PERFORMANCE: Substantial/maximal assistance CODE: 02 PUTTING ON/TAKING OFF FOOTWEAR: FOOTWEAR - STEP 1: Does the patient complete the activity by him/herself with no assistance (physical, verbal/nonverbal cueing, setup/clean-up)? No. FOOTWEAR - STEP 2: Does the patient need only setup/clean-up assistance from one helper? No. FOOTWEAR - STEP 3: Does the patient need only verbal/nonverbal cueing or touching/steadying/contact guard assistance fro m one helper? No. FOOTWEAR - STEP 4: Does the patient need physical assistance - for example lifting or trunk support from one helper - wi th the helper providing less than half of the effort? No. FOOTWEAR - STEP 5: Does the patient need physical assistance - for example lifting or trunk support from one helper - wi th the helper providing more than half of the effort? Yes. 1. [id number] ADMISSION PERFORMANCE: Substantial/maximal assistance CODE: 02 DOES THE PATIENT USE A WHEELCHAIR/SCOOTER? CODE: EXPR INDICATE THE TYPE OF WHEELCHAIR/SCOOTER USED: CODE: EXPR INDICATE THE TYPE OF WHEELCHAIR/SCOOTER USED: CODE: EXPR BLADDER AND BOWEL: CODE: EXPR CODE: EXPR SIGNATURE PANEL: The following modified sections: 1. [id number] Admission Performance, 1. [id number] Admission Performance, 1. [id number] Admission Performance, 1. [id number] Admission Performance, 1. [id number] Admission Performance were [electronically] signed by STEFANIA Steele on WedAug 18 2019 14:19:01 GMT-0500 (Central Daylight Time)
[2019-08-18] MEDS: ATORVASTATIN 80 MG TAB PO SCH (20:25)
[2019-08-18] MEDS: DOCUSATE NA/SENNA CONC 1 TAB PO PRN (20:25)
[2019-08-18] MEDS: MELATONIN 3 MG TABLET PO PRN (20:26)
[2019-08-18] MEDS: INSULIN GLARGINE 100 UNITS/ML SQ SCH (21:23)
--- NOTE | 2019-08-19 02:26 | FAST ---
SHIFT START DATE/TIME: 08/18/2019 19:00 (CDT) SHIFT END DATE/TIME: 08/19/2019 07:00 (CDT) NAME JOHN ABREU DATE OF : 1965 DATE OF ADMISSION: 08/14/2019 12:59 (CDT) PHONE: AGE: 54 N# [id number] GENDER: Male ENCOUNTER PHYSICIAN: Dr. Bennie Diaz M.D. ADMISSION DIAGNOSIS: - Stroke 01 - Left Body (Right Brain) (01.1) ACUTE CVA. EATING: Not assessed/no information CODE: - ORAL HYGIENE: Not assessed/no information CODE: - TOILETING HYGIENE: Not assessed/no information CODE: - BATHING: Not assessed/no information CODE: - DRESSING - UPPER BODY: Not assessed/no information CODE: - DRESSING - LOWER BODY: Not assessed/no information CODE: - PUTTING ON/TAKING OFF FOOTWEAR: Not assessed/no information CODE: - ROLL LEFT AND RIGHT: ROLL LEFT AND RIGHT - STEP 1: Does the patient complete the activity by him/herself with no assistance (physical, verbal/nonverbal cueing, setup/clean-up)? No. ROLL LEFT AND RIGHT - STEP 2: Does the patient need only setup/clean-up assistance from one helper? No. ROLL LEFT AND RIGHT - STEP 3: Does the patient need only verbal/nonverbal cueing or touching/steadying/contact guard assistance fro m one helper? Yes. 1. [id number] ADMISSION PERFORMANCE: Supervision or touching assistance CODE: 04 SIT TO LYING: Not assessed/no information CODE: - LYING TO SITTING: Not assessed/no information CODE: - SIT TO STAND: Not assessed/no information CODE: - TRANSFERS: BED, CHAIR: Not assessed/no information CODE: - TRANSFER TOILET: Not assessed/no information CODE: - TRANSFERS: CAR: Not assessed/no information CODE: - WALK 10 FEET: Not assessed/no information CODE: - 1 STEP (CURB): Not assessed/no information CODE: - PICKING UP OBJECT: Not assessed/no information CODE: - DOES THE PATIENT USE A WHEELCHAIR/SCOOTER? CODE: EXPR WHEEL 50 FEET WITH TWO TURNS: Not assessed/no information CODE: - INDICATE THE TYPE OF WHEELCHAIR/SCOOTER USED: CODE: EXPR WHEEL 150 FEET: Not assessed/no information CODE: - INDICATE THE TYPE OF WHEELCHAIR/SCOOTER USED: CODE: EXPR BLADDER AND BOWEL: H350. BLADDER CONTINENCE (3-DAY ASSESSMENT PERIOD): No urine output (e.g., renal failure) CODE: 5 H400. BOWEL CONTINENCE (3-DAY ASSESSMENT PERIOD): Always continent CODE: 0
[2019-08-19] MEDS: METOPROLOL TAR 25 MG TAB PO SCH ×2 (05:09→16:51)
[2019-08-19] MEDS: FLUTICASONE 50MCG NASAL SPRAY NAS SCH (07:57)
[2019-08-19] MEDS: INSULIN -REGULAR HUMAN 50 UNIT/0.5 ML ML SQ SCH ×4 (07:57→21:35)
[2019-08-19] MEDS: allopurinoL 300 MG TAB PO SCH (07:59)
[2019-08-19] MEDS: FAMOTIDINE 20 MG TAB PO SCH (07:59)
[2019-08-19] MEDS: FUROSEMIDE 20 MG TABLET PO SCH (07:59)
[2019-08-19] MEDS: APIXABAN 5 MG TABLET PO SCH ×2 (07:59→21:34)
[2019-08-19] MEDS: ASPIRIN EC 81 MG TAB PO SCH (07:59)
[2019-08-19] MEDS: ZINC SULFATE 220 MG CAP PO SCH (07:59)
[2019-08-19] MEDS: FOLIC ACID 1 MG TABLET PO SCH (08:00)
[2019-08-19 12:47] LABS: Potassium 5.1 mmol/L (3.5-5.1)
[2019-08-19] MEDS: INSULIN GLARGINE 100 UNITS/ML SQ SCH (21:34)
[2019-08-19] MEDS: DOCUSATE NA/SENNA CONC 1 TAB PO PRN (21:34)
[2019-08-19] MEDS: ATORVASTATIN 80 MG TAB PO SCH (21:34)
--- NOTE | 2019-08-20 01:26 | PN ---
Date of Progress Note: 08/19/2019 Chief Complaint: End-stage renal disease, on dialysis Wednesday, Wednesday, Wednesday. Patient has history of complicated neuropathy, nephropathy, hypertension, coronary artery disease sta tus post PTCA. He is admitted to the hospital with temporal CVA. He is undergoing rehab, was seen b y in Neurology. Review of Systems: Denies new complaints. Physical Examination: Lungs: Clear to auscultation bilaterally. Heart: S1, S2. Abdomen: Soft, benign. Extremities: No edema. Impression And Plan: 1.End-stage renal disease. Patient received dialysis yesterday. Monitor electrolytes closely. 2.Status post cerebrovascular accident. Patient is undergoing rehab. 3.Anemia due to chronic kidney disease. Continue Epogen. 4.Metabolic bone disease, renal osteodystrophy. Monitor phosphorus level. Continue binders. 5.Diabetes mellitus. Continue insulin. Patient is not a candidate for metformin due to fact that aristeo chacko has end-stage renal disease. EB/MODL Voice ID: [id number] Report ID: [id number]
[2019-08-20] MEDS: METOPROLOL TAR 25 MG TAB PO SCH ×2 (05:15→17:28)
[2019-08-20] MEDS: FLUTICASONE 50MCG NASAL SPRAY NAS SCH (07:56)
[2019-08-20] MEDS: INSULIN -REGULAR HUMAN 50 UNIT/0.5 ML ML SQ SCH ×4 (07:57→20:25)
[2019-08-20] MEDS: APIXABAN 5 MG TABLET PO SCH ×2 (07:59→20:15)
[2019-08-20] MEDS: FAMOTIDINE 20 MG TAB PO SCH (07:59)
[2019-08-20] MEDS: FOLIC ACID 1 MG TABLET PO SCH (07:59)
[2019-08-20] MEDS: ASPIRIN EC 81 MG TAB PO SCH (08:00)
[2019-08-20] MEDS: FUROSEMIDE 20 MG TABLET PO SCH (08:00)
[2019-08-20] MEDS: allopurinoL 300 MG TAB PO SCH (08:01)
[2019-08-20] MEDS: ZINC SULFATE 220 MG CAP PO SCH (08:01)
[2019-08-20 11:07] LABS: Potassium 5.1 mmol/L (3.5-5.1)
[2019-08-20] MEDS: BISACODYL 10 MG RECTAL SUPP PR PRN (13:27)
[2019-08-20] MEDS: DOCUSATE NA/SENNA CONC 1 TAB PO PRN (20:15)
[2019-08-20] MEDS: INSULIN GLARGINE 100 UNITS/ML SQ SCH (20:15)
[2019-08-20] MEDS: ATORVASTATIN 80 MG TAB PO SCH (20:15)
[2019-08-20] MEDS: MELATONIN 3 MG TABLET PO PRN (20:15)
--- NOTE | 2019-08-21 00:17 | PN ---
Date of Progress Note: 08/20/2019 Chief Complaint: End-stage renal disease, on dialysis. Patient is undergoing dialysis on Wednesday, Wednesday, Wednesday. Lab work revealed stable electrolytes. Today, the patient is on low-potassium diet. Review of Systems: Denies new complaints. Physical Examination: Lungs: Clear to auscultation bilaterally. Heart: S1, S2. Abdomen: Soft, benign. Extremities: Minimal edema. Laboratory Data: Hemoglobin 10.6, WBC 8.8, platelet count 137,000. Sodium 136, potassium 5.1, chlor ana 98, CO2 26, BUN 57, creatinine 10.10, calcium 9.8. Impression And Plan: 1.End-stage renal disease. Next dialysis tomorrow. 2.Renal osteodystrophy. Continue renal diet and binders. Monitor phosphorus level, adjust treatmen t accordingly. 3.Anemia. Hemoglobin level stable. Continue CRISTIANO. 4.Diabetes mellitus. Continue insulin. 5.Status post cerebrovascular accident. Continue rehab. JASON/MODL Voice ID: [id number] Report ID: [id number]
[2019-08-21] MEDS: METOPROLOL TAR 25 MG TAB PO SCH ×2 (05:10→17:35)
[2019-08-21] MEDS: INSULIN -REGULAR HUMAN 50 UNIT/0.5 ML ML SQ SCH ×4 (07:30→21:00)
[2019-08-21] MEDS: FAMOTIDINE 20 MG TAB PO SCH (08:39)
[2019-08-21] MEDS: allopurinoL 300 MG TAB PO SCH (08:39)
[2019-08-21] MEDS: FUROSEMIDE 20 MG TABLET PO SCH (08:39)
[2019-08-21] MEDS: ZINC SULFATE 220 MG CAP PO SCH (08:39)
[2019-08-21] MEDS: ASPIRIN EC 81 MG TAB PO SCH (08:39)
[2019-08-21] MEDS: FOLIC ACID 1 MG TABLET PO SCH (08:39)
[2019-08-21] MEDS: FLUTICASONE 50MCG NASAL SPRAY NAS SCH (08:40)
[2019-08-21] MEDS: APIXABAN 5 MG TABLET PO SCH ×2 (08:40→21:33)
--- NOTE | 2019-08-21 14:14 | FAST ---
ENCOUNTER DATE AND TIME: 08/21/2019 08:00 (CDT) NAME JOHN ABREU DATE OF : 1965 DATE OF ADMISSION: 08/14/2019 12:59 (CDT) PHONE: AGE: 54 N# [id number] GENDER: Male ENCOUNTER PHYSICIAN: Dr. Bennie Diaz M.D. ADMISSION DIAGNOSIS: - Stroke 01 - Left Body (Right Brain) (01.1) ACUTE CVA. EATING: Not assessed/no information CODE: - ORAL HYGIENE: ORAL HYGIENE - STEP 1: Does the patient complete the activity by him/herself with no assistance (physical, verbal/nonverbal cueing, setup/clean-up)? No. ORAL HYGIENE - STEP 2: Does the patient need only setup/clean-up assistance from one helper? No. ORAL HYGIENE - STEP 3: Does the patient need only verbal/nonverbal cueing or touching/steadying/contact guard assistance fro m one helper? No. ORAL HYGIENE - STEP 4: Does the patient need physical assistance - for example lifting or trunk support from one helper - wi th the helper providing less than half of the effort? Yes. 1. [id number] ADMISSION PERFORMANCE: Partial/moderate assistance CODE: 03 TOILETING HYGIENE: Not assessed/no information CODE: - BATHING: SHOWER/BATHE SELF - STEP 1: Does the patient complete the activity by him/herself with no assistance (physical, verbal/nonverbal cueing, setup/clean-up)? No. SHOWER/BATHE SELF - STEP 2: Does the patient need only setup/clean-up assistance from one helper? No. SHOWER/BATHE SELF - STEP 3: Does the patient need only verbal/nonverbal cueing or touching/steadying/contact guard assistance fro m one helper? Yes. 1. [id number] ADMISSION PERFORMANCE: Supervision or touching assistance CODE: 04 DRESSING - UPPER BODY: DRESSING - UPPER BODY - STEP 1: Does the patient complete the activity by him/herself with no assistance (physical, verbal/nonverbal cueing, setup/clean-up)? No. DRESSING - UPPER BODY - STEP 2: Does the patient need only setup/clean-up assistance from one helper? No. DRESSING - UPPER BODY - STEP 3: Does the patient need only verbal/nonverbal cueing or touching/steadying/contact guard assistance fro m one helper? Yes. 1. [id number] ADMISSION PERFORMANCE: Supervision or touching assistance CODE: 04 DRESSING - LOWER BODY: DRESSING - LOWER BODY - STEP 1: Does the patient complete the activity by him/herself with no assistance (physical, verbal/nonverbal cueing, setup/clean-up)? No. DRESSING - LOWER BODY - STEP 2: Does the patient need only setup/clean-up assistance from one helper? No. DRESSING - LOWER BODY - STEP 3: Does the patient need only verbal/nonverbal cueing or touching/steadying/contact guard assistance fro m one helper? No. DRESSING - LOWER BODY - STEP 4: Does the patient need physical assistance - for example lifting or trunk support from one helper - wi th the helper providing less than half of the effort? No. DRESSING - LOWER BODY - STEP 5: Does the patient need physical assistance - for example lifting or trunk support from one helper - wi th the helper providing more than half of the effort? Yes. 1. [id number] ADMISSION PERFORMANCE: Substantial/maximal assistance CODE: 02 PUTTING ON/TAKING OFF FOOTWEAR: FOOTWEAR - STEP 1: Does the patient complete the activity by him/herself with no assistance (physical, verbal/nonverbal cueing, setup/clean-up)? No. FOOTWEAR - STEP 2: Does the patient need only setup/clean-up assistance from one helper? No. FOOTWEAR - STEP 3: Does the patient need only verbal/nonverbal cueing or touching/steadying/contact guard assistance fro m one helper? No. FOOTWEAR - STEP 4: Does the patient need physical assistance - for example lifting or trunk support from one helper - wi th the helper providing less than half of the effort? No. FOOTWEAR - STEP 5: Does the patient need physical assistance - for example lifting or trunk support from one helper - wi th the helper providing more than half of the effort? Yes. 1. [id number] ADMISSION PERFORMANCE: Substantial/maximal assistance CODE: 02 DOES THE PATIENT USE A WHEELCHAIR/SCOOTER? CODE: EXPR INDICATE THE TYPE OF WHEELCHAIR/SCOOTER USED: CODE: EXPR INDICATE THE TYPE OF WHEELCHAIR/SCOOTER USED: CODE: EXPR BLADDER AND BOWEL: CODE: EXPR CODE: EXPR SIGNATURE PANEL: The following modified sections: 1. [id number] Admission Performance, 1. [id number] Admission Performance, 1. [id number] Admission Performance, 1. [id number] Admission Performance, 1. [id number] Admission Performance were [electronically] signed by STEFANIA Steele on WedAug 21 2019 14:14:06 GMT-0500 (Central Daylight Time)
[2019-08-21] MEDS ORDERED: POLYETHYL GLY 3350 17 GM/DOSE PO PRN (15:30)
--- NOTE | 2019-08-21 15:30 | FAST ---
SHIFT START DATE/TIME: 08/21/2019 07:00 (CDT) SHIFT END DATE/TIME: 08/21/2019 19:00 (CDT) NAME JOHN ABREU DATE OF : 1965 DATE OF ADMISSION: 08/14/2019 12:59 (CDT) PHONE: AGE: 54 N# [id number] GENDER: Male ENCOUNTER PHYSICIAN: Dr. Bennie Diaz M.D. ADMISSION DIAGNOSIS: - Stroke 01 - Left Body (Right Brain) (01.1) ACUTE CVA. EATING: EATING - STEP 1: Does the patient complete the activity by him/herself with no assistance (physical, verbal/nonverbal cueing, setup/clean-up)? No. EATING - STEP 2: Does the patient need only setup/clean-up assistance from one helper? Yes. 1. [id number] ADMISSION PERFORMANCE: Setup or clean-up assistance CODE: 05 ORAL HYGIENE: ORAL HYGIENE - STEP 1: Does the patient complete the activity by him/herself with no assistance (physical, verbal/nonverbal cueing, setup/clean-up)? No. ORAL HYGIENE - STEP 2: Does the patient need only setup/clean-up assistance from one helper? No. ORAL HYGIENE - STEP 3: Does the patient need only verbal/nonverbal cueing or touching/steadying/contact guard assistance fro m one helper? No. ORAL HYGIENE - STEP 4: Does the patient need physical assistance - for example lifting or trunk support from one helper - wi th the helper providing less than half of the effort? Yes. 1. [id number] ADMISSION PERFORMANCE: Partial/moderate assistance CODE: 03 TOILETING HYGIENE: TOILETING HYGIENE - STEP 1: Does the patient complete the activity by him/herself with no assistance (physical, verbal/nonverbal cueing, setup/clean-up)? No. TOILETING HYGIENE - STEP 2: Does the patient need only setup/clean-up assistance from one helper? No. TOILETING HYGIENE - STEP 3: Does the patient need only verbal/nonverbal cueing or touching/steadying/contact guard assistance fro m one helper? Yes. 1. [id number] ADMISSION PERFORMANCE: Supervision or touching assistance CODE: 04 BATHING: Not assessed/no information CODE: - DRESSING - UPPER BODY: DRESSING - UPPER BODY - STEP 1: Does the patient complete the activity by him/herself with no assistance (physical, verbal/nonverbal cueing, setup/clean-up)? No. DRESSING - UPPER BODY - STEP 2: Does the patient need only setup/clean-up assistance from one helper? No. DRESSING - UPPER BODY - STEP 3: Does the patient need only verbal/nonverbal cueing or touching/steadying/contact guard assistance fro m one helper? Yes. 1. [id number] ADMISSION PERFORMANCE: Supervision or touching assistance CODE: 04 DRESSING - LOWER BODY: DRESSING - LOWER BODY - STEP 1: Does the patient complete the activity by him/herself with no assistance (physical, verbal/nonverbal cueing, setup/clean-up)? No. DRESSING - LOWER BODY - STEP 2: Does the patient need only setup/clean-up assistance from one helper? No. DRESSING - LOWER BODY - STEP 3: Does the patient need only verbal/nonverbal cueing or touching/steadying/contact guard assistance fro m one helper? No. DRESSING - LOWER BODY - STEP 4: Does the patient need physical assistance - for example lifting or trunk support from one helper - wi th the helper providing less than half of the effort? No. DRESSING - LOWER BODY - STEP 5: Does the patient need physical assistance - for example lifting or trunk support from one helper - wi th the helper providing more than half of the effort? Yes. 1. [id number] ADMISSION PERFORMANCE: Substantial/maximal assistance CODE: 02 PUTTING ON/TAKING OFF FOOTWEAR: FOOTWEAR - STEP 1: Does the patient complete the activity by him/herself with no assistance (physical, verbal/nonverbal cueing, setup/clean-up)? No. FOOTWEAR - STEP 2: Does the patient need only setup/clean-up assistance from one helper? No. FOOTWEAR - STEP 3: Does the patient need only verbal/nonverbal cueing or touching/steadying/contact guard assistance fro m one helper? Yes. 1. [id number] ADMISSION PERFORMANCE: Supervision or touching assistance CODE: 04 ROLL LEFT AND RIGHT: ROLL LEFT AND RIGHT - STEP 1: Does the patient complete the activity by him/herself with no assistance (physical, verbal/nonverbal cueing, setup/clean-up)? No. ROLL LEFT AND RIGHT - STEP 2: Does the patient need only setup/clean-up assistance from one helper? No. ROLL LEFT AND RIGHT - STEP 3: Does the patient need only verbal/nonverbal cueing or touching/steadying/contact guard assistance fro m one helper? Yes. 1. [id number] ADMISSION PERFORMANCE: Supervision or touching assistance CODE: 04 SIT TO LYING: SIT TO LYING - STEP 1: Does the patient complete the activity by him/herself with no assistance (physical, verbal/nonverbal cueing, setup/clean-up)? No. SIT TO LYING - STEP 2: Does the patient need only setup/clean-up assistance from one helper? No. SIT TO LYING - STEP 3: Does the patient need only verbal/nonverbal cueing or touching/steadying/contact guard assistance fro m one helper? Yes. 1. [id number] ADMISSION PERFORMANCE: Supervision or touching assistance CODE: 04 LYING TO SITTING: LYING TO SITTING ON SIDE OF BED - STEP 1: Does the patient complete the activity by him/herself with no assistance (physical, verbal/nonverbal cueing, setup/clean-up)? No. LYING TO SITTING ON SIDE OF BED - STEP 2: Does the patient need only setup/clean-up assistance from one helper? No. LYING TO SITTING ON SIDE OF BED - STEP 3: Does the patient need only verbal/nonverbal cueing or touching/steadying/contact guard assistance fro m one helper? Yes. 1. [id number] ADMISSION PERFORMANCE: Supervision or touching assistance CODE: 04 SIT TO STAND: SIT TO STAND - STEP 1: Does the patient complete the activity by him/herself with no assistance (physical, verbal/nonverbal cueing, setup/clean-up)? No. SIT TO STAND - STEP 2: Does the patient need only setup/clean-up assistance from one helper? No. SIT TO STAND - STEP 3: Does the patient need only verbal/nonverbal cueing or touching/steadying/contact guard assistance fro m one helper? Yes. 1. [id number] ADMISSION PERFORMANCE: Supervision or touching assistance CODE: 04 TRANSFERS: BED, CHAIR: CHAIR/[id number] TRANSFER - STEP 1: Does the patient complete the activity by him/herself with no assistance (physical, verbal/nonverbal cueing, setup/clean-up)? No. CHAIR/[id number] TRANSFER - STEP 2: Does the patient need only setup/clean-up assistance from one helper? No. CHAIR/[id number] TRANSFER - STEP 3: Does the patient need only verbal/nonverbal cueing or touching/steadying/contact guard assistance fro m one helper? Yes. 1. [id number] ADMISSION PERFORMANCE: Supervision or touching assistance CODE: 04 TRANSFER TOILET: TOILET TRANSFER - STEP 1: Does the patient complete the activity by him/herself with no assistance (physical, verbal/nonverbal cueing, setup/clean-up)? No. TOILET TRANSFER - STEP 2: Does the patient need only setup/clean-up assistance from one helper? No. TOILET TRANSFER - STEP 3: Does the patient need only verbal/nonverbal cueing or touching/steadying/contact guard assistance fro m one helper? Yes. 1. [id number] ADMISSION PERFORMANCE: Supervision or touching assistance CODE: 04 TRANSFERS: CAR: Not assessed/no information CODE: - WALK 10 FEET: Not assessed/no information CODE: - 1 STEP (CURB): Not assessed/no information CODE: - PICKING UP OBJECT: Not assessed/no information CODE: - DOES THE PATIENT USE A WHEELCHAIR/SCOOTER? Q1. DOES THE PATIENT USE A WHEELCHAIR/SCOOTER?: Yes CODE: 1 WHEEL 50 FEET WITH TWO TURNS: WHEEL 50 FEET WITH TWO TURNS - STEP 1: Does the patient complete the activity by him/herself with no assistance (physical, verbal/nonverbal cueing, setup/clean-up)? No. WHEEL 50 FEET WITH TWO TURNS - STEP 2: Does the patient need only setup/clean-up assistance from one helper? No. WHEEL 50 FEET WITH TWO TURNS - STEP 3: Does the patient need only verbal/nonverbal cueing or touching/steadying/contact guard assistance fro m one helper? Yes. 1. [id number] ADMISSION PERFORMANCE: Supervision or touching assistance CODE: 04 INDICATE THE TYPE OF WHEELCHAIR/SCOOTER USED: RR1. INDICATE THE TYPE OF WHEELCHAIR/SCOOTER USED.: Manual CODE: 1 WHEEL 150 FEET: WHEEL 150 FEET - STEP 1: Does the patient complete the activity by him/herself with no assistance (physical, verbal/nonverbal cueing, setup/clean-up)? No. WHEEL 150 FEET - STEP 2: Does the patient need only setup/clean-up assistance from one helper? No. WHEEL 150 FEET - STEP 3: Does the patient need only verbal/nonverbal cueing or touching/steadying/contact guard assistance fro m one helper? Yes. 1. [id number] ADMISSION PERFORMANCE: Supervision or touching assistance CODE: 04 INDICATE THE TYPE OF WHEELCHAIR/SCOOTER USED: SS1. INDICATE THE TYPE OF WHEELCHAIR/SCOOTER USED.: Manual CODE: 1 BLADDER AND BOWEL: H350. BLADDER CONTINENCE (3-DAY ASSESSMENT PERIOD): Always continent (no documented incontinence) CODE: 0 H400. BOWEL CONTINENCE (3-DAY ASSESSMENT PERIOD): Always continent CODE: 0 SIGNATURE PANEL: The following modified sections: 1. [id number] Admission Performance, 1. [id number] Admission Performance, 1. [id number] Admission Performance, 1. [id number] Admission Performance, 1. [id number] Admission Performance, 1. [id number] Admission Performance, 1. [id number] Admission Performance, 1. [id number] Admission Performance , 1. [id number] Admission Performance, 1. [id number] Admission Performance, 1. [id number] Admission Performanc e, 1. [id number] Admission Performance, 1. [id number] Admission Performance, Q1. Does the patient use a whe elchair/scooter?, 1. [id number] Admission Performance, RR1. Indicate the type of wheelchair/scooter used ., 1. [id number] Admission Performance, Code, SS1. Indicate the type of wheelchair/scooter used., H350. Bladder Continence (3-day assessment period), H400. Bowel Continence (3-day assessment period), 1. GG 0130B Admission Performance were [electronically] signed by Chantelle AguirreNAndrea on WedAug 21 2019 5:29:49 T-0500 (Central Daylight Time)
--- NOTE | 2019-08-21 17:04 | R.PN ---
ENCOUNTER DATE AND TIME: 08/21/2019 17:00 (CDT) NAME JOHN ABREU DATE OF : 1965 DATE OF ADMISSION: 08/14/2019 12:59 (CDT) ACUTE CVACHIEF COMPLAINT: Aphasic stroke, right sided weakness and chronic left BKA SUBJECTIVE: Pt denied any Shortness of Breath. Pt denied any depression. 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 Metformin was D/Darek by renal service. Will increase L antus to 15 units at bedtime. Ambulated 540' with contact guard assistance using a rolling walker. VITAL SIGNS Temperature: 98.1 F SBP/DBP: 152/62 Pulse: 60 Resp: 18 MEDICATION ALLERGIES: No Known Drug Allergies (NKDA) ENVIRONMENTAL ALLERGIES: - Substance Allergies None Known - Other Allergies None Known NURSING: - Shower allowing shower - Bladder care per protocol - Skin care per protocol PRECAUTIONS: - Weight Bearing Precaution WBAT left LE ACTIVITIES OOB only with supervision THERAPIES: - Occupational Therapy Cognitive Retraining. Visual Perceptual Training. - Dietary and Nutrition Adequate Nutrition. Nutritional Education. Nutritional Supplements. - Speech Therapy Cognitive Training. Expressive Language Skills. Memory Strategies. Receptive Language Skills. Speech Intelligibility Training. PHYSICAL EXAM - Gen Alert and awake Lying in bed No apparent distress Oriented to: person, time, and place - Skin No skin breakdown. No abnormalities - Eyes No abnormalities - ENMT No abnormalities - Neck No abnormalities - CVS RRR - Chest Clear - Abd Soft - GI Soft Deferred - No abnormalities - Ext Right BKA with prosthesis in place. - MSK 4/5 weakness in both lower extremities. - Neuro No focal deficits - Psych No abnormalities ASSESSMENT: Pt. is a 54 yo Right-handed white male.On 08/11/2019 Pt. presented to [facility] with topete dden onset of left-side weakness.On 08/11/2019 he was admitted to [facility] with diagno sis ACUTE CVA.His impairment category is Stroke 01 - Left Body (Right Brain) (01.1).Pre-morbidly, Pt . was independent/mod-I in Safety Awareness, Balance, Self-Care, and Transfers Control; and he had go od Locomotion, Social Cognition, Sphincter Control, Endurance, and Communication.Currently, he has de ficits of Safety Awareness, Endurance, Balance, Transfers Control, and Sphincter Control.Pt. is now r eferred to [facility] for acute in-patient rehabilitation in order to maximize patient's functional independence in activities of daily living, strength, ROM, and mobility.- Rehab Goal Patient has realistic goal of being discharged at assistance level 6-Aden to reside at Home with Fam kenzie/Relatives. MDM/PLAN: - Physical Therapy Gait dysfunction - to improve, our physical therapists will perform initial evaluation of pt's statu s upon admission and devise an individualized program for Gait Training, and Wheel Chair mobility Inability to transfer - to improve, our physical therapists will perform initial evaluation of pt's status upon admission and devise an individualized program for Bed mobility Need for home safety evaluation - to improve, our physical therapists will perform initial evaluatio n of pt's status upon admission and devise an individualized program for Home Evaluation Need in caregiver upon discharge - to improve, our physical therapists will perform initial evaluati on of pt's status upon admission and devise an individualized program for Caregiver Training New precaution - to improve, our physical therapists will perform initial evaluation of pt's status upon admission and devise an individualized program for Patient precaution education Poor balance - to improve, our physical therapists will perform initial evaluation of pt's status up on admission and devise an individualized program for Balance Training Poor endurance - to improve, our physical therapists will perform initial evaluation of pt's status upon admission and devise an individualized program for Endurance Training Achieving independence - to improve, our physical therapists will perform initial evaluation of pt's status upon admission and devise an individualized program for Community Reintegration Activities - Occupational Therapy Need for healthcare administration internship - to improve, our occupation therapists will perform initial evaluation of pt's status upon admission and devise an individualized program for Caregiver Training - Other See attached MAR (Medication Administration Record) - Diet Type Continue Regular - Diet - Liquid Texture Continue Regular - Tube Feed Continue N/A - Bladder care per protocol - Weight Bearing Precaution WBAT left LE - Skin care per protocol - Diet - Solid Texture Continue Regular - Shower allowing shower for Dementia, TBI, Stroke, or others FUNCTIONAL STATUS: UPDATED AT WEEKLY TEAM CONFERENCE - Bladder Same accident frequency: 7-Ind - No accidents in the past 7 days - Bowel Same accident frequency: 7-Ind - No accidents in the past 7 days - Walking Same score based on distance walked: 0(N/A) - Wheelchair Same score based on distance traveled: 0(N/A) FUNCTIONAL STATUS: - Self-Care A. Eating Aden B. Grooming Aden C. Bathing sup D. Dressing - Upper Aden E. Dressing - Lower sup F. Toileting sup - Sphincter Control G. Bladder control modA H. Bowel control Aden - Transfers Control I. Bed/Chair/Wheelchair sup J. Toilet sup K. Tub/Shower sup - Locomotion L. Walk/Wheelchair (B) Elham M. Stairs Elham - Communication N. Comprehension (B) Elham O. Expression (B) Elham - Social Cognition P. Social Interaction Elham Q. Problem Solving Elham R. Memory sup - Endurance Good - Balance Fair - Safety Awareness Fair QI SCORES: - Self-Care A. Eating 06-Independent B. Oral hygiene 03-Partial/moderate assistance C. Toileting hygiene 03-Partial/moderate assistance E. Shower/bathe self 03-Partial/moderate assistance F. Upper body dressing 03-Partial/moderate assistance G. Lower body dressing 03-Partial/moderate assistance H. Putting on/taking off footwear 88-Not attempted due to medical condition or safety concerns - Mobility A. Roll left and right 03-Partial/moderate assistance B. Sit to lying 03-Partial/moderate assistance C. Lying to sitting on side of bed 03-Partial/moderate assistance D. Sit to stand 03-Partial/moderate assistance F. Toilet transfer 03-Partial/moderate assistance G. Car transfer 88-Not attempted due to medical condition or safety concerns I. Walk 10 feet 03-Partial/moderate assistance J. Walk 50 feet with two turns 88-Not attempted due to medical condition or safety concerns K. Walk 150 feet 88-Not attempted due to medical condition or safety concerns L. Walking 10 feet on uneven surfaces 88-Not attempted due to medical condition or safety concerns M. 1 step (curb) 88-Not attempted due to medical condition or safety concerns N. 4 steps 88-Not attempted due to medical condition or safety concerns O. 12 steps 88-Not attempted due to medical condition or safety concerns P. Picking up object 03-Partial/moderate assistance R. Wheel 50 feet with two turns 88-Not attempted due to medical condition or safety concerns S. Wheel 150 feet 88-Not attempted due to medical condition or safety concerns - Bladder and Bowel Bladder continence 0-Always continent Bowel continence 0-Always continent - Endurance Good - Balance Fair - Safety Awareness Good CURRENT FUNC. DEFICITS: Mobility, Balance, and Self-Care SIGNATURE PANEL: (CDT)
[2019-08-21] MEDS ORDERED: INSULIN GLARGINE 100 UNITS/ML SQ SCH (21:00)
[2019-08-21] MEDS: DOCUSATE NA/SENNA CONC 1 TAB PO SCH (21:32)
[2019-08-21] MEDS: MELATONIN 3 MG TABLET PO PRN (21:32)
[2019-08-21] MEDS: ATORVASTATIN 80 MG TAB PO SCH (21:33)
--- NOTE | 2019-08-22 04:11 | PN ---
Date of Progress Note: 08/21/2019 Chief Complaint: End-stage renal disease, on dialysis. Subjective: Patient was found to have borderline hyperkalemia and 2 potassium dialysate will be used today for metabolic clearance to treat hyperkalemia. Patient has constipation and developed some ab dominal distention. Patient will have MiraLAX. Review of Systems: Denies PND, orthopnea. Physical Examination: Lungs: Clear to auscultation bilaterally. Heart: S1-S2. Abdomen: Soft, benign. Extremities: Minimal edema. Laboratory Data: Sodium 136, potassium 5.1, BUN 57, creatinine 10.1, calcium 9.8. Impression And Plan: 1.End-stage renal disease. Dialysis today done with ultrafiltration to obtain negative fluid balanc e. Patient has mild fluid overload. He has lower extremity edema. 2.Altered mental status. Patient is more alert, responsive. 3.Renal osteodystrophy. Continue renal diet and binders. 4.Diabetes mellitus. Continue insulin. 5.Status post cerebrovascular accident. Continue rehab. 6.Hyperphosphatemia. Monitor phosphorus level. Adjust binders. EB/MODL Voice ID: [id number] Report ID: [id number]
[2019-08-22] MEDS: METOPROLOL TAR 25 MG TAB PO SCH ×2 (05:01→17:17)
[2019-08-22] MEDS: INSULIN -REGULAR HUMAN 50 UNIT/0.5 ML ML SQ SCH ×4 (07:30→20:15)
[2019-08-22] MEDS: FOLIC ACID 1 MG TABLET PO SCH (07:47)
[2019-08-22] MEDS: FAMOTIDINE 20 MG TAB PO SCH (07:47)
[2019-08-22] MEDS: FUROSEMIDE 20 MG TABLET PO SCH (07:47)
[2019-08-22] MEDS: ZINC SULFATE 220 MG CAP PO SCH (07:47)
[2019-08-22] MEDS: ASPIRIN EC 81 MG TAB PO SCH (07:47)
[2019-08-22] MEDS: APIXABAN 5 MG TABLET PO SCH ×2 (07:47→20:15)
[2019-08-22] MEDS: allopurinoL 300 MG TAB PO SCH (07:49)
[2019-08-22] MEDS: FLUTICASONE 50MCG NASAL SPRAY NAS SCH (11:40)
--- NOTE | 2019-08-22 14:26 | PN ---
Date of Progress Note: 08/22/2019 History: Patient was admitted with CVA, transferred to rehab for physical therapy. Physical Examination: Vital Signs: Blood pressure 119/64, pulse of 60. Patient had dialysis yesterday, tolerated the dial ysis very well. We managed to remove 1800. Chest: Clear to auscultation. Heart: S1, S2. Regular. Systolic murmur. Abdomen: Morbidly obese. Extremities: Left below-knee amputation. Laboratory Data: WBC 8.8, H and H 10.6/32.2, platelets 137. Sodium 136, potassium 5.1, bicarb 26, B UN 57, creatinine 10, calcium of 9. Current Medications: The patient on include Eliquis 5 mg b.i.d., aspirin, atorvastatin, metoprolol, Lasix 20, folic acid, Pepcid, insulin, bisacodyl, allopurinol. Assessment And Plan: 1.End-stage renal disease. We will continue the patient on dialysis Wednesday, Wednesday, Wednesday. I w ill arrange for dialysis tomorrow. 2.Hypertension, controlled optimal. Continue current treatment. 3.Diabetes, as by primary. 4.Cerebrovascular accident. Patient on anticoagulation. I am going to go ahead and decrease Eliqui s to 2.5 given the end-stage renal disease. Continue PT OT. Follow up with Rehab. SHERLYN/LYUDMILA Voice ID: [id number] Report ID: [id number]
--- NOTE | 2019-08-22 17:38 | R.PN ---
ENCOUNTER DATE AND TIME: 08/22/2019 17:32 (CDT) NAME JOHN ABREU DATE OF : 1965 DATE OF ADMISSION: 08/14/2019 12:59 (CDT) ACUTE CVACHIEF COMPLAINT: Aphasic stroke, right sided weakness and chronic left BKA SUBJECTIVE: Pt denied any Shortness of Breath. Pt denied any depression. 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 Metformin was D/Darek by renal service. Will increase L antus to 20 units at bedtime. Ambulated 375' with contact guard assistance using a rolling walker. VITAL SIGNS Temperature: 98.0 F SBP/DBP: 145/65 Pulse: 63 Resp: 16 MEDICATION ALLERGIES: No Known Drug Allergies (NKDA) ENVIRONMENTAL ALLERGIES: - Substance Allergies None Known - Other Allergies None Known NURSING: - Shower allowing shower - Bladder care per protocol - Skin care per protocol PRECAUTIONS: - Weight Bearing Precaution WBAT left LE ACTIVITIES OOB only with supervision THERAPIES: - Occupational Therapy Cognitive Retraining. Visual Perceptual Training. - Dietary and Nutrition Adequate Nutrition. Nutritional Education. Nutritional Supplements. - Speech Therapy Cognitive Training. Expressive Language Skills. Memory Strategies. Receptive Language Skills. Speech Intelligibility Training. PHYSICAL EXAM - Gen Alert and awake Lying in bed No apparent distress Oriented to: person, time, and place - Skin No skin breakdown. No abnormalities - Eyes No abnormalities - ENMT No abnormalities - Neck No abnormalities - CVS RRR - Chest Clear - Abd Soft - GI Soft Deferred - No abnormalities - Ext Right BKA with prosthesis in place. - MSK 4/5 weakness in both lower extremities. - Neuro No focal deficits - Psych No abnormalities ASSESSMENT: Pt. is a 54 yo Right-handed white male.On 08/11/2019 Pt. presented to [facility] with topete dden onset of left-side weakness.On 08/11/2019 he was admitted to [facility] with diagno sis ACUTE CVA.His impairment category is Stroke 01 - Left Body (Right Brain) (01.1).Pre-morbidly, Pt . was independent/mod-I in Safety Awareness, Balance, Self-Care, and Transfers Control; and he had go od Locomotion, Social Cognition, Sphincter Control, Endurance, and Communication.Currently, he has de ficits of Safety Awareness, Endurance, Balance, Transfers Control, and Sphincter Control.Pt. is now r eferred to [facility] for acute in-patient rehabilitation in order to maximize patient's functional independence in activities of daily living, strength, ROM, and mobility.- Rehab Goal Patient has realistic goal of being discharged at assistance level 6-Aden to reside at Home with Fam kenzie/Relatives. MDM/PLAN: - Physical Therapy Gait dysfunction - to improve, our physical therapists will perform initial evaluation of pt's statu s upon admission and devise an individualized program for Gait Training, and Wheel Chair mobility Inability to transfer - to improve, our physical therapists will perform initial evaluation of pt's status upon admission and devise an individualized program for Bed mobility Need for home safety evaluation - to improve, our physical therapists will perform initial evaluatio n of pt's status upon admission and devise an individualized program for Home Evaluation Need in caregiver upon discharge - to improve, our physical therapists will perform initial evaluati on of pt's status upon admission and devise an individualized program for Caregiver Training New precaution - to improve, our physical therapists will perform initial evaluation of pt's status upon admission and devise an individualized program for Patient precaution education Poor balance - to improve, our physical therapists will perform initial evaluation of pt's status up on admission and devise an individualized program for Balance Training Poor endurance - to improve, our physical therapists will perform initial evaluation of pt's status upon admission and devise an individualized program for Endurance Training Achieving independence - to improve, our physical therapists will perform initial evaluation of pt's status upon admission and devise an individualized program for Community Reintegration Activities - Occupational Therapy Need for rehab care assistant - to improve, our occupation therapists will perform initial evaluation of pt's status upon admission and devise an individualized program for Caregiver Training - Other See attached MAR (Medication Administration Record) - Diet Type Continue Regular - Diet - Liquid Texture Continue Regular - Tube Feed Continue N/A - Bladder care per protocol - Weight Bearing Precaution WBAT left LE - Skin care per protocol - Diet - Solid Texture Continue Regular - Shower allowing shower for Dementia, TBI, Stroke, or others FUNCTIONAL STATUS: UPDATED AT WEEKLY TEAM CONFERENCE - Bladder Same accident frequency: 7-Ind - No accidents in the past 7 days - Bowel Same accident frequency: 7-Ind - No accidents in the past 7 days - Walking Same score based on distance walked: 0(N/A) - Wheelchair Same score based on distance traveled: 0(N/A) FUNCTIONAL STATUS: - Self-Care A. Eating Aden B. Grooming Aden C. Bathing sup D. Dressing - Upper Aden E. Dressing - Lower sup F. Toileting sup - Sphincter Control G. Bladder control modA H. Bowel control Aden - Transfers Control I. Bed/Chair/Wheelchair sup J. Toilet sup K. Tub/Shower sup - Locomotion L. Walk/Wheelchair (B) Elham M. Stairs Elham - Communication N. Comprehension (B) Elham O. Expression (B) Elham - Social Cognition P. Social Interaction Elham Q. Problem Solving Elham R. Memory sup - Endurance Good - Balance Fair - Safety Awareness Fair QI SCORES: - Self-Care A. Eating 06-Independent B. Oral hygiene 03-Partial/moderate assistance C. Toileting hygiene 03-Partial/moderate assistance E. Shower/bathe self 03-Partial/moderate assistance F. Upper body dressing 03-Partial/moderate assistance G. Lower body dressing 03-Partial/moderate assistance H. Putting on/taking off footwear 88-Not attempted due to medical condition or safety concerns - Mobility A. Roll left and right 03-Partial/moderate assistance B. Sit to lying 03-Partial/moderate assistance C. Lying to sitting on side of bed 03-Partial/moderate assistance D. Sit to stand 03-Partial/moderate assistance F. Toilet transfer 03-Partial/moderate assistance G. Car transfer 88-Not attempted due to medical condition or safety concerns I. Walk 10 feet 03-Partial/moderate assistance J. Walk 50 feet with two turns 88-Not attempted due to medical condition or safety concerns K. Walk 150 feet 88-Not attempted due to medical condition or safety concerns L. Walking 10 feet on uneven surfaces 88-Not attempted due to medical condition or safety concerns M. 1 step (curb) 88-Not attempted due to medical condition or safety concerns N. 4 steps 88-Not attempted due to medical condition or safety concerns O. 12 steps 88-Not attempted due to medical condition or safety concerns P. Picking up object 03-Partial/moderate assistance R. Wheel 50 feet with two turns 88-Not attempted due to medical condition or safety concerns S. Wheel 150 feet 88-Not attempted due to medical condition or safety concerns - Bladder and Bowel Bladder continence 0-Always continent Bowel continence 0-Always continent - Endurance Good - Balance Fair - Safety Awareness Good CURRENT FUNC. DEFICITS: Mobility, Balance, and Self-Care SIGNATURE PANEL: (CDT)
[2019-08-22] MEDS: DOCUSATE NA/SENNA CONC 1 TAB PO SCH (20:14)
[2019-08-22] MEDS: MELATONIN 3 MG TABLET PO PRN (20:14)
[2019-08-22] MEDS: ATORVASTATIN 80 MG TAB PO SCH (20:14)
[2019-08-22] MEDS: INSULIN GLARGINE 100 UNITS/ML SQ SCH (20:15)
[2019-08-23] MEDS: METOPROLOL TAR 25 MG TAB PO SCH ×2 (05:06→17:04)
[2019-08-23] MEDS: INSULIN -REGULAR HUMAN 50 UNIT/0.5 ML ML SQ SCH ×4 (07:30→19:00)
[2019-08-23] MEDS: allopurinoL 300 MG TAB PO SCH (08:00)
[2019-08-23] MEDS: APIXABAN 5 MG TABLET PO SCH ×2 (08:48→19:00)
[2019-08-23] MEDS: ZINC SULFATE 220 MG CAP PO SCH (08:48)
[2019-08-23] MEDS: FAMOTIDINE 20 MG TAB PO SCH (08:48)
[2019-08-23] MEDS: FLUTICASONE 50MCG NASAL SPRAY NAS SCH (08:48)
[2019-08-23] MEDS: FUROSEMIDE 20 MG TABLET PO SCH (08:49)
[2019-08-23] MEDS: FOLIC ACID 1 MG TABLET PO SCH (08:49)
[2019-08-23] MEDS: ASPIRIN EC 81 MG TAB PO SCH (08:49)
--- NOTE | 2019-08-23 12:39 | FAST ---
ENCOUNTER DATE AND TIME: 08/23/2019 08:00 (CDT) NAME JOHN ABREU DATE OF : 1965 DATE OF ADMISSION: 08/14/2019 12:59 (CDT) PHONE: AGE: 54 N# [id number] GENDER: Male ENCOUNTER PHYSICIAN: Dr. Bennie Diaz M.D. ADMISSION DIAGNOSIS: - Stroke 01 - Left Body (Right Brain) (01.1) ACUTE CVA. EATING: Not assessed/no information CODE: - ORAL HYGIENE: ORAL HYGIENE - STEP 1: Does the patient complete the activity by him/herself with no assistance (physical, verbal/nonverbal cueing, setup/clean-up)? No. ORAL HYGIENE - STEP 2: Does the patient need only setup/clean-up assistance from one helper? No. ORAL HYGIENE - STEP 3: Does the patient need only verbal/nonverbal cueing or touching/steadying/contact guard assistance fro m one helper? Yes. 1. [id number] ADMISSION PERFORMANCE: Supervision or touching assistance CODE: 04 TOILETING HYGIENE: TOILETING HYGIENE - STEP 1: Does the patient complete the activity by him/herself with no assistance (physical, verbal/nonverbal cueing, setup/clean-up)? No. TOILETING HYGIENE - STEP 2: Does the patient need only setup/clean-up assistance from one helper? No. TOILETING HYGIENE - STEP 3: Does the patient need only verbal/nonverbal cueing or touching/steadying/contact guard assistance fro m one helper? Yes. 1. [id number] ADMISSION PERFORMANCE: Supervision or touching assistance CODE: 04 BATHING: SHOWER/BATHE SELF - STEP 1: Does the patient complete the activity by him/herself with no assistance (physical, verbal/nonverbal cueing, setup/clean-up)? No. SHOWER/BATHE SELF - STEP 2: Does the patient need only setup/clean-up assistance from one helper? No. SHOWER/BATHE SELF - STEP 3: Does the patient need only verbal/nonverbal cueing or touching/steadying/contact guard assistance fro m one helper? Yes. 1. [id number] ADMISSION PERFORMANCE: Supervision or touching assistance CODE: 04 DRESSING - UPPER BODY: DRESSING - UPPER BODY - STEP 1: Does the patient complete the activity by him/herself with no assistance (physical, verbal/nonverbal cueing, setup/clean-up)? No. DRESSING - UPPER BODY - STEP 2: Does the patient need only setup/clean-up assistance from one helper? No. DRESSING - UPPER BODY - STEP 3: Does the patient need only verbal/nonverbal cueing or touching/steadying/contact guard assistance fro m one helper? Yes. 1. [id number] ADMISSION PERFORMANCE: Supervision or touching assistance CODE: 04 DRESSING - LOWER BODY: DRESSING - LOWER BODY - STEP 1: Does the patient complete the activity by him/herself with no assistance (physical, verbal/nonverbal cueing, setup/clean-up)? No. DRESSING - LOWER BODY - STEP 2: Does the patient need only setup/clean-up assistance from one helper? No. DRESSING - LOWER BODY - STEP 3: Does the patient need only verbal/nonverbal cueing or touching/steadying/contact guard assistance fro m one helper? No. DRESSING - LOWER BODY - STEP 4: Does the patient need physical assistance - for example lifting or trunk support from one helper - wi th the helper providing less than half of the effort? Yes. 1. [id number] ADMISSION PERFORMANCE: Partial/moderate assistance CODE: 03 PUTTING ON/TAKING OFF FOOTWEAR: FOOTWEAR - STEP 1: Does the patient complete the activity by him/herself with no assistance (physical, verbal/nonverbal cueing, setup/clean-up)? No. FOOTWEAR - STEP 2: Does the patient need only setup/clean-up assistance from one helper? No. FOOTWEAR - STEP 3: Does the patient need only verbal/nonverbal cueing or touching/steadying/contact guard assistance fro m one helper? No. FOOTWEAR - STEP 4: Does the patient need physical assistance - for example lifting or trunk support from one helper - wi th the helper providing less than half of the effort? No. FOOTWEAR - STEP 5: Does the patient need physical assistance - for example lifting or trunk support from one helper - wi th the helper providing more than half of the effort? Yes. 1. [id number] ADMISSION PERFORMANCE: Substantial/maximal assistance CODE: 02 DOES THE PATIENT USE A WHEELCHAIR/SCOOTER? CODE: EXPR INDICATE THE TYPE OF WHEELCHAIR/SCOOTER USED: CODE: EXPR INDICATE THE TYPE OF WHEELCHAIR/SCOOTER USED: CODE: EXPR BLADDER AND BOWEL: CODE: EXPR CODE: EXPR SIGNATURE PANEL: The following modified sections: 1. [id number] Admission Performance, 1. [id number] Admission Performance, 1. [id number] Admission Performance, 1. [id number] Admission Performance, 1. [id number] Admission Performance, 1. [id number] Admission Performance, 1. [id number] Admission Performance were [electronically] signed by STEFANIA Lo on WedAug 23 2019 12:39:06 [facility]-[id number] (Central Daylight Time)
[2019-08-23] MEDS ORDERED: GLUCAGON 1 MG/VIAL IM PRN (16:27)
[2019-08-23] MEDS ORDERED: D50W 25 GM/50 ML SYRINGE/VIAL IV PRN (16:27)
[2019-08-23] MEDS: MELATONIN 3 MG TABLET PO PRN (19:00)
[2019-08-23] MEDS: ATORVASTATIN 80 MG TAB PO SCH (19:00)
[2019-08-23] MEDS: DOCUSATE NA/SENNA CONC 1 TAB PO SCH (19:00)
[2019-08-23] MEDS: INSULIN GLARGINE 100 UNITS/ML SQ SCH (19:02)
[2019-08-24] MEDS: METOPROLOL TAR 25 MG TAB PO SCH ×2 (05:05→16:59)
[2019-08-24 06:28] LABS: Albumin 3.1 g/dL (3.4-5.0); Magnesium 2.5 mg/dL (1.8-2.4); Potassium 4.8 mmol/L (3.5-5.1); Prealbumin 30.6 mg/dL (20-40)
[2019-08-24 06:38] LABS: Absolute Lymphocytes (CBC) 1.3 K/uL (0.7-4.9); Basophils % 0.4 % (0-1.3); Hematocrit 32.2 % (39.6-49.0); Lymphocytes % 17.2 % (15.3-44.8); MPV 8.6 fL (7.6-11.3); RBC Red Blood Cell Count 3.17 M/uL (4.33-5.43)
[2019-08-24] MEDS: INSULIN -REGULAR HUMAN 50 UNIT/0.5 ML ML SQ SCH ×4 (07:30→20:14)
[2019-08-24] MEDS: INSULIN GLARGINE 100 UNITS/ML SQ SCH ×2 (08:16→20:13)
[2019-08-24] MEDS: FLUTICASONE 50MCG NASAL SPRAY NAS SCH (08:16)
[2019-08-24] MEDS: FAMOTIDINE 20 MG TAB PO SCH (08:18)
[2019-08-24] MEDS: APIXABAN 5 MG TABLET PO SCH ×2 (08:18→20:12)
[2019-08-24] MEDS: ASPIRIN EC 81 MG TAB PO SCH (08:18)
[2019-08-24] MEDS: ZINC SULFATE 220 MG CAP PO SCH (08:18)
[2019-08-24] MEDS: allopurinoL 300 MG TAB PO SCH (08:18)
[2019-08-24] MEDS: FOLIC ACID 1 MG TABLET PO SCH (08:18)
[2019-08-24] MEDS: FUROSEMIDE 20 MG TABLET PO SCH (08:18)
[2019-08-24] MEDS: POLYETHYL GLY 3350 17 GM/DOSE PO SCH (08:19)
--- NOTE | 2019-08-24 10:21 | FAST ---
SHIFT START DATE/TIME: 08/24/2019 07:00 (CDT) SHIFT END DATE/TIME: 08/24/2019 19:00 (CDT) NAME JOHN ABREU DATE OF : 1965 DATE OF ADMISSION: 08/14/2019 12:59 (CDT) PHONE: AGE: 54 N# [id number] GENDER: Male ENCOUNTER PHYSICIAN: Dr. Bennie Diaz M.D. ADMISSION DIAGNOSIS: - Stroke 01 - Left Body (Right Brain) (01.1) ACUTE CVA. EATING: EATING - STEP 1: Does the patient complete the activity by him/herself with no assistance (physical, verbal/nonverbal cueing, setup/clean-up)? No. EATING - STEP 2: Does the patient need only setup/clean-up assistance from one helper? No. EATING - STEP 3: Does the patient need only verbal/nonverbal cueing or touching/steadying/contact guard assistance fro m one helper? Yes. 1. [id number] ADMISSION PERFORMANCE: Supervision or touching assistance CODE: 04 ORAL HYGIENE: ORAL HYGIENE - STEP 1: Does the patient complete the activity by him/herself with no assistance (physical, verbal/nonverbal cueing, setup/clean-up)? No. ORAL HYGIENE - STEP 2: Does the patient need only setup/clean-up assistance from one helper? No. ORAL HYGIENE - STEP 3: Does the patient need only verbal/nonverbal cueing or touching/steadying/contact guard assistance fro m one helper? Yes. 1. [id number] ADMISSION PERFORMANCE: Supervision or touching assistance CODE: 04 TOILETING HYGIENE: TOILETING HYGIENE - STEP 1: Does the patient complete the activity by him/herself with no assistance (physical, verbal/nonverbal cueing, setup/clean-up)? No. TOILETING HYGIENE - STEP 2: Does the patient need only setup/clean-up assistance from one helper? No. TOILETING HYGIENE - STEP 3: Does the patient need only verbal/nonverbal cueing or touching/steadying/contact guard assistance fro m one helper? No. TOILETING HYGIENE - STEP 4: Does the patient need physical assistance - for example lifting or trunk support from one helper - wi th the helper providing less than half of the effort? Yes. 1. [id number] ADMISSION PERFORMANCE: Partial/moderate assistance CODE: 03 BATHING: Not assessed/no information CODE: - DRESSING - UPPER BODY: Not assessed/no information CODE: - DRESSING - LOWER BODY: Not assessed/no information CODE: - PUTTING ON/TAKING OFF FOOTWEAR: Not assessed/no information CODE: - ROLL LEFT AND RIGHT: Not assessed/no information CODE: - SIT TO LYING: Not assessed/no information CODE: - LYING TO SITTING: Not assessed/no information CODE: - SIT TO STAND: SIT TO STAND - STEP 1: Does the patient complete the activity by him/herself with no assistance (physical, verbal/nonverbal cueing, setup/clean-up)? No. SIT TO STAND - STEP 2: Does the patient need only setup/clean-up assistance from one helper? No. SIT TO STAND - STEP 3: Does the patient need only verbal/nonverbal cueing or touching/steadying/contact guard assistance fro m one helper? Yes. 1. [id number] ADMISSION PERFORMANCE: Supervision or touching assistance CODE: 04 TRANSFERS: BED, CHAIR: CHAIR/[id number] TRANSFER - STEP 1: Does the patient complete the activity by him/herself with no assistance (physical, verbal/nonverbal cueing, setup/clean-up)? No. CHAIR/[id number] TRANSFER - STEP 2: Does the patient need only setup/clean-up assistance from one helper? No. CHAIR/[id number] TRANSFER - STEP 3: Does the patient need only verbal/nonverbal cueing or touching/steadying/contact guard assistance fro m one helper? Yes. 1. [id number] ADMISSION PERFORMANCE: Supervision or touching assistance CODE: 04 TRANSFER TOILET: TOILET TRANSFER - STEP 1: Does the patient complete the activity by him/herself with no assistance (physical, verbal/nonverbal cueing, setup/clean-up)? No. TOILET TRANSFER - STEP 2: Does the patient need only setup/clean-up assistance from one helper? No. TOILET TRANSFER - STEP 3: Does the patient need only verbal/nonverbal cueing or touching/steadying/contact guard assistance fro m one helper? No. TOILET TRANSFER - STEP 4: Does the patient need physical assistance - for example lifting or trunk support from one helper - wi th the helper providing less than half of the effort? Yes. 1. [id number] ADMISSION PERFORMANCE: Partial/moderate assistance CODE: 03 TRANSFERS: CAR: Not assessed/no information CODE: - WALK 10 FEET: Not assessed/no information CODE: - 1 STEP (CURB): Not assessed/no information CODE: - PICKING UP OBJECT: Not assessed/no information CODE: - DOES THE PATIENT USE A WHEELCHAIR/SCOOTER? CODE: EXPR WHEEL 50 FEET WITH TWO TURNS: Not assessed/no information CODE: - INDICATE THE TYPE OF WHEELCHAIR/SCOOTER USED: CODE: EXPR WHEEL 150 FEET: Not assessed/no information CODE: - INDICATE THE TYPE OF WHEELCHAIR/SCOOTER USED: CODE: EXPR BLADDER AND BOWEL: H350. BLADDER CONTINENCE (3-DAY ASSESSMENT PERIOD): Always continent (no documented incontinence) CODE: 0 H400. BOWEL CONTINENCE (3-DAY ASSESSMENT PERIOD): Always continent CODE: 0 SIGNATURE PANEL: The following modified sections: 1. [id number] Admission Performance, 1. [id number] Admission Performance, 1. [id number] Admission Performance, 1. [id number] Admission Performance, 1. [id number] Admission Performance, 1. [id number] Admission Performance, Code, H350. Bladder Continence (3-day assessment period), H400. Salvador wel Continence (3-day assessment period) were [electronically] signed by Paxton Malloy on WedAugust 23 0 10:19:51 GMT-0500 (Central Daylight Time)
--- NOTE | 2019-08-24 17:25 | R.PN ---
ENCOUNTER DATE AND TIME: 08/24/2019 17:19 (CDT) NAME JOHN ABREU DATE OF : 1965 DATE OF ADMISSION: 08/14/2019 12:59 (CDT) ACUTE CVACHIEF COMPLAINT: Aphasic stroke, right sided weakness and chronic left BKA SUBJECTIVE: Pt denied any Shortness of Breath. Pt denied any depression. WBC 7.4, Hgb 10.5 Billing Typist 7.83, glucose 123 to 193. Metformin was D/Darek by renal service. Will increase L antus to 20 units at bedtime and 10 units in the AM. Ambulated 375' with contact guard assistance using a rolling walker. VITAL SIGNS Temperature: 98.2 F SBP/DBP: 140/70 Pulse: 61 Resp: 18 MEDICATION ALLERGIES: No Known Drug Allergies (NKDA) ENVIRONMENTAL ALLERGIES: - Substance Allergies None Known - Other Allergies None Known NURSING: - Shower allowing shower - Bladder care per protocol - Skin care per protocol PRECAUTIONS: - Weight Bearing Precaution WBAT left LE ACTIVITIES OOB only with supervision THERAPIES: - Occupational Therapy Cognitive Retraining. Visual Perceptual Training. - Dietary and Nutrition Adequate Nutrition. Nutritional Education. Nutritional Supplements. - Speech Therapy Cognitive Training. Expressive Language Skills. Memory Strategies. Receptive Language Skills. Speech Intelligibility Training. PHYSICAL EXAM - Gen Alert and awake Lying in bed No apparent distress Oriented to: person, time, and place - Skin No skin breakdown. No abnormalities - Eyes No abnormalities - ENMT No abnormalities - Neck No abnormalities - CVS RRR - Chest Clear - Abd Soft - GI Soft Deferred - No abnormalities - Ext Right BKA with prosthesis in place. - MSK 4/5 weakness in both lower extremities. - Neuro No focal deficits - Psych No abnormalities ASSESSMENT: Pt. is a 54 yo Right-handed white male.On 08/11/2019 Pt. presented to [facility] with topete dden onset of left-side weakness.On 08/11/2019 he was admitted to [facility] with diagno sis ACUTE CVA.His impairment category is Stroke 01 - Left Body (Right Brain) (01.1).Pre-morbidly, Pt . was independent/mod-I in Safety Awareness, Balance, Self-Care, and Transfers Control; and he had go od Locomotion, Social Cognition, Sphincter Control, Endurance, and Communication.Currently, he has de ficits of Safety Awareness, Endurance, Balance, Transfers Control, and Sphincter Control.Pt. is now r eferred to [facility] for acute in-patient rehabilitation in order to maximize patient's functional independence in activities of daily living, strength, ROM, and mobility.- Rehab Goal Patient has realistic goal of being discharged at assistance level 6-Aden to reside at Home with Fam kenzie/Relatives. MDM/PLAN: - Physical Therapy Gait dysfunction - to improve, our physical therapists will perform initial evaluation of pt's statu s upon admission and devise an individualized program for Gait Training, and Wheel Chair mobility Inability to transfer - to improve, our physical therapists will perform initial evaluation of pt's status upon admission and devise an individualized program for Bed mobility Need for home safety evaluation - to improve, our physical therapists will perform initial evaluatio n of pt's status upon admission and devise an individualized program for Home Evaluation Need in caregiver upon discharge - to improve, our physical therapists will perform initial evaluati on of pt's status upon admission and devise an individualized program for Caregiver Training New precaution - to improve, our physical therapists will perform initial evaluation of pt's status upon admission and devise an individualized program for Patient precaution education Poor balance - to improve, our physical therapists will perform initial evaluation of pt's status up on admission and devise an individualized program for Balance Training Poor endurance - to improve, our physical therapists will perform initial evaluation of pt's status upon admission and devise an individualized program for Endurance Training Achieving independence - to improve, our physical therapists will perform initial evaluation of pt's status upon admission and devise an individualized program for Community Reintegration Activities - Occupational Therapy Need for respiratory care program director - to improve, our occupation therapists will perform initial evaluation of pt's status upon admission and devise an individualized program for Caregiver Training - Other See attached MAR (Medication Administration Record) - Diet Type Continue Regular - Diet - Liquid Texture Continue Regular - Tube Feed Continue N/A - Bladder care per protocol - Weight Bearing Precaution WBAT left LE - Skin care per protocol - Diet - Solid Texture Continue Regular - Shower allowing shower for Dementia, TBI, Stroke, or others FUNCTIONAL STATUS: UPDATED AT WEEKLY TEAM CONFERENCE - Bladder Same accident frequency: 7-Ind - No accidents in the past 7 days - Bowel Same accident frequency: 7-Ind - No accidents in the past 7 days - Walking Same score based on distance walked: 0(N/A) - Wheelchair Same score based on distance traveled: 0(N/A) FUNCTIONAL STATUS: - Self-Care A. Eating Aden B. Grooming Aden C. Bathing sup D. Dressing - Upper Aden E. Dressing - Lower sup F. Toileting sup - Sphincter Control G. Bladder control modA H. Bowel control Aden - Transfers Control I. Bed/Chair/Wheelchair sup J. Toilet sup K. Tub/Shower sup - Locomotion L. Walk/Wheelchair (B) Elham M. Stairs Elham - Communication N. Comprehension (B) Elham O. Expression (B) Elham - Social Cognition P. Social Interaction Elham Q. Problem Solving Elham R. Memory sup - Endurance Good - Balance Fair - Safety Awareness Fair QI SCORES: - Self-Care A. Eating 06-Independent B. Oral hygiene 03-Partial/moderate assistance C. Toileting hygiene 03-Partial/moderate assistance E. Shower/bathe self 03-Partial/moderate assistance F. Upper body dressing 03-Partial/moderate assistance G. Lower body dressing 03-Partial/moderate assistance H. Putting on/taking off footwear 88-Not attempted due to medical condition or safety concerns - Mobility A. Roll left and right 03-Partial/moderate assistance B. Sit to lying 03-Partial/moderate assistance C. Lying to sitting on side of bed 03-Partial/moderate assistance D. Sit to stand 03-Partial/moderate assistance F. Toilet transfer 03-Partial/moderate assistance G. Car transfer 88-Not attempted due to medical condition or safety concerns I. Walk 10 feet 03-Partial/moderate assistance J. Walk 50 feet with two turns 88-Not attempted due to medical condition or safety concerns K. Walk 150 feet 88-Not attempted due to medical condition or safety concerns L. Walking 10 feet on uneven surfaces 88-Not attempted due to medical condition or safety concerns M. 1 step (curb) 88-Not attempted due to medical condition or safety concerns N. 4 steps 88-Not attempted due to medical condition or safety concerns O. 12 steps 88-Not attempted due to medical condition or safety concerns P. Picking up object 03-Partial/moderate assistance R. Wheel 50 feet with two turns 88-Not attempted due to medical condition or safety concerns S. Wheel 150 feet 88-Not attempted due to medical condition or safety concerns - Bladder and Bowel Bladder continence 0-Always continent Bowel continence 0-Always continent - Endurance Good - Balance Fair - Safety Awareness Good CURRENT FUNC. DEFICITS: Mobility, Balance, and Self-Care SIGNATURE PANEL: (CDT)
--- NOTE | 2019-08-24 19:20 | PN ---
Date of Progress Note: 08/24/2019 Subjective: Patient was admitted with CVA, temporal. Patient had altered mental status. Patient at rehab for physical therapy. Physical Examination: Vital Signs: Blood pressure 152/63, pulse of 63, afebrile. Chest: Clear to auscultation. Heart: S1, S2. Regular. Abdomen: Soft, nontender. Extremities: Left below-knee amputation. Neuro: Confused. No focal. Patient had dialysis yesterday, managed to remove 2 L. Laboratory Data: H and H 10.5/32.2. Sodium 140, potassium 4.8, bicarb 28, BUN 37, creatinine 7, herson cium of 9. Current Medications: The patient on includes: 1.Lasix. 2.Metoprolol. 3.Atorvastatin. 4.Eliquis 5 b.i.d. 5.Aspirin. 6.Folic acid. 7.Insulin. 8.Allopurinol. Assessment And Plan: 1.End-stage renal disease. We will maintain the patient on dialysis. Patient will arrange for dial ysis tomorrow. 2.Hypertension, controlled, optimal. Continue current medication. 3.Anemia of chronic kidney disease. H and H on the goal. I do not see the need for CRISTIANO for the keil e being given hemoglobin stable and patient just had cerebrovascular accident. 4.Cerebrovascular accident. Continue supportive care. Continue PT/OT. 5.Secondary hyperpara. We will follow up phosphor. JESSY Voice ID: [id number] Report ID: [id number]
[2019-08-24] MEDS: ATORVASTATIN 80 MG TAB PO SCH (20:12)
[2019-08-24] MEDS: DOCUSATE NA/SENNA CONC 1 TAB PO SCH (20:12)
[2019-08-25] MEDS: METOPROLOL TAR 25 MG TAB PO SCH ×2 (05:26→16:41)
[2019-08-25] MEDS: BISACODYL 10 MG RECTAL SUPP PR PRN (06:55)
[2019-08-25] MEDS: INSULIN -REGULAR HUMAN 50 UNIT/0.5 ML ML SQ SCH ×4 (07:30→20:03)
[2019-08-25] MEDS: FLUTICASONE 50MCG NASAL SPRAY NAS SCH (07:36)
[2019-08-25] MEDS: POLYETHYL GLY 3350 17 GM/DOSE PO SCH ×2 (08:00→08:33)
[2019-08-25] MEDS: ZINC SULFATE 220 MG CAP PO SCH (08:00)
[2019-08-25] MEDS: FAMOTIDINE 20 MG TAB PO SCH (08:33)
[2019-08-25] MEDS: FOLIC ACID 1 MG TABLET PO SCH (08:34)
[2019-08-25] MEDS: ASPIRIN EC 81 MG TAB PO SCH (08:34)
[2019-08-25] MEDS: FUROSEMIDE 20 MG TABLET PO SCH (08:34)
[2019-08-25] MEDS: APIXABAN 5 MG TABLET PO SCH ×2 (08:34→20:01)
[2019-08-25] MEDS: allopurinoL 300 MG TAB PO SCH (08:34)
[2019-08-25] MEDS: INSULIN GLARGINE 100 UNITS/ML SQ SCH ×2 (08:36→20:02)
--- NOTE | 2019-08-25 09:51 | P.RH.PN ---
Estimated Length of Stay: 16 Expected Discharge Date: 08/29/19 Discharge Disposition Plan: Home Family Support: Yes Intermediate Goal: Mobility, Transfers, Self Care Vital Signs: Last Vital Signs Temp 97.6 F 08/25/19 07:04 Pulse 60 08/25/19 08:34 Resp 20 08/25/19 07:04 BP 135/54 L 08/25/19 08:34 Pulse Ox 94 08/25/19 07:04 Laboratory: Laboratory Last Values WBC 7.4 K/uL (4.3-10.9) D 08/24/19 05:41 RBC 3.17 M/uL (4.33-5.43) L 08/24/19 05:41 Hgb 10.5 g/dL (13.6-17.9) L 08/24/19 05:41 Hct 32.2 % (39.6-49.0) L 08/24/19 05:41 MCV 101.7 fL (80-100) H 08/24/19 05:41 MCH 33.1 pg (27.0-35.0) 08/24/19 05:41 MCHC 32.6 g/dL (32.0-36.0) 08/24/19 05:41 RDW 15.0 % (12.1-15.2) 08/24/19 05:41 Plt Count 155 K/uL (152-406) 08/24/19 05:41 MPV 8.6 fL (7.6-11.3) 08/24/19 05:41 Neutrophils % 74.3 % (41.7-73.7) H 08/24/19 05:41 Lymphocytes % 17.2 % (15.3-44.8) 08/24/19 05:41 Monocytes % 7.2 % (3.3-12.3) 08/24/19 05:41 Eosinophils % 0.9 % (0-4.4) 08/24/19 05:41 Basophils % 0.4 % (0-1.3) 08/24/19 05:41 Absolute Neutrophils 5.5 K/uL (1.8-8.0) 08/24/19 05:41 Absolute Lymphocytes 1.3 K/uL (0.7-4.9) 08/24/19 05:41 Absolute Monocytes 0.5 K/uL (0.1-1.3) 08/24/19 05:41 Absolute Eosinophils 0.1 K/uL (0-0.5) 08/24/19 05:41 Absolute Basophils 0.0 K/uL (0-0.5) 08/24/19 05:41 Sodium 140 mmol/L (136-145) 08/24/19 05:41 Potassium 4.8 mmol/L (3.5-5.1) 08/24/19 05:41 Chloride 104 mmol/L (98-107) 08/24/19 05:41 Carbon Dioxide 28 mmol/L (21-32) 08/24/19 05:41 BUN 37 mg/dL (7-18) H D 08/24/19 05:41 Creatinine 7.83 mg/dL (0.55-1.3) H* D 08/24/19 05:41 Estimated GFR 7 mL/min (=/>90) L 08/24/19 05:41 Glucose 138 mg/dL (74-106) H 08/24/19 05:41 POC Glucose 131 mg/dl (65-120) H 08/25/19 07:20 Calcium 9.0 mg/dL (8.5-10.1) 08/24/19 05:41 Magnesium 2.5 mg/dL (1.8-2.4) H 08/24/19 05:41 Albumin 3.1 g/dL (3.4-5.0) L 08/24/19 05:41 Prealbumin 30.6 mg/dL (20-40) 08/24/19 05:41 Weight: 323 lb 3 oz Wound Present: Yes Closed Surgical Incision Present: No Negative Pressure Wound Therapy Present: No Physician Update: Labs reviewed and his sugars are slightly better but still elevated. Will increase his lantus 20 units twice daily. He is walking 250' with standby to contact guard with a straight cane. He needs help putting on his prosthesis. His is on mechanical soft diet. His comprehension and expression are better. Comment: 2 small open wounds on right lower leg, covered with bandaids, improvement noted Functional Improvement: pt has demonstrated progress toward his functional goals. pt's communicaton is slightly improving each day. pt is becoming more stable during ambulation and functional transfers as well. Skilled PT services continue to be necessary to enhance functional performance and safety. Speech Therapy Update: Patient is making good gains. He was upgraded from pureed to mechanical soft all foods ground . 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 Please see the Rehabilitation Signature page for all necessary signatures.
--- NOTE | 2019-08-25 11:48 | FAST ---
SHIFT START DATE/TIME: 08/25/2019 07:00 (CDT) SHIFT END DATE/TIME: 08/25/2019 19:00 (CDT) NAME JOHN ABREU DATE OF : 1965 DATE OF ADMISSION: 08/14/2019 12:59 (CDT) PHONE: AGE: 54 N# [id number] GENDER: Male ENCOUNTER PHYSICIAN: Dr. Bennie Diaz M.D. ADMISSION DIAGNOSIS: - Stroke 01 - Left Body (Right Brain) (01.1) ACUTE CVA. EATING: EATING - STEP 1: Does the patient complete the activity by him/herself with no assistance (physical, verbal/nonverbal cueing, setup/clean-up)? No. EATING - STEP 2: Does the patient need only setup/clean-up assistance from one helper? Yes. 1. [id number] ADMISSION PERFORMANCE: Setup or clean-up assistance CODE: 05 ORAL HYGIENE: ORAL HYGIENE - STEP 1: Does the patient complete the activity by him/herself with no assistance (physical, verbal/nonverbal cueing, setup/clean-up)? No. ORAL HYGIENE - STEP 2: Does the patient need only setup/clean-up assistance from one helper? No. ORAL HYGIENE - STEP 3: Does the patient need only verbal/nonverbal cueing or touching/steadying/contact guard assistance fro m one helper? Yes. 1. [id number] ADMISSION PERFORMANCE: Supervision or touching assistance CODE: 04 TOILETING HYGIENE: TOILETING HYGIENE - STEP 1: Does the patient complete the activity by him/herself with no assistance (physical, verbal/nonverbal cueing, setup/clean-up)? No. TOILETING HYGIENE - STEP 2: Does the patient need only setup/clean-up assistance from one helper? Yes. 1. [id number] ADMISSION PERFORMANCE: Setup or clean-up assistance CODE: 05 BATHING: Not assessed/no information CODE: - DRESSING - UPPER BODY: DRESSING - UPPER BODY - STEP 1: Does the patient complete the activity by him/herself with no assistance (physical, verbal/nonverbal cueing, setup/clean-up)? No. DRESSING - UPPER BODY - STEP 2: Does the patient need only setup/clean-up assistance from one helper? No. DRESSING - UPPER BODY - STEP 3: Does the patient need only verbal/nonverbal cueing or touching/steadying/contact guard assistance fro m one helper? Yes. 1. [id number] ADMISSION PERFORMANCE: Supervision or touching assistance CODE: 04 DRESSING - LOWER BODY: DRESSING - LOWER BODY - STEP 1: Does the patient complete the activity by him/herself with no assistance (physical, verbal/nonverbal cueing, setup/clean-up)? No. DRESSING - LOWER BODY - STEP 2: Does the patient need only setup/clean-up assistance from one helper? No. DRESSING - LOWER BODY - STEP 3: Does the patient need only verbal/nonverbal cueing or touching/steadying/contact guard assistance fro m one helper? No. DRESSING - LOWER BODY - STEP 4: Does the patient need physical assistance - for example lifting or trunk support from one helper - wi th the helper providing less than half of the effort? Yes. 1. [id number] ADMISSION PERFORMANCE: Partial/moderate assistance CODE: 03 PUTTING ON/TAKING OFF FOOTWEAR: FOOTWEAR - STEP 1: Does the patient complete the activity by him/herself with no assistance (physical, verbal/nonverbal cueing, setup/clean-up)? No. FOOTWEAR - STEP 2: Does the patient need only setup/clean-up assistance from one helper? No. FOOTWEAR - STEP 3: Does the patient need only verbal/nonverbal cueing or touching/steadying/contact guard assistance fro m one helper? Yes. 1. [id number] ADMISSION PERFORMANCE: Supervision or touching assistance CODE: 04 ROLL LEFT AND RIGHT: ROLL LEFT AND RIGHT - STEP 1: Does the patient complete the activity by him/herself with no assistance (physical, verbal/nonverbal cueing, setup/clean-up)? No. ROLL LEFT AND RIGHT - STEP 2: Does the patient need only setup/clean-up assistance from one helper? No. ROLL LEFT AND RIGHT - STEP 3: Does the patient need only verbal/nonverbal cueing or touching/steadying/contact guard assistance fro m one helper? Yes. 1. [id number] ADMISSION PERFORMANCE: Supervision or touching assistance CODE: 04 SIT TO LYING: SIT TO LYING - STEP 1: Does the patient complete the activity by him/herself with no assistance (physical, verbal/nonverbal cueing, setup/clean-up)? No. SIT TO LYING - STEP 2: Does the patient need only setup/clean-up assistance from one helper? No. SIT TO LYING - STEP 3: Does the patient need only verbal/nonverbal cueing or touching/steadying/contact guard assistance fro m one helper? Yes. 1. [id number] ADMISSION PERFORMANCE: Supervision or touching assistance CODE: 04 LYING TO SITTING: LYING TO SITTING ON SIDE OF BED - STEP 1: Does the patient complete the activity by him/herself with no assistance (physical, verbal/nonverbal cueing, setup/clean-up)? No. LYING TO SITTING ON SIDE OF BED - STEP 2: Does the patient need only setup/clean-up assistance from one helper? No. LYING TO SITTING ON SIDE OF BED - STEP 3: Does the patient need only verbal/nonverbal cueing or touching/steadying/contact guard assistance fro m one helper? Yes. 1. [id number] ADMISSION PERFORMANCE: Supervision or touching assistance CODE: 04 SIT TO STAND: SIT TO STAND - STEP 1: Does the patient complete the activity by him/herself with no assistance (physical, verbal/nonverbal cueing, setup/clean-up)? No. SIT TO STAND - STEP 2: Does the patient need only setup/clean-up assistance from one helper? No. SIT TO STAND - STEP 3: Does the patient need only verbal/nonverbal cueing or touching/steadying/contact guard assistance fro m one helper? Yes. 1. [id number] ADMISSION PERFORMANCE: Supervision or touching assistance CODE: 04 TRANSFERS: BED, CHAIR: CHAIR/[id number] TRANSFER - STEP 1: Does the patient complete the activity by him/herself with no assistance (physical, verbal/nonverbal cueing, setup/clean-up)? No. CHAIR/[id number] TRANSFER - STEP 2: Does the patient need only setup/clean-up assistance from one helper? No. CHAIR/[id number] TRANSFER - STEP 3: Does the patient need only verbal/nonverbal cueing or touching/steadying/contact guard assistance fro m one helper? Yes. 1. [id number] ADMISSION PERFORMANCE: Supervision or touching assistance CODE: 04 TRANSFER TOILET: TOILET TRANSFER - STEP 1: Does the patient complete the activity by him/herself with no assistance (physical, verbal/nonverbal cueing, setup/clean-up)? No. TOILET TRANSFER - STEP 2: Does the patient need only setup/clean-up assistance from one helper? No. TOILET TRANSFER - STEP 3: Does the patient need only verbal/nonverbal cueing or touching/steadying/contact guard assistance fro m one helper? Yes. 1. [id number] ADMISSION PERFORMANCE: Supervision or touching assistance CODE: 04 TRANSFERS: CAR: Not assessed/no information CODE: - WALK 10 FEET: Not assessed/no information CODE: - 1 STEP (CURB): Not assessed/no information CODE: - PICKING UP OBJECT: Not assessed/no information CODE: - DOES THE PATIENT USE A WHEELCHAIR/SCOOTER? Q1. DOES THE PATIENT USE A WHEELCHAIR/SCOOTER?: Yes CODE: 1 WHEEL 50 FEET WITH TWO TURNS: WHEEL 50 FEET WITH TWO TURNS - STEP 1: Does the patient complete the activity by him/herself with no assistance (physical, verbal/nonverbal cueing, setup/clean-up)? No. WHEEL 50 FEET WITH TWO TURNS - STEP 2: Does the patient need only setup/clean-up assistance from one helper? No. WHEEL 50 FEET WITH TWO TURNS - STEP 3: Does the patient need only verbal/nonverbal cueing or touching/steadying/contact guard assistance fro m one helper? Yes. 1. [id number] ADMISSION PERFORMANCE: Supervision or touching assistance CODE: 04 INDICATE THE TYPE OF WHEELCHAIR/SCOOTER USED: RR1. INDICATE THE TYPE OF WHEELCHAIR/SCOOTER USED.: Manual CODE: 1 WHEEL 150 FEET: WHEEL 150 FEET - STEP 1: Does the patient complete the activity by him/herself with no assistance (physical, verbal/nonverbal cueing, setup/clean-up)? No. WHEEL 150 FEET - STEP 2: Does the patient need only setup/clean-up assistance from one helper? No. WHEEL 150 FEET - STEP 3: Does the patient need only verbal/nonverbal cueing or touching/steadying/contact guard assistance fro m one helper? Yes. 1. [id number] ADMISSION PERFORMANCE: Supervision or touching assistance CODE: 04 INDICATE THE TYPE OF WHEELCHAIR/SCOOTER USED: SS1. INDICATE THE TYPE OF WHEELCHAIR/SCOOTER USED.: Manual CODE: 1 BLADDER AND BOWEL: H350. BLADDER CONTINENCE (3-DAY ASSESSMENT PERIOD): No urine output (e.g., renal failure) CODE: 5 H400. BOWEL CONTINENCE (3-DAY ASSESSMENT PERIOD): Always continent CODE: 0 SIGNATURE PANEL: The following modified sections: 1. [id number] Admission Performance, 1. [id number] Admission Performance, 1. [id number] Admission Performance, 1. MC9543i Admission Performance, 1. JC7920p Admission Performance, 1. BM2828y Admission Performance, 1. LF7331o Admission Performance, 1. VL1710I Admission Performance , 1. MR1155T Admission Performance, 1. PU5849B Admission Performance, 1. DU0830P Admission Performanc e, 1. MA6170Z Admission Performance, 1. TH3786S Admission Performance, Q1. Does the patient use a whe elchair/scooter?, 1. RZ0271T Admission Performance, RR1. Indicate the type of wheelchair/scooter used ., 1. [id number] Admission Performance, Code, SS1. Indicate the type of wheelchair/scooter used., H350. Bladder Continence (3-day assessment period), H400. Bowel Continence (3-day assessment period) were [ electronically] signed by Chantelle AguirreNAndrea on WedAug 25 2019 11:46:57 T-0500 (Central Daylight Time)
--- NOTE | 2019-08-25 12:47 | FAST ---
ENCOUNTER DATE AND TIME: 08/25/2019 08:00 (CDT) NAME JOHN ABREU DATE OF : 1965 DATE OF ADMISSION: 08/14/2019 12:59 (CDT) PHONE: AGE: 54 N# [id number] GENDER: Male ENCOUNTER PHYSICIAN: Dr. Bennie Diaz M.D. ADMISSION DIAGNOSIS: - Stroke 01 - Left Body (Right Brain) (01.1) ACUTE CVA. EATING: Not assessed/no information CODE: - ORAL HYGIENE: ORAL HYGIENE - STEP 1: Does the patient complete the activity by him/herself with no assistance (physical, verbal/nonverbal cueing, setup/clean-up)? No. ORAL HYGIENE - STEP 2: Does the patient need only setup/clean-up assistance from one helper? No. ORAL HYGIENE - STEP 3: Does the patient need only verbal/nonverbal cueing or touching/steadying/contact guard assistance fro m one helper? Yes. 1. [id number] ADMISSION PERFORMANCE: Supervision or touching assistance CODE: 04 TOILETING HYGIENE: TOILETING HYGIENE - STEP 1: Does the patient complete the activity by him/herself with no assistance (physical, verbal/nonverbal cueing, setup/clean-up)? No. TOILETING HYGIENE - STEP 2: Does the patient need only setup/clean-up assistance from one helper? No. TOILETING HYGIENE - STEP 3: Does the patient need only verbal/nonverbal cueing or touching/steadying/contact guard assistance fro m one helper? No. TOILETING HYGIENE - STEP 4: Does the patient need physical assistance - for example lifting or trunk support from one helper - wi th the helper providing less than half of the effort? Yes. 1. [id number] ADMISSION PERFORMANCE: Partial/moderate assistance CODE: 03 BATHING: SHOWER/BATHE SELF - STEP 1: Does the patient complete the activity by him/herself with no assistance (physical, verbal/nonverbal cueing, setup/clean-up)? No. SHOWER/BATHE SELF - STEP 2: Does the patient need only setup/clean-up assistance from one helper? No. SHOWER/BATHE SELF - STEP 3: Does the patient need only verbal/nonverbal cueing or touching/steadying/contact guard assistance fro m one helper? Yes. 1. ADMISSION PERFORMANCE: Supervision or touching assistance CODE: 04 DRESSING - UPPER BODY: DRESSING - UPPER BODY - STEP 1: Does the patient complete the activity by him/herself with no assistance (physical, verbal/nonverbal cueing, setup/clean-up)? No. DRESSING - UPPER BODY - STEP 2: Does the patient need only setup/clean-up assistance from one helper? Yes. 1. ADMISSION PERFORMANCE: Setup or clean-up assistance CODE: 05 DRESSING - LOWER BODY: DRESSING - LOWER BODY - STEP 1: Does the patient complete the activity by him/herself with no assistance (physical, verbal/nonverbal cueing, setup/clean-up)? No. DRESSING - LOWER BODY - STEP 2: Does the patient need only setup/clean-up assistance from one helper? No. DRESSING - LOWER BODY - STEP 3: Does the patient need only verbal/nonverbal cueing or touching/steadying/contact guard assistance fro m one helper? No. DRESSING - LOWER BODY - STEP 4: Does the patient need physical assistance - for example lifting or trunk support from one helper - wi th the helper providing less than half of the effort? Yes. 1. ADMISSION PERFORMANCE: Partial/moderate assistance CODE: 03 PUTTING ON/TAKING OFF FOOTWEAR: FOOTWEAR - STEP 1: Does the patient complete the activity by him/herself with no assistance (physical, verbal/nonverbal cueing, setup/clean-up)? No. FOOTWEAR - STEP 2: Does the patient need only setup/clean-up assistance from one helper? No. FOOTWEAR - STEP 3: Does the patient need only verbal/nonverbal cueing or touching/steadying/contact guard assistance fro m one helper? No. FOOTWEAR - STEP 4: Does the patient need physical assistance - for example lifting or trunk support from one helper - wi th the helper providing less than half of the effort? Yes. 1. ADMISSION PERFORMANCE: Partial/moderate assistance CODE: 03 DOES THE PATIENT USE A WHEELCHAIR/SCOOTER? CODE: EXPR INDICATE THE TYPE OF WHEELCHAIR/SCOOTER USED: CODE: EXPR INDICATE THE TYPE OF WHEELCHAIR/SCOOTER USED: CODE: EXPR BLADDER AND BOWEL: CODE: EXPR CODE: EXPR SIGNATURE PANEL: The following modified sections: 1. [id number] Admission Performance, 1. [id number] Admission Performance, 1. EN4124g Admission Performance, 1. VY2284w Admission Performance, 1. IX4864z Admission Performance, 1. TC9476p Admission Performance were [electronically] signed by STEFANIA Steele on WedAug 25 2019 12:46:38 GMT-0500 (Central Daylight Time)
[2019-08-25] MEDS: ATORVASTATIN 80 MG TAB PO SCH (20:01)
[2019-08-25] MEDS: DOCUSATE NA/SENNA CONC 1 TAB PO SCH (20:06)
[2019-08-26] MEDS: MELATONIN 3 MG TABLET PO PRN (00:49)
[2019-08-26] MEDS: ACETAMINOPHEN 500 MG TAB PO PRN (00:49)
[2019-08-26] MEDS: METOPROLOL TAR 25 MG TAB PO SCH ×2 (05:09→17:26)
[2019-08-26] MEDS: INSULIN -REGULAR HUMAN 50 UNIT/0.5 ML ML SQ SCH ×4 (07:30→20:25)
[2019-08-26] MEDS: POLYETHYL GLY 3350 17 GM/DOSE PO SCH (08:01)
[2019-08-26] MEDS: FLUTICASONE 50MCG NASAL SPRAY NAS SCH (08:01)
[2019-08-26] MEDS: INSULIN GLARGINE 100 UNITS/ML SQ SCH ×2 (08:02→20:36)
[2019-08-26] MEDS: allopurinoL 300 MG TAB PO SCH (08:03)
[2019-08-26] MEDS: ASPIRIN EC 81 MG TAB PO SCH (08:03)
[2019-08-26] MEDS: FAMOTIDINE 20 MG TAB PO SCH (08:03)
[2019-08-26] MEDS: APIXABAN 5 MG TABLET PO SCH ×2 (08:03→20:25)
[2019-08-26] MEDS: FUROSEMIDE 20 MG TABLET PO SCH (08:03)
[2019-08-26] MEDS: FOLIC ACID 1 MG TABLET PO SCH (08:03)
[2019-08-26] MEDS: ZINC SULFATE 220 MG CAP PO SCH (08:04)
[2019-08-26] MEDS: ATORVASTATIN 80 MG TAB PO SCH (20:25)
[2019-08-26] MEDS: DOCUSATE NA/SENNA CONC 1 TAB PO SCH (20:25)
[2019-08-27] MEDS: METOPROLOL TAR 25 MG TAB PO SCH ×2 (04:55→16:38)
[2019-08-27] MEDS: INSULIN -REGULAR HUMAN 50 UNIT/0.5 ML ML SQ SCH ×4 (07:21→20:56)
[2019-08-27] MEDS: FLUTICASONE 50MCG NASAL SPRAY NAS SCH (07:22)
[2019-08-27] MEDS: ASPIRIN EC 81 MG TAB PO SCH (07:23)
[2019-08-27] MEDS: APIXABAN 5 MG TABLET PO SCH ×2 (07:23→20:55)
[2019-08-27] MEDS: POLYETHYL GLY 3350 17 GM/DOSE PO SCH (07:23)
[2019-08-27] MEDS: FAMOTIDINE 20 MG TAB PO SCH (07:24)
[2019-08-27] MEDS: allopurinoL 300 MG TAB PO SCH (07:24)
[2019-08-27] MEDS: FUROSEMIDE 20 MG TABLET PO SCH (07:24)
[2019-08-27] MEDS: FOLIC ACID 1 MG TABLET PO SCH (07:24)
[2019-08-27] MEDS: ZINC SULFATE 220 MG CAP PO SCH (07:25)
[2019-08-27] MEDS: INSULIN GLARGINE 100 UNITS/ML SQ SCH ×2 (07:25→20:56)
--- NOTE | 2019-08-27 17:20 | PN ---
Date of Progress Note: 08/27/2019 Subjective: Patient doing the same. Patient was admitted for CVA, transferred to rehab. Physical Examination: Vital Signs: When I saw the patient, blood pressure 123/50, pulse of 57. Chest: Clear to auscultation. Heart: S1, S2. Regular. Abdomen: Soft, nontender, morbidly obese. Extremities: Left below-knee amputation, artificial foot. Laboratory Data: H and H 10.5/32.2. Sodium 140, potassium 4.8, bicarb 28, BUN 37, creatinine 7, herson cium of 9. Assessment And Plan: 1.End-stage renal disease. We will continue the patient on dialysis Wednesday, Wednesday, Wednesday. Taylor cortez is going to be due for dialysis tomorrow. 2.Secondary hyperparathyroidism, stable. Continue current binder. 3.Hypertension, controlled, optimal. Continue current treatment. 4.Cerebrovascular accident. Continue PT, OT. 5.Anemia of chronic kidney disease. Continue CRISTIANO. SHERLYN/LYUDMILA Voice ID: [id number] Report ID: [id number]
[2019-08-27] MEDS: ATORVASTATIN 80 MG TAB PO SCH (20:55)
[2019-08-27] MEDS: DOCUSATE NA/SENNA CONC 1 TAB PO SCH (20:56)
[2019-08-28] MEDS: METOPROLOL TAR 25 MG TAB PO SCH ×2 (05:13→17:13)
[2019-08-28 06:18] LABS: Phosphorus 7.2 mg/dL (2.5-4.9); Potassium 5.5 mmol/L (3.5-5.1)
[2019-08-28] MEDS: INSULIN -REGULAR HUMAN 50 UNIT/0.5 ML ML SQ SCH ×4 (07:30→19:51)
[2019-08-28] MEDS: FLUTICASONE 50MCG NASAL SPRAY NAS SCH (08:00)
[2019-08-28] MEDS: FUROSEMIDE 20 MG TABLET PO SCH (08:00)
[2019-08-28] MEDS: POLYETHYL GLY 3350 17 GM/DOSE PO SCH ×2 (08:00→08:35)
[2019-08-28] MEDS: APIXABAN 5 MG TABLET PO SCH ×2 (08:35→19:44)
[2019-08-28] MEDS: FOLIC ACID 1 MG TABLET PO SCH (08:35)
[2019-08-28] MEDS: ASPIRIN EC 81 MG TAB PO SCH (08:35)
[2019-08-28] MEDS: ZINC SULFATE 220 MG CAP PO SCH (08:35)
[2019-08-28] MEDS: FAMOTIDINE 20 MG TAB PO SCH (08:35)
[2019-08-28] MEDS: allopurinoL 300 MG TAB PO SCH (08:37)
[2019-08-28] MEDS: INSULIN GLARGINE 100 UNITS/ML SQ SCH ×2 (08:39→19:45)
[2019-08-28] MEDS ORDERED: FLUTICASONE 50MCG NASAL SPRAY NAS PRN (09:23)
--- NOTE | 2019-08-28 17:20 | R.PN ---
ENCOUNTER DATE AND TIME: 08/28/2019 17:14 (CDT) NAME JOHN ABREU DATE OF : 1965 DATE OF ADMISSION: 08/14/2019 12:59 (CDT) ACUTE CVACHIEF COMPLAINT: Aphasic stroke, right sided weakness and chronic left BKA, ESRD on HD SUBJECTIVE: Pt denied any Shortness of Breath. Pt denied any depression. WBC 7.4, Hgb 10.5 Cruise Guide 7.83, glucose 118 to 149. Metformin was D/Darek by renal service. Lantus now 20 units twice daily with better glucose control. Self-propelled wheelchair 150' with standby assistance. Ambulated 375' with contact guard assistance using a rolling walker. VITAL SIGNS Temperature: 97.3 F SBP/DBP: 119/54 Pulse: 51 Resp: 16 MEDICATION ALLERGIES: No Known Drug Allergies (NKDA) ENVIRONMENTAL ALLERGIES: - Substance Allergies None Known - Other Allergies None Known NURSING: - Shower allowing shower - Bladder care per protocol - Skin care per protocol PRECAUTIONS: - Weight Bearing Precaution WBAT left LE ACTIVITIES OOB only with supervision THERAPIES: - Occupational Therapy Cognitive Retraining. Visual Perceptual Training. - Dietary and Nutrition Adequate Nutrition. Nutritional Education. Nutritional Supplements. - Speech Therapy Cognitive Training. Expressive Language Skills. Memory Strategies. Receptive Language Skills. Speech Intelligibility Training. PHYSICAL EXAM - Gen Alert and awake Lying in bed No apparent distress Oriented to: person, time, and place - Skin No skin breakdown. No abnormalities - Eyes No abnormalities - ENMT No abnormalities - Neck No abnormalities - CVS RRR - Chest Clear - Abd Soft - GI Soft Deferred - No abnormalities - Ext Right BKA with prosthesis in place. - MSK 4/5 weakness in both lower extremities. - Neuro No focal deficits - Psych No abnormalities ASSESSMENT: Pt. is a 54 yo Right-handed white male.On 08/11/2019 Pt. presented to [facility] with topete dden onset of left-side weakness.On 08/11/2019 he was admitted to [facility] with diagno sis ACUTE CVA.His impairment category is Stroke 01 - Left Body (Right Brain) (01.1).Pre-morbidly, Pt . was independent/mod-I in Safety Awareness, Balance, Self-Care, and Transfers Control; and he had go od Locomotion, Social Cognition, Sphincter Control, Endurance, and Communication.Currently, he has de ficits of Safety Awareness, Endurance, Balance, Transfers Control, and Sphincter Control.Pt. is now r eferred to [facility] for acute in-patient rehabilitation in order to maximize patient's functional independence in activities of daily living, strength, ROM, and mobility.- Rehab Goal Patient has realistic goal of being discharged at assistance level 6-Aden to reside at Home with Fam kenzie/Relatives. MDM/PLAN: - Physical Therapy Gait dysfunction - to improve, our physical therapists will perform initial evaluation of pt's statu s upon admission and devise an individualized program for Gait Training, and Wheel Chair mobility Inability to transfer - to improve, our physical therapists will perform initial evaluation of pt's status upon admission and devise an individualized program for Bed mobility Need for home safety evaluation - to improve, our physical therapists will perform initial evaluatio n of pt's status upon admission and devise an individualized program for Home Evaluation Need in caregiver upon discharge - to improve, our physical therapists will perform initial evaluati on of pt's status upon admission and devise an individualized program for Caregiver Training New precaution - to improve, our physical therapists will perform initial evaluation of pt's status upon admission and devise an individualized program for Patient precaution education Poor balance - to improve, our physical therapists will perform initial evaluation of pt's status up on admission and devise an individualized program for Balance Training Poor endurance - to improve, our physical therapists will perform initial evaluation of pt's status upon admission and devise an individualized program for Endurance Training Achieving independence - to improve, our physical therapists will perform initial evaluation of pt's status upon admission and devise an individualized program for Community Reintegration Activities - Occupational Therapy Need for lawn caretaker - to improve, our occupation therapists will perform initial evaluation of pt's status upon admission and devise an individualized program for Caregiver Training - Other See attached MAR (Medication Administration Record) - Diet Type Continue Regular - Diet - Liquid Texture Continue Regular - Tube Feed Continue N/A - Bladder care per protocol - Weight Bearing Precaution WBAT left LE - Skin care per protocol - Diet - Solid Texture Continue Regular - Shower allowing shower for Dementia, TBI, Stroke, or others FUNCTIONAL STATUS: UPDATED AT WEEKLY TEAM CONFERENCE - Bladder Same accident frequency: 7-Ind - No accidents in the past 7 days - Bowel Same accident frequency: 7-Ind - No accidents in the past 7 days - Walking Same score based on distance walked: 0(N/A) - Wheelchair Same score based on distance traveled: 0(N/A) FUNCTIONAL STATUS: - Self-Care A. Eating Aden B. Grooming Aden C. Bathing sup D. Dressing - Upper Aden E. Dressing - Lower sup F. Toileting sup - Sphincter Control G. Bladder control modA H. Bowel control Aden - Transfers Control I. Bed/Chair/Wheelchair sup J. Toilet sup K. Tub/Shower sup - Locomotion L. Walk/Wheelchair (B) Elham M. Stairs Elham - Communication N. Comprehension (B) Elham O. Expression (B) Elham - Social Cognition P. Social Interaction Elham Q. Problem Solving Elham R. Memory sup - Endurance Good - Balance Fair - Safety Awareness Fair QI SCORES: - Self-Care A. Eating 06-Independent B. Oral hygiene 03-Partial/moderate assistance C. Toileting hygiene 03-Partial/moderate assistance E. Shower/bathe self 03-Partial/moderate assistance F. Upper body dressing 03-Partial/moderate assistance G. Lower body dressing 03-Partial/moderate assistance H. Putting on/taking off footwear 88-Not attempted due to medical condition or safety concerns - Mobility A. Roll left and right 03-Partial/moderate assistance B. Sit to lying 03-Partial/moderate assistance C. Lying to sitting on side of bed 03-Partial/moderate assistance D. Sit to stand 03-Partial/moderate assistance F. Toilet transfer 03-Partial/moderate assistance G. Car transfer 88-Not attempted due to medical condition or safety concerns I. Walk 10 feet 03-Partial/moderate assistance J. Walk 50 feet with two turns 88-Not attempted due to medical condition or safety concerns K. Walk 150 feet 88-Not attempted due to medical condition or safety concerns L. Walking 10 feet on uneven surfaces 88-Not attempted due to medical condition or safety concerns M. 1 step (curb) 88-Not attempted due to medical condition or safety concerns N. 4 steps 88-Not attempted due to medical condition or safety concerns O. 12 steps 88-Not attempted due to medical condition or safety concerns P. Picking up object 03-Partial/moderate assistance R. Wheel 50 feet with two turns 88-Not attempted due to medical condition or safety concerns S. Wheel 150 feet 88-Not attempted due to medical condition or safety concerns - Bladder and Bowel Bladder continence 0-Always continent Bowel continence 0-Always continent - Endurance Good - Balance Fair - Safety Awareness Good CURRENT FUNC. DEFICITS: Mobility, Balance, and Self-Care SIGNATURE PANEL: (CDT)
[2019-08-28] MEDS: ATORVASTATIN 80 MG TAB PO SCH (19:44)
[2019-08-28] MEDS: DOCUSATE NA/SENNA CONC 1 TAB PO SCH (19:45)
--- NOTE | 2019-08-29 00:48 | PN ---
Date of Progress Note: 08/28/2019 Chief Complaint: End-stage renal disease, status post stroke. Patient was admitted for CVA and chandler sferred to rehab. He is undergoing rehab. He has end-stage renal disease, is dialysis dependent. Robbin chacko is undergoing dialysis today. Potassium level improved today, although potassium predialysis was 5 .5, yesterday 4.8. Patient was instructed about low-potassium diet. Review of Systems: Denies new complaints. Physical Examination: Lungs: Few crackles at bases. Heart: S1, S2. Abdomen: Soft, benign. Extremities: Left below-knee amputation, artificial foot. Laboratory Data: Lab work showed hemoglobin 10.5, potassium 5.5, bicarbonate 28, BUN 37, creatinine 7, calcium 9. Impression And Plan: 1.End-stage renal disease, continue dialysis on Wednesday, Wednesday, Wednesday. Continue to monitor pota ssium level and fluid balance. Continue low potassium diet and low phosphorus diet. 2.Renal osteodystrophy. Continue renal diet and binders. Adjust binders according to phosphorus le jose. 3.Hypertension. Blood pressure control optimal. Continue low sodium diet and blood pressure medica tion. 4.Anemia due to chronic kidney disease. Continue CRISTIANO. EB/MODL Voice ID: [id number] Report ID: [id number]
[2019-08-29] MEDS: METOPROLOL TAR 25 MG TAB PO SCH ×2 (05:01→17:06)
[2019-08-29] MEDS: INSULIN -REGULAR HUMAN 50 UNIT/0.5 ML ML SQ SCH ×4 (07:30→20:01)
[2019-08-29] MEDS: POLYETHYL GLY 3350 17 GM/DOSE PO SCH ×2 (07:45→08:00)
[2019-08-29] MEDS: INSULIN GLARGINE 100 UNITS/ML SQ SCH ×2 (07:46→19:31)
[2019-08-29] MEDS: FUROSEMIDE 20 MG TABLET PO SCH (07:46)
[2019-08-29] MEDS: FOLIC ACID 1 MG TABLET PO SCH (07:47)
[2019-08-29] MEDS: FAMOTIDINE 20 MG TAB PO SCH (07:47)
[2019-08-29] MEDS: APIXABAN 5 MG TABLET PO SCH ×2 (07:47→19:31)
[2019-08-29] MEDS: allopurinoL 300 MG TAB PO SCH (07:47)
[2019-08-29] MEDS: ASPIRIN EC 81 MG TAB PO SCH (07:47)
[2019-08-29] MEDS: ZINC SULFATE 220 MG CAP PO SCH (07:48)
--- NOTE | 2019-08-29 17:43 | R.PN ---
ENCOUNTER DATE AND TIME: 08/29/2019 17:38 (CDT) NAME JOHN ABREU DATE OF : 1965 DATE OF ADMISSION: 08/14/2019 12:59 (CDT) ACUTE CVACHIEF COMPLAINT: Aphasic stroke, right sided weakness and chronic left BKA, ESRD on HD SUBJECTIVE: Pt denied any Shortness of Breath. Pt denied any depression. 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 Lantus 20 units twice daily with better glucose contr ol. Self-propelled wheelchair 150' with standby assistance. Ambulated 500' with standby assistance using a single prong cane. VITAL SIGNS Temperature: 97.5 F SBP/DBP: 135/55 Pulse: 59 Resp: 18 MEDICATION ALLERGIES: No Known Drug Allergies (NKDA) ENVIRONMENTAL ALLERGIES: - Substance Allergies None Known - Other Allergies None Known NURSING: - Shower allowing shower - Bladder care per protocol - Skin care per protocol PRECAUTIONS: - Weight Bearing Precaution WBAT left LE ACTIVITIES OOB only with supervision THERAPIES: - Occupational Therapy Cognitive Retraining. Visual Perceptual Training. - Dietary and Nutrition Adequate Nutrition. Nutritional Education. Nutritional Supplements. - Speech Therapy Cognitive Training. Expressive Language Skills. Memory Strategies. Receptive Language Skills. Speech Intelligibility Training. PHYSICAL EXAM - Gen Alert and awake Lying in bed No apparent distress Oriented to: person, time, and place - Skin No skin breakdown. No abnormalities - Eyes No abnormalities - ENMT No abnormalities - Neck No abnormalities - CVS RRR - Chest Clear - Abd Soft - GI Soft Deferred - No abnormalities - Ext Right BKA with prosthesis in place. - MSK 4/5 weakness in both lower extremities. - Neuro No focal deficits - Psych No abnormalities ASSESSMENT: Pt. is a 54 yo Right-handed white male.On 08/11/2019 Pt. presented to [facility] with topete dden onset of left-side weakness.On 08/11/2019 he was admitted to [facility] with diagno sis ACUTE CVA.His impairment category is Stroke 01 - Left Body (Right Brain) (01.1).Pre-morbidly, Pt . was independent/mod-I in Safety Awareness, Balance, Self-Care, and Transfers Control; and he had go od Locomotion, Social Cognition, Sphincter Control, Endurance, and Communication.Currently, he has de ficits of Safety Awareness, Endurance, Balance, Transfers Control, and Sphincter Control.Pt. is now r eferred to [facility] for acute in-patient rehabilitation in order to maximize patient's functional independence in activities of daily living, strength, ROM, and mobility.- Rehab Goal Patient has realistic goal of being discharged at assistance level 6-Aden to reside at Home with Fam kenzie/Relatives. MDM/PLAN: - Physical Therapy Gait dysfunction - to improve, our physical therapists will perform initial evaluation of pt's statu s upon admission and devise an individualized program for Gait Training, and Wheel Chair mobility Inability to transfer - to improve, our physical therapists will perform initial evaluation of pt's status upon admission and devise an individualized program for Bed mobility Need for home safety evaluation - to improve, our physical therapists will perform initial evaluatio n of pt's status upon admission and devise an individualized program for Home Evaluation Need in caregiver upon discharge - to improve, our physical therapists will perform initial evaluati on of pt's status upon admission and devise an individualized program for Caregiver Training New precaution - to improve, our physical therapists will perform initial evaluation of pt's status upon admission and devise an individualized program for Patient precaution education Poor balance - to improve, our physical therapists will perform initial evaluation of pt's status up on admission and devise an individualized program for Balance Training Poor endurance - to improve, our physical therapists will perform initial evaluation of pt's status upon admission and devise an individualized program for Endurance Training Achieving independence - to improve, our physical therapists will perform initial evaluation of pt's status upon admission and devise an individualized program for Community Reintegration Activities - Occupational Therapy Need for animal care technician - to improve, our occupation therapists will perform initial evaluation of pt's status upon admission and devise an individualized program for Caregiver Training - Other See attached MAR (Medication Administration Record) - Diet Type Continue Regular - Diet - Liquid Texture Continue Regular - Tube Feed Continue N/A - Bladder care per protocol - Weight Bearing Precaution WBAT left LE - Skin care per protocol - Diet - Solid Texture Continue Regular - Shower allowing shower for Dementia, TBI, Stroke, or others FUNCTIONAL STATUS: UPDATED AT WEEKLY TEAM CONFERENCE - Bladder Same accident frequency: 7-Ind - No accidents in the past 7 days - Bowel Same accident frequency: 7-Ind - No accidents in the past 7 days - Walking Same score based on distance walked: 0(N/A) - Wheelchair Same score based on distance traveled: 0(N/A) FUNCTIONAL STATUS: - Self-Care A. Eating Aden B. Grooming Aden C. Bathing sup D. Dressing - Upper Aden E. Dressing - Lower sup F. Toileting sup - Sphincter Control G. Bladder control modA H. Bowel control Aden - Transfers Control I. Bed/Chair/Wheelchair sup J. Toilet sup K. Tub/Shower sup - Locomotion L. Walk/Wheelchair (B) Elham M. Stairs Elham - Communication N. Comprehension (B) Elham O. Expression (B) Elham - Social Cognition P. Social Interaction Elham Q. Problem Solving Elham R. Memory sup - Endurance Good - Balance Fair - Safety Awareness Fair QI SCORES: - Self-Care A. Eating 06-Independent B. Oral hygiene 03-Partial/moderate assistance C. Toileting hygiene 03-Partial/moderate assistance E. Shower/bathe self 03-Partial/moderate assistance F. Upper body dressing 03-Partial/moderate assistance G. Lower body dressing 03-Partial/moderate assistance H. Putting on/taking off footwear 88-Not attempted due to medical condition or safety concerns - Mobility A. Roll left and right 03-Partial/moderate assistance B. Sit to lying 03-Partial/moderate assistance C. Lying to sitting on side of bed 03-Partial/moderate assistance D. Sit to stand 03-Partial/moderate assistance F. Toilet transfer 03-Partial/moderate assistance G. Car transfer 88-Not attempted due to medical condition or safety concerns I. Walk 10 feet 03-Partial/moderate assistance J. Walk 50 feet with two turns 88-Not attempted due to medical condition or safety concerns K. Walk 150 feet 88-Not attempted due to medical condition or safety concerns L. Walking 10 feet on uneven surfaces 88-Not attempted due to medical condition or safety concerns M. 1 step (curb) 88-Not attempted due to medical condition or safety concerns N. 4 steps 88-Not attempted due to medical condition or safety concerns O. 12 steps 88-Not attempted due to medical condition or safety concerns P. Picking up object 03-Partial/moderate assistance R. Wheel 50 feet with two turns 88-Not attempted due to medical condition or safety concerns S. Wheel 150 feet 88-Not attempted due to medical condition or safety concerns - Bladder and Bowel Bladder continence 0-Always continent Bowel continence 0-Always continent - Endurance Good - Balance Fair - Safety Awareness Good CURRENT FUNC. DEFICITS: Mobility, Balance, and Self-Care SIGNATURE PANEL: (CDT)
[2019-08-29 17:59] LABS: HBsAG Nonreactive (Nonreactive)
[2019-08-29] MEDS: ATORVASTATIN 80 MG TAB PO SCH (20:00)
[2019-08-29] MEDS: DOCUSATE NA/SENNA CONC 1 TAB PO SCH (20:01)
--- NOTE | 2019-08-30 01:51 | FAST ---
SHIFT START DATE/TIME: 08/25/2019 19:00 (CDT) SHIFT END DATE/TIME: 08/26/2019 07:00 (CDT) NAME JOHN ABREU DATE OF : 1965 DATE OF ADMISSION: 08/14/2019 12:59 (CDT) PHONE: AGE: 54 SSN# [id number] GENDER: Male ENCOUNTER PHYSICIAN: Dr. Bennie Diaz M.D. ADMISSION DIAGNOSIS: - Stroke 01 - Left Body (Right Brain) (01.1) ACUTE CVA. EATING: Not assessed/no information CODE: - ORAL HYGIENE: Not assessed/no information CODE: - TOILETING HYGIENE: TOILETING HYGIENE - STEP 1: Does the patient complete the activity by him/herself with no assistance (physical, verbal/nonverbal cueing, setup/clean-up)? No. TOILETING HYGIENE - STEP 2: Does the patient need only setup/clean-up assistance from one helper? No. TOILETING HYGIENE - STEP 3: Does the patient need only verbal/nonverbal cueing or touching/steadying/contact guard assistance fro m one helper? Yes. 1. [id number] ADMISSION PERFORMANCE: Supervision or touching assistance CODE: 04 BATHING: Not assessed/no information CODE: - DRESSING - UPPER BODY: Not assessed/no information CODE: - DRESSING - LOWER BODY: Not assessed/no information CODE: - PUTTING ON/TAKING OFF FOOTWEAR: Not assessed/no information CODE: - ROLL LEFT AND RIGHT: ROLL LEFT AND RIGHT - STEP 1: Does the patient complete the activity by him/herself with no assistance (physical, verbal/nonverbal cueing, setup/clean-up)? No. ROLL LEFT AND RIGHT - STEP 2: Does the patient need only setup/clean-up assistance from one helper? No. ROLL LEFT AND RIGHT - STEP 3: Does the patient need only verbal/nonverbal cueing or touching/steadying/contact guard assistance fro m one helper? Yes. 1. [id number] ADMISSION PERFORMANCE: Supervision or touching assistance CODE: 04 SIT TO LYING: SIT TO LYING - STEP 1: Does the patient complete the activity by him/herself with no assistance (physical, verbal/nonverbal cueing, setup/clean-up)? No. SIT TO LYING - STEP 2: Does the patient need only setup/clean-up assistance from one helper? No. SIT TO LYING - STEP 3: Does the patient need only verbal/nonverbal cueing or touching/steadying/contact guard assistance fro m one helper? Yes. 1. [id number] ADMISSION PERFORMANCE: Supervision or touching assistance CODE: 04 LYING TO SITTING: LYING TO SITTING ON SIDE OF BED - STEP 1: Does the patient complete the activity by him/herself with no assistance (physical, verbal/nonverbal cueing, setup/clean-up)? No. LYING TO SITTING ON SIDE OF BED - STEP 2: Does the patient need only setup/clean-up assistance from one helper? No. LYING TO SITTING ON SIDE OF BED - STEP 3: Does the patient need only verbal/nonverbal cueing or touching/steadying/contact guard assistance fro m one helper? Yes. 1. [id number] ADMISSION PERFORMANCE: Supervision or touching assistance CODE: 04 SIT TO STAND: SIT TO STAND - STEP 1: Does the patient complete the activity by him/herself with no assistance (physical, verbal/nonverbal cueing, setup/clean-up)? No. SIT TO STAND - STEP 2: Does the patient need only setup/clean-up assistance from one helper? No. SIT TO STAND - STEP 3: Does the patient need only verbal/nonverbal cueing or touching/steadying/contact guard assistance fro m one helper? Yes. 1. [id number] ADMISSION PERFORMANCE: Supervision or touching assistance CODE: 04 TRANSFERS: BED, CHAIR: CHAIR/[id number] TRANSFER - STEP 1: Does the patient complete the activity by him/herself with no assistance (physical, verbal/nonverbal cueing, setup/clean-up)? No. CHAIR/XIC-[id number] TRANSFER - STEP 2: Does the patient need only setup/clean-up assistance from one helper? No. CHAIR/[id number] TRANSFER - STEP 3: Does the patient need only verbal/nonverbal cueing or touching/steadying/contact guard assistance fro m one helper? Yes. 1. [id number] ADMISSION PERFORMANCE: Supervision or touching assistance CODE: 04 TRANSFER TOILET: TOILET TRANSFER - STEP 1: Does the patient complete the activity by him/herself with no assistance (physical, verbal/nonverbal cueing, setup/clean-up)? No. TOILET TRANSFER - STEP 2: Does the patient need only setup/clean-up assistance from one helper? No. TOILET TRANSFER - STEP 3: Does the patient need only verbal/nonverbal cueing or touching/steadying/contact guard assistance fro m one helper? Yes. 1. [id number] ADMISSION PERFORMANCE: Supervision or touching assistance CODE: 04 TRANSFERS: CAR: Not assessed/no information CODE: - WALK 10 FEET: Not assessed/no information CODE: - 1 STEP (CURB): Not assessed/no information CODE: - PICKING UP OBJECT: Not assessed/no information CODE: - DOES THE PATIENT USE A WHEELCHAIR/SCOOTER? CODE: EXPR WHEEL 50 FEET WITH TWO TURNS: Not assessed/no information CODE: - INDICATE THE TYPE OF WHEELCHAIR/SCOOTER USED: CODE: EXPR WHEEL 150 FEET: Not assessed/no information CODE: - INDICATE THE TYPE OF WHEELCHAIR/SCOOTER USED: CODE: EXPR BLADDER AND BOWEL: H350. BLADDER CONTINENCE (3-DAY ASSESSMENT PERIOD): No urine output (e.g., renal failure) CODE: 5 H400. BOWEL CONTINENCE (3-DAY ASSESSMENT PERIOD): Always continent CODE: 0
[2019-08-30] MEDS: METOPROLOL TAR 25 MG TAB PO SCH ×2 (04:59→16:28)
[2019-08-30] MEDS: INSULIN -REGULAR HUMAN 50 UNIT/0.5 ML ML SQ SCH ×4 (07:30→20:46)
[2019-08-30] MEDS: POLYETHYL GLY 3350 17 GM/DOSE PO SCH (08:00)
[2019-08-30] MEDS: ZINC SULFATE 220 MG CAP PO SCH (08:59)
[2019-08-30] MEDS: ASPIRIN EC 81 MG TAB PO SCH (08:59)
[2019-08-30] MEDS: APIXABAN 5 MG TABLET PO SCH ×2 (08:59→20:46)
[2019-08-30] MEDS: FAMOTIDINE 20 MG TAB PO SCH (08:59)
[2019-08-30] MEDS: allopurinoL 300 MG TAB PO SCH (08:59)
[2019-08-30] MEDS: FOLIC ACID 1 MG TABLET PO SCH (09:00)
[2019-08-30] MEDS: FUROSEMIDE 20 MG TABLET PO SCH (09:00)
[2019-08-30] MEDS: INSULIN GLARGINE 100 UNITS/ML SQ SCH ×2 (09:00→20:00)
[2019-08-30] MEDS: SEVELAMER CARBONATE 800 MG TABLET PO SCH (16:58)
--- NOTE | 2019-08-30 17:12 | R.PN ---
ENCOUNTER DATE AND TIME: 08/30/2019 17:02 (CDT) NAME JOHN ABREU DATE OF : 1965 DATE OF ADMISSION: 08/14/2019 12:59 (CDT) ACUTE CVACHIEF COMPLAINT: Aphasic stroke, right sided weakness and chronic left BKA, ESRD on HD SUBJECTIVE: Pt denied any Shortness of Breath. Pt denied any depression. 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 Lantus 20 units twice daily with better glucose contr ol. Self-propelled wheelchair 150' with standby assistance. Ambulated 650' with standby assistance using a single prong cane. Up and down 15 steps with standby assistance. VITAL SIGNS Temperature: 97.2 F SBP/DBP: 140/55 Pulse: 60 Resp: 16 MEDICATION ALLERGIES: No Known Drug Allergies (NKDA) ENVIRONMENTAL ALLERGIES: - Substance Allergies None Known - Other Allergies None Known NURSING: - Shower allowing shower - Bladder care per protocol - Skin care per protocol PRECAUTIONS: - Weight Bearing Precaution WBAT left LE ACTIVITIES OOB only with supervision THERAPIES: - Occupational Therapy Cognitive Retraining. Visual Perceptual Training. - Dietary and Nutrition Adequate Nutrition. Nutritional Education. Nutritional Supplements. - Speech Therapy Cognitive Training. Expressive Language Skills. Memory Strategies. Receptive Language Skills. Speech Intelligibility Training. PHYSICAL EXAM - Gen Alert and awake Lying in bed No apparent distress Oriented to: person, time, and place - Skin No skin breakdown. No abnormalities - Eyes No abnormalities - ENMT No abnormalities - Neck No abnormalities - CVS RRR - Chest Clear - Abd Soft - GI Soft Deferred - No abnormalities - Ext Right BKA with prosthesis in place. - MSK 4/5 weakness in both lower extremities. - Neuro No focal deficits - Psych No abnormalities ASSESSMENT: Pt. is a 54 yo Right-handed white male.On 08/11/2019 Pt. presented to [facility] with topete dden onset of left-side weakness.On 08/11/2019 he was admitted to [facility] with diagno sis ACUTE CVA.His impairment category is Stroke 01 - Left Body (Right Brain) (01.1).Pre-morbidly, Pt . was independent/mod-I in Safety Awareness, Balance, Self-Care, and Transfers Control; and he had go od Locomotion, Social Cognition, Sphincter Control, Endurance, and Communication.Currently, he has de ficits of Safety Awareness, Endurance, Balance, Transfers Control, and Sphincter Control.Pt. is now r eferred to [facility] for acute in-patient rehabilitation in order to maximize patient's functional independence in activities of daily living, strength, ROM, and mobility.- Rehab Goal Patient has realistic goal of being discharged at assistance level 6-Aden to reside at Home with Fam kenzie/Relatives. MDM/PLAN: - Physical Therapy Gait dysfunction - to improve, our physical therapists will perform initial evaluation of pt's statu s upon admission and devise an individualized program for Gait Training, and Wheel Chair mobility Inability to transfer - to improve, our physical therapists will perform initial evaluation of pt's status upon admission and devise an individualized program for Bed mobility Need for home safety evaluation - to improve, our physical therapists will perform initial evaluatio n of pt's status upon admission and devise an individualized program for Home Evaluation Need in caregiver upon discharge - to improve, our physical therapists will perform initial evaluati on of pt's status upon admission and devise an individualized program for Caregiver Training New precaution - to improve, our physical therapists will perform initial evaluation of pt's status upon admission and devise an individualized program for Patient precaution education Poor balance - to improve, our physical therapists will perform initial evaluation of pt's status up on admission and devise an individualized program for Balance Training Poor endurance - to improve, our physical therapists will perform initial evaluation of pt's status upon admission and devise an individualized program for Endurance Training Achieving independence - to improve, our physical therapists will perform initial evaluation of pt's status upon admission and devise an individualized program for Community Reintegration Activities - Occupational Therapy Need for residential care facility manager - to improve, our occupation therapists will perform initial evaluation of pt's status upon admission and devise an individualized program for Caregiver Training - Other See attached MAR (Medication Administration Record) - Diet Type Continue Regular - Diet - Liquid Texture Continue Regular - Tube Feed Continue N/A - Bladder care per protocol - Weight Bearing Precaution WBAT left LE - Skin care per protocol - Diet - Solid Texture Continue Regular - Shower allowing shower for Dementia, TBI, Stroke, or others FUNCTIONAL STATUS: UPDATED AT WEEKLY TEAM CONFERENCE - Bladder Same accident frequency: 7-Ind - No accidents in the past 7 days - Bowel Same accident frequency: 7-Ind - No accidents in the past 7 days - Walking Same score based on distance walked: 0(N/A) - Wheelchair Same score based on distance traveled: 0(N/A) FUNCTIONAL STATUS: - Self-Care A. Eating Aden B. Grooming Aden C. Bathing sup D. Dressing - Upper Aden E. Dressing - Lower sup F. Toileting sup - Sphincter Control G. Bladder control modA H. Bowel control Aden - Transfers Control I. Bed/Chair/Wheelchair sup J. Toilet sup K. Tub/Shower sup - Locomotion L. Walk/Wheelchair (B) Elham M. Stairs Elham - Communication N. Comprehension (B) Elham O. Expression (B) Elham - Social Cognition P. Social Interaction Elham Q. Problem Solving Elham R. Memory sup - Endurance Good - Balance Fair - Safety Awareness Fair QI SCORES: - Self-Care A. Eating 06-Independent B. Oral hygiene 03-Partial/moderate assistance C. Toileting hygiene 03-Partial/moderate assistance E. Shower/bathe self 03-Partial/moderate assistance F. Upper body dressing 03-Partial/moderate assistance G. Lower body dressing 03-Partial/moderate assistance H. Putting on/taking off footwear 88-Not attempted due to medical condition or safety concerns - Mobility A. Roll left and right 03-Partial/moderate assistance B. Sit to lying 03-Partial/moderate assistance C. Lying to sitting on side of bed 03-Partial/moderate assistance D. Sit to stand 03-Partial/moderate assistance F. Toilet transfer 03-Partial/moderate assistance G. Car transfer 88-Not attempted due to medical condition or safety concerns I. Walk 10 feet 03-Partial/moderate assistance J. Walk 50 feet with two turns 88-Not attempted due to medical condition or safety concerns K. Walk 150 feet 88-Not attempted due to medical condition or safety concerns L. Walking 10 feet on uneven surfaces 88-Not attempted due to medical condition or safety concerns M. 1 step (curb) 88-Not attempted due to medical condition or safety concerns N. 4 steps 88-Not attempted due to medical condition or safety concerns O. 12 steps 88-Not attempted due to medical condition or safety concerns P. Picking up object 03-Partial/moderate assistance R. Wheel 50 feet with two turns 88-Not attempted due to medical condition or safety concerns S. Wheel 150 feet 88-Not attempted due to medical condition or safety concerns - Bladder and Bowel Bladder continence 0-Always continent Bowel continence 0-Always continent - Endurance Good - Balance Fair - Safety Awareness Good CURRENT FUNC. DEFICITS: Mobility, Balance, and Self-Care SIGNATURE PANEL: (CDT)
[2019-08-30 18:49] LABS: CKMB Creatine Kinase MB < 1.0 ng/mL (0.3-3.6); Creatine Phosphokinase 30 U/L (39-308); Troponin I < 0.02 ng/mL (0.0-0.045)
[2019-08-30] MEDS: ONDANSETRON 4 MG (ODT) TAB PO PRN (19:10)
--- NOTE | 2019-08-30 20:02 | PN ---
Date of Progress Note: 08/30/2019 Subjective: Patient is admitted for CVA temporal infarction. Patient is on rehab. Patient is doing well. Patient is scheduled for dialysis today. Physical Examination: Vital Signs: Blood pressure 140/55, pulse of 60. Chest: Clear to auscultation. Heart: S1, S2. Regular. Abdomen: Morbidly obese. Extremities: Right below-knee amputation. Neuro: No focal weakness, has dysarthria. Laboratory Data: WBC 7.4, H and H 10.5/32.2. Sodium 137, potassium 5.5, bicarb 26, BUN 61, creatini ne 11, calcium of 9, phosphorus 7.2. Current Medications: Includes Eliquis, heparin, metoprolol, Lasix 20 mg, folic acid, insulin, bisaco dyl, melatonin, allopurinol. Assessment And Plan: 1.End-stage renal disease. We will continue the patient on dialysis Wednesday, Wednesday, Wednesday. 2.Secondary hyperparathyroidism. We will start the patient on Renvela. 3.Anemia of chronic kidney disease, stable. Continue current monitoring as the patient had recent c erebrovascular accident and hemoglobin under goal. I am not going to initiate any CRISTIANO. 4.Cerebrovascular accident. Continue PT/OT. SHERLYN/LYUDMILA Voice ID: [id number] Report ID: [id number]
[2019-08-30] MEDS: ATORVASTATIN 80 MG TAB PO SCH (20:46)
[2019-08-30] MEDS: MELATONIN 3 MG TABLET PO PRN (20:46)
[2019-08-30] MEDS: DOCUSATE NA/SENNA CONC 1 TAB PO SCH (20:47)
[2019-08-31] MEDS: METOPROLOL TAR 25 MG TAB PO SCH ×2 (05:02→16:33)
[2019-08-31 06:30] LABS: Absolute Lymphocytes (CBC) 1.4 K/uL (0.7-4.9); Basophils % 0.5 % (0-1.3); Hematocrit 30.5 % (39.6-49.0); Lymphocytes % 20.6 % (15.3-44.8); MPV 9.2 fL (7.6-11.3); RBC Red Blood Cell Count 3.01 M/uL (4.33-5.43)
[2019-08-31 07:10] LABS: Albumin 2.9 g/dL (3.4-5.0); Magnesium 2.7 mg/dL (1.8-2.4); Potassium 5.3 mmol/L (3.5-5.1); Prealbumin 28.2 mg/dL (20-40)
[2019-08-31] MEDS: INSULIN -REGULAR HUMAN 50 UNIT/0.5 ML ML SQ SCH ×4 (07:30→20:51)
[2019-08-31] MEDS: FOLIC ACID 1 MG TABLET PO SCH (07:42)
[2019-08-31] MEDS: APIXABAN 5 MG TABLET PO SCH ×2 (07:42→19:44)
[2019-08-31] MEDS: ASPIRIN EC 81 MG TAB PO SCH (07:42)
[2019-08-31] MEDS: FAMOTIDINE 20 MG TAB PO SCH (07:42)
[2019-08-31] MEDS: SEVELAMER CARBONATE 800 MG TABLET PO SCH ×3 (07:42→16:33)
[2019-08-31] MEDS: FUROSEMIDE 20 MG TABLET PO SCH (07:42)
[2019-08-31] MEDS: allopurinoL 300 MG TAB PO SCH (07:42)
[2019-08-31] MEDS: POLYETHYL GLY 3350 17 GM/DOSE PO SCH (07:43)
[2019-08-31] MEDS: ZINC SULFATE 220 MG CAP PO SCH (07:43)
[2019-08-31] MEDS: INSULIN GLARGINE 100 UNITS/ML SQ SCH ×2 (08:46→19:43)
--- NOTE | 2019-08-31 16:57 | R.PN ---
ENCOUNTER DATE AND TIME: 08/31/2019 16:53 (CDT) NAME JOHN ABREU DATE OF : 1965 DATE OF ADMISSION: 08/14/2019 12:59 (CDT) ACUTE CVACHIEF COMPLAINT: Aphasic stroke, right sided weakness and chronic left BKA, ESRD on HD SUBJECTIVE: Pt denied any Shortness of Breath. Pt denied any depression. WBC 6.9, Hgb 10.0 Weights And Measures Sealer 9.0, glucose 102 to 170. Lantus 20 units twice daily with better glucose contro l. Prealbumin 28.2. Self-propelled wheelchair 150' with standby assistance. Ambulated 650' with standby assistance using a single prong cane. Up and down 15 steps with standby assistance. VITAL SIGNS Temperature: 97.8 F SBP/DBP: 119/49 Pulse: 60 Resp: 16 MEDICATION ALLERGIES: No Known Drug Allergies (NKDA) ENVIRONMENTAL ALLERGIES: - Substance Allergies None Known - Other Allergies None Known NURSING: - Shower allowing shower - Bladder care per protocol - Skin care per protocol PRECAUTIONS: - Weight Bearing Precaution WBAT left LE ACTIVITIES OOB only with supervision THERAPIES: - Occupational Therapy Cognitive Retraining. Visual Perceptual Training. - Dietary and Nutrition Adequate Nutrition. Nutritional Education. Nutritional Supplements. - Speech Therapy Cognitive Training. Expressive Language Skills. Memory Strategies. Receptive Language Skills. Speech Intelligibility Training. PHYSICAL EXAM - Gen Alert and awake Lying in bed No apparent distress Oriented to: person, time, and place - Skin No skin breakdown. No abnormalities - Eyes No abnormalities - ENMT No abnormalities - Neck No abnormalities - CVS RRR - Chest Clear - Abd Soft - GI Soft Deferred - No abnormalities - Ext Right BKA with prosthesis in place. - MSK 4/5 weakness in both lower extremities. - Neuro No focal deficits - Psych No abnormalities ASSESSMENT: Pt. is a 54 yo Right-handed white male.On 08/11/2019 Pt. presented to [facility] with topete dden onset of left-side weakness.On 08/11/2019 he was admitted to [facility] with diagno sis ACUTE CVA.His impairment category is Stroke 01 - Left Body (Right Brain) (01.1).Pre-morbidly, Pt . was independent/mod-I in Safety Awareness, Balance, Self-Care, and Transfers Control; and he had go od Locomotion, Social Cognition, Sphincter Control, Endurance, and Communication.Currently, he has de ficits of Safety Awareness, Endurance, Balance, Transfers Control, and Sphincter Control.Pt. is now r eferred to [facility] for acute in-patient rehabilitation in order to maximize patient's functional independence in activities of daily living, strength, ROM, and mobility.- Rehab Goal Patient has realistic goal of being discharged at assistance level 6-Aden to reside at Home with Fam kenzie/Relatives. MDM/PLAN: - Physical Therapy Gait dysfunction - to improve, our physical therapists will perform initial evaluation of pt's statu s upon admission and devise an individualized program for Gait Training, and Wheel Chair mobility Inability to transfer - to improve, our physical therapists will perform initial evaluation of pt's status upon admission and devise an individualized program for Bed mobility Need for home safety evaluation - to improve, our physical therapists will perform initial evaluatio n of pt's status upon admission and devise an individualized program for Home Evaluation Need in caregiver upon discharge - to improve, our physical therapists will perform initial evaluati on of pt's status upon admission and devise an individualized program for Caregiver Training New precaution - to improve, our physical therapists will perform initial evaluation of pt's status upon admission and devise an individualized program for Patient precaution education Poor balance - to improve, our physical therapists will perform initial evaluation of pt's status up on admission and devise an individualized program for Balance Training Poor endurance - to improve, our physical therapists will perform initial evaluation of pt's status upon admission and devise an individualized program for Endurance Training Achieving independence - to improve, our physical therapists will perform initial evaluation of pt's status upon admission and devise an individualized program for Community Reintegration Activities - Occupational Therapy Need for health care law specialist - to improve, our occupation therapists will perform initial evaluation of pt's status upon admission and devise an individualized program for Caregiver Training - Other See attached MAR (Medication Administration Record) - Diet Type Continue Regular - Diet - Liquid Texture Continue Regular - Tube Feed Continue N/A - Bladder care per protocol - Weight Bearing Precaution WBAT left LE - Skin care per protocol - Diet - Solid Texture Continue Regular - Shower allowing shower for Dementia, TBI, Stroke, or others FUNCTIONAL STATUS: UPDATED AT WEEKLY TEAM CONFERENCE - Bladder Same accident frequency: 7-Ind - No accidents in the past 7 days - Bowel Same accident frequency: 7-Ind - No accidents in the past 7 days - Walking Same score based on distance walked: 0(N/A) - Wheelchair Same score based on distance traveled: 0(N/A) FUNCTIONAL STATUS: - Self-Care A. Eating Aden B. Grooming Aden C. Bathing sup D. Dressing - Upper Aden E. Dressing - Lower sup F. Toileting sup - Sphincter Control G. Bladder control modA H. Bowel control Aden - Transfers Control I. Bed/Chair/Wheelchair sup J. Toilet sup K. Tub/Shower sup - Locomotion L. Walk/Wheelchair (B) Elham M. Stairs Elham - Communication N. Comprehension (B) Elham O. Expression (B) Elham - Social Cognition P. Social Interaction Elham Q. Problem Solving Elham R. Memory sup - Endurance Good - Balance Fair - Safety Awareness Fair QI SCORES: - Self-Care A. Eating 06-Independent B. Oral hygiene 03-Partial/moderate assistance C. Toileting hygiene 03-Partial/moderate assistance E. Shower/bathe self 03-Partial/moderate assistance F. Upper body dressing 03-Partial/moderate assistance G. Lower body dressing 03-Partial/moderate assistance H. Putting on/taking off footwear 88-Not attempted due to medical condition or safety concerns - Mobility A. Roll left and right 03-Partial/moderate assistance B. Sit to lying 03-Partial/moderate assistance C. Lying to sitting on side of bed 03-Partial/moderate assistance D. Sit to stand 03-Partial/moderate assistance F. Toilet transfer 03-Partial/moderate assistance G. Car transfer 88-Not attempted due to medical condition or safety concerns I. Walk 10 feet 03-Partial/moderate assistance J. Walk 50 feet with two turns 88-Not attempted due to medical condition or safety concerns K. Walk 150 feet 88-Not attempted due to medical condition or safety concerns L. Walking 10 feet on uneven surfaces 88-Not attempted due to medical condition or safety concerns M. 1 step (curb) 88-Not attempted due to medical condition or safety concerns N. 4 steps 88-Not attempted due to medical condition or safety concerns O. 12 steps 88-Not attempted due to medical condition or safety concerns P. Picking up object 03-Partial/moderate assistance R. Wheel 50 feet with two turns 88-Not attempted due to medical condition or safety concerns S. Wheel 150 feet 88-Not attempted due to medical condition or safety concerns - Bladder and Bowel Bladder continence 0-Always continent Bowel continence 0-Always continent - Endurance Good - Balance Fair - Safety Awareness Good CURRENT FUNC. DEFICITS: Mobility, Balance, and Self-Care SIGNATURE PANEL: (CDT)
[2019-08-31] MEDS: ONDANSETRON 4 MG (ODT) TAB PO PRN (20:50)
[2019-08-31] MEDS: ATORVASTATIN 80 MG TAB PO SCH (20:50)
[2019-08-31] MEDS: MELATONIN 3 MG TABLET PO PRN (20:51)
[2019-08-31] MEDS: DOCUSATE NA/SENNA CONC 1 TAB PO SCH (20:51)
--- NOTE | 2019-08-31 21:44 | RAD REPORT ---
EXAM DESCRIPTION: CT - Head Brain Wo Cont - 08/31/2019 9:30 pm CLINICAL HISTORY: Headache COMPARISON: August 10, 2019 TECHNIQUE: Computed axial tomography of the head was obtained. IV contrast was not requested. All CT scans are performed using dose optimization technique as appropriate and may include automated exposure control or mA/KV adjustment according to patient size. FINDINGS: Serpiginous areas of increased density have developed within the left occipital and left p arietal lobe at the site of prior infarction. Shift of the midline structures 1 millimeter to the right. No other significant change Fluid within the sinuses/ mastoids is not seen. IMPRESSION: Subacute infarct with hemorrhagic conversion. Exam discussed with at 9:33 p. m. August 31, 2019
[2019-09-01] MEDS: METOPROLOL TAR 25 MG TAB PO SCH ×2 (04:59→17:41)
[2019-09-01] MEDS: INSULIN -REGULAR HUMAN 50 UNIT/0.5 ML ML SQ SCH ×4 (07:09→20:21)
[2019-09-01] MEDS: POLYETHYL GLY 3350 17 GM/DOSE PO SCH (08:00)
[2019-09-01] MEDS: FOLIC ACID 1 MG TABLET PO SCH (08:00)
[2019-09-01] MEDS: FAMOTIDINE 20 MG TAB PO SCH (08:26)
[2019-09-01] MEDS: GABAPENTIN 100 MG CAP PO SCH ×2 (08:26→19:53)
[2019-09-01] MEDS: ZINC SULFATE 220 MG CAP PO SCH (08:27)
[2019-09-01] MEDS: FUROSEMIDE 20 MG TABLET PO SCH (08:27)
[2019-09-01] MEDS: ACETAMINOPHEN 500 MG TAB PO PRN ×2 (08:28→19:53)
[2019-09-01] MEDS: allopurinoL 300 MG TAB PO SCH (08:28)
[2019-09-01] MEDS: ASPIRIN EC 81 MG TAB PO SCH (08:28)
[2019-09-01] MEDS: TOPIRAMATE 25 MG TAB PO SCH ×2 (08:28→19:54)
[2019-09-01] MEDS: SEVELAMER CARBONATE 800 MG TABLET PO SCH ×3 (08:29→17:00)
[2019-09-01] MEDS: INSULIN GLARGINE 100 UNITS/ML SQ SCH ×2 (08:32→21:51)
--- NOTE | 2019-09-01 09:13 | RAD REPORT ---
EXAM DESCRIPTION: CT - Head Brain Wo Cont - 09/01/2019 8:59 am CLINICAL HISTORY: follow up/comparison, subacute infarction with hemorrhagic conversion left occipit al and left parietal lobes. COMPARISON: Head Brain Wo Cont dated 08/31/2019 TECHNIQUE: Axial 5 mm thick images of the head were obtained without IV contrast. All CT scans are performed using dose optimization technique as appropriate and may include automated exposure control or mA/KV adjustment according to patient size. FINDINGS: Large left-sided CVA is again identified involving significant portion of the left parieta l lobe, significant portion of the temporal lobe and a portion of the left occipital lobe. The CVA lang s not enlarged since August 30. No new or progressive mass effect. Patient has a minimal amount of midli ne shift 1-2 mm stable from prior imaging. The hemorrhagic conversion seen near the gyri is nonprogre ssive. No hematoma formation. No new area of hemorrhage. Elsewhere in the brain parenchyma no new CVA or acute finding identifiable. No ventricular enlargemen t. Mastoid air cells are clear. No new sinus finding. No acute bony findings. IMPRESSION: Stable left CVA findings as detailed.
--- NOTE | 2019-09-01 09:42 | P.RH.PN ---
Estimated Length of Stay: 30 Expected Discharge Date: 09/16/19 Discharge Disposition Plan: Home Family Support: Yes Fdc Goal: Mobility, Transfers, Self Care Vital Signs: Last Vital Signs Temp 97.7 F 09/01/19 07:17 Pulse 60 09/01/19 08:27 Resp 18 09/01/19 07:17 BP 130/59 L 09/01/19 08:27 Pulse Ox 95 09/01/19 07:17 Laboratory: Laboratory Last Values WBC 6.9 K/uL (4.3-10.9) 08/31/19 05:41 RBC 3.01 M/uL (4.33-5.43) L 08/31/19 05:41 Hgb 10.0 g/dL (13.6-17.9) L 08/31/19 05:41 Hct 30.5 % (39.6-49.0) L 08/31/19 05:41 MCV 101.2 fL (80-100) H 08/31/19 05:41 MCH 33.2 pg (27.0-35.0) 08/31/19 05:41 MCHC 32.7 g/dL (32.0-36.0) 08/31/19 05:41 RDW 14.5 % (12.1-15.2) 08/31/19 05:41 Plt Count 125 K/uL (152-406) L 08/31/19 05:41 MPV 9.2 fL (7.6-11.3) 08/31/19 05:41 Neutrophils % 71.4 % (41.7-73.7) 08/31/19 05:41 Lymphocytes % 20.6 % (15.3-44.8) 08/31/19 05:41 Monocytes % 6.6 % (3.3-12.3) 08/31/19 05:41 Eosinophils % 0.9 % (0-4.4) 08/31/19 05:41 Basophils % 0.5 % (0-1.3) 08/31/19 05:41 Absolute Neutrophils 4.9 K/uL (1.8-8.0) 08/31/19 05:41 Absolute Lymphocytes 1.4 K/uL (0.7-4.9) 08/31/19 05:41 Absolute Monocytes 0.5 K/uL (0.1-1.3) 08/31/19 05:41 Absolute Eosinophils 0.1 K/uL (0-0.5) 08/31/19 05:41 Absolute Basophils 0.0 K/uL (0-0.5) 08/31/19 05:41 Sodium 137 mmol/L (136-145) 08/31/19 05:41 Potassium 5.3 mmol/L (3.5-5.1) H 08/31/19 05:41 Chloride 100 mmol/L (98-107) 08/31/19 05:41 Carbon Dioxide 28 mmol/L (21-32) 08/31/19 05:41 BUN 42 mg/dL (7-18) H 08/31/19 05:41 Creatinine 9.00 mg/dL (0.55-1.3) H* D 08/31/19 05:41 Estimated GFR 6 mL/min (=/>90) L 08/31/19 05:41 Glucose 142 mg/dL (74-106) H 08/31/19 05:41 POC Glucose 76 mg/dl (65-120) 09/01/19 06:53 Calcium 9.4 mg/dL (8.5-10.1) 08/31/19 05:41 Phosphorus 7.2 mg/dL (2.5-4.9) H 08/28/19 05:34 Magnesium 2.7 mg/dL (1.8-2.4) H 08/31/19 05:41 Creatine Kinase 30 U/L (39-308) L 08/30/19 18:10 CK-MB (CK-2) < 1.0 ng/mL (0.3-3.6) 08/30/19 18:10 Troponin I < 0.02 ng/mL (0.0-0.045) 08/30/19 18:10 Albumin 2.9 g/dL (3.4-5.0) L 08/31/19 05:41 Prealbumin 28.2 mg/dL (20-40) 08/31/19 05:41 Hep Bs Antigen Nonreactive (Nonreactive) 08/25/19 06:19 Hep Bs Antibody Nonreactive (Nonreactive) 08/25/19 06:19 Hep Bs Antibody, Quant <5 mIU/mL (>=10) L 08/25/19 06:19 Hep B Core Total Ab Nonreactive (Nonreactive) 08/25/19 06:19 Hepatitis C Antibody Nonreactive (Nonreactive) 08/25/19 06:19 Hep C Ab Signal/Cutoff 0.03 ratio (<1.00) 08/25/19 06:19 Weight: 323 lb 8 oz Wound Present: Yes Closed Surgical Incision Present: No Negative Pressure Wound Therapy Present: No Physician Update: Labs reviewed and are stable. He developed a fluctuating headache over the last few days and would point to his head indicating more pain. His head CT scan showed a 1-2 mm hemorrhagic conversion in the left posterior hemispheric. He was placed on Eliquis 5 mg twice daily for DVT prophylaxis and possible contibuted to the [employer]LOOR [employer]ILING [employer]ESSION[employer] bleed. Will D/C Eliquis and use SCDs on the right leg. Will repeat a noncontrast head CT in about 3 days. Will start keppra 250 mg twice daily for seizure prophylaxis. He will require an extension of his stay by at least one week. Comment: 2 small open wounds on right lower leg, covered with bandaids, improvement noted Functional Improvement: pt is demonstrating progress with his functional mobility and safety. pt continues to exhibit significant communication deficits; however, these are improving. pt exhibits improved tolerance to ambulation and functional transfers. Speech Therapy Update: Moderate Receptive Aphasia and Moderate to Severe Expressive Apasia with notable improvement. Dysphagia improved and patient tolerating mechanical soft ground with regular liquids without s/s of aspiration Summary: Patient's care plan and fpc goals have been reviewed and revised as necessary. Please see the Rehabilitation Signature page for all necessary signatures.
--- NOTE | 2019-09-01 11:24 | EKG ---
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
--- NOTE | 2019-09-01 12:16 | FAST ---
ENCOUNTER DATE AND TIME: 09/01/2019 08:00 (CDT) NAME JOHN ABREU DATE OF : 1965 DATE OF ADMISSION: 08/14/2019 12:59 (CDT) PHONE: AGE: 54 N# [id number] GENDER: Male ENCOUNTER PHYSICIAN: Dr. Bennie Diaz M.D. ADMISSION DIAGNOSIS: - Stroke 01 - Left Body (Right Brain) (01.1) ACUTE CVA. EATING: Not assessed/no information CODE: - ORAL HYGIENE: ORAL HYGIENE - STEP 1: Does the patient complete the activity by him/herself with no assistance (physical, verbal/nonverbal cueing, setup/clean-up)? No. ORAL HYGIENE - STEP 2: Does the patient need only setup/clean-up assistance from one helper? No. ORAL HYGIENE - STEP 3: Does the patient need only verbal/nonverbal cueing or touching/steadying/contact guard assistance fro m one helper? Yes. 1. [id number] ADMISSION PERFORMANCE: Supervision or touching assistance CODE: 04 TOILETING HYGIENE: TOILETING HYGIENE - STEP 1: Does the patient complete the activity by him/herself with no assistance (physical, verbal/nonverbal cueing, setup/clean-up)? No. TOILETING HYGIENE - STEP 2: Does the patient need only setup/clean-up assistance from one helper? No. TOILETING HYGIENE - STEP 3: Does the patient need only verbal/nonverbal cueing or touching/steadying/contact guard assistance fro m one helper? Yes. 1. [id number] ADMISSION PERFORMANCE: Supervision or touching assistance CODE: 04 BATHING: SHOWER/BATHE SELF - STEP 1: Does the patient complete the activity by him/herself with no assistance (physical, verbal/nonverbal cueing, setup/clean-up)? No. SHOWER/BATHE SELF - STEP 2: Does the patient need only setup/clean-up assistance from one helper? No. SHOWER/BATHE SELF - STEP 3: Does the patient need only verbal/nonverbal cueing or touching/steadying/contact guard assistance fro m one helper? Yes. 1. [id number] ADMISSION PERFORMANCE: Supervision or touching assistance CODE: 04 DRESSING - UPPER BODY: DRESSING - UPPER BODY - STEP 1: Does the patient complete the activity by him/herself with no assistance (physical, verbal/nonverbal cueing, setup/clean-up)? No. DRESSING - UPPER BODY - STEP 2: Does the patient need only setup/clean-up assistance from one helper? Yes. 1. [id number] ADMISSION PERFORMANCE: Setup or clean-up assistance CODE: 05 DRESSING - LOWER BODY: DRESSING - LOWER BODY - STEP 1: Does the patient complete the activity by him/herself with no assistance (physical, verbal/nonverbal cueing, setup/clean-up)? No. DRESSING - LOWER BODY - STEP 2: Does the patient need only setup/clean-up assistance from one helper? No. DRESSING - LOWER BODY - STEP 3: Does the patient need only verbal/nonverbal cueing or touching/steadying/contact guard assistance fro m one helper? Yes. 1. [id number] ADMISSION PERFORMANCE: Supervision or touching assistance CODE: 04 PUTTING ON/TAKING OFF FOOTWEAR: FOOTWEAR - STEP 1: Does the patient complete the activity by him/herself with no assistance (physical, verbal/nonverbal cueing, setup/clean-up)? No. FOOTWEAR - STEP 2: Does the patient need only setup/clean-up assistance from one helper? No. FOOTWEAR - STEP 3: Does the patient need only verbal/nonverbal cueing or touching/steadying/contact guard assistance fro m one helper? No. FOOTWEAR - STEP 4: Does the patient need physical assistance - for example lifting or trunk support from one helper - wi th the helper providing less than half of the effort? Yes. 1. [id number] ADMISSION PERFORMANCE: Partial/moderate assistance CODE: 03 DOES THE PATIENT USE A WHEELCHAIR/SCOOTER? CODE: EXPR INDICATE THE TYPE OF WHEELCHAIR/SCOOTER USED: CODE: EXPR INDICATE THE TYPE OF WHEELCHAIR/SCOOTER USED: CODE: EXPR BLADDER AND BOWEL: CODE: EXPR CODE: EXPR SIGNATURE PANEL: The following modified sections: 1. [id number] Admission Performance, 1. [id number] Admission Performance, 1. [id number] Admission Performance, 1. [id number] Admission Performance, 1. [id number] Admission Performance, 1. [id number] Admission Performance, 1. [id number] Admission Performance were [electronically] signed by STEFANIA Lo on WedSep 01 2019 12:16:38 [facility]-0500 (Central Daylight Time)
[2019-09-01] MEDS: CODEINE 30MG/APAP 300MG TAB PO PRN (13:17)
[2019-09-01] MEDS: ATORVASTATIN 80 MG TAB PO SCH (20:20)
[2019-09-01] MEDS: DOCUSATE NA/SENNA CONC 1 TAB PO SCH (20:21)
--- NOTE | 2019-09-02 02:13 | FAST ---
SHIFT START DATE/TIME: 09/02/2019 19:00 (CDT) SHIFT END DATE/TIME: 09/03/2019 07:00 (CDT) NAME JOHN ABREU DATE OF : 1965 DATE OF ADMISSION: 08/14/2019 12:59 (CDT) PHONE: AGE: 54 SSN# [id number] GENDER: Male ENCOUNTER PHYSICIAN: Dr. Bennie Diaz M.D. ADMISSION DIAGNOSIS: - Stroke 01 - Left Body (Right Brain) (01.1) ACUTE CVA. EATING: Not assessed/no information CODE: - ORAL HYGIENE: Not assessed/no information CODE: - TOILETING HYGIENE: Not attempted due to medical condition or safety concerns CODE: 88 BATHING: Not assessed/no information CODE: - DRESSING - UPPER BODY: Not assessed/no information CODE: - DRESSING - LOWER BODY: Not assessed/no information CODE: - PUTTING ON/TAKING OFF FOOTWEAR: Not assessed/no information CODE: - ROLL LEFT AND RIGHT: Not assessed/no information CODE: - SIT TO LYING: Not assessed/no information CODE: - LYING TO SITTING: Not assessed/no information CODE: - SIT TO STAND: Not assessed/no information CODE: - TRANSFERS: BED, CHAIR: Not assessed/no information CODE: - TRANSFER TOILET: Not assessed/no information CODE: - TRANSFERS: CAR: Not assessed/no information CODE: - WALK 10 FEET: Not assessed/no information CODE: - 1 STEP (CURB): Not assessed/no information CODE: - PICKING UP OBJECT: Not assessed/no information CODE: - DOES THE PATIENT USE A WHEELCHAIR/SCOOTER? CODE: EXPR WHEEL 50 FEET WITH TWO TURNS: Not assessed/no information CODE: - INDICATE THE TYPE OF WHEELCHAIR/SCOOTER USED: CODE: EXPR WHEEL 150 FEET: Not assessed/no information CODE: - INDICATE THE TYPE OF WHEELCHAIR/SCOOTER USED: CODE: EXPR BLADDER AND BOWEL: H350. BLADDER CONTINENCE (3-DAY ASSESSMENT PERIOD): No urine output (e.g., renal failure) CODE: 5 H400. BOWEL CONTINENCE (3-DAY ASSESSMENT PERIOD): Always continent CODE: 0
[2019-09-02] MEDS: METOPROLOL TAR 25 MG TAB PO SCH ×2 (05:15→17:24)
[2019-09-02] MEDS: INSULIN -REGULAR HUMAN 50 UNIT/0.5 ML ML SQ SCH ×4 (07:02→20:26)
[2019-09-02] MEDS ORDERED: POLYETHYL GLY 3350 17 GM/DOSE PO PRN (07:04)
[2019-09-02] MEDS: INSULIN GLARGINE 100 UNITS/ML SQ SCH ×2 (08:22→20:58)
[2019-09-02] MEDS: ASPIRIN EC 81 MG TAB PO SCH (08:23)
[2019-09-02] MEDS: SEVELAMER CARBONATE 800 MG TABLET PO SCH ×4 (08:23→16:09)
[2019-09-02] MEDS: allopurinoL 300 MG TAB PO SCH (08:23)
[2019-09-02] MEDS: FOLIC ACID 1 MG TABLET PO SCH (08:23)
[2019-09-02] MEDS: FAMOTIDINE 20 MG TAB PO SCH (08:23)
[2019-09-02] MEDS: FUROSEMIDE 20 MG TABLET PO SCH (08:24)
[2019-09-02] MEDS: ZINC SULFATE 220 MG CAP PO SCH (08:24)
[2019-09-02] MEDS: GABAPENTIN 100 MG CAP PO SCH ×2 (08:24→20:26)
[2019-09-02] MEDS: ACETAMINOPHEN 500 MG TAB PO PRN (08:25)
[2019-09-02] MEDS: TOPIRAMATE 25 MG TAB PO SCH ×2 (09:24→20:26)
--- NOTE | 2019-09-02 14:07 | P.PN ---
Subjective Date of Service: 09/02/19 Subjective 54 Y/o man with HX of ESRD , CAD on ASA and plavix, admitted for AMS , found to have ischemic infract on 08/30 had headache and vomiting, repeated Ct showed hemorrhagic conversion , now off Eliquis Today no change in clinical status HD on Wednesday repeated CT : no new changes refusing Renvela , will consider to switch to Phoslo Physical Examination: General: AAOX3, , obese neck: supple, no elevated JVD Heart: RRR, normal S1,2 no murmur or rub chest CTAB, no rales or whezes Abdomen: soft , NT ext : lt BKA , Rt leg edema ESRD on HD MEF Cont HD , renal dose meds CVA neurology on board ASA , statin Eliquis Dcd due to hemorrhagic conversion PT/OT Anemia of chronic disease Cont epogen metabolic bone disaese cont binders refusing Renvela , will consider to switch to Phoslo DM on insulin HTN controlled total time spent 35min Physical Examination - Vital Signs Temperature: 97.7 F Blood Pressure: 136/63 Pulse: 60 Respirations: 16 Pulse Ox (%): 91
[2019-09-02] MEDS: ATORVASTATIN 80 MG TAB PO SCH (20:25)
[2019-09-02] MEDS: DOCUSATE NA/SENNA CONC 1 TAB PO SCH (20:26)
[2019-09-02] MEDS: CODEINE 30MG/APAP 300MG TAB PO PRN (23:31)
[2019-09-03] MEDS: METOPROLOL TAR 25 MG TAB PO SCH ×2 (05:26→16:21)
[2019-09-03] MEDS: FAMOTIDINE 20 MG TAB PO SCH (07:17)
[2019-09-03] MEDS: SEVELAMER CARBONATE 800 MG TABLET PO SCH ×3 (07:17→16:21)
[2019-09-03] MEDS: GABAPENTIN 100 MG CAP PO SCH ×2 (07:17→19:24)
[2019-09-03] MEDS: ASPIRIN EC 81 MG TAB PO SCH (07:18)
[2019-09-03] MEDS: FOLIC ACID 1 MG TABLET PO SCH (07:18)
[2019-09-03] MEDS: allopurinoL 300 MG TAB PO SCH (07:18)
[2019-09-03] MEDS: FUROSEMIDE 20 MG TABLET PO SCH (07:18)
[2019-09-03] MEDS: INSULIN -REGULAR HUMAN 50 UNIT/0.5 ML ML SQ SCH ×4 (07:18→20:03)
[2019-09-03] MEDS: ZINC SULFATE 220 MG CAP PO SCH (07:18)
[2019-09-03] MEDS: TOPIRAMATE 25 MG TAB PO SCH ×2 (07:18→19:24)
[2019-09-03] MEDS: INSULIN GLARGINE 100 UNITS/ML SQ SCH ×2 (08:43→19:24)
[2019-09-03] MEDS: ATORVASTATIN 80 MG TAB PO SCH (20:03)
[2019-09-03] MEDS: MELATONIN 3 MG TABLET PO PRN (20:03)
[2019-09-03] MEDS: DOCUSATE NA/SENNA CONC 1 TAB PO SCH (20:04)
[2019-09-04] MEDS: METOPROLOL TAR 25 MG TAB PO SCH ×2 (05:11→16:33)
[2019-09-04] MEDS: INSULIN -REGULAR HUMAN 50 UNIT/0.5 ML ML SQ SCH ×4 (07:30→20:35)
[2019-09-04] MEDS: SEVELAMER CARBONATE 800 MG TABLET PO SCH ×3 (08:30→16:32)
[2019-09-04] MEDS: FAMOTIDINE 20 MG TAB PO SCH (08:30)
[2019-09-04] MEDS: ZINC SULFATE 220 MG CAP PO SCH (08:30)
[2019-09-04] MEDS: GABAPENTIN 100 MG CAP PO SCH ×2 (08:30→20:00)
[2019-09-04] MEDS: ASPIRIN EC 81 MG TAB PO SCH (08:30)
[2019-09-04] MEDS: ACETAMINOPHEN 500 MG TAB PO PRN (08:31)
[2019-09-04] MEDS: FUROSEMIDE 20 MG TABLET PO SCH (08:31)
[2019-09-04] MEDS: TOPIRAMATE 25 MG TAB PO SCH ×2 (08:31→20:34)
[2019-09-04] MEDS: allopurinoL 300 MG TAB PO SCH (08:31)
[2019-09-04] MEDS: FOLIC ACID 1 MG TABLET PO SCH (08:31)
[2019-09-04] MEDS: INSULIN GLARGINE 100 UNITS/ML SQ SCH ×2 (08:32→20:00)
--- NOTE | 2019-09-04 14:25 | FAST ---
SHIFT START DATE/TIME: 09/04/2019 07:00 (CDT) SHIFT END DATE/TIME: 09/04/2019 19:00 (CDT) NAME JOHN ABREU DATE OF : 1965 DATE OF ADMISSION: 08/14/2019 12:59 (CDT) PHONE: AGE: 54 N# [id number] GENDER: Male ENCOUNTER PHYSICIAN: Dr. Bennie Diaz M.D. ADMISSION DIAGNOSIS: - Stroke 01 - Left Body (Right Brain) (01.1) ACUTE CVA. EATING: EATING - STEP 1: Does the patient complete the activity by him/herself with no assistance (physical, verbal/nonverbal cueing, setup/clean-up)? No. EATING - STEP 2: Does the patient need only setup/clean-up assistance from one helper? Yes. 1. [id number] ADMISSION PERFORMANCE: Setup or clean-up assistance CODE: 05 ORAL HYGIENE: ORAL HYGIENE - STEP 1: Does the patient complete the activity by him/herself with no assistance (physical, verbal/nonverbal cueing, setup/clean-up)? No. ORAL HYGIENE - STEP 2: Does the patient need only setup/clean-up assistance from one helper? Yes. 1. [id number] ADMISSION PERFORMANCE: Setup or clean-up assistance CODE: 05 TOILETING HYGIENE: TOILETING HYGIENE - STEP 1: Does the patient complete the activity by him/herself with no assistance (physical, verbal/nonverbal cueing, setup/clean-up)? No. TOILETING HYGIENE - STEP 2: Does the patient need only setup/clean-up assistance from one helper? No. TOILETING HYGIENE - STEP 3: Does the patient need only verbal/nonverbal cueing or touching/steadying/contact guard assistance fro m one helper? Yes. 1. [id number] ADMISSION PERFORMANCE: Supervision or touching assistance CODE: 04 BATHING: Not assessed/no information CODE: - DRESSING - UPPER BODY: DRESSING - UPPER BODY - STEP 1: Does the patient complete the activity by him/herself with no assistance (physical, verbal/nonverbal cueing, setup/clean-up)? No. DRESSING - UPPER BODY - STEP 2: Does the patient need only setup/clean-up assistance from one helper? No. DRESSING - UPPER BODY - STEP 3: Does the patient need only verbal/nonverbal cueing or touching/steadying/contact guard assistance fro m one helper? Yes. 1. [id number] ADMISSION PERFORMANCE: Supervision or touching assistance CODE: 04 DRESSING - LOWER BODY: DRESSING - LOWER BODY - STEP 1: Does the patient complete the activity by him/herself with no assistance (physical, verbal/nonverbal cueing, setup/clean-up)? No. DRESSING - LOWER BODY - STEP 2: Does the patient need only setup/clean-up assistance from one helper? No. DRESSING - LOWER BODY - STEP 3: Does the patient need only verbal/nonverbal cueing or touching/steadying/contact guard assistance fro m one helper? Yes. 1. [id number] ADMISSION PERFORMANCE: Supervision or touching assistance CODE: 04 PUTTING ON/TAKING OFF FOOTWEAR: FOOTWEAR - STEP 1: Does the patient complete the activity by him/herself with no assistance (physical, verbal/nonverbal cueing, setup/clean-up)? No. FOOTWEAR - STEP 2: Does the patient need only setup/clean-up assistance from one helper? No. FOOTWEAR - STEP 3: Does the patient need only verbal/nonverbal cueing or touching/steadying/contact guard assistance fro m one helper? Yes. 1. [id number] ADMISSION PERFORMANCE: Supervision or touching assistance CODE: 04 ROLL LEFT AND RIGHT: ROLL LEFT AND RIGHT - STEP 1: Does the patient complete the activity by him/herself with no assistance (physical, verbal/nonverbal cueing, setup/clean-up)? No. ROLL LEFT AND RIGHT - STEP 2: Does the patient need only setup/clean-up assistance from one helper? No. ROLL LEFT AND RIGHT - STEP 3: Does the patient need only verbal/nonverbal cueing or touching/steadying/contact guard assistance fro m one helper? Yes. 1. [id number] ADMISSION PERFORMANCE: Supervision or touching assistance CODE: 04 SIT TO LYING: SIT TO LYING - STEP 1: Does the patient complete the activity by him/herself with no assistance (physical, verbal/nonverbal cueing, setup/clean-up)? No. SIT TO LYING - STEP 2: Does the patient need only setup/clean-up assistance from one helper? No. SIT TO LYING - STEP 3: Does the patient need only verbal/nonverbal cueing or touching/steadying/contact guard assistance fro m one helper? Yes. 1. [id number] ADMISSION PERFORMANCE: Supervision or touching assistance CODE: 04 LYING TO SITTING: LYING TO SITTING ON SIDE OF BED - STEP 1: Does the patient complete the activity by him/herself with no assistance (physical, verbal/nonverbal cueing, setup/clean-up)? No. LYING TO SITTING ON SIDE OF BED - STEP 2: Does the patient need only setup/clean-up assistance from one helper? No. LYING TO SITTING ON SIDE OF BED - STEP 3: Does the patient need only verbal/nonverbal cueing or touching/steadying/contact guard assistance fro m one helper? Yes. 1. [id number] ADMISSION PERFORMANCE: Supervision or touching assistance CODE: 04 SIT TO STAND: SIT TO STAND - STEP 1: Does the patient complete the activity by him/herself with no assistance (physical, verbal/nonverbal cueing, setup/clean-up)? No. SIT TO STAND - STEP 2: Does the patient need only setup/clean-up assistance from one helper? No. SIT TO STAND - STEP 3: Does the patient need only verbal/nonverbal cueing or touching/steadying/contact guard assistance fro m one helper? Yes. 1. [id number] ADMISSION PERFORMANCE: Supervision or touching assistance CODE: 04 TRANSFERS: BED, CHAIR: CHAIR/[id number] TRANSFER - STEP 1: Does the patient complete the activity by him/herself with no assistance (physical, verbal/nonverbal cueing, setup/clean-up)? No. CHAIR/[id number] TRANSFER - STEP 2: Does the patient need only setup/clean-up assistance from one helper? No. CHAIR/[id number] TRANSFER - STEP 3: Does the patient need only verbal/nonverbal cueing or touching/steadying/contact guard assistance fro m one helper? Yes. 1. [id number] ADMISSION PERFORMANCE: Supervision or touching assistance CODE: 04 TRANSFER TOILET: TOILET TRANSFER - STEP 1: Does the patient complete the activity by him/herself with no assistance (physical, verbal/nonverbal cueing, setup/clean-up)? No. TOILET TRANSFER - STEP 2: Does the patient need only setup/clean-up assistance from one helper? No. TOILET TRANSFER - STEP 3: Does the patient need only verbal/nonverbal cueing or touching/steadying/contact guard assistance fro m one helper? Yes. 1. [id number] ADMISSION PERFORMANCE: Supervision or touching assistance CODE: 04 TRANSFERS: CAR: Not assessed/no information CODE: - WALK 10 FEET: Not assessed/no information CODE: - 1 STEP (CURB): Not assessed/no information CODE: - PICKING UP OBJECT: Not assessed/no information CODE: - DOES THE PATIENT USE A WHEELCHAIR/SCOOTER? Q1. DOES THE PATIENT USE A WHEELCHAIR/SCOOTER?: Yes CODE: 1 WHEEL 50 FEET WITH TWO TURNS: Not assessed/no information CODE: - INDICATE THE TYPE OF WHEELCHAIR/SCOOTER USED: RR1. INDICATE THE TYPE OF WHEELCHAIR/SCOOTER USED.: Manual CODE: 1 WHEEL 150 FEET: Not assessed/no information CODE: - INDICATE THE TYPE OF WHEELCHAIR/SCOOTER USED: CODE: EXPR BLADDER AND BOWEL: H350. BLADDER CONTINENCE (3-DAY ASSESSMENT PERIOD): No urine output (e.g., renal failure) CODE: 5 H400. BOWEL CONTINENCE (3-DAY ASSESSMENT PERIOD): Occasionally incontinent (one episode of bowel incontinence) CODE: 1 SIGNATURE PANEL: The following modified sections: 1. [id number] Admission Performance, 1. [id number] Admission Performance, 1. [id number] Admission Performance, 1. [id number] Admission Performance, 1. GN8659d Admission Performance, 1. TM6934f Admission Performance, 1. [id number] Admission Performance, 1. FS0254N Admission Performance , 1. [id number] Admission Performance, 1. [id number] Admission Performance, 1. [id number] Admission Performanc e, 1. EN7473V Admission Performance, Q1. Does the patient use a wheelchair/scooter?, RR1. Indicate th e type of wheelchair/scooter used., Code, H350. Bladder Continence (3-day assessment period), H400. B owel Continence (3-day assessment period) were [electronically] signed by Yola Salazar C.N.A. on WedSep 04 2019 14:24:02 [facility]-0500 (Central Daylight Time)
--- NOTE | 2019-09-04 17:38 | R.PN ---
ENCOUNTER DATE AND TIME: 09/04/2019 17:34 (CDT) NAME JOHN ABREU DATE OF : 1965 DATE OF ADMISSION: 08/14/2019 12:59 (CDT) ACUTE CVACHIEF COMPLAINT: Aphasic stroke, right sided weakness and chronic left BKA, ESRD on HD SUBJECTIVE: Pt denied any Shortness of Breath. Pt denied any depression. WBC 6.9, Hgb 10.0 Label Rewinder 9.0, glucose 86 to 119. Lantus 20 units twice daily with better glucose control . Prealbumin 28.2. Self-propelled wheelchair 500' with independence. Ambulated 150' with standby assistance using a sing le prong cane. Up and down 15 steps with standby assistance. VITAL SIGNS Temperature: 97.3 F SBP/DBP: 139/53 Pulse: 60 Resp: 16 MEDICATION ALLERGIES: No Known Drug Allergies (NKDA) ENVIRONMENTAL ALLERGIES: - Substance Allergies None Known - Other Allergies None Known NURSING: - Shower allowing shower - Bladder care per protocol - Skin care per protocol PRECAUTIONS: - Weight Bearing Precaution WBAT left LE ACTIVITIES OOB only with supervision THERAPIES: - Occupational Therapy Cognitive Retraining. Visual Perceptual Training. - Dietary and Nutrition Adequate Nutrition. Nutritional Education. Nutritional Supplements. - Speech Therapy Cognitive Training. Expressive Language Skills. Memory Strategies. Receptive Language Skills. Speech Intelligibility Training. PHYSICAL EXAM - Gen Alert and awake Lying in bed No apparent distress Oriented to: person, time, and place - Skin No skin breakdown. No abnormalities - Eyes No abnormalities - ENMT No abnormalities - Neck No abnormalities - CVS RRR - Chest Clear - Abd Soft - GI Soft Deferred - No abnormalities - Ext Right BKA with prosthesis in place. - MSK 4/5 weakness in both lower extremities. - Neuro No focal deficits - Psych No abnormalities ASSESSMENT: Pt. is a 54 yo Right-handed white male.On 08/11/2019 Pt. presented to [facility] with topete dden onset of left-side weakness.On 08/11/2019 he was admitted to [facility] with diagno sis ACUTE CVA.His impairment category is Stroke 01 - Left Body (Right Brain) (01.1).Pre-morbidly, Pt . was independent/mod-I in Safety Awareness, Balance, Self-Care, and Transfers Control; and he had go od Locomotion, Social Cognition, Sphincter Control, Endurance, and Communication.Currently, he has de ficits of Safety Awareness, Endurance, Balance, Transfers Control, and Sphincter Control.Pt. is now r eferred to [facility] for acute in-patient rehabilitation in order to maximize patient's functional independence in activities of daily living, strength, ROM, and mobility.- Rehab Goal Patient has realistic goal of being discharged at assistance level 6-Aden to reside at Home with Fam kenzie/Relatives. MDM/PLAN: - Physical Therapy Gait dysfunction - to improve, our physical therapists will perform initial evaluation of pt's statu s upon admission and devise an individualized program for Gait Training, and Wheel Chair mobility Inability to transfer - to improve, our physical therapists will perform initial evaluation of pt's status upon admission and devise an individualized program for Bed mobility Need for home safety evaluation - to improve, our physical therapists will perform initial evaluatio n of pt's status upon admission and devise an individualized program for Home Evaluation Need in caregiver upon discharge - to improve, our physical therapists will perform initial evaluati on of pt's status upon admission and devise an individualized program for Caregiver Training New precaution - to improve, our physical therapists will perform initial evaluation of pt's status upon admission and devise an individualized program for Patient precaution education Poor balance - to improve, our physical therapists will perform initial evaluation of pt's status up on admission and devise an individualized program for Balance Training Poor endurance - to improve, our physical therapists will perform initial evaluation of pt's status upon admission and devise an individualized program for Endurance Training Achieving independence - to improve, our physical therapists will perform initial evaluation of pt's status upon admission and devise an individualized program for Community Reintegration Activities - Occupational Therapy Need for care team coordinator scheduler - to improve, our occupation therapists will perform initial evaluation of pt's status upon admission and devise an individualized program for Caregiver Training - Other See attached MAR (Medication Administration Record) - Diet Type Continue Regular - Diet - Liquid Texture Continue Regular - Tube Feed Continue N/A - Bladder care per protocol - Weight Bearing Precaution WBAT left LE - Skin care per protocol - Diet - Solid Texture Continue Regular - Shower allowing shower for Dementia, TBI, Stroke, or others FUNCTIONAL STATUS: UPDATED AT WEEKLY TEAM CONFERENCE - Bladder Same accident frequency: 7-Ind - No accidents in the past 7 days - Bowel Same accident frequency: 7-Ind - No accidents in the past 7 days - Walking Same score based on distance walked: 0(N/A) - Wheelchair Same score based on distance traveled: 0(N/A) FUNCTIONAL STATUS: - Self-Care A. Eating Aden B. Grooming Aden C. Bathing sup D. Dressing - Upper Aden E. Dressing - Lower sup F. Toileting sup - Sphincter Control G. Bladder control modA H. Bowel control Aden - Transfers Control I. Bed/Chair/Wheelchair sup J. Toilet sup K. Tub/Shower sup - Locomotion L. Walk/Wheelchair (B) Elham M. Stairs Elham - Communication N. Comprehension (B) Elham O. Expression (B) Elham - Social Cognition P. Social Interaction Elham Q. Problem Solving Elham R. Memory sup - Endurance Good - Balance Fair - Safety Awareness Fair QI SCORES: - Self-Care A. Eating 06-Independent B. Oral hygiene 03-Partial/moderate assistance C. Toileting hygiene 03-Partial/moderate assistance E. Shower/bathe self 03-Partial/moderate assistance F. Upper body dressing 03-Partial/moderate assistance G. Lower body dressing 03-Partial/moderate assistance H. Putting on/taking off footwear 88-Not attempted due to medical condition or safety concerns - Mobility A. Roll left and right 03-Partial/moderate assistance B. Sit to lying 03-Partial/moderate assistance C. Lying to sitting on side of bed 03-Partial/moderate assistance D. Sit to stand 03-Partial/moderate assistance F. Toilet transfer 03-Partial/moderate assistance G. Car transfer 88-Not attempted due to medical condition or safety concerns I. Walk 10 feet 03-Partial/moderate assistance J. Walk 50 feet with two turns 88-Not attempted due to medical condition or safety concerns K. Walk 150 feet 88-Not attempted due to medical condition or safety concerns L. Walking 10 feet on uneven surfaces 88-Not attempted due to medical condition or safety concerns M. 1 step (curb) 88-Not attempted due to medical condition or safety concerns N. 4 steps 88-Not attempted due to medical condition or safety concerns O. 12 steps 88-Not attempted due to medical condition or safety concerns P. Picking up object 03-Partial/moderate assistance R. Wheel 50 feet with two turns 88-Not attempted due to medical condition or safety concerns S. Wheel 150 feet 88-Not attempted due to medical condition or safety concerns - Bladder and Bowel Bladder continence 0-Always continent Bowel continence 0-Always continent - Endurance Good - Balance Fair - Safety Awareness Good [facility] Mobility, Balance, and Self-Care SIGNATURE PANEL: (CDT)
--- NOTE | 2019-09-04 18:20 | RAD REPORT ---
EXAM DESCRIPTION: CT - Head Brain Wo Cont - 09/04/2019 6:04 pm CLINICAL HISTORY: headache CVA, drowsiness COMPARISON: Head Brain Wo Cont dated 09/01/2019; Head Brain Wo Cont dated 08/31/2019 TECHNIQUE: All CT scans are performed using dose optimization technique as appropriate and may inclu de automated exposure control or mA/KV adjustment according to patient size. FINDINGS: Large left-sided subacute temporoparietal CVA with hemorrhagic conversion again seen. Over all, no progression is seen in the degree of hemorrhagic conversion or vasogenic edema.Mild left-to-r ight midline shift of 2 mm stable. No new areas of hemorrhage seen. No hydrocephalus. Prominent polyp versus mucous retention cyst left maxillary antrum. The paranasal sinuses and mastoid s are otherwise clear. The calvarium is intact. IMPRESSION: Stable examination since 09/01/2019 as detailed. No acute or aggressive abnormality.
[2019-09-04] MEDS: levETIRAcetam 500 MG TAB PO SCH (20:00)
[2019-09-04] MEDS: DOCUSATE NA/SENNA CONC 1 TAB PO SCH (20:35)
[2019-09-04] MEDS: ATORVASTATIN 80 MG TAB PO SCH (20:35)
--- NOTE | 2019-09-05 02:18 | PN ---
Date of Progress Note: 09/04/2019 Chief Complaint: End-stage renal disease. Patient is undergoing dialysis 3 times per week. Review of Systems: Denies new complaints. Physical Examination: Lungs: Clear to auscultation bilaterally. Heart: S1, S2. Abdomen: Soft, benign. Extremities: No edema. Impression And Plan: 1.End-stage renal disease. Continue dialysis 3 times per week. 2.Anemia. Continue CRISTIANO. 3.Renal osteodystrophy. Continue renal diet and binders. EB/MODL Voice ID: [id number] Report ID: [id number]
[2019-09-05] MEDS: METOPROLOL TAR 25 MG TAB PO SCH ×2 (05:10→16:36)
[2019-09-05] MEDS: INSULIN -REGULAR HUMAN 50 UNIT/0.5 ML ML SQ SCH ×4 (07:00→20:39)
[2019-09-05] MEDS: levETIRAcetam 500 MG TAB PO SCH ×2 (07:13→20:38)
[2019-09-05] MEDS: GABAPENTIN 100 MG CAP PO SCH ×2 (07:13→20:38)
[2019-09-05] MEDS: ZINC SULFATE 220 MG CAP PO SCH (07:13)
[2019-09-05] MEDS: FAMOTIDINE 20 MG TAB PO SCH (07:13)
[2019-09-05] MEDS: FOLIC ACID 1 MG TABLET PO SCH (07:13)
[2019-09-05] MEDS: ASPIRIN EC 81 MG TAB PO SCH (07:13)
[2019-09-05] MEDS: TOPIRAMATE 25 MG TAB PO SCH ×2 (07:13→20:38)
[2019-09-05] MEDS: SEVELAMER CARBONATE 800 MG TABLET PO SCH ×3 (07:13→16:36)
[2019-09-05] MEDS: allopurinoL 300 MG TAB PO SCH (07:14)
[2019-09-05] MEDS: INSULIN GLARGINE 100 UNITS/ML SQ SCH ×2 (07:14→20:38)
[2019-09-05] MEDS: FUROSEMIDE 20 MG TABLET PO SCH (07:16)
[2019-09-05] MEDS: ACETAMINOPHEN 500 MG TAB PO PRN (08:51)
[2019-09-05] MEDS: ATORVASTATIN 80 MG TAB PO SCH (20:38)
[2019-09-05] MEDS: MELATONIN 3 MG TABLET PO PRN (20:38)
[2019-09-05] MEDS: DOCUSATE NA/SENNA CONC 1 TAB PO SCH (20:38)
[2019-09-05] MEDS ORDERED: SIMETHICONE 80 MG TAB PO PRN (20:58)
[2019-09-05] MEDS: PANTOPRAZOLE 40MG TABLET PO SCH (21:49)
[2019-09-06] MEDS: METOPROLOL TAR 25 MG TAB PO SCH ×2 (05:13→16:56)
[2019-09-06] MEDS: PANTOPRAZOLE 40MG TABLET PO SCH (06:41)
[2019-09-06] MEDS: INSULIN -REGULAR HUMAN 50 UNIT/0.5 ML ML SQ SCH ×4 (06:47→20:23)
[2019-09-06 07:42] LABS: Absolute Lymphocytes (CBC) 1.3 K/uL (0.7-4.9); Basophils % 0.5 % (0-1.3); Hematocrit 30.3 % (39.6-49.0); Lymphocytes % 14.7 % (15.3-44.8); MPV 9.3 fL (7.6-11.3); RBC Red Blood Cell Count 2.97 M/uL (4.33-5.43)
[2019-09-06] MEDS: FUROSEMIDE 20 MG TABLET PO SCH (08:00)
[2019-09-06 08:03] LABS: Albumin 3.2 g/dL (3.4-5.0); Prealbumin 32.2 mg/dL (20-40)
[2019-09-06 08:24] LABS: Potassium 6.3 mmol/L (3.5-5.1)
[2019-09-06] MEDS ORDERED: ALBUTEROL 2.5 MG/3 ML NEB SOL NEB ONE (08:28)
[2019-09-06] MEDS: ACETAMINOPHEN 500 MG TAB PO PRN ×2 (08:39→16:56)
[2019-09-06] MEDS: ASPIRIN EC 81 MG TAB PO SCH (08:40)
[2019-09-06] MEDS: GABAPENTIN 100 MG CAP PO SCH ×2 (08:40→20:23)
[2019-09-06] MEDS: FAMOTIDINE 20 MG TAB PO SCH (08:40)
[2019-09-06] MEDS: SEVELAMER CARBONATE 800 MG TABLET PO SCH ×3 (08:40→16:56)
[2019-09-06] MEDS: allopurinoL 300 MG TAB PO SCH (08:40)
[2019-09-06] MEDS: FOLIC ACID 1 MG TABLET PO SCH (08:41)
[2019-09-06] MEDS: levETIRAcetam 500 MG TAB PO SCH ×2 (08:41→20:23)
[2019-09-06] MEDS: ZINC SULFATE 220 MG CAP PO SCH (08:41)
[2019-09-06] MEDS: TOPIRAMATE 25 MG TAB PO SCH ×2 (08:42→20:23)
[2019-09-06] MEDS: INSULIN GLARGINE 100 UNITS/ML SQ SCH ×2 (08:48→20:22)
[2019-09-06] MEDS: FLUTICASONE 50MCG NASAL SPRAY NAS SCH (10:39)
--- NOTE | 2019-09-06 13:59 | R.PN ---
ENCOUNTER DATE AND TIME: 09/06/2019 13:55 (CDT) NAME JOHN ABREU DATE OF : 1965 DATE OF ADMISSION: 08/14/2019 12:59 (CDT) ACUTE CVACHIEF COMPLAINT: Aphasic stroke, right sided weakness and chronic left BKA, ESRD on HD SUBJECTIVE: Pt denied any Shortness of Breath. Pt denied any depression. WBC 6.9, Hgb 10.0 Stave Machine Tender 10.6, K was 6.3, glucose 123. Lantus 20 units twice daily with better glucose control. Prealbumin 28.2. Will repeat BMP in the AM. Self-propelled wheelchair 500' with independence. Ambulated 150' with standby assistance using a sing le prong cane. Up and down 15 steps with standby assistance. VITAL SIGNS Temperature: 97.3 F SBP/DBP: 135/60 Pulse: 62 Resp: 16 MEDICATION ALLERGIES: No Known Drug Allergies (NKDA) ENVIRONMENTAL ALLERGIES: - Substance Allergies None Known - Other Allergies None Known NURSING: - Shower allowing shower - Bladder care per protocol - Skin care per protocol PRECAUTIONS: - Weight Bearing Precaution WBAT left LE ACTIVITIES OOB only with supervision THERAPIES: - Occupational Therapy Cognitive Retraining. Visual Perceptual Training. - Dietary and Nutrition Adequate Nutrition. Nutritional Education. Nutritional Supplements. - Speech Therapy Cognitive Training. Expressive Language Skills. Memory Strategies. Receptive Language Skills. Speech Intelligibility Training. PHYSICAL EXAM - Gen Alert and awake Lying in bed No apparent distress Oriented to: person, time, and place - Skin No skin breakdown. No abnormalities - Eyes No abnormalities - ENMT No abnormalities - Neck No abnormalities - CVS RRR - Chest Clear - Abd Soft - GI Soft Deferred - No abnormalities - Ext Right BKA with prosthesis in place. - MSK 4/5 weakness in both lower extremities. - Neuro No focal deficits - Psych No abnormalities ASSESSMENT: Pt. is a 54 yo Right-handed white male.On 08/11/2019 Pt. presented to [facility] with topete dden onset of left-side weakness.On 08/11/2019 he was admitted to [facility] with diagno sis ACUTE CVA.His impairment category is Stroke 01 - Left Body (Right Brain) (01.1).Pre-morbidly, Pt . was independent/mod-I in Safety Awareness, Balance, Self-Care, and Transfers Control; and he had go od Locomotion, Social Cognition, Sphincter Control, Endurance, and Communication.Currently, he has de ficits of Safety Awareness, Endurance, Balance, Transfers Control, and Sphincter Control.Pt. is now r eferred to [facility] for acute in-patient rehabilitation in order to maximize patient's functional independence in activities of daily living, strength, ROM, and mobility.- Rehab Goal Patient has realistic goal of being discharged at assistance level 6-Aden to reside at Home with Fam kenzie/Relatives. MDM/PLAN: - Physical Therapy Gait dysfunction - to improve, our physical therapists will perform initial evaluation of pt's statu s upon admission and devise an individualized program for Gait Training, and Wheel Chair mobility Inability to transfer - to improve, our physical therapists will perform initial evaluation of pt's status upon admission and devise an individualized program for Bed mobility Need for home safety evaluation - to improve, our physical therapists will perform initial evaluatio n of pt's status upon admission and devise an individualized program for Home Evaluation Need in caregiver upon discharge - to improve, our physical therapists will perform initial evaluati on of pt's status upon admission and devise an individualized program for Caregiver Training New precaution - to improve, our physical therapists will perform initial evaluation of pt's status upon admission and devise an individualized program for Patient precaution education Poor balance - to improve, our physical therapists will perform initial evaluation of pt's status up on admission and devise an individualized program for Balance Training Poor endurance - to improve, our physical therapists will perform initial evaluation of pt's status upon admission and devise an individualized program for Endurance Training Achieving independence - to improve, our physical therapists will perform initial evaluation of pt's status upon admission and devise an individualized program for Community Reintegration Activities - Occupational Therapy Need for long term care phlebotomist - to improve, our occupation therapists will perform initial evaluation of pt's status upon admission and devise an individualized program for Caregiver Training - Other See attached MAR (Medication Administration Record) - Diet Type Continue Regular - Diet - Liquid Texture Continue Regular - Tube Feed Continue N/A - Bladder care per protocol - Weight Bearing Precaution WBAT left LE - Skin care per protocol - Diet - Solid Texture Continue Regular - Shower allowing shower for Dementia, TBI, Stroke, or others FUNCTIONAL STATUS: UPDATED AT WEEKLY TEAM CONFERENCE - Bladder Same accident frequency: 7-Ind - No accidents in the past 7 days - Bowel Same accident frequency: 7-Ind - No accidents in the past 7 days - Walking Same score based on distance walked: 0(N/A) - Wheelchair Same score based on distance traveled: 0(N/A) FUNCTIONAL STATUS: - Self-Care A. Eating Aden B. Grooming Aden C. Bathing sup D. Dressing - Upper Aden E. Dressing - Lower sup F. Toileting sup - Sphincter Control G. Bladder control modA H. Bowel control Aden - Transfers Control I. Bed/Chair/Wheelchair sup J. Toilet sup K. Tub/Shower sup - Locomotion L. Walk/Wheelchair (B) Elham M. Stairs Elham - Communication N. Comprehension (B) Elham O. Expression (B) Elham - Social Cognition P. Social Interaction Elham Q. Problem Solving Elham R. Memory sup - Endurance Good - Balance Fair - Safety Awareness Fair QI SCORES: - Self-Care A. Eating 06-Independent B. Oral hygiene 03-Partial/moderate assistance C. Toileting hygiene 03-Partial/moderate assistance E. Shower/bathe self 03-Partial/moderate assistance F. Upper body dressing 03-Partial/moderate assistance G. Lower body dressing 03-Partial/moderate assistance H. Putting on/taking off footwear 88-Not attempted due to medical condition or safety concerns - Mobility A. Roll left and right 03-Partial/moderate assistance B. Sit to lying 03-Partial/moderate assistance C. Lying to sitting on side of bed 03-Partial/moderate assistance D. Sit to stand 03-Partial/moderate assistance F. Toilet transfer 03-Partial/moderate assistance G. Car transfer 88-Not attempted due to medical condition or safety concerns I. Walk 10 feet 03-Partial/moderate assistance J. Walk 50 feet with two turns 88-Not attempted due to medical condition or safety concerns K. Walk 150 feet 88-Not attempted due to medical condition or safety concerns L. Walking 10 feet on uneven surfaces 88-Not attempted due to medical condition or safety concerns M. 1 step (curb) 88-Not attempted due to medical condition or safety concerns N. 4 steps 88-Not attempted due to medical condition or safety concerns O. 12 steps 88-Not attempted due to medical condition or safety concerns P. Picking up object 03-Partial/moderate assistance R. Wheel 50 feet with two turns 88-Not attempted due to medical condition or safety concerns S. Wheel 150 feet 88-Not attempted due to medical condition or safety concerns - Bladder and Bowel Bladder continence 0-Always continent Bowel continence 0-Always continent - Endurance Good - Balance Fair - Safety Awareness Good CURRENT FUNC. DEFICITS: Mobility, Balance, and Self-Care SIGNATURE PANEL: (CDT)
--- NOTE | 2019-09-06 17:47 | PN ---
Date of Progress Note: 09/06/2019 Patient was admitted with temporal CVA. Patient on rehab. Patient converted his CVA to hemorrhagic. Patient still has dysarthria. Patient's lab show hyperkalemia. Physical Examination: Vital Signs: Blood pressure 124/58, pulse of 53. Chest: Clear to auscultation. Heart: S1, S2. Systolic murmur. Abdomen: Soft, obese. Extremities: On the right, venous stasis change. Left below-knee amputation. Neuro: Dysarthria, right facial drop. Laboratory Data: H and H 02/15.3. Sodium 136, potassium 6.3, bicarb 25, BUN 53, creatinine 10, calc ium of 9. Albumin 3.2. Current Medications: The patient on include: 1.Aspirin. 2.Albuterol. 3.Atorvastatin. 4.Metoprolol. 5.Gabapentin. 6.Lasix. 7.Renvela. 8.Pantoprazole. Assessment And Plan: 1.End-stage renal disease with hyperkalemia. Patient is going to be dialyzed on 1 K bath. 2.Hypertension. Continue current medication. 3.Hyperkalemia. Patient received albuterol. We will dialyze the patient on low-potassium bath next day. 4.Hyperphosphatemia secondary to hyperpara. Continue Renvela. 5.Cerebrovascular accident. Follow up with Neuro. We are not going to use heparin as it is hemorrh agic. SHERLYN/LYUDMILA Voice ID: [id number] Report ID: [id number]
[2019-09-06] MEDS: MELATONIN 3 MG TABLET PO PRN (20:23)
[2019-09-06] MEDS: ATORVASTATIN 80 MG TAB PO SCH (20:23)
[2019-09-06] MEDS: DOCUSATE NA/SENNA CONC 1 TAB PO SCH (20:24)
[2019-09-07] MEDS: METOPROLOL TAR 25 MG TAB PO SCH ×2 (05:20→16:57)
[2019-09-07 06:23] LABS: Absolute Lymphocytes (CBC) 1.3 K/uL (0.7-4.9); Basophils % 0.6 % (0-1.3); Hematocrit 28.1 % (39.6-49.0); Lymphocytes % 20.8 % (15.3-44.8); MPV 9.1 fL (7.6-11.3); RBC Red Blood Cell Count 2.77 M/uL (4.33-5.43)
[2019-09-07] MEDS: FLUTICASONE 50MCG NASAL SPRAY NAS SCH (06:40)
[2019-09-07] MEDS: PANTOPRAZOLE 40MG TABLET PO SCH (06:40)
[2019-09-07] MEDS: INSULIN -REGULAR HUMAN 50 UNIT/0.5 ML ML SQ SCH ×5 (07:03→19:20)
[2019-09-07 07:28] LABS: Potassium 5.1 mmol/L (3.5-5.1)
[2019-09-07] MEDS: GABAPENTIN 100 MG CAP PO SCH (08:00)
[2019-09-07] MEDS: INSULIN GLARGINE 100 UNITS/ML SQ SCH ×2 (08:07→19:23)
[2019-09-07] MEDS: ASPIRIN EC 81 MG TAB PO SCH (08:07)
[2019-09-07] MEDS: SEVELAMER CARBONATE 800 MG TABLET PO SCH ×3 (08:07→16:57)
[2019-09-07] MEDS: FAMOTIDINE 20 MG TAB PO SCH (08:07)
[2019-09-07] MEDS: levETIRAcetam 500 MG TAB PO SCH (08:08)
[2019-09-07] MEDS: FOLIC ACID 1 MG TABLET PO SCH (08:08)
[2019-09-07] MEDS: allopurinoL 300 MG TAB PO SCH (08:09)
[2019-09-07] MEDS: ZINC SULFATE 220 MG CAP PO SCH (08:09)
[2019-09-07] MEDS: FUROSEMIDE 20 MG TABLET PO SCH (08:10)
[2019-09-07] MEDS: TOPIRAMATE 25 MG TAB PO SCH ×2 (08:10→19:23)
--- NOTE | 2019-09-07 17:46 | R.PN ---
ENCOUNTER DATE AND TIME: 09/07/2019 17:41 (CDT) NAME JOHN ABREU DATE OF : 1965 DATE OF ADMISSION: 08/14/2019 12:59 (CDT) ACUTE CVACHIEF COMPLAINT: Aphasic stroke, right sided weakness and chronic left BKA, ESRD on HD SUBJECTIVE: Pt denied any Shortness of Breath. Pt denied any depression. WBC 6.5, Hgb 9.1 Magnetic Resonance Imaging Coordinator 10.6, K 5.1, Magnetic Resonance Imaging Coordinator 7.89. He has dialysis scheduled for today. Glucose 118 to 160 .. Lantus 20 units twice daily with better glucose control. Prealbumin 28.2. Self-propelled wheelchair 500' with independence. Ambulated 150' with standby assistance using a [employer] le prong cane. Up and down 15 steps with standby assistance. VITAL SIGNS Temperature: 97.9 F SBP/DBP: 148/55 Pulse: 60 Resp: 16 MEDICATION ALLERGIES: No Known Drug Allergies (NKDA) ENVIRONMENTAL ALLERGIES: - Substance Allergies None Known - Other Allergies None Known NURSING: - Shower allowing shower - Bladder care per protocol - Skin care per protocol PRECAUTIONS: - Weight Bearing Precaution WBAT left LE ACTIVITIES OOB only with supervision THERAPIES: - Occupational Therapy Cognitive Retraining. Visual Perceptual Training. - Dietary and Nutrition Adequate Nutrition. Nutritional Education. Nutritional Supplements. - Speech Therapy Cognitive Training. Expressive Language Skills. Memory Strategies. Receptive Language Skills. Speech Intelligibility Training. PHYSICAL EXAM - Gen Alert and awake Lying in bed No apparent distress Oriented to: person, time, and place - Skin No skin breakdown. No abnormalities - Eyes No abnormalities - ENMT No abnormalities - Neck No abnormalities - CVS RRR - Chest Clear - Abd Soft - GI Soft Deferred - No abnormalities - Ext Right BKA with prosthesis in place. - MSK 4/5 weakness in both lower extremities. - Neuro No focal deficits - Psych No abnormalities ASSESSMENT: Pt. is a 54 yo Right-handed white male.On 08/11/2019 Pt. presented to [facility] with topete dden onset of left-side weakness.On 08/11/2019 he was admitted to [facility] with diagno sis ACUTE CVA.His impairment category is Stroke 01 - Left Body (Right Brain) (01.1).Pre-morbidly, Pt . was independent/mod-I in Safety Awareness, Balance, Self-Care, and Transfers Control; and he had go od Locomotion, Social Cognition, Sphincter Control, Endurance, and Communication.Currently, he has de ficits of Safety Awareness, Endurance, Balance, Transfers Control, and Sphincter Control.Pt. is now r eferred to [facility] for acute in-patient rehabilitation in order to maximize patient's functional independence in activities of daily living, strength, ROM, and mobility.- Rehab Goal Patient has realistic goal of being discharged at assistance level 6-Aden to reside at Home with Fam kenzie/Relatives. MDM/PLAN: - Physical Therapy Gait dysfunction - to improve, our physical therapists will perform initial evaluation of pt's statu s upon admission and devise an individualized program for Gait Training, and Wheel Chair mobility Inability to transfer - to improve, our physical therapists will perform initial evaluation of pt's status upon admission and devise an individualized program for Bed mobility Need for home safety evaluation - to improve, our physical therapists will perform initial evaluatio n of pt's status upon admission and devise an individualized program for Home Evaluation Need in caregiver upon discharge - to improve, our physical therapists will perform initial evaluati on of pt's status upon admission and devise an individualized program for Caregiver Training New precaution - to improve, our physical therapists will perform initial evaluation of pt's status upon admission and devise an individualized program for Patient precaution education Poor balance - to improve, our physical therapists will perform initial evaluation of pt's status up on admission and devise an individualized program for Balance Training Poor endurance - to improve, our physical therapists will perform initial evaluation of pt's status upon admission and devise an individualized program for Endurance Training Achieving independence - to improve, our physical therapists will perform initial evaluation of pt's status upon admission and devise an individualized program for Community Reintegration Activities - Occupational Therapy Need for care professional - to improve, our occupation therapists will perform initial evaluation of pt's status upon admission and devise an individualized program for Caregiver Training - Other See attached MAR (Medication Administration Record) - Diet Type Continue Regular - Diet - Liquid Texture Continue Regular - Tube Feed Continue N/A - Bladder care per protocol - Weight Bearing Precaution WBAT left LE - Skin care per protocol - Diet - Solid Texture Continue Regular - Shower allowing shower for Dementia, TBI, Stroke, or others FUNCTIONAL STATUS: UPDATED AT WEEKLY TEAM CONFERENCE - Bladder Same accident frequency: 7-Ind - No accidents in the past 7 days - Bowel Same accident frequency: 7-Ind - No accidents in the past 7 days - Walking Same score based on distance walked: 0(N/A) - Wheelchair Same score based on distance traveled: 0(N/A) FUNCTIONAL STATUS: - Self-Care A. Eating Aden B. Grooming Aden C. Bathing sup D. Dressing - Upper Aden E. Dressing - Lower sup F. Toileting sup - Sphincter Control G. Bladder control modA H. Bowel control Aden - Transfers Control I. Bed/Chair/Wheelchair sup J. Toilet sup K. Tub/Shower sup - Locomotion L. Walk/Wheelchair (B) Elham M. Stairs Elham - Communication N. Comprehension (B) Elham O. Expression (B) Elham - Social Cognition P. Social Interaction Elham Q. Problem Solving Elham R. Memory sup - Endurance Good - Balance Fair - Safety Awareness Fair QI SCORES: - Self-Care A. Eating 06-Independent B. Oral hygiene 03-Partial/moderate assistance C. Toileting hygiene 03-Partial/moderate assistance E. Shower/bathe self 03-Partial/moderate assistance F. Upper body dressing 03-Partial/moderate assistance G. Lower body dressing 03-Partial/moderate assistance H. Putting on/taking off footwear 88-Not attempted due to medical condition or safety concerns - Mobility A. Roll left and right 03-Partial/moderate assistance B. Sit to lying 03-Partial/moderate assistance C. Lying to sitting on side of bed 03-Partial/moderate assistance D. Sit to stand 03-Partial/moderate assistance F. Toilet transfer 03-Partial/moderate assistance G. Car transfer 88-Not attempted due to medical condition or safety concerns I. Walk 10 feet 03-Partial/moderate assistance J. Walk 50 feet with two turns 88-Not attempted due to medical condition or safety concerns K. Walk 150 feet 88-Not attempted due to medical condition or safety concerns L. Walking 10 feet on uneven surfaces 88-Not attempted due to medical condition or safety concerns M. 1 step (curb) 88-Not attempted due to medical condition or safety concerns N. 4 steps 88-Not attempted due to medical condition or safety concerns O. 12 steps 88-Not attempted due to medical condition or safety concerns P. Picking up object 03-Partial/moderate assistance R. Wheel 50 feet with two turns 88-Not attempted due to medical condition or safety concerns S. Wheel 150 feet 88-Not attempted due to medical condition or safety concerns - Bladder and Bowel Bladder continence 0-Always continent Bowel continence 0-Always continent - Endurance Good - Balance Fair - Safety Awareness Good CURRENT FUNC. DEFICITS: Mobility, Balance, and Self-Care SIGNATURE PANEL: (CDT)
[2019-09-07] MEDS: DOCUSATE NA/SENNA CONC 1 TAB PO SCH (19:22)
[2019-09-07] MEDS: ATORVASTATIN 80 MG TAB PO SCH (19:23)
[2019-09-08] MEDS: METOPROLOL TAR 25 MG TAB PO SCH ×2 (05:22→16:56)
[2019-09-08] MEDS: PANTOPRAZOLE 40MG TABLET PO SCH (06:15)
[2019-09-08] MEDS: FLUTICASONE 50MCG NASAL SPRAY NAS SCH (06:41)
--- NOTE | 2019-09-08 06:59 | FAST ---
ENCOUNTER DATE AND TIME: 09/07/2019 08:00 (CDT) NAME JOHN ABREU DATE OF : 1965 DATE OF ADMISSION: 08/14/2019 12:59 (CDT) PHONE: AGE: 54 N# [id number] GENDER: Male ENCOUNTER PHYSICIAN: Dr. Bennie Diaz M.D. ADMISSION DIAGNOSIS: - Stroke 01 - Left Body (Right Brain) (01.1) ACUTE CVA. EATING: Not assessed/no information CODE: - ORAL HYGIENE: ORAL HYGIENE - STEP 1: Does the patient complete the activity by him/herself with no assistance (physical, verbal/nonverbal cueing, setup/clean-up)? No. ORAL HYGIENE - STEP 2: Does the patient need only setup/clean-up assistance from one helper? No. ORAL HYGIENE - STEP 3: Does the patient need only verbal/nonverbal cueing or touching/steadying/contact guard assistance fro m one helper? Yes. 1. [id number] ADMISSION PERFORMANCE: Supervision or touching assistance CODE: 04 TOILETING HYGIENE: TOILETING HYGIENE - STEP 1: Does the patient complete the activity by him/herself with no assistance (physical, verbal/nonverbal cueing, setup/clean-up)? No. TOILETING HYGIENE - STEP 2: Does the patient need only setup/clean-up assistance from one helper? No. TOILETING HYGIENE - STEP 3: Does the patient need only verbal/nonverbal cueing or touching/steadying/contact guard assistance fro m one helper? Yes. 1. [id number] ADMISSION PERFORMANCE: Supervision or touching assistance CODE: 04 BATHING: SHOWER/BATHE SELF - STEP 1: Does the patient complete the activity by him/herself with no assistance (physical, verbal/nonverbal cueing, setup/clean-up)? No. SHOWER/BATHE SELF - STEP 2: Does the patient need only setup/clean-up assistance from one helper? No. SHOWER/BATHE SELF - STEP 3: Does the patient need only verbal/nonverbal cueing or touching/steadying/contact guard assistance fro m one helper? Yes. 1. [id number] ADMISSION PERFORMANCE: Supervision or touching assistance CODE: 04 DRESSING - UPPER BODY: DRESSING - UPPER BODY - STEP 1: Does the patient complete the activity by him/herself with no assistance (physical, verbal/nonverbal cueing, setup/clean-up)? No. DRESSING - UPPER BODY - STEP 2: Does the patient need only setup/clean-up assistance from one helper? Yes. 1. [id number] ADMISSION PERFORMANCE: Setup or clean-up assistance CODE: 05 DRESSING - LOWER BODY: DRESSING - LOWER BODY - STEP 1: Does the patient complete the activity by him/herself with no assistance (physical, verbal/nonverbal cueing, setup/clean-up)? No. DRESSING - LOWER BODY - STEP 2: Does the patient need only setup/clean-up assistance from one helper? No. DRESSING - LOWER BODY - STEP 3: Does the patient need only verbal/nonverbal cueing or touching/steadying/contact guard assistance fro m one helper? Yes. 1. [id number] ADMISSION PERFORMANCE: Supervision or touching assistance CODE: 04 PUTTING ON/TAKING OFF FOOTWEAR: FOOTWEAR - STEP 1: Does the patient complete the activity by him/herself with no assistance (physical, verbal/nonverbal cueing, setup/clean-up)? No. FOOTWEAR - STEP 2: Does the patient need only setup/clean-up assistance from one helper? No. FOOTWEAR - STEP 3: Does the patient need only verbal/nonverbal cueing or touching/steadying/contact guard assistance fro m one helper? No. FOOTWEAR - STEP 4: Does the patient need physical assistance - for example lifting or trunk support from one helper - wi th the helper providing less than half of the effort? Yes. 1. [id number] ADMISSION PERFORMANCE: Partial/moderate assistance CODE: 03 DOES THE PATIENT USE A WHEELCHAIR/SCOOTER? CODE: EXPR INDICATE THE TYPE OF WHEELCHAIR/SCOOTER USED: CODE: EXPR INDICATE THE TYPE OF WHEELCHAIR/SCOOTER USED: CODE: EXPR BLADDER AND BOWEL: CODE: EXPR CODE: EXPR SIGNATURE PANEL: The following modified sections: 1. [id number] Admission Performance, 1. [id number] Admission Performance, 1. [id number] Admission Performance, 1. [id number] Admission Performance, 1. [id number] Admission Performance, 1. [id number] Admission Performance, 1. [id number] Admission Performance were [electronically] signed by STEFANIA Lo on WedSep 08 2019 06:58:30 [id number] (Central Daylight Time)
[2019-09-08 07:03] LABS: Absolute Lymphocytes (CBC) 1.9 K/uL (0.7-4.9); Basophils % 0.4 % (0-1.3); Hematocrit 29.9 % (39.6-49.0); MPV 9.2 fL (7.6-11.3); RBC Red Blood Cell Count 2.92 M/uL (4.33-5.43)
[2019-09-08] MEDS: allopurinoL 300 MG TAB PO SCH (07:12)
[2019-09-08] MEDS: SEVELAMER CARBONATE 800 MG TABLET PO SCH ×3 (07:12→16:55)
[2019-09-08] MEDS: ZINC SULFATE 220 MG CAP PO SCH (07:12)
[2019-09-08] MEDS: ASPIRIN EC 81 MG TAB PO SCH (07:12)
[2019-09-08] MEDS: FAMOTIDINE 20 MG TAB PO SCH (07:12)
[2019-09-08] MEDS: FUROSEMIDE 20 MG TABLET PO SCH (07:13)
[2019-09-08] MEDS: FOLIC ACID 1 MG TABLET PO SCH (07:13)
[2019-09-08] MEDS: TOPIRAMATE 25 MG TAB PO SCH ×2 (07:13→20:06)
[2019-09-08 07:19] LABS: Potassium 5.3 mmol/L (3.5-5.1)
[2019-09-08] MEDS: INSULIN GLARGINE 100 UNITS/ML SQ SCH ×2 (07:21→20:08)
[2019-09-08] MEDS: INSULIN -REGULAR HUMAN 50 UNIT/0.5 ML ML SQ SCH ×4 (07:21→20:09)
--- NOTE | 2019-09-08 09:51 | P.RH.PN ---
Estimated Length of Stay: 30 Expected Discharge Date: 09/12/19 Discharge Disposition Plan: Home Family Support: Yes Snf Goal: Mobility, Transfers, Self Care Vital Signs: Last Vital Signs Temp 98.0 F 09/08/19 06:51 Pulse 66 09/08/19 07:13 Resp 20 09/08/19 06:51 BP 145/66 H 09/08/19 07:13 Pulse Ox 95 09/08/19 06:51 Laboratory: Laboratory Last Values WBC 7.8 K/uL (4.3-10.9) D 09/08/19 06:37 RBC 2.92 M/uL (4.33-5.43) L 09/08/19 06:37 Hgb 9.8 g/dL (13.6-17.9) L 09/08/19 06:37 Hct 29.9 % (39.6-49.0) L 09/08/19 06:37 MCV 102.3 fL (80-100) H 09/08/19 06:37 MCH 33.6 pg (27.0-35.0) 09/08/19 06:37 MCHC 32.9 g/dL (32.0-36.0) 09/08/19 06:37 RDW 14.7 % (12.1-15.2) 09/08/19 06:37 Plt Count 136 K/uL (152-406) L 09/08/19 06:37 MPV 9.2 fL (7.6-11.3) 09/08/19 06:37 Neutrophils % 66.7 % (41.7-73.7) 09/08/19 06:37 Lymphocytes % 24.0 % (15.3-44.8) 09/08/19 06:37 Monocytes % 7.9 % (3.3-12.3) 09/08/19 06:37 Eosinophils % 1.0 % (0-4.4) 09/08/19 06:37 Basophils % 0.4 % (0-1.3) 09/08/19 06:37 Absolute Neutrophils 5.2 K/uL (1.8-8.0) 09/08/19 06:37 Absolute Lymphocytes 1.9 K/uL (0.7-4.9) 09/08/19 06:37 Absolute Monocytes 0.6 K/uL (0.1-1.3) 09/08/19 06:37 Absolute Eosinophils 0.1 K/uL (0-0.5) 09/08/19 06:37 Absolute Basophils 0.0 K/uL (0-0.5) 09/08/19 06:37 Sodium 137 mmol/L (136-145) 09/08/19 06:37 Potassium 5.3 mmol/L (3.5-5.1) H 09/08/19 06:37 Chloride 102 mmol/L (98-107) 09/08/19 06:37 Carbon Dioxide 25 mmol/L (21-32) 09/08/19 06:37 BUN 45 mg/dL (7-18) H 09/08/19 06:37 Creatinine 10.10 mg/dL (0.55-1.3) H* D 09/08/19 06:37 Estimated GFR 5 mL/min (=/>90) L 09/08/19 06:37 Glucose 114 mg/dL (74-106) H 09/08/19 06:37 POC Glucose 110 mg/dL (65-120) 09/08/19 07:15 Calcium 9.3 mg/dL (8.5-10.1) 09/08/19 06:37 Phosphorus 7.2 mg/dL (2.5-4.9) H 08/28/19 05:34 Magnesium 2.7 mg/dL (1.8-2.4) H 08/31/19 05:41 Creatine Kinase 30 U/L (39-308) L 08/30/19 18:10 CK-MB (CK-2) < 1.0 ng/mL (0.3-3.6) 08/30/19 18:10 Troponin I < 0.02 ng/mL (0.0-0.045) 08/30/19 18:10 Albumin 3.2 g/dL (3.4-5.0) L 09/06/19 07:29 Prealbumin 32.2 mg/dL (20-40) 09/06/19 07:29 Hep Bs Antigen Nonreactive (Nonreactive) 08/25/19 06:19 Hep Bs Antibody Nonreactive (Nonreactive) 08/25/19 06:19 Hep Bs Antibody, Quant <5 mIU/mL (>=10) L 08/25/19 06:19 Hep B Core Total Ab Nonreactive (Nonreactive) 08/25/19 06:19 Hepatitis C Antibody Nonreactive (Nonreactive) 08/25/19 06:19 Hep C Ab Signal/Cutoff 0.03 ratio (<1.00) 08/25/19 06:19 Weight: 319 lb 11.2 oz Wound Present: Yes Closed Surgical Incision Present: No Negative Pressure Wound Therapy Present: No Physician Update: His labs are stable given his ESRD on HD. His blood sugars are better. He is more impulsive. His is not able to follow simple one step instructions with speech therapy. He does not want to follow redirection. His father and step mother are willing to help when he goes home. He may still require halfway if the family cannot help. His MOCA is 1/30, severe cognitive impairment. He is not able to make safe decisions regarding his medical care, finances, living arrangement or future. He will require his next of kin to make those decisions for him. Comment: 2 small open wounds on right lower leg, covered with bandaids, improvement noted Functional Improvement: pt is demonstrating progress with his functional mobility and safety. pt continues to exhibit significant communication deficits; however, these are improving. pt exhibits improved tolerance to ambulation and functional transfers. Speech Therapy Update: Moderate Receptive Aphasia and Moderate to Severe Expressive Apasia with notable improvement. Dysphagia improved and patient tolerating mechanical soft ground with regular liquids without s/s of aspiration Summary: Patient's care plan and mcc goals have been reviewed and revised as necessary. Please see the Rehabilitation Signature page for all necessary signatures.
--- NOTE | 2019-09-08 12:04 | P.PN ---
Subjective Date of Service: 09/08/19 Subjective 54 Y/o man with HX of ESRD , CAD on ASA and plavix, admitted for AMS , found to have ischemic infract on 08/30 had headache and vomiting, repeated Ct showed hemorrhagic conversion , now off Eliquis Today no change in clinical status HD today discharge plan as per primary team Physical Examination: General: AAOX3, , obese neck: supple, no elevated JVD Heart: RRR, normal S1,2 no murmur or rub chest CTAB, no rales or whezes Abdomen: soft , NT ext : lt BKA , Rt leg trace edema ESRD on HD MEF Cont HD , renal dose meds CVA neurology on board ASA , statin Eliquis 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
[2019-09-08] MEDS: ACETAMINOPHEN 500 MG TAB PO PRN (14:44)
[2019-09-08] MEDS ORDERED: EPOETIN ALFA 10,000 UNIT/ML VIAL IV SCH (15:00)
[2019-09-08] MEDS: ATORVASTATIN 80 MG TAB PO SCH (20:06)
[2019-09-08] MEDS: MELATONIN 3 MG TABLET PO PRN (20:06)
[2019-09-08] MEDS: DOCUSATE NA/SENNA CONC 1 TAB PO SCH (20:07)
[2019-09-09] MEDS: METOPROLOL TAR 25 MG TAB PO SCH ×2 (05:08→17:21)
[2019-09-09] MEDS: PANTOPRAZOLE 40MG TABLET PO SCH (06:30)
[2019-09-09] MEDS: FLUTICASONE 50MCG NASAL SPRAY NAS SCH (06:52)
[2019-09-09] MEDS: INSULIN -REGULAR HUMAN 50 UNIT/0.5 ML ML SQ SCH ×4 (07:30→19:47)
[2019-09-09] MEDS: INSULIN GLARGINE 100 UNITS/ML SQ SCH ×2 (08:06→19:48)
[2019-09-09] MEDS: ZINC SULFATE 220 MG CAP PO SCH (08:06)
[2019-09-09] MEDS: SEVELAMER CARBONATE 800 MG TABLET PO SCH ×3 (08:06→17:21)
[2019-09-09] MEDS: FAMOTIDINE 20 MG TAB PO SCH (08:06)
[2019-09-09] MEDS: ASPIRIN EC 81 MG TAB PO SCH (08:06)
[2019-09-09] MEDS: FOLIC ACID 1 MG TABLET PO SCH (08:07)
[2019-09-09] MEDS: TOPIRAMATE 25 MG TAB PO SCH ×2 (08:07→19:43)
[2019-09-09] MEDS: FUROSEMIDE 20 MG TABLET PO SCH (08:07)
[2019-09-09] MEDS: allopurinoL 300 MG TAB PO SCH (08:07)
--- NOTE | 2019-09-09 12:06 | FAST ---
ENCOUNTER DATE AND TIME: 09/09/2019 08:00 (CDT) NAME JOHN ABREU DATE OF : 1965 DATE OF ADMISSION: 08/14/2019 12:59 (CDT) PHONE: AGE: 54 N# [id number] GENDER: Male ENCOUNTER PHYSICIAN: Dr. Bennie Diaz M.D. ADMISSION DIAGNOSIS: - Stroke 01 - Left Body (Right Brain) (01.1) ACUTE CVA. EATING: Not assessed/no information CODE: - ORAL HYGIENE: ORAL HYGIENE - STEP 1: Does the patient complete the activity by him/herself with no assistance (physical, verbal/nonverbal cueing, setup/clean-up)? No. ORAL HYGIENE - STEP 2: Does the patient need only setup/clean-up assistance from one helper? No. ORAL HYGIENE - STEP 3: Does the patient need only verbal/nonverbal cueing or touching/steadying/contact guard assistance fro m one helper? Yes. 1. [id number] ADMISSION PERFORMANCE: Supervision or touching assistance CODE: 04 TOILETING HYGIENE: TOILETING HYGIENE - STEP 1: Does the patient complete the activity by him/herself with no assistance (physical, verbal/nonverbal cueing, setup/clean-up)? No. TOILETING HYGIENE - STEP 2: Does the patient need only setup/clean-up assistance from one helper? No. TOILETING HYGIENE - STEP 3: Does the patient need only verbal/nonverbal cueing or touching/steadying/contact guard assistance fro m one helper? Yes. 1. [id number] ADMISSION PERFORMANCE: Supervision or touching assistance CODE: 04 BATHING: SHOWER/BATHE SELF - STEP 1: Does the patient complete the activity by him/herself with no assistance (physical, verbal/nonverbal cueing, setup/clean-up)? No. SHOWER/BATHE SELF - STEP 2: Does the patient need only setup/clean-up assistance from one helper? No. SHOWER/BATHE SELF - STEP 3: Does the patient need only verbal/nonverbal cueing or touching/steadying/contact guard assistance fro m one helper? Yes. 1. [id number] ADMISSION PERFORMANCE: Supervision or touching assistance CODE: 04 DRESSING - UPPER BODY: DRESSING - UPPER BODY - STEP 1: Does the patient complete the activity by him/herself with no assistance (physical, verbal/nonverbal cueing, setup/clean-up)? Yes. 1. [id number] ADMISSION PERFORMANCE: Independent CODE: 06 DRESSING - LOWER BODY: DRESSING - LOWER BODY - STEP 1: Does the patient complete the activity by him/herself with no assistance (physical, verbal/nonverbal cueing, setup/clean-up)? No. DRESSING - LOWER BODY - STEP 2: Does the patient need only setup/clean-up assistance from one helper? No. DRESSING - LOWER BODY - STEP 3: Does the patient need only verbal/nonverbal cueing or touching/steadying/contact guard assistance fro m one helper? Yes. 1. [id number] ADMISSION PERFORMANCE: Supervision or touching assistance CODE: 04 PUTTING ON/TAKING OFF FOOTWEAR: FOOTWEAR - STEP 1: Does the patient complete the activity by him/herself with no assistance (physical, verbal/nonverbal cueing, setup/clean-up)? No. FOOTWEAR - STEP 2: Does the patient need only setup/clean-up assistance from one helper? No. FOOTWEAR - STEP 3: Does the patient need only verbal/nonverbal cueing or touching/steadying/contact guard assistance fro m one helper? Yes. 1. [id number] ADMISSION PERFORMANCE: Supervision or touching assistance CODE: 04 DOES THE PATIENT USE A WHEELCHAIR/SCOOTER? CODE: EXPR INDICATE THE TYPE OF WHEELCHAIR/SCOOTER USED: CODE: EXPR INDICATE THE TYPE OF WHEELCHAIR/SCOOTER USED: CODE: EXPR BLADDER AND BOWEL: CODE: EXPR CODE: EXPR SIGNATURE PANEL: The following modified sections: 1. [id number] Admission Performance, 1. [id number] Admission Performance, 1. NL6920Z Admission Performance, 1. LK3539t Admission Performance, 1. ZH7593a Admission Performance, 1. [id number] Admission Performance, 1. GF8648v Admission Performance were [electronically] signed by STEFANIA Lo on Sat Sep 09 2019 12:06:25 GMT-0500 (Central Daylight Time)
[2019-09-09] MEDS: ACETAMINOPHEN 500 MG TAB PO PRN (12:33)
[2019-09-09] MEDS: MELATONIN 3 MG TABLET PO PRN (19:44)
[2019-09-09] MEDS: DOCUSATE NA/SENNA CONC 1 TAB PO SCH (19:46)
[2019-09-09] MEDS: ATORVASTATIN 80 MG TAB PO SCH (19:47)
--- NOTE | 2019-09-10 01:30 | PN ---
Date of Progress Note: 09/09/2019 Chief Complaint: End-stage renal disease, coronary artery disease, on Plavix and aspirin. History: Patient was admitted for altered mental status, was found to have ischemic infarct subseque ntly on August 30. He developed headache and vomiting. A repeated CT scan showed hemorrhagic conversio n. Patient currently is off Eliquis. Patient is undergoing dialysis 3 times per week. He received dialysis yesterday. Potassium level in good control. Review of Systems: Denies new complaints. Physical Examination: Lungs: Clear to auscultation bilaterally. Heart: S1, S2. Abdomen: Soft, benign. Extremities: Trace edema. Impression And Plan: 1.End-stage renal disease, on dialysis. Continue dialysis on Wednesday, Wednesday, Wednesday. 2.Hypertension. Continue blood pressure medication. 3.Cerebrovascular accident per primary team. 4.Renal osteodystrophy. Continue renal diet and binders. JASON/MODL Voice ID: [id number] Report ID: [id number]
[2019-09-10] MEDS: METOPROLOL TAR 25 MG TAB PO SCH ×2 (05:17→16:42)
[2019-09-10] MEDS: PANTOPRAZOLE 40MG TABLET PO SCH (06:17)
[2019-09-10] MEDS: INSULIN -REGULAR HUMAN 50 UNIT/0.5 ML ML SQ SCH ×4 (07:13→20:04)
[2019-09-10] MEDS: SEVELAMER CARBONATE 800 MG TABLET PO SCH ×3 (07:14→16:42)
[2019-09-10] MEDS: ZINC SULFATE 220 MG CAP PO SCH (07:14)
[2019-09-10] MEDS: ASPIRIN EC 81 MG TAB PO SCH (07:14)
[2019-09-10] MEDS: FLUTICASONE 50MCG NASAL SPRAY NAS SCH (07:14)
[2019-09-10] MEDS: FAMOTIDINE 20 MG TAB PO SCH (07:14)
[2019-09-10] MEDS: allopurinoL 300 MG TAB PO SCH (07:15)
[2019-09-10] MEDS: TOPIRAMATE 25 MG TAB PO SCH ×2 (07:15→18:59)
[2019-09-10] MEDS: FOLIC ACID 1 MG TABLET PO SCH (07:15)
[2019-09-10] MEDS: INSULIN GLARGINE 100 UNITS/ML SQ SCH ×2 (07:16→18:59)
[2019-09-10] MEDS: FUROSEMIDE 20 MG TABLET PO SCH (07:16)
[2019-09-10] MEDS: DOCUSATE NA/SENNA CONC 1 TAB PO SCH (20:04)
[2019-09-10] MEDS: MELATONIN 3 MG TABLET PO PRN (20:04)
[2019-09-10] MEDS: ATORVASTATIN 80 MG TAB PO SCH (20:04)
--- NOTE | 2019-09-10 23:31 | PN ---
Date of Progress Note: 09/10/2019 Chief Complaint: End-stage renal disease on dialysis History Of Present Illness: Patient is admitted to the rehab floor. He is recovering from stroke pr imarily. He developed ischemic infarct. Subsequently on 08/29, he was found to have hemorrhagic con version. Patient is currently off Eliquis. Review of Systems: Denies new complaints. Physical Examination: Lungs: Clear to auscultation bilaterally. Heart: S1, S2. Abdomen: Soft, benign. Extremities: No edema. Impression And Plan: 1.End-stage renal disease. Continue dialysis on Wednesday, Wednesday, and Wednesday. Blood work will be obtained tomorrow to check electrolytes. 2.Hypertension. Continue blood pressure medication. 3.Cerebrovascular accident per primary team. 4.Renal osteodystrophy. Continue renal diet and binders. EB/MODL Voice ID: [id number] Report ID: [id number]
[2019-09-11] MEDS: METOPROLOL TAR 25 MG TAB PO SCH ×2 (05:21→17:33)
[2019-09-11 07:16] LABS: Potassium 5.5 mmol/L (3.5-5.1)
[2019-09-11] MEDS: INSULIN -REGULAR HUMAN 50 UNIT/0.5 ML ML SQ SCH ×4 (07:30→20:03)
[2019-09-11] MEDS: INSULIN GLARGINE 100 UNITS/ML SQ SCH ×2 (08:33→19:16)
[2019-09-11] MEDS: FAMOTIDINE 20 MG TAB PO SCH (08:34)
[2019-09-11] MEDS: ZINC SULFATE 220 MG CAP PO SCH (08:34)
[2019-09-11] MEDS: allopurinoL 300 MG TAB PO SCH (08:34)
[2019-09-11] MEDS: SEVELAMER CARBONATE 800 MG TABLET PO SCH ×3 (08:34→17:00)
[2019-09-11] MEDS: ASPIRIN EC 81 MG TAB PO SCH (08:35)
[2019-09-11] MEDS: FOLIC ACID 1 MG TABLET PO SCH (08:35)
[2019-09-11] MEDS: PANTOPRAZOLE 40MG TABLET PO SCH (08:35)
[2019-09-11] MEDS: FUROSEMIDE 20 MG TABLET PO SCH (08:35)
[2019-09-11] MEDS: TOPIRAMATE 25 MG TAB PO SCH ×2 (08:36→19:16)
[2019-09-11 09:39] VITALS: O2SAT 97
[2019-09-11] MEDS: FLUTICASONE 50MCG NASAL SPRAY NAS SCH (11:40)
--- NOTE | 2019-09-11 12:11 | FAST ---
ENCOUNTER DATE AND TIME: 09/11/2019 08:00 (CDT) NAME JOHN ABREU DATE OF : 1965 DATE OF ADMISSION: 08/14/2019 12:59 (CDT) PHONE: AGE: 54 N# [id number] GENDER: Male ENCOUNTER PHYSICIAN: Dr. Bennie Diaz M.D. ADMISSION DIAGNOSIS: - Stroke 01 - Left Body (Right Brain) (01.1) ACUTE CVA. EATING: Not assessed/no information CODE: - ORAL HYGIENE: ORAL HYGIENE - STEP 1: Does the patient complete the activity by him/herself with no assistance (physical, verbal/nonverbal cueing, setup/clean-up)? No. ORAL HYGIENE - STEP 2: Does the patient need only setup/clean-up assistance from one helper? No. ORAL HYGIENE - STEP 3: Does the patient need only verbal/nonverbal cueing or touching/steadying/contact guard assistance fro m one helper? Yes. 1. [id number] ADMISSION PERFORMANCE: Supervision or touching assistance CODE: 04 TOILETING HYGIENE: TOILETING HYGIENE - STEP 1: Does the patient complete the activity by him/herself with no assistance (physical, verbal/nonverbal cueing, setup/clean-up)? No. TOILETING HYGIENE - STEP 2: Does the patient need only setup/clean-up assistance from one helper? No. TOILETING HYGIENE - STEP 3: Does the patient need only verbal/nonverbal cueing or touching/steadying/contact guard assistance fro m one helper? Yes. 1. [id number] ADMISSION PERFORMANCE: Supervision or touching assistance CODE: 04 BATHING: SHOWER/BATHE SELF - STEP 1: Does the patient complete the activity by him/herself with no assistance (physical, verbal/nonverbal cueing, setup/clean-up)? No. SHOWER/BATHE SELF - STEP 2: Does the patient need only setup/clean-up assistance from one helper? No. SHOWER/BATHE SELF - STEP 3: Does the patient need only verbal/nonverbal cueing or touching/steadying/contact guard assistance fro m one helper? Yes. 1. [id number] ADMISSION PERFORMANCE: Supervision or touching assistance CODE: 04 DRESSING - UPPER BODY: DRESSING - UPPER BODY - STEP 1: Does the patient complete the activity by him/herself with no assistance (physical, verbal/nonverbal cueing, setup/clean-up)? Yes. 1. [id number] ADMISSION PERFORMANCE: Independent CODE: 06 DRESSING - LOWER BODY: DRESSING - LOWER BODY - STEP 1: Does the patient complete the activity by him/herself with no assistance (physical, verbal/nonverbal cueing, setup/clean-up)? No. DRESSING - LOWER BODY - STEP 2: Does the patient need only setup/clean-up assistance from one helper? No. DRESSING - LOWER BODY - STEP 3: Does the patient need only verbal/nonverbal cueing or touching/steadying/contact guard assistance fro m one helper? Yes. 1. [id number] ADMISSION PERFORMANCE: Supervision or touching assistance CODE: 04 PUTTING ON/TAKING OFF FOOTWEAR: FOOTWEAR - STEP 1: Does the patient complete the activity by him/herself with no assistance (physical, verbal/nonverbal cueing, setup/clean-up)? No. FOOTWEAR - STEP 2: Does the patient need only setup/clean-up assistance from one helper? No. FOOTWEAR - STEP 3: Does the patient need only verbal/nonverbal cueing or touching/steadying/contact guard assistance fro m one helper? Yes. 1. [id number] ADMISSION PERFORMANCE: Supervision or touching assistance CODE: 04 DOES THE PATIENT USE A WHEELCHAIR/SCOOTER? CODE: EXPR INDICATE THE TYPE OF WHEELCHAIR/SCOOTER USED: CODE: EXPR INDICATE THE TYPE OF WHEELCHAIR/SCOOTER USED: CODE: EXPR BLADDER AND BOWEL: CODE: EXPR CODE: EXPR SIGNATURE PANEL: The following modified sections: 1. [id number] Admission Performance, 1. ND7432U Admission Performance, 1. NF5722k Admission Performance, 1. HG2266w Admission Performance, 1. CX0832l Admission Performance, 1. CU1739x Admission Performance were [electronically] signed by STEFANIA Steele on WedSep 11 2019 12:11:07 T-0500 (Central Daylight Time)
[2019-09-11] MEDS: DOCUSATE NA/SENNA CONC 1 TAB PO SCH (19:16)
[2019-09-11] MEDS: MELATONIN 3 MG TABLET PO PRN (20:02)
[2019-09-11] MEDS: ATORVASTATIN 80 MG TAB PO SCH (20:02)
--- NOTE | 2019-09-12 00:15 | PN ---
Date of Progress Note: 09/11/2019 Chief Complaint: End-stage renal disease on dialysis. History Of Present Illness: Patient is admitted to rehab floor after he was found to have stroke. P rimarily, he developed ischemic stroke. Subsequently on August 30, he was found to have hemorrhagic con version of ischemic stroke and currently is off Eliquis. Review of Systems: Denies complaints. Physical Examination: Lungs: Diminished breath sounds at bases. Heart: S1, S2. Abdomen: Soft, benign. Extremities: No edema. Impression And Plan: 1.End-stage renal disease. Continue dialysis. Today, dialysis was done with ultrafiltration to obt ain negative fluid balance, provide metabolic clearance. Patient was found to have mild hyperkalemia , potassium was 5.5 and 2 potassium dialysate was use. 2.Cerebrovascular accident per primary team and Neurology. 3.Renal osteodystrophy. Continue renal diet and binders. 4.Hypertension. Blood pressure is controlled. Continue current treatment. EB/MODL Voice ID: [id number] Report ID: [id number]
[2019-09-12] MEDS: METOPROLOL TAR 25 MG TAB PO SCH (05:03)
[2019-09-12 05:07] VITALS: BMI 50.3
[2019-09-12] MEDS: BISACODYL 10 MG RECTAL SUPP PR PRN (06:16)
[2019-09-12] MEDS: PANTOPRAZOLE 40MG TABLET PO SCH (06:26)
[2019-09-12] MEDS: FLUTICASONE 50MCG NASAL SPRAY NAS SCH (07:00)
[2019-09-12] MEDS: FAMOTIDINE 20 MG TAB PO SCH (07:01)
[2019-09-12] MEDS: ASPIRIN EC 81 MG TAB PO SCH (07:01)
[2019-09-12] MEDS: SEVELAMER CARBONATE 800 MG TABLET PO SCH ×2 (07:01→11:34)
[2019-09-12] MEDS: INSULIN -REGULAR HUMAN 50 UNIT/0.5 ML ML SQ SCH ×2 (07:01→11:30)
[2019-09-12] MEDS: INSULIN GLARGINE 100 UNITS/ML SQ SCH (07:02)
[2019-09-12] MEDS: FOLIC ACID 1 MG TABLET PO SCH (07:02)
[2019-09-12] MEDS: allopurinoL 300 MG TAB PO SCH (07:02)
[2019-09-12] MEDS: ZINC SULFATE 220 MG CAP PO SCH (07:02)
[2019-09-12] MEDS: TOPIRAMATE 25 MG TAB PO SCH (07:02)
[2019-09-12] MEDS: FUROSEMIDE 20 MG TABLET PO SCH (07:02)
[2019-09-12 09:15] VITALS: BP 114/59; TEMP 97.6
== END 2019-09-12 15:25 | disposition home health service (06) | DRG 56 ==
LOC: 5TH 08-14 12:59
PROVIDERS: ADMIT Psychiatry & Neurology Neurology with Special Qualifications in Child Neurology; ATTEND Psychiatry & Neurology Neurology with Special Qualifications in Child Neurology
DX: I69.354 Hemiplegia and hemiparesis following cerebral infarction affecting left non-dominant side (principal); N18.6 End stage renal disease; I50.32 Chronic diastolic (congestive) heart failure; I13.2 Hypertensive heart and chronic kidney disease with heart failure and with stage 5 chronic kidney disease, or end stage renal disease; N25.81 Secondary hyperparathyroidism of renal origin; I25.10 Atherosclerotic heart disease of native coronary artery without angina pectoris; Z96.652 Presence of left artificial knee joint; E78.5 Hyperlipidemia, unspecified; Z99.2 Dependence on renal dialysis; E11.22 Type 2 diabetes mellitus with diabetic chronic kidney disease; S81.801A Unspecified open wound, right lower leg, initial encounter; D63.8 Anemia in other chronic diseases classified elsewhere; M89.9 Disorder of bone, unspecified; E11.40 Type 2 diabetes mellitus with diabetic neuropathy, unspecified; D63.1 Anemia in chronic kidney disease; N25.0 Renal osteodystrophy; E87.5 Hyperkalemia; K59.00 Constipation, unspecified; E83.39 Other disorders of phosphorus metabolism
CPT/HCPCS: 36415; 70450; 74230; 80048; 80069; 82040; 82550; 82553; 82947; 83735; 84134; 84484; 85025; 86317; 86704; 86706; 86803; 87340; 90935; 92507; 92523; 92526; 92611; 93005; 94640; 97110; 97112; 97116; 97127; 97161; 97530; 97542; J1644; J1815

== ENCOUNTER 2019-11-09 22:43 | Inpatient (IN) | payer MEDICARE ==
[2019-11-09 23:45] LABS: Basophils % 0.3 % (0-1.3); Hematocrit 32.9 % (39.6-49.0); Lymphocytes % 7.8 % (15.3-44.8); MPV 9.9 fL (7.6-11.3); RBC Red Blood Cell Count 3.33 M/uL (4.33-5.43)
[2019-11-09] MEDS ORDERED: AZITHROMYCIN 500 MG INJ IVPB ONE (23:51)
[2019-11-09] MEDS ORDERED: NA CHLORIDE 0.9% 250 ML ONE (23:51)
[2019-11-09] MEDS ORDERED: ACETAMINOPHEN 325 MG TABLET ONE (23:51)
[2019-11-09] MEDS ORDERED: CEFTRIAXONE/SWI 1gm 1 GM/10 ML SYR ONE (23:52)
[2019-11-10 00:23] LABS: Protime INR 1.44
[2019-11-10 00:26] LABS: ALT/SGPT 29 U/L (12-78); AST/SGOT 34 U/L (15-37); Albumin 3.4 g/dL (3.4-5.0); Alkaline Phosphatase 217 U/L (45-117); Amylase 63 U/L (25-115); BUN Blood Urea Nitrogen 45 mg/dL (7-18); Bicarbonate 27 mmol/L (21-32); Bilirubin Direct 0.2 mg/dL (0-0.2); Bilirubin Total 0.8 mg/dL (0.2-1.0); CKMB Creatine Kinase MB < 1.0 ng/mL (0.3-3.6); Creatine Phosphokinase 32 U/L (39-308); Glucose Level 118 mg/dL (74-106); Lipase 192 U/L (73-393); Protein, Total 9.6 g/dL (6.4-8.2); Sodium Level 135 mmol/L (136-145); Troponin (Emerg Dept Use Only) 0.05 ng/mL (0.0-0.045)
--- NOTE | 2019-11-10 00:28 | ER ---
Nurse's Notes [facility] Name: Brennon Pinedo Age: 54 yrs Sex: Male : 1965 Arrival Date: 11/09/2019 Time: 22:48 Bed 7 Private MD: Diagnosis: Pneumonia;Hypoxia Presentation: 11/08 22:48 Chief complaint: EMS states: Pt was at dialysis when he reported noticing he was jb4 coughing through the entire session and then became short of breath. the nurse there checked his O2 and he was 80% on RA. Placed on 3L NC and came up to 92%. Dialysis was completed and 5.2 L were removed. Pt given Albuterol and Atrovent treatment 1:1. 22:48 Coronavirus screen: Patient reports a cough. Patient reports shortness of breath or jb4 difficulty breathing. Patient denies measured and/or subjective temperature greater than 100.4F prior to today's visit. Patient denies travel on a cruise ship or to a country the [facility] currently lists as an affected area. Patient reports contact with known and/or suspected case of COVID-19. Patient instructed to continue to wear a mask when interacting with others. Patient moved to private room, placed in contact and droplet isolation with eye protection until further assessment. Covid-19 test results pending. Ebola Screen: No symptoms or risks identified at this time. Initial Sepsis Screen: Does the patient meet any 2 criteria? RR > 20 per min. Yes Does the patient have a suspected source of infection? No. Patient's initial sepsis screen is negative. Risk Assessment: Do you want to hurt yourself or someone else? Patient reports no desire to harm self or others. Onset of symptoms was November 09, 2019. Transition of care: patient was not received from another setting of care. 22:48 Method Of Arrival: EMS: [facility] jb4 22:48 Acuity: STEPHANIE 2 jb4 Historical: - Allergies: 22:48 No Known Allergies; jb4 - Home Meds: 22:48 allopurinol 300 mg Oral tab 1 tab once daily [Active]; aspirin 81 mg Oral chew 1 tab jb4 once daily [Active]; atorvastatin 40 mg Oral tab 1 tab once daily [Active]; metoprolol tartrate 25 mg oral tab 1 tab 2 times per day [Active]; zinc sulfate 220 (50) mg Oral cap [Active]; levothyroxine 125 mcg tab 1 tab once daily [Active]; apixaban oral 5mg oral 2 times per day [Active]; furosemide 20 mg Oral tab 1 tab once daily [Active]; senna oral oral [Active]; fluticasone 50 mcg/actuation nasal spsn 1 spray once daily [Active]; Lantus 100 unit/mL Sub-Q soln [Active]; EMLA Topical [Active]; - PMHx: 22:48 CHF; chronic kidney disease; Diabetes - NIDDM; Hypertension; Seizures; anorexia; iron jb4 deficiency anemia; - PSHx: 22:48 AMPUTATION, LEFT LEG; Dialysis shunt- left upper arm; jb4 - Immunization history:: Adult Immunizations up to date. - Social history:: Smoking status: unknown. Screenin:00 Abuse screen: Denies threats or abuse. Denies injuries from another. Nutritional rr5 screening: No deficits noted. Tuberculosis screening: No symptoms or risk factors identified. Fall Risk IV access (20 points). Ambulatory Aid- Crutches/Cane/Walker (15 pts). Gait- Impaired (20 pts.). Total Mehta Fall Scale indicates Low Risk Score (25-44 pts). Fall prevention measures have been instituted. Side Rails Up X 2 Placed close to Nursing Station Frequent Obs/Assesments occuring As available Patient and Family Educated on Fall Prevention Program and strategies. Assessment: 22:50 General: Appears distressed, uncomfortable, Behavior is calm, cooperative, appropriate rr5 for age. 22:50 Pain: Denies pain. Neuro: Level of Consciousness is awake, alert, obeys commands, rr5 Oriented to person, place, time, Reports weakness in right arm. Cardiovascular: Capillary refill < 3 seconds Patient's skin is warm and dry. Dialysis shunt: in the left arm, with palpable thrill, with no erythema, with no edema, no bleeding noted. Respiratory: Reports shortness of breath cough that is Airway is patent Respiratory effort is even, labored, Respiratory pattern is regular, symmetrical, tachypnea Breath sounds with crackles. GI: No signs and/or symptoms were reported involving the gastrointestinal system. : No signs and/or symptoms were reported regarding the genitourinary system. EENT: No signs and/or symptoms were reported regarding the EENT system. Derm: Skin is fragile, is thin, Skin temperature is warm. Musculoskeletal: Amputation of with prosthetic leg. 11/09 00:00 Reassessment: Patient is alert, oriented x 3, equal unlabored respirations, skin rr5 warm/dry/pink. awaiting for results. continue on oxygen support nasal cannula at 4 liters per minute maintaining 90-94% O2 saturation. 01:00 Reassessment: Patient appears in no apparent distress at this time. Patient is alert, rr5 oriented x 3, equal unlabored respirations, skin warm/dry/pink. 02:00 Reassessment: Patient appears in no apparent distress at this time. Patient is alert, rr5 oriented x 3, equal unlabored respirations, skin warm/dry/pink. admitted under ER hold. stretcher changed to hospital bed. 03:00 Reassessment: Patient appears in no apparent distress at this time. eyes closed rr5 breathing spontaneously with oxygen support. 05:33 Reassessment: pt reported to be COVID 19 + per Candy with [facility] lab. sg Vital Signs: 11/08 22:48 BP 145 / 76; Pulse 82; Resp 26; Pulse Ox 95% on 100% Nebulizer Mask; jb4 22:48 Temp 100; Weight 150 kg; rr5 11/09 00:00 BP 141 / 70; Pulse 80; Resp 23; Pulse Ox 98% on 4 lpm NC; rr5 01:00 BP 135 / 85; Pulse 89; Resp 28; Pulse Ox 91% on 4 lpm NC; rr5 02:00 BP 107 / 59; Pulse 79; Resp 26; Pulse Ox 92% on 4 lpm NC; rr5 03:00 BP 147 / 58; Pulse 77; Resp 25; Temp 99.5; Pulse Ox 95% on 4 lpm NC; rr5 07:41 BP 140 / 59; Pulse 78; Resp 30; Pulse Ox 98% on 4 lpm NC; jr10 ED Course: 11/08 22:48 Patient arrived in ED. rr5 22:48 Arm band placed on right wrist. jb4 22:49 Justen Hameed MD is Attending Physician. mh7 22:50 Patient has correct armband on for positive identification. Placed in gown. Bed in low rr5 position. Call light in reach. Side rails up X2. sonographer on. Pulse ox on. NIBP on. 22:59 Triage completed. jb4 23:00 EKG done, by ED staff, reviewed by Justen Hameed MD. Oxygen administration via nasal rr5 cannula \T\ 4L/min Response to oxygen therapy: symptoms improved. 23:20 First set of blood cultures drawn by me. rr5 23:29 Valdo Garcia, RN is Primary Nurse. rr5 23:32 Inserted saline lock: 20 gauge in right forearm, using aseptic technique. Blood rr5 collected. 23:51 Chest Single View XRAY In Process Unspecified. EDMS 11/09 00:00 Flu and/or RSV swab sent to lab. Strep swab sent to lab. covid. rr5 00:26 Mitchell Mahmood is Hospitalizing Provider. 7 00:27 Notified ED physician of a critical lab result(s). Helms 6.57. sg 02:44 No provider procedures requiring assistance completed. Patient admitted, IV remains in rr5 place. intact, No redness/swelling at site. 08:17 Patient admitted, IV remains in place. intact, No redness/swelling at site. jr10 Administered Medications: 11/08 23:35 Drug: Tylenol 650 mg Route: PO; rr5 11/09 00:35 Follow up: Response: No adverse reaction; Temperature is decreased rr5 11/08 23:50 Drug: Rocephin - (cefTRIAXone) 1 grams Route: IVPB; Infused Over: 30 mins; Site: right rr5 forearm; 11/09 00:05 Follow up: Response: No adverse reaction; IV Status: Completed infusion; IV Intake: 86ftro6 00:15 Dru mg of (Zithromax 500 mg, NS 0.9% 250 ml) Route: IVPB; Infused Over: 1 hrs; rr5 Site: right forearm; 01:15 Follow up: Response: No adverse reaction; IV Status: Completed infusion; IV Intake: rr5 250ml 00:16 Not Given (Physician Discretion; dialysis patient): NS 0.9% (30 ml/kg) 30 ml/kg IV at rr5 bolus once; Sepsis Protocol Intake: 00:05 IV: 50ml; Total: 50ml. rr5 01:15 IV: 250ml; Total: 300ml. rr5 Outcome: 00:27 Decision to Hospitalize by Provider. 7 03:44 Admitted to ER Hold. Please see [facility] for further documentation. rr5 03:44 Condition: stable 03:44 Instructed on the need for admit. 08:16 Admitted to ICU accompanied by nurse, accompanied by tech, via stretcher, room 6, with jr10 oxygen, on monitor, with chart, Report called to VIKTORIYA Carson 08:16 Condition: stable 08:16 Instructed on the need for admit. 08:17 Patient left the ED. jr10 Signatures: Dispatcher [employer] EDMS Donte Alvarado, RN RN sg Brennon Bains, RN RN jb4 Valdo Garcia RN RN rr5 Justen Hameed MD MD mh7 Parvin Gzuman RN RN jr10 Corrections: (The following items were deleted from the chart) 03:46 11/08 22:50 General: Appears in no apparent distress. uncomfortable, Behavior is calm, rr5 cooperative, appropriate for age, rr5
--- NOTE | 2019-11-10 00:28 | EDPHYS ---
Physician Documentation [facility] Name: Brennon Pinedo Age: 54 yrs Sex: Male : 1965 Arrival Date: 11/09/2019 Time: 22:48 Bed 7 Private MD: ED Physician Justen Hameed HPI: 11/08 23:24 This 54 yrs old Male presents to ER via EMS with complaints of Shortness of mh7 breath. Cough.. 23:24 The patient has shortness of breath at rest. Onset: The symptoms/episode began/occurred mh7 at an unknown time. Duration: The symptoms are continuous. The patient's shortness of breath is aggravated by nothing, is alleviated by nothing. Associated signs and symptoms: Pertinent positives: non-productive cough, Pertinent negatives: chest pain. Severity of symptoms: At their worst the symptoms were moderate today, in the emergency department the symptoms have improved moderately. Patient was at dialysis and was noticed to have SOB and coughing. Multiple family members have reportedly tested positive for COVID 19. Patient is awaiting his test results. He is a poor historian.. Historical: - Allergies: 22:48 No Known Allergies; jb4 - Home Meds: 22:48 allopurinol 300 mg Oral tab 1 tab once daily [Active]; aspirin 81 mg Oral chew 1 tab jb4 once daily [Active]; atorvastatin 40 mg Oral tab 1 tab once daily [Active]; metoprolol tartrate 25 mg oral tab 1 tab 2 times per day [Active]; zinc sulfate 220 (50) mg Oral cap [Active]; levothyroxine 125 mcg tab 1 tab once daily [Active]; apixaban oral 5mg oral 2 times per day [Active]; furosemide 20 mg Oral tab 1 tab once daily [Active]; senna oral oral [Active]; fluticasone 50 mcg/actuation nasal spsn 1 spray once daily [Active]; Lantus 100 unit/mL Sub-Q soln [Active]; EMLA Topical [Active]; - PMHx: 22:48 CHF; chronic kidney disease; Diabetes - NIDDM; Hypertension; Seizures; anorexia; iron jb4 deficiency anemia; - PSHx: 22:48 AMPUTATION, LEFT LEG; Dialysis shunt- left upper arm; jb4 - Immunization history:: Adult Immunizations up to date. - Social history:: Smoking status: unknown. ROS: 23:24 Constitutional: Negative for fever, chills, and weight loss. mh7 23:24 Eyes: Negative for injury, pain, redness, and discharge, ENT: Negative for injury, pain, and discharge, Neck: Negative for injury, pain, and swelling, Abdomen/GI: Negative for abdominal pain, nausea, vomiting, diarrhea, and constipation, Back: Negative for injury and pain, Skin: Negative for injury, rash, and discoloration, Neuro: Negative for headache, weakness, numbness, tingling, and seizure, Psych: Negative for depression, anxiety, suicide ideation, homicidal ideation, and hallucinations, Allergy/Immunology: Negative for hives, rash, and allergies, Endocrine: Negative for neck swelling, polydipsia, polyuria, polyphagia, and marked weight changes, Hematologic/Lymphatic: Negative for swollen nodes, abnormal bleeding, and unusual bruising. Exam: 23:24 Constitutional: This is a well developed, well nourished patient who is awake, alert, mh7 and in no acute distress. Head/Face: Normocephalic, atraumatic. Eyes: Pupils equal round and reactive to light, extra-ocular motions intact. Lids and lashes normal. Conjunctiva and sclera are non-icteric and not injected. Cornea within normal limits. Periorbital areas with no swelling, redness, or edema. Neck: Trachea midline, no thyromegaly or masses palpated, and no cervical lymphadenopathy. Supple, full range of motion without nuchal rigidity, or vertebral point tenderness. No Meningismus. Chest/axilla: Normal chest wall appearance and motion. Nontender with no deformity. No lesions are appreciated. Cardiovascular: Regular rate and rhythm with a normal S1 and S2. No gallops, murmurs, or rubs. Normal PMI, no JVD. No pulse deficits. 23:24 Abdomen/GI: Soft, non-tender, with normal bowel sounds. No distension or tympany. No guarding or rebound. No evidence of tenderness throughout. Back: No spinal tenderness. No costovertebral tenderness. Full range of motion. Skin: Warm, dry with normal turgor. Normal color with no rashes, no lesions, and no evidence of cellulitis. MS/ Extremity: Pulses equal, no cyanosis. Neurovascular intact. Full, normal range of motion. Psych: Awake, alert, with orientation to person, place and time. Behavior, mood, and affect are within normal limits. 23:24 Respiratory: mild respiratory distress is noted, Respirations: tachypnea, that is mild, Breath sounds: rhonchi, that are mild, are scattered. 11/09 00:34 ECG was reviewed by the Attending Physician. [facility] Vital Signs: 11/08 22:48 BP 145 / 76; Pulse 82; Resp 26; Pulse Ox 95% on 100% Nebulizer Mask; jb4 22:48 Temp 100; Weight 150 kg; rr5 11/09 00:00 BP 141 / 70; Pulse 80; Resp 23; Pulse Ox 98% on 4 lpm NC; rr5 01:00 BP 135 / 85; Pulse 89; Resp 28; Pulse Ox 91% on 4 lpm NC; rr5 02:00 BP 107 / 59; Pulse 79; Resp 26; Pulse Ox 92% on 4 lpm NC; rr5 03:00 BP 147 / 58; Pulse 77; Resp 25; Temp 99.5; Pulse Ox 95% on 4 lpm NC; rr5 07:41 BP 140 / 59; Pulse 78; Resp 30; Pulse Ox 98% on 4 lpm NC; jr10 MDM: 11/08 23:09 Patient medically screened. [facility] 11/09 00:25 Differential diagnosis: Anemia Anxiety Reaction asthma, Bronchitis CHF exacerbation, 7 Chronic Obstructive Pulmonary Disease Myocardial Infarction pneumonia, Pneumothorax pulmonary edema, Sepsis. Antibiotic administration: Rocephin and Zithromax given. Data reviewed: vital signs, nurses notes, EMS record, old medical records, lab test result(s), cardiac enzymes, CBC, electrolytes. Data interpreted: scientific software developer: rate is 82 beats/min, rhythm is normal sinus rhythm, regular, Interpretation: normal rate, normal rhythm, Pulse oximetry: on 4L(s) per nasal canula, is 95 %. Interpretation: acceptable, Plan: O2 by NC applied. Counseling: I had a detailed discussion with the patient and/or guardian regarding: the historical points, exam findings, and any diagnostic results supporting the discharge/admit diagnosis, the presence of at least one elevated blood pressure reading (>120/80) during this emergency department visit, lab results, radiology results, the need for further work-up and treatment in the hospital. 11/08 23:02 Order name: Amylase, Serum; Complete Time: 00:33 [facility] 11/08 23:02 Order name: Basic Metabolic Panel; Complete Time: 00:33 [facility] 11/08 23:02 Order name: Blood Culture Adult (2) [facility] 11/08 23:02 Order name: CBC with Diff; Complete Time: 04:19 [facility] 11/08 23:02 Order name: Ckmb; Complete Time: 00:33 [facility] 11/08 23:02 Order name: CPK; Complete Time: 00:33 [facility] 11/08 23:02 Order name: Lactate; Complete Time: 00:33 [facility] 11/08 23:02 Order name: LFT's; Complete Time: 00:33 [facility] 11/08 23:02 Order name: Lipase; Complete Time: 00:33 [facility] 11/08 23:02 Order name: Procalcitonin; Complete Time: 04:19 [facility] 11/08 23:02 Order name: Protime (+inr); Complete Time: 00:33 [facility] 11/08 23:02 Order name: Ptt, Activated; Complete Time: 00:33 [facility] 11/08 23:02 Order name: Troponin (emerg Dept Use Only); Complete Time: 00:33 [facility] 11/08 23:02 Order name: Urine Microscopic Only [facility] 11/08 23:02 Order name: Chest Single View XRAY [facility] 11/08 23:02 Order name: Accucheck; Complete Time: 23:41 [facility] 11/08 23:38 Order name: Influenza Screen (a \T\ B); Complete Time: 04:19 [facility] 11/08 23:38 Order name: COVID-19 [facility] 11/08 23:38 Order name: Strep; Complete Time: 04:19 [facility] 11/08 23:39 Order name: Glucose, Ancillary Testing; Complete Time: 23:41 [facility] 11/08 23:53 Order name: Manual Differential; Complete Time: 04:19 [facility] 11/09 01:17 Order name: CONS Physician Consult [facility] 11/09 01:20 Order name: Throat Culture [facility] 11/09 06:11 Order name: Basic Metabolic Panel [facility] 11/09 07:00 Order name: Phosphorus [facility] 11/09 07:00 Order name: Magnesium [facility] 11/08 23:02 Order name: Cardiac monitoring; Complete Time: 23:41 [facility] 11/08 23:02 Order name: EKG - Nurse/Tech; Complete Time: 23:42 mh7 11/08 23:02 Order name: IV Saline Lock - Large Bore; Complete Time: 23:42 mh7 11/08 23:02 Order name: Labs collected and sent; Complete Time: 23:42 mh7 11/08 23:02 Order name: O2 Per Protocol; Complete Time: 23:42 mh7 11/08 23:02 Order name: O2 Sat Monitoring; Complete Time: 23:42 mh7 EC:34 Rate is 81 beats/min. Rhythm is regular, Normal Sinus Rhythm with Right bundle branch mh7 block. QRS [place] is Normal. PA interval is normal. QRS interval is normal. QT interval is normal. No Q waves. T waves are Inverted in leads I, aVL. No ST changes noted. Clinical impression: Abnormal EKG without significant change. Administered Medications: 11/08 23:35 Drug: Tylenol 650 mg Route: PO; rr5 11/09 00:35 Follow up: Response: No adverse reaction; Temperature is decreased rr5 11/08 23:50 Drug: Rocephin - (cefTRIAXone) 1 grams Route: IVPB; Infused Over: 30 mins; Site: right rr5 forearm; 11/09 00:05 Follow up: Response: No adverse reaction; IV Status: Completed infusion; IV Intake: 32jrbr5 00:15 Dru mg of (Zithromax 500 mg, NS 0.9% 250 ml) Route: IVPB; Infused Over: 1 hrs; rr5 Site: right forearm; 01:15 Follow up: Response: No adverse reaction; IV Status: Completed infusion; IV Intake: rr5 250ml 00:16 Not Given (Physician Discretion; dialysis patient): NS 0.9% (30 ml/kg) 30 ml/kg IV at rr5 bolus once; Sepsis Protocol Disposition: 11/10/19 00:27 Hospitalization ordered by Mitchell Mahmood for Inpatient Admission. Preliminary diagnosis are Pneumonia, Hypoxia. - Bed requested for Intensive Care Unit. - Status is Inpatient Admission. jr10 - Condition is Fair. - Problem is new. - Symptoms have improved. Signatures: Dispatcher [employer] Analilia Yost RN RN Brennon Bains RN RN jb4 Valdo Garcia RN RN rr5 Justen Hameed MD MD mh7 Parvin Guzman RN RN jr10 Corrections: (The following items were deleted from the chart) 01:48 00:27 Hospitalization Ordered by Mitchell Mahmood for Inpatient Admission. Preliminary cg diagnosis is Pneumonia; Hypoxia. Bed requested for Telemetry/MedSurg (Inpatient). Status is Inpatient Admission. Condition is Fair. Problem is new. Symptoms have improved. [facility] 05:45 01:48 11/10/2019 00:27 Hospitalization Ordered by Mitchell Mahmood for Inpatient cg Admission. Preliminary diagnosis is Pneumonia; Hypoxia. Bed requested for [facility] ER HOLD. Status is Inpatient Admission. Condition is Fair. Problem is new. Symptoms have improved. 08:17 05:45 11/10/2019 00:27 Hospitalization Ordered by Mitchell Mahmood for Inpatient jr10 Admission. Preliminary diagnosis is Pneumonia; Hypoxia. Bed requested for Intensive Care Unit. Status is Inpatient Admission. Condition is Fair. Problem is new. Symptoms have improved.
[2019-11-10 00:41] LABS: Blood Morphology Comment NOT SEEN (NOT SEEN); Platelet Estimate ADEQ
--- NOTE | 2019-11-10 01:13 | P.HP ---
Certification for Inpatient Patient admitted to: Inpatient With expected LOS: >2 Midnights Practitioner: I am a practitioner with admitting privileges, knowledge of patient current condition, hospital course, and medical plan of care. Services: Services provided to patient in accordance with Admission requirements found in Title 42 Section 412.3 of the Code of Federal Regulations Patient History Date of Service: 11/10/19 Reason for admission: Shortness of breath and cough History of Present Illness: 54-year-old gentleman with a history of CVA with expressive aphasia, paroxysmal atrial fibrillation, end-stage renal disease on hemodialysis was directed to the emergency department due to hypoxia and coughing during dialysis. Patient was noted to be coughing persistently during dialysis. His oxygen saturation checked was found to be 80%. He was directed to the emergency department to be evaluated. Chest x-ray in the emergency department demonstrated bilateral diffuse lung opacities which could suggest COVID pneumonia. There is a report patient has multiple family members who are infected with COVID. Patient completed dialysis prior to being sent to the ED. He has mild leukocytosis. He is admitted for further management. Allergies No Known Allergies Allergy (Verified 08/14/19 14:26) Home Medications: Allopurinol 300 mg PO DAILY 11/10/17 Furosemide 20 mg PO DAILY 11/10/17 Zinc Sulfate [Zinc Sulfate*] 220 mg PO DAILY 11/10/17 Codeine/APAP [Tylenol #3*] 1 tab PO Q4H PRN 08/10/19 Fluticasone [Flonase 50MCG Nasal [place]*] 2 sprays IN DAILY 08/10/19 Apixaban [Eliquis] 5 mg PO BID #60 tablet 08/14/19 Aspirin [Aspirin EC 81 MG] 81 mg PO DAILY #90 08/14/19 Atorvastatin Calcium [Lipitor] 80 mg PO BEDTIME #30 tab 08/14/19 Famotidine [Pepcid*] 20 mg PO DAILY #30 tab 08/14/19 Folic Acid 1 mg PO DAILY #90 tablet 08/14/19 Metoprolol Tartrate [Lopressor*] 25 mg PO BID 6AM 6PM #60 tab 08/14/19 Docusate/Senna [Senokot-S*] 2 tab PO BEDTIME #60 tab 09/12/19 Epoetin [Retacrit] 5,000 unit IV EVERY HD vial 09/12/19 Fluticasone [Flonase 50MCG Nasal [place]*] 2 sprays EMANUEL DAILY btl 09/12/19 Insulin Glargine Human [Lantus*] 20 units SQ BID #10 ml 09/12/19 Sevelamer Carbonate [Renvela*] 1,600 mg PO TIDWM #180 tablet 09/12/19 - Past Medical/Surgical History Diabetic: Yes -: Diastolic CHF -: Hypertension -: Hypothyroidism -: Diabetes mellitus type 2 -: End-stage renal disease on hemodialysis -: CAD -: Paroxysmally atrial fibrillation -: Hyperlipidemia -: Prior left BKA. -: Left BKA -: Carotid stents Psychosocial/ Personal History: Patient lives at home - Family History Family History: Reviewed- Non-Contributory - Social History Alcohol use: No CD- Drugs: No Caffeine use: No Review of Systems is unable to be obtained (Due to expressive aphasia) Physical Examination - Physical Exam General: In no apparent distress, Other (Awake.) HEENT: Mucous membr. moist/pink, Sclerae nonicteric Neck: Supple, JVD not distended Respiratory: Normal air movement, Crackles/rales (Bilateral) Cardiovascular: Regular rate/rhythm, Normal S1 S2 Gastrointestinal: Normal bowel sounds, Soft and benign, No tenderness Musculoskeletal: No erythema, Other (Left BKA) Integumentary: No rashes Neurological: Other (Nonfocal) - Studies Laboratory Data (last 24 hrs) 11/09/19 23:55: PT 16.9 H, INR 1.44, APTT 43.5 H 11/09/19 23:20: WBC 12.4 H, Hgb 10.7 L, Hct 32.9 L, Plt Count 162 11/09/19 23:20: Sodium 135 L, Potassium 4.0, BUN 45 H, Creatinine 6.57 H*, Gluco se 118 H, Total Bilirubin 0.8, AST 34, ALT 29, Alkaline Phosphatase 217 H, Amylase 63, Lipase 192 Assessment and Plan - Problems (Diagnosis) (1) Viral pneumonia Current Visit: Yes Status: Acute (2) Pulmonary edema Current Visit: Yes Status: Acute (3) ESRD (end stage renal disease) on dialysis Current Visit: Yes Status: Acute (4) Chronic diastolic heart failure Current Visit: Yes Status: Acute (5) Diabetes Current Visit: No Status: Chronic Qualifiers: Diabetes mellitus type: type 2 Diabetes mellitus emt intermediate insulin use: without intermediate use Diabetes mellitus complication status: with skin complications Diabetes mellitus complication detail: with foot ulcer Qualified Code(s): E11.621 - Type 2 diabetes mellitus with foot ulcer; L97.509 - Non-pressure chronic ulcer of other part of unspecified foot with unspecified severity (6) Morbid obesity with BMI of 50.0-59.9, adult Onset Date: 11/08/17 Current Visit: No Status: Chronic - Plan Admit to the medical floor. Start IV dexamethasone IV Zithromax Follow COVID 19 test result Nephrology consult for hemodialysis Pulmonary consult. Lantus insulin and insulin sliding scale for glucose management. - Advance Directives Does patient have a Living Will: No Does patient have a Durable POA for Healthcare: No
[2019-11-10] MEDS ORDERED: ACETAMINOPHEN 500 MG TAB PO PRN (03:25)
[2019-11-10 05:04] VITALS: BMI 51.7
[2019-11-10 06:11] LABS: Potassium 4.4 mmol/L (3.5-5.1)
[2019-11-10 07:00] LABS: Magnesium 2.3 mg/dL (1.8-2.4); Phosphorus 5.8 mg/dL (2.5-4.9)
--- NOTE | 2019-11-10 08:24 | RAD REPORT ---
EXAM DESCRIPTION: RAD - Chest Single View - 11/09/2019 11:51 pm CLINICAL HISTORY: SOB COMPARISON: August 09 portable TECHNIQUE: AP portable chest image was obtained 11/09/2019 11:51 pm . FINDINGS: Lung volumes are low. Large body habitus and portable technique also contribute to exam li mitations. Exam is further limited by motion. Airspace opacification is present in the mid and lower lung [place]. Pattern is increased over the com parison. Left heart border and left hemidiaphragm are obscured probably due more to technical factors than acute disease. Trachea is in the midline. Cardiomegaly is present. Vascular engorgement is seen. No pneumothorax. Small pleural effusions are not excluded. No acute bony abnormality seen. No acute aortic findings suspected. IMPRESSION: Volume overload pattern is present. This could represent CHF as well. Pneumonia cannot be excluded due to the exam limitations detailed above.
[2019-11-10] MEDS ORDERED: dexAMETHasone 10 MG/ML VIAL IV SCH (09:00)
[2019-11-10] MEDS: INSULIN -REGULAR HUMAN 50 UNIT/0.5 ML ML SQ SCH ×4 (09:30→21:15)
--- NOTE | 2019-11-10 10:25 | P.CNS ---
Date of Consult: 11/10/19 Reason for Consult: ESRD , fluid managment Chief Complaint: Shortness of breath and cough History of Present Illness: HPI 54 Y/o man with HX of ESRD on HD TTsat, CAD , admitted for AMS , Afib , CVA pt was admitted for SOB yesterday at dialytsis center pt was complsining of SOb with Hypoxia, pt completed his treatment with ni omprvement in symptoms , in ER O2 sat in 80s found to have COVID 19 positive, pt's father also have COVID no wsymptoms improved denied chest pain, palpitation, fever , chills, nausea, vomiting or diarrhea Physical Examination: General: AAOX3, , obese neck: supple, no elevated JVD Heart: RRR, normal S1,2 no murmur or rub chest CTAB, no rales or whezes Abdomen: soft , NT ext : lt BKA , Rt leg trace edema ESRD on HD TTSAt next HD tomorrow Cont HD , renal dose meds COVID 19 pneumonia cont supportive care hypoxic resp failure due t COVID cont O2 Anemia of chronic disease no need for epogen metabolic bone disaese cont binders DM on insulin HTN controlled total time spent 50min Allergies No Known Allergies Allergy (Verified 08/14/19 14:26) Home Medications: Allopurinol 300 mg PO DAILY 11/10/17 Furosemide 20 mg PO DAILY 11/10/17 Zinc Sulfate [Zinc Sulfate*] 220 mg PO DAILY 11/10/17 Apixaban [Eliquis] 5 mg PO BID #60 tablet 08/14/19 Atorvastatin Calcium [Lipitor] 80 mg PO BEDTIME #30 tab 08/14/19 Metoprolol Tartrate [Lopressor*] 25 mg PO BID 6AM 6PM #60 tab 08/14/19 Docusate/Senna [Senokot-S*] 2 tab PO BEDTIME #60 tab 09/12/19 Aspirin [Aspirin EC 81 MG] 1 tab PO DAILY 11/10/19 Fluticasone [Flonase 50MCG Nasal [place]*] 1 spray EMANUEL DAILY 11/10/19 Insulin Glargine Human [Lantus*] 20 units SQ BEDTIME 11/10/19 Insulin Glargine Human [Lantus*] 25 units SQ DAILY 11/10/19 Levothyroxine [Synthroid*] 1 tab PO DAILY 11/10/19 Sucroferric Oxyhydroxide [Velphoro] 2 tab PO TIDWM 11/10/19 - Past Medical/Surgical History Diabetic: Yes -: Diastolic CHF -: Hypertension -: Hypothyroidism -: Diabetes mellitus type 2 -: End-stage renal disease on hemodialysis -: CAD -: Paroxysmally atrial fibrillation -: Hyperlipidemia -: Prior left BKA. -: Left BKA -: Carotid stents Psychosocial/ Personal History: Patient lives at home - Social History Smoking Status: Unknown if ever smoked Alcohol use: No CD- Drugs: No Caffeine use: No Physical Examination Temp Pulse Resp BP Pulse Ox 98.9 F 78 30 H 140/59 L 98 11/10/19 04:00 11/10/19 07:41 11/10/19 07:41 11/10/19 07:41 11/10/19 04:00 Laboratory Data (last 24 hrs) 11/09/19 23:55: PT 16.9 H, INR 1.44, APTT 43.5 H 11/09/19 23:20: WBC 12.4 H, Hgb 10.7 L, Hct 32.9 L, Plt Count 162 11/09/19 23:20: Sodium 135 L, Potassium 4.0, BUN 45 H, Creatinine 6.57 H*, Glucose 118 H, Total Bilirubin 0.8, AST 34, ALT 29, Alkaline Phosphatase 217 H, Amylase 63, Lipase 192
--- NOTE | 2019-11-10 11:08 | P.CNS ---
Date of Consult: 11/10/19 Reason for Consult: Pneumonia due to lai virus Chief Complaint: Shortness of breath and cough History of Present Illness: Patient is 54 years of age with multiple medical problems including end-stage renal disease was admitted with shortness of breath hypoxemia and coughing exposed to patients with lai virus he is currently doing well will evaluate for home O2 Allergies No Known Allergies Allergy (Verified 08/14/19 14:26) Home Medications: Allopurinol 300 mg PO DAILY 11/10/17 Furosemide 20 mg PO DAILY 11/10/17 Zinc Sulfate [Zinc Sulfate*] 220 mg PO DAILY 11/10/17 Apixaban [Eliquis] 5 mg PO BID #60 tablet 08/14/19 Atorvastatin Calcium [Lipitor] 80 mg PO BEDTIME #30 tab 08/14/19 Metoprolol Tartrate [Lopressor*] 25 mg PO BID 6AM 6PM #60 tab 08/14/19 Docusate/Senna [Senokot-S*] 2 tab PO BEDTIME #60 tab 09/12/19 Aspirin [Aspirin EC 81 MG] 1 tab PO DAILY 11/10/19 Fluticasone [Flonase 50MCG Nasal [place]*] 1 spray EMANUEL DAILY 11/10/19 Insulin Glargine Human [Lantus*] 20 units SQ BEDTIME 11/10/19 Insulin Glargine Human [Lantus*] 25 units SQ DAILY 11/10/19 Levothyroxine [Synthroid*] 1 tab PO DAILY 11/10/19 Sucroferric Oxyhydroxide [Velphoro] 2 tab PO TIDWM 11/10/19 - Past Medical/Surgical History Diabetic: Yes -: Diastolic CHF -: Hypertension -: Hypothyroidism -: Diabetes mellitus type 2 -: End-stage renal disease on hemodialysis -: CAD -: Paroxysmally atrial fibrillation -: Hyperlipidemia -: Prior left BKA. -: Left BKA -: Carotid stents Psychosocial/ Personal History: Patient lives at home - Social History Smoking Status: Unknown if ever smoked Alcohol use: No CD- Drugs: No Caffeine use: No Review of Systems Respiratory: Shortness of Breath Physical Examination Temp Pulse Resp BP Pulse Ox 98.9 F 78 30 H 140/59 L 98 11/10/19 04:00 11/10/19 07:41 11/10/19 07:41 11/10/19 07:41 11/10/19 04:00 Laboratory Data (last 24 hrs) 11/09/19 23:55: PT 16.9 H, INR 1.44, APTT 43.5 H 11/09/19 23:20: WBC 12.4 H, Hgb 10.7 L, Hct 32.9 L, Plt Count 162 11/09/19 23:20: Sodium 135 L, Potassium 4.0, BUN 45 H, Creatinine 6.57 H*, Glucose 118 H, Total Bilirubin 0.8, AST 34, ALT 29, Alkaline Phosphatase 217 H, Amylase 63, Lipase 192 - Problems (1) Pneumonia due to human coronavirus Current Visit: Yes Status: Acute Plan: Patient is 54 years of age with end-stage renal disease cerebral vascular disease admitted with hypoxemia lai virus test was positive is doing much better evaluate for home O2 discharge on steroids to multi vitamins is scheduled to have dialysis Dc antibiotics patient is already on anticoagulants for is AFib telephone visit in 2 week a chest x-ray appears to be consistent with lai virus infection
--- NOTE | 2019-11-10 15:25 | EKG ---
Test Date: 2019-11-09 Test Time: 22:56:31 [employer] Operator: ADRIANA MEASUREMENT RESULTS: Intervals: Rate: 81 WI: 192 QRSD: 94 QT: 378 QTc: 439 [place]: P: 74 WI: 192 QRS: 6 T: 94 INTERPRETIVE STATEMENTS: Normal sinus rhythm Incomplete right bundle branch block ST depression, consider subendocardial injury or digitalis effect Nonspecific T wave abnormality Abnormal ECG Compared to ECG 08/30/2019 17:52:13 ST (T wave) deviation now present T-wave abnormality now present Sinus bradycardia no longer present Electronically Signed On 11-10-19 15:24:06 CDT by Kalen Saldivar
[2019-11-10] MEDS: dexAMETHasone 4 MG/ML VIAL IV SCH (16:46)
[2019-11-11] MEDS ORDERED: AZITHROMYCIN IV 500 MG in NA CHLORIDE 0.9% 250 ML IVPB SCH ×2
[2019-11-11] MEDS: dexAMETHasone 4 MG/ML VIAL IV SCH ×3 (00:03→16:54)
[2019-11-11 05:17] LABS: Absolute Lymphocytes (CBC) 0.3 K/uL (0.7-4.9); Basophils % 0.2 % (0-1.3); Hematocrit 27.1 % (39.6-49.0); Lymphocytes % 3.9 % (15.3-44.8); MPV 10.2 fL (7.6-11.3); RBC Red Blood Cell Count 2.72 M/uL (4.33-5.43)
[2019-11-11] MEDS: INSULIN -REGULAR HUMAN 50 UNIT/0.5 ML ML SQ SCH ×3 (07:30→16:30)
--- NOTE | 2019-11-11 10:13 | P.PN ---
Subjective Date of Service: 11/11/19 Chief Complaint: Shortness of breath and cough Subjective 54 Y/o man with HX of ESRD on HD TTsat, CAD , admitted for AMS , Afib , CVA pt was admitted for SOB and sore throat today no overnight events no respiratory distress HD today from nephrology point of view pt can be discharged today after HD Physical Examination: General: AAOX3, , obese neck: supple, no elevated JVD Heart: RRR, normal S1,2 no murmur or rub chest CTAB, no rales or wheezes Abdomen: soft , NT ext : lt BKA , Rt leg trace edema ESRD on HD TTSAt next HD tomorrow Cont HD , renal dose meds COVID 19 pneumonia cont supportive care hypoxic resp failure due to COVID cont O2 Anemia of chronic disease no need for epogen metabolic bone disaese cont binders DM on insulin HTN controlled total time spent 50min Physical Examination - Vital Signs Temperature: 97.9 F Blood Pressure: 136/63 Pulse: 72 Respirations: 24 Pulse Ox (%): 94 - Studies Microbiology Data (last 24 hrs): 11/09/19 23:58 Nasopharnyx Coronavirus COVID-19 PCR - Final
--- NOTE | 2019-11-11 10:31 | P.PN ---
Subjective Date of Service: 11/11/19 Chief Complaint: Shortness of breath and cough Subjective: No new changes Review of Systems 10-point ROS is otherwise unremarkable Physical Examination - Vital Signs Temperature: 97.9 F Blood Pressure: 136/63 Pulse: 72 Respirations: 24 Pulse Ox (%): 94 - Physical Exam General: Alert, In no apparent distress, Obese HEENT: Atraumatic, Normocephalic Neck: Supple Respiratory: Diminished Cardiovascular: Regular rate/rhythm, Normal S1 S2 Capillary refill: <2 Seconds Gastrointestinal: Soft and benign, W/out hepatosplenomegaly Musculoskeletal: No clubbing, No swelling Integumentary: No rashes Neurological: Normal speech, Normal strength at 5/5 x4 extr Lymphatics: No axilla or inguinal lymphadenopathy - Studies Microbiology Data (last 24 hrs): 11/09/19 23:58 Nasopharnyx Coronavirus COVID-19 PCR - Final Assessment & Plan - Problems (Diagnosis) (1) Chronic diastolic heart failure Current Visit: Yes Status: Acute (2) ESRD (end stage renal disease) on dialysis Current Visit: Yes Status: Acute (3) Pneumonia due to human coronavirus Current Visit: Yes Status: Acute (4) Pulmonary edema Current Visit: Yes Status: Acute (5) Viral pneumonia Current Visit: Yes Status: Acute (6) History of left below knee amputation Current Visit: No Status: Chronic (7) Hx of heart artery stent Current Visit: No Status: Chronic (8) Morbid obesity with BMI of 50.0-59.9, adult Onset Date: 11/08/17 Current Visit: No Status: Chronic Physician Review Additional Text: Admit to the medical floor. Start IV dexamethasone IV Zithromax Follow COVID 19 test result Nephrology consult for hemodialysis Pulmonary consult. Lantus insulin and insulin sliding scale for glucose management. 11/11/2019 Clinically stable Still on oxygen support slightly volume overload Discuss with nephrology Getting a dialysis today Continue steroids Insulin sliding scale Appreciate help from pulmonology and nephrology Will try to wean off oxygen Possible Dc if home O2 use can be arranged and after dialysis Time Spent Managing Pts Care (In Minutes): 45
--- NOTE | 2019-11-11 15:14 | P.DS ---
Admission Date: 11/10/19 Discharge Date: 11/11/19 Disposition: ROUTINE DISCHARGE Discharge Condition: FAIR Reason for Admission: Shortness of breath and cough - Problems (1) Chronic diastolic heart failure Current Visit: Yes Status: Acute (2) ESRD (end stage renal disease) on dialysis Current Visit: Yes Status: Acute (3) Pneumonia due to human coronavirus Current Visit: Yes Status: Acute (4) Pulmonary edema Current Visit: Yes Status: Acute (5) Viral pneumonia Current Visit: Yes Status: Acute (6) History of left below knee amputation Current Visit: No Status: Chronic (7) Hx of heart artery stent Current Visit: No Status: Chronic (8) Morbid obesity with BMI of 50.0-59.9, adult Onset Date: 11/08/17 Current Visit: No Status: Chronic Brief History of Present Illness: 54-year-old gentleman with a history of CVA with expressive aphasia, paroxysmal atrial fibrillation, end-stage renal disease on hemodialysis was directed to the emergency department due to hypoxia and coughing during dialysis. Patient was noted to be coughing persistently during dialysis. His oxygen saturation checked was found to be 80%. He was directed to the emergency department to be evaluated. Chest x-ray in the emergency department demonstrated bilateral d iffuse lung opacities which could suggest COVID pneumonia. There is a report patient has multiple family members who are infected with COVID. Patient completed dialysis prior to being sent to the ED. He has mild leukocytosis. He is admitted for further management. Hospital Course: The patient was admitted and was monitored closely under telemetry. Started on IV steroids and continued other supportive measures along with oxygen supplementation. Nephrology consulted for hemodialysis. Pulmonary consulted. Continued home medications and titrated as needed Still on oxygen support slightly volume overload Discuss with nephrology Getting a dialysis today Continue steroids Insulin sliding scale Appreciate help from pulmonology and nephrology Will try to wean off oxygen Possible Dc if home O2 use can be arranged and after dialysis Vital Signs/Physical Exam: Temp Pulse Resp BP Pulse Ox 97.9 F 72 24 H 136/63 94 11/11/19 12:09 11/11/19 12:09 11/11/19 12:09 11/11/19 12:09 11/11/19 12:09 General: Alert, In no apparent distress HEENT: Atraumatic, Normocephalic Neck: Supple Respiratory: Clear to auscultation bilaterally Cardiovascular: Regular rate/rhythm, Normal S1 S2 Capillary refill: <2 Seconds Gastrointestinal: Soft and benign, W/out hepatosplenomegaly Musculoskeletal: No clubbing Laboratory Data at Discharge: WBC 8.0 K/uL (4.3-10.9) D 11/11/19 04:25 Hgb 8.7 g/dL (13.6-17.9) L 11/11/19 04:25 Hct 27.1 % (39.6-49.0) L D 11/11/19 04:25 Plt Count 130 K/uL (152-406) L 11/11/19 04:25 PT 16.9 SECONDS (9.5-12.5) H 11/09/19 23:55 INR 1.44 11/09/19 23:55 APTT 43.5 SECONDS (24.3-36.9) H 11/09/19 23:55 Sodium 134 mmol/L (136-145) L 11/10/19 05:05 Potassium 4.4 mmol/L (3.5-5.1) 11/10/19 05:05 BUN 53 mg/dL (7-18) H 11/10/19 05:05 Creatinine 7.19 mg/dL (0.55-1.3) H* 11/10/19 05:05 Glucose 243 mg/dL (74-106) H 11/10/19 05:05 Phosphorus 8.0 mg/dL (2.5-4.9) H 11/11/19 04:25 Magnesium 2.3 mg/dL (1.8-2.4) 11/10/19 05:05 Total Bilirubin 0.8 mg/dL (0.2-1.0) 11/09/19 23:20 AST 34 U/L (15-37) 11/09/19 23:20 ALT 29 U/L (12-78) 11/09/19 23:20 Alkaline Phosphatase 217 U/L (45-117) H 11/09/19 23:20 Amylase 63 U/L (25-115) 11/09/19 23:20 Lipase 192 U/L (73-393) 11/09/19 23:20 Home Medications: Allopurinol 300 mg PO DAILY 11/10/17 Furosemide 20 mg PO DAILY 11/10/17 Zinc Sulfate [Zinc Sulfate*] 220 mg PO DAILY 11/10/17 Apixaban [Eliquis] 5 mg PO BID #60 tablet 08/14/19 Atorvastatin Calcium [Lipitor] 80 mg PO BEDTIME #30 tab 08/14/19 Metoprolol Tartrate [Lopressor*] 25 mg PO BID 6AM 6PM #60 tab 08/14/19 Docusate/Senna [Senokot-S*] 2 tab PO BEDTIME #60 tab 09/12/19 Aspirin [Aspirin EC 81 MG] 1 tab PO DAILY 11/10/19 Fluticasone [Flonase 50MCG Nasal [place]*] 1 spray EMANUEL DAILY 11/10/19 Insulin Glargine Human [Lantus*] 20 units SQ BEDTIME 11/10/19 Insulin Glargine Human [Lantus*] 25 units SQ DAILY 11/10/19 Levothyroxine [Synthroid*] 1 tab PO DAILY 11/10/19 Sucroferric Oxyhydroxide [Velphoro] 2 tab PO TIDWM 11/10/19 Prednisone [Sterapred Ds] 10 mg PO BID #20 tab.ds.pk 11/11/19 New Medications: Prednisone [Sterapred Ds] 10 mg PO BID #20 tab.ds.pk Diet: Renal Followup: Clint Beal MD [ACTIVE - CAN ADMIT] - Time spent managing pt's care (in minutes): 40
[2019-11-11 16:25] VITALS: BP 132/72; TEMP 97.6
[2019-11-11 16:32] VITALS: O2SAT 97
== END 2019-11-11 17:20 | disposition home or self-care (01) | DRG 177 ==
LOC: ER 22:43 → ERHOLD 11-10 01:20 → 3RD-ICU 11-10 07:49
PROVIDERS: ADMIT Internal Medicine; ATTEND Family Medicine
PROC: 8E0ZXY6 Isolation (ICD-10-PCS; principal; 2019-11-10)
DX: U07.1 COVID-19 (principal); J12.89 Other viral pneumonia; N18.6 End stage renal disease; J96.01 Acute respiratory failure with hypoxia; I13.2 Hypertensive heart and chronic kidney disease with heart failure and with stage 5 chronic kidney disease, or end stage renal disease; I50.32 Chronic diastolic (congestive) heart failure; Z68.43 Body mass index [BMI] 50.0-59.9, adult; E11.22 Type 2 diabetes mellitus with diabetic chronic kidney disease; D72.829 Elevated white blood cell count, unspecified; Z86.73 Personal history of transient ischemic attack (TIA), and cerebral infarction without residual deficits; Z99.2 Dependence on renal dialysis; Z79.01 Long term (current) use of anticoagulants; Z79.82 Long term (current) use of aspirin; Z79.899 Other long term (current) drug therapy; Z79.4 Long term (current) use of insulin; I25.10 Atherosclerotic heart disease of native coronary artery without angina pectoris; E78.5 Hyperlipidemia, unspecified; Z89.512 Acquired absence of left leg below knee; E11.621 Type 2 diabetes mellitus with foot ulcer; L97.509 Non-pressure chronic ulcer of other part of unspecified foot with unspecified severity; E66.01 Morbid (severe) obesity due to excess calories; D63.8 Anemia in other chronic diseases classified elsewhere; E88.89 Other specified metabolic disorders
CPT/HCPCS: 36415; 71045; 80048; 80076; 82150; 82550; 82553; 82947; 83605; 83690; 83735; 84100; 84145; 84484; 85025; 85610; 85730; 87040; 87070; 87081; 87804; 90935; 93005; 94760; 96365; 96375; 99285; J0456; J0696; J1100; J7050; U0002

== ENCOUNTER 2019-11-11 20:19 | Inpatient (IN) | payer MEDICARE ==
--- OUTSIDE RECORDS SUMMARY | 2019-11-11 20:22 | XMS REPORT | Continuity of Care Document ---
:1965 Author Organization [facility] t Address [address] [place] [address] Care Team Providers Name Role Phone Pepito DOW Attending Clinician Doctor Unassigned, Name Attending Clinician Unavailable Problems This patient has no known problems. Allergies, Adverse Reactions, Alerts This patient has no known allergies or adverse reactions. Medications This patient has no known medications. Procedures This patient has no known procedures. Encounters Start End Encounter Admission Attending Care Care Encounter Source Date/Time Date/Time Type Type Clinicians Facility Department ID 2019-10-18 2019-10-18 Telemedici Pepito MDJESSE [id number] 08:16:40 11:09:34 ne Visit Jorge Luis Arriola [id number] [place] [phone] [address] 2019-10-16 2019-10-16 Orders Doctor KIRSTIN [id number] 00:00:00 00:00:00 Only Unassigned, MARIN [id number] [place] [facility] [id number] [phone] 2019-10-16 2019-10-16 Telephone Pepito MDJESSE [id number] 00:00:00 00:00:00 Jorge Luis Arriola [id number] [place] [id number] Professio [phone] [facility] [address] [facility] 2019-09-29 2019-09-29 Telephone Pepito MDJESSE [id number] 00:00:00 00:00:00 Jorge Luis Arriola [id number] [place] [id number] Profess[facility] [phone] [facility] [address] [facility] 2019-08-09 2019-08-09 Refill Beyer, [facility] [id number] 00:00:00 00:00:00 Jorge Luis Arriola [id number] [place] [id number] [facility] [phone] [facility] [address] [facility] 2019-08-08 2019-08-08 Refill Beyer, [facility] [id number] 00:00:00 00:00:00 Jorge Luis Arriola [id number] [place] [id number] Profess[facility] [phone] [facility] [address] [facility] 2019-08-01 2019-08-01 Telemedici Beyer, [facility] [id number] 08:06:56 16:46:00 ne Visit Jorge Luis Arriola [id number] [place] [id number] Professio [phone] [address] 2019-06-29 2019-06-29 Refill Beyer, [facility] [id number] 00:00:00 00:00:00 Jorge Luis Arriola [id number] [place] [id number] [facility] [phone] [address] 2019-01-03 2019-01-03 Telephone Beyer, [facility] [id number] 00:00:00 00:00:00 Jorge Luis Arriola [id number] [place] [id number] Professio [phone] [address] 2018-12-27 2018-12-27 Office Beyer, [facility] [id number] 12:45:15 14:47:14 Visit Jorge Luis Arriola [id number] [place] [id number] [facility] [phone] [address] Results This patient has no known results.
--- OUTSIDE RECORDS SUMMARY | 2019-11-11 20:22 | XMS REPORT | Summary of Care ---
:1965 Author Organization [facility] Address [address] [place] [id number] Care Team Providers Name Role Phone Carlos Eduardo Primary Care Provider Reason for Visit Reason Comments Assessment Rx Concern/Question Encounter Details Date Type Department Care Team Description 10/16/2019 Telephone [facility] Jorge Luis Beyer MD Assessment; Rx Endocrinology- [address] [facility] Concern/ Question [address], [id number] [place] [address] [phone] Allergies No Known Allergiesdocumented as of this encounter (statuses as of 10/17/2019) Medications Medication Sig Dispensed Refills Start Date End Date Status atorvastatin (LIPITOR) Take 40 mg by 0 Active 40 mg tablet mouth at bedtime. furosemide (LASIX) 20 Take 20 mg by 0 Active mg tablet mouth daily. clopidogrel (PLAVIX) 75 Take 75 mg by 0 Active mg tablet mouth daily. aspirin 81 mg tablet Take 1 Tab by 90 Tab 3 12/02/2012 Active mouth daily. Ferrous Sulfate (IRON) Take 28 mg by 0 Active 27 mg iron mouth. 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 0 Active [id number]-fish Take by mouth. 0 Active oil (FISH OIL) 720-1,200 mg Cap blood sugar diagnostic Use to check 300 Strip 1 03/19/2019 Active (ONETOUCH ULTRA BLUE glucose 3X daily. 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 03/10/2017 Edema 12/02/2012 documented as of this encounter (statuses as of 10/17/2019) Resolved Problems Problem Noted Date Resolved Date Chronic kidney disease, unspecified CKD stage 03/10/2017 03/15/2018 documented as of this encounter (statuses as of 10/17/2019) Social History Tobacco Use Types Packs/Day Years [...] Treatment Date Type Specialty Care Team Description 10/18/2019 Telemedicine Visit Endocrinology Diabetes & Jorge Luis Beyer MD Metabolism [address] [place] [address] [phone] 12/05/2019 Office Visit Endocrinology Diabetes & Nick Beyer MD Metabolism [address] [place] [address] [phone] Health Maintenance Due Date Last Done Comments HEPATITIS C (HCV) SCREEN 1965 PNEUMOCOCCAL 0-64 YEARS COMBINED 1970 SERIES (1 of 1 - PPSV23) DTaP,Tdap,and Td Vaccines (1 - 1975 Tdap) Depression Screening 1976 COLONOSCOPY 2014 Zoster Recombinant Vaccine 2014 (SHINGRIX) (1 of 2) LUNG CANCER SCREEN: Recommended 2019 for age 55-80 with 30 + pack year history CREATININE (SERUM) 06/22/2019 06/21/2018, 03/10/2017, 11/08/2008 LDL-C 06/22/2019 06/21/2018, 03/10/2017, 12/20/2008, Additional history exists HgA1C 06/27/2019 12/27/2018, 06/21/2018, 03/15/2018, Additional history exists EYE EXAM 10/15/2019 10/14/2018 INFLUENZA VACCINE (Season Ended) 2019 FOOT EXAM 12/28/2019 12/27/2018, 12/27/2018, 09/07/2017, Additional history exists documented as of this encounter Results Not on filedocumented in this encounter Insurance Payer Benefit Plan / Subscriber ID Effective Dates Phone Addre ss Type Group [facility] [id number] 2019-Present PPO HEALTHCARE/[employer] documented as of this encounter
--- OUTSIDE RECORDS SUMMARY | 2019-11-11 20:22 | XMS REPORT | Summary of Care ---
:1965 Author Organization [facility] - Health Address [address] [place] [address] Care Team Providers Name Role Phone Carlos Eduardo Primary Care Provider Encounter Details Date Type Department Care Team Description 10/16/2019 Orders Only [facility] Doctor Unassigned, No [address] [facility] [place] [address] [address] [place] [address] Allergies No Known Allergiesdocumented as of this encounter (statuses as of 10/16/2019) Medications Medication Sig Dispensed Refills Start Date [...] MOUTH EVERY tabletIndications: MORNING Unspecified hypothyroidism Insulin [place], Use as directed 100 Each 1 03/10/2017 Active Disposable, (BD ULTRAFINE III MINI PEN) 31 gauge x 3/16" NdleIndications: 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 0 Active [id number] Take by mouth. 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 03/10/2017 Edema 12/02/2012 documented as of this encounter (statuses as of 10/16/2019) Resolved Problems Problem Noted Date Resolved Date Chronic kidney disease, unspecified CKD stage 03/10/2017 03/15/2018 documented as of this encounter (statuses as of 10/16/2019) Social History Tobacco Use Types Packs/Day Years [...] Description 12/05/2019 Office Visit Endocrinology Diabetes & Nick Beyer MD Metabolism [address] [place], [place] [id number] Health Maintenance Due Date Last Done Comments [...] history exists documented as of this encounter Procedures Procedure Name Priority Date/Time Associated Diagnosis Comme nts DIABETES TESTING Routine 10/16/2019 12:01 AM CDT REPORTS documented in this encounter Results Not on filedocumented in this encounter Insurance Payer Benefit Plan / Subscriber ID Effective Dates Phone Addre ss Type Group [facility] [id number] 2019-Present PPO HEALTHCARE/[employer]ARP documented as of this encounter
--- OUTSIDE RECORDS SUMMARY | 2019-11-11 20:23 | XMS REPORT | Summary of Care ---
:1965 Author Organization [facility] Address [address] [place] [id number] Care Team Providers Name Role Phone Carlos Eduardo Primary Care Provider Reason for Visit Reason Comments Follow-up Diabetes Mellitus II Hospital F/U Encounter Details Date Type Department Care Team Description 10/18/2019 Telemedicine Visit [facility] Beyer, [place], Type 2 d iabetes mellitus with renal manifestations not at goal (Primary Dx); Endocrinology- Essential hypertension; [address] Dyslipidemia; [address] [place] [address] Primary hypothyroidism; Drive, [address] [place], [place] ESRD (end stage renal diseas [place]) [place] [id number] Allergies No Known Allergiesdocumented as of this encounter (statuses as of 10/18/2019) Medications Medication Sig Dispensed Refills Start Date End Date Status atorvastatin Take 40 mg by 0 Act delvis (LIPITOR) 40 mg mouth at tablet bedtime. furosemide (LASIX) Take 20 mg by 0 Active 20 mg tablet mouth daily. clopidogrel (PLAVIX) Take 75 mg by 0 Active 75 mg tablet mouth daily. aspirin 81 mg tablet Take 1 Tab by 90 Tab 3 12/02/2012 Active mouth daily. Ferrous Sulfate Take 28 mg by 0 Active (IRON) 27 mg iron mouth. 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 [id number] Take by 0 Active h oil (FISH OIL) mouth. 720-1,200 mg Cap blood sugar Use to check 300 Strip 1 03/19/2019 Acti ve diagnostic (ONETOUCH glucose 3X ULTRA BLUE TEST daily. 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 Communication with patient was conducted via Video Call. Location of Patient: Home Location of Provider: Clinic Date of Service: 10/18/2019 Chief Complaint: Type 2 diabetes mellitus- follow [...] started dialysis since 11/2017, MWF Last visit wa sin 07/2019. Patient was advised to change Insulin N 85 units in am and 65 units at night insulin- R 30-40unit tidac sliding scale However, patient had stroke around August 13 and was in Hospital for over a month while in hospital they d/c his insulin N and R regimen and started him on Lantus 20 units BID states BGs has been fairly controlled right after discharge but trending higher in last 1-2 weeks Glucose readings: checks 2 times daily. Fastin-231, one 128, one 366 in past two weeks Denies hypoglycemia Diet: better compliant,less carbs intake recently since now living with parents. Exercise: Not active, dyspnea on exertion, Left leg prosthesis. Now s/p stroke Hypothyroidism: takes LT4 at 125 mcg daily. NormalTFTs in 06/2018 Dyslipidemia: taking Lipitor 40 mg per patient DIABETIC HEALTH MAINTENANCE Last Ophthalmology visit was09/2018reported no retinopathy, [place]. Patient on JACK/ARB therapy - No due to ESRD Patient on ASA therapy - Yes. Patient on Statin/Fibrate therapy - Yes. Patient instructed about daily feet exams, last sensation exam was12/27/2018, Sees Dr Dias q 3 months for right chronic wound Last flu shot: 2018 Patient has received Nutrition/Diet/Diabetes Education on Yes. MEDICATIONS: Patient's Medications START taking these medications INSULIN GLARGINE 100 UNIT/ML INJECTION Take 25 units QAM and 20 units QPM E11.65 CONTINUE taking these medications which have NOT CHANGED ALLOPURINOL (ZYLOPRIM) 100 MG TABLET ASPIRIN 81 MG TABLET Take 1 Tab by mouth daily. ATORVASTATIN (LIPITOR) 40 MG TABLET Take 40 mg by mouth at bedtime. BLOOD SUGAR DIAGNOSTIC (CitizinvestorUCH ULTRA BLUE TEST STRIP) STRIP Use to check glucose 3X daily. DX:E11.29 CLOPIDOGREL (PLAVIX) 75 MG TABLET Take 75 mg by mouth daily. FERROUS SULFATE (IRON) 27 MG IRON TAB Take 28 mg by mouth. FUROSEMIDE (LASIX) 20 MG TABLET Take 20 mg by mouth daily. INSULIN NEEDLES, DISPOSABLE, (BD ULTRAFINE III MINI PEN) 31 GAUGE X 3/16" NDLE Use as directed LEVOTHYROXINE (SYNTHROID) 125 MCG TABLET TAKE ONE TABLET BY MOUTH EVERY MORNING [id number]-FISH OIL (FISH OIL) 720-1,200 MG CAP Take by mouth. SEVELAMER 800 MG TABLET ZINC SULFATE ORAL Take by mouth. START taking Modified Medications as Prescribed No medications on file STOP taking these medications INSULIN NPH (NOVOLIN N NPH U-100 INSULIN) 100 UNIT/ML INJECTION Inject 85 units in am and 65 units at night INSULIN REGULAR HUMAN (NOVOLIN R REGULAR U-100 INSULN) 100 UNIT/ML INJECTION inject 30-40 Units under the skin 3 (three) times daily before meals. LANTUS U-100 INSULIN 100 UNIT/ML SOLUTION ROS Constitutional: denies weight gain, denies fatigue and hair loss Eyes: denies blurry vision, denies diplopia and denies pain. Neck: denies pain, denies swollen glands Cardiovascular: denies chest pain , denies irregular pulse and denies palpitations. Respiratory: denies dyspnea on exertion and+shortness of breath. Gastrointestinal: denies abdominal pain, denies constipation and denies diarrhea. Genitourinary: denies burning and denies dysuria. Musculoskeletal: denies back pain, denies muscle pain and denies weakness. Skin: denies dry skin and denies hair changes. Neuro:+s/p recent stroke . Psych: negative. Endocrine:denies intolerance to cold, denies intolerance to heat, denies polydipsia, denies polyphagia TELEHEALTH EXAM Constitutional: no apparent distress, appears stated age and cooperative, Skin: visual inspection of face and anterior neck, normal without any obvious rash, focused exam. Eyes: conjunctiva/corneas clear, lids normal, no proptosis Respiratory: breathing normally, no excessive respiratory efforts, no wheezing Neuro: slur speech, need direction in answering question , face symmetric, no facial drooping Psychiatric: alert, normal mood and affect Patient will send recent hospital records to here ASSESSMENT/ PLAN Brennon Pinedo is a 54 year old male with PMH as above presenting with: 1. 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 Essential hypertension Per cardiology and nephrology 3. Dyslipidemia Comment:lipid was at target plan Continue Lipitor 4. Primary hypothyroidism Comment:pt denies hypo/hyperyhyroid symptoms Plan: Continue current LT4 5. ESRD (end stage renal disease) On HD After visit summary (AVS ) documentation will be available through [employer] for this encounter. A total of 40 minutes was spent on the Video Call, chart review, and coordination of care Jorge Luis Beyer MD documented in this encounter Plan of Treatment Date Type Specialty Care Team Description 12/05/2019 Office Visit Endocrinology Diabetes & Nick Beyer MD Metabolism [address] [place] [address] [phone] Health Maintenance Due Date Last Done Comments [...] exists EYE EXAM 10/15/2019 10/14/2018 INFLUENZA VACCINE (#1) 2019 FOOT EXAM 12/28/2019 12/27/2018, 12/27/2018, 09/07/2017, Additional history exists documented as of this encounter Results Not on filedocumented in this encounter Visit Diagnoses Diagnosis Type 2 diabetes mellitus with renal sarthak festations not at goal - Primary Essential hypertension Unspecified essential hypertension Dyslipidemia Other and unspecified hyperlipidemia Primary hypothyroidism Unspecified hypothyroidism ESRD (end stage renal disease) End stage renal disease documented in this encounter Insurance Payer Benefit Plan / Subscriber ID Effective Dates Phone Addre ss Type Group [facility] [id number] 2019-Present [employer] documented as of this encounter
--- NOTE | 2019-11-11 21:32 | RAD REPORT ---
EXAM DESCRIPTION: RAD - Chest Single View - 11/11/2019 8:46 pm CLINICAL HISTORY: Cough;SOB, positive COVID test, recent hospitalization COMPARISON: Portable November 08 TECHNIQUE: AP portable chest image was obtained 11/11/2019 8:46 pm . FINDINGS: Bilateral airspace opacification is present throughout the lung [place] with relative spari ng of the left apex. This pattern is similar to November 08 imaging. Cardiomegaly is present. Vasculature is prominent. No pneumothorax or enlarging pleural effusion. No acute bony abnormality seen. No acut e aortic findings suspected. IMPRESSION: Extensive bilateral airspace opacification. This could be bilateral pneumonia, volume ov erload, failure or a combination. Chest pattern is not substantially different from November 08.
--- NOTE | 2019-11-11 21:57 | EDPHYS ---
Physician Documentation [facility] Name: Brennon Pinedo Age: 54 yrs Sex: Male : 1965 Arrival Date: 11/11/2019 Time: 20:20 Bed 17 Private MD: ED Physician Reynaldo Joyce HPI: 11/10 22:14 This 54 yrs old Male presents to ER via Wheelchair with complaints of snw Shortness Of Breath. 22:14 The patient has shortness of breath at rest. Onset: The symptoms/episode began/occurred snw suddenly, and became worse and became persistent. Duration: The symptoms are continuous. Associated signs and symptoms: The patient has no apparent associated signs or symptoms. Severity of symptoms: At their worst the symptoms were severe. It is unknown whether or not the patient has had similar symptoms in the past. discharged from ICU today, just finished dialysis. Historical: - Allergies: 20:42 No Known Allergies; lp1 - Home Meds: 20:42 allopurinol 300 mg Oral tab 1 tab once daily [Active]; apixaban 5mg Oral 2 times per lp1 day [Active]; aspirin 81 mg Oral chew 1 tab once daily [Active]; atorvastatin 40 mg Oral tab 1 tab once daily [Active]; EMLA Topical [Active]; fluticasone 50 mcg/actuation nasal spsn 1 spray once daily [Active]; furosemide 20 mg Oral tab 1 tab once daily [Active]; Lantus 100 unit/mL Sub-Q soln [Active]; levothyroxine 125 mcg tab 1 tab once daily [Active]; metoprolol tartrate 25 mg Oral tab 1 tab 2 times per day [Active]; senna Oral [Active]; zinc sulfate 220 (50) mg Oral cap [Active]; - PMHx: 20:42 ANOREXIA; CHF; chronic kidney disease; Diabetes - NIDDM; Hypertension; IRON DEFICIENCY lp1 ANEMIA; Seizures; 20:44 CVA; lp1 - PSHx: 20:42 Left leg amputation; Dialysis shunt, left arm; lp1 - Immunization history:: Adult Immunizations up to date. - Social history:: Smoking status: Patient denies any tobacco usage or history of. ROS: 22:12 Eyes: Negative for injury, pain, redness, and discharge, ENT: Negative for injury, snw pain, and discharge, Neck: Negative for injury, pain, and swelling, Cardiovascular: Negative for chest pain, palpitations, and edema. 22:12 Abdomen/GI: Negative for abdominal pain, nausea, vomiting, diarrhea, and constipation, Back: Negative for injury and pain, : Negative for injury, bleeding, discharge, and swelling, MS/Extremity: Negative for injury and deformity, Skin: Negative for injury, rash, and discoloration. 22:12 Constitutional: Positive for body aches, fatigue. 22:12 Respiratory: Positive for cough, dyspnea on exertion, shortness of breath, at rest. 22:12 Neuro: Positive for weakness, pt with previous hx of CVA, affecting communication severely.. Exam: 22:11 Head/Face: Normocephalic, atraumatic. Eyes: Pupils equal round and reactive to light, snw extra-ocular motions intact. Lids and lashes normal. Conjunctiva and sclera are non-icteric and not injected. Cornea within normal limits. Periorbital areas with no swelling, redness, or edema. ENT: Nares patent. No nasal discharge, no septal abnormalities noted. Tympanic membranes are normal and external auditory canals are clear. Oropharynx with no redness, swelling, or masses, exudates, or evidence of obstruction, uvula midline. Mucous membranes moist. Neck: Trachea midline, no thyromegaly or masses palpated, and no cervical lymphadenopathy. Supple, full range of motion without nuchal rigidity, or vertebral point tenderness. No Meningismus. Chest/axilla: Normal chest wall appearance and motion. Nontender with no deformity. No lesions are appreciated. 22:11 Abdomen/GI: Soft, non-tender, with normal bowel sounds. No distension or tympany. No guarding or rebound. No evidence of tenderness throughout. Back: No spinal tenderness. No costovertebral tenderness. Full range of motion. Skin: Warm, dry with normal turgor. Normal color with no rashes, no lesions, and no evidence of cellulitis. MS/ Extremity: Pulses equal, no cyanosis. Neurovascular intact. Full, normal range of motion. Neuro: Awake and alert, GCS 15, oriented to person, place, time, and situation. Cranial nerves II-XII grossly intact. Motor strength 5/5 in all extremities. Sensory grossly intact. Cerebellar exam normal. Normal gait. Psych: Awake, alert, with orientation to person, place and time. Behavior, mood, and affect are within normal limits. 22:11 Constitutional: The patient appears awake, obese, in obvious distress, moderately distressed, restless, uncomfortable, tripod positioning 22:11 Cardiovascular: Rate: tachycardic. 22:11 Respiratory: severe repiratory distress is noted, Respirations: labored breathing, accessory muscle usage, shallow respirations, splinting, tachypnea. Vital Signs: 20:29 BP 146 / 80; Pulse 100; Resp 22; Pulse Ox 93% on 4 lpm NC; lp1 21:11 BP 145 / 79; Pulse 101; Resp 31; Pulse Ox 80% on R/A; Pain 7/10; ls4 21:16 Pulse Ox 68% on R/A; ls4 22:01 BP 149 / 79; Pulse 112; Resp 28; Temp 98.8; Pulse Ox 95% on 30% BiPAP; Pain 0/10; ls4 21:16 respiratory in room assessing patient. ls4 MDM: 20:40 Physician consultation: Mitchell Timoteo was called at 20:40, was contacted at 20:40, snw regarding admission, patient's condition. Special discussion: Based on the history and exam findings, there is no indication for further emergent testing or inpatient evaluation. I discussed with the patient/guardian the need to see the primary care provider for further evaluation of the symptoms. 20:54 Patient medically screened. snw 21:57 Data reviewed: vital signs, nurses notes. Data interpreted: Pulse oximetry: on room air snw is 68 %. Interpretation: hypoxia. Plan: O2 by Mask applied. Counseling: I had a detailed discussion with the patient and/or guardian regarding: the historical points, exam findings, and any diagnostic results supporting the discharge/admit diagnosis, the presence of at least one elevated blood pressure reading (>120/80) during this emergency department visit, lab results, radiology results, the need for further work-up and treatment in the hospital. 11/10 20:56 Order name: ABG: room air snw 11/10 20:26 Order name: Chest Single View XRAY; Complete Time: 21:36 snw 11/10 21:33 Order name: BIPAP: 12 60% snw Administered Medications: 22:42 Drug: Decadron - Dexamethasone 10 mg Route: IVP; Site: right antecubital; ls4 23:52 Follow up: Response: No adverse reaction ls4 22:45 Drug: Ativan 1 mg Route: IVP; Site: right antecubital; ls4 23:15 Follow up: Response: No adverse reaction; Marked relief of symptoms ls4 22:54 Drug: Zithromax 500 mg Route: IVPB; Infused Over: 1 hrs; Site: right antecubital; ls4 23:53 Follow up: IV Status: Infusion continued upon admission ls4 Disposition: 11/11 05:29 Co-signature as Attending Physician, Reynaldo Joyce MD I agree with the assessment and tw4 plan of care. Disposition: 11/11/19 21:57 Hospitalization ordered by Mitchell Mahmood for Inpatient Admission. Preliminary diagnosis are Hypoxemia, Pneumonia due to SARS-associated coronavirus. - Bed requested for Intensive Care Unit. - Status is Inpatient Admission. ls4 - Condition is Fair. - Problem is an acute exacerbation. - Symptoms have worsened. Signatures: Dispatcher [employer] EDRadha Lewis FNP-C TELEVISION NEWS PHOTOGRAPHER-Csnw Anita Bower RN RN lp1 Analilia Jennings RN RN Reynaldo Joyce MD MD tw4 Lisa Verdugo RN RN ls4 Corrections: (The following items were deleted from the chart) 11/10 22:47 21:57 Hospitalization Ordered by Mitchell Mahmood for Inpatient Admission. Preliminary cg diagnosis is Hypoxemia; Pneumonia due to SARS-associated coronavirus. Bed requested for Telemetry/MedSurg (Inpatient). Status is Inpatient Admission. Condition is Fair. Problem is an acute exacerbation. Symptoms have worsened. snw 23:54 22:47 11/11/2019 21:57 Hospitalization Ordered by Mitchell Mahmood for Inpatient ls4 Admission. Preliminary diagnosis is Hypoxemia; Pneumonia due to SARS-associated coronavirus. Bed requested for Intensive Care Unit. Status is Inpatient Admission. Condition is Fair. Problem is an acute exacerbation. Symptoms have worsened. cg
--- NOTE | 2019-11-11 21:57 | ER ---
Nurse's Notes [facility] Name: Brennon Pinedo Age: 54 yrs Sex: Male : 1965 Arrival Date: 11/11/2019 Time: 20:20 Bed 17 Private MD: Diagnosis: Hypoxemia;Pneumonia due to SARS-associated coronavirus Presentation: 11/10 20:36 Chief complaint: Father states patient was just released from hospital tonight with lp1 home O2 but seemed confused, check O2 on 4L NC and was 85%; Patient is COVID + and diagnosed with pneumonia; family states patient had dialysis prior to discharge. Coronavirus screen: Patient instructed to continue to wear a mask when interacting with others. Patient moved to private room, placed in contact and droplet isolation with eye protection until further assessment. COVID POSITIVE. Ebola Screen: No symptoms or risks identified at this time. Initial Sepsis Screen: Does the patient meet any 2 criteria? No. Patient's initial sepsis screen is negative. Does the patient have a suspected source of infection? No. Patient's initial sepsis screen is negative. Risk Assessment: Do you want to hurt yourself or someone else? Patient reports no desire to harm self or others. Onset of symptoms was November 11, 2019. 20:36 Method Of Arrival: Wheelchair lp1 20:36 Acuity: STEPHANIE 3 lp1 Historical: - Allergies: 20:42 No Known Allergies; lp1 - Home Meds: 20:42 allopurinol 300 mg Oral tab 1 tab once daily [Active]; apixaban 5mg Oral 2 times per lp1 day [Active]; aspirin 81 mg Oral chew 1 tab once daily [Active]; atorvastatin 40 mg Oral tab 1 tab once daily [Active]; EMLA Topical [Active]; fluticasone 50 mcg/actuation nasal spsn 1 spray once daily [Active]; furosemide 20 mg Oral tab 1 tab once daily [Active]; Lantus 100 unit/mL Sub-Q soln [Active]; levothyroxine 125 mcg tab 1 tab once daily [Active]; metoprolol tartrate 25 mg Oral tab 1 tab 2 times per day [Active]; senna Oral [Active]; zinc sulfate 220 (50) mg Oral cap [Active]; - PMHx: 20:42 ANOREXIA; CHF; chronic kidney disease; Diabetes - NIDDM; Hypertension; IRON DEFICIENCY lp1 ANEMIA; Seizures; 20:44 CVA; lp1 - PSHx: 20:42 Left leg amputation; Dialysis shunt, left arm; lp1 - Immunization history:: Adult Immunizations up to date. - Social history:: Smoking status: Patient denies any tobacco usage or history of. Screenin:42 Abuse screen: Denies threats or abuse. Denies injuries from another. Nutritional lp1 screening: No deficits noted. Tuberculosis screening: No symptoms or risk factors identified. Assessment: 20:43 Reassessment: Brennon Pinedo, patient's father, left phone number for any questions: lp1 [phone]. 20:48 General: Appears distressed, uncomfortable, Behavior is anxious, fussy, restless, ls4 Reports. Cardiovascular: Reports fatigue, lightheadedness, shortness of breath. Respiratory: Airway is patent Respiratory effort is labored, with nasal flaring, pursed lip, using tripod position, Respiratory pattern is tachypnea Breath sounds are diminished bilaterally. the patient has severe shortness of breath. 20:48 Cardiovascular: Denies chest pain, Capillary refill < 3 seconds Patient's skin is warm ls4 and dry. 20:48 Neuro: Level of Consciousness is lethargic, Oriented to person, Moves all extremities. ls4 Weakness Speech is slurred. Cardiovascular: Rhythm is regular. 21:52 Respiratory: Patient placed on BiPAP: Inspiratory Pressure: 20 Expiratory (EPAP) ls4 Pressure: 10 FiO2%: 30 Respiratory Rate: 18. 22:48 Reassessment: Patient and/or family updated on plan of care and expected duration. Pain ls4 level reassessed. PT CONTINUES TO REMOVE BIPAP. PT STATES HE WILL WEAR BIPAP IF HE CAN HAVE WATER. PT GIVEN WATER AND THEN HE AGREED TO WEAR BIPAP. PT THEN BEGAN REMOVING BIPAP AGAIN. STAYED WITH PATIENT WHICH HELPED KEEP HIM CALM AND HE SETTLED AND KEPT BIPAP ON. Patient states symptoms have not improved. Vital Signs: 20:29 BP 146 / 80; Pulse 100; Resp 22; Pulse Ox 93% on 4 lpm NC; lp1 21:11 BP 145 / 79; Pulse 101; Resp 31; Pulse Ox 80% on R/A; Pain 7/10; ls4 21:16 Pulse Ox 68% on R/A; ls4 22:01 BP 149 / 79; Pulse 112; Resp 28; Temp 98.8; Pulse Ox 95% on 30% BiPAP; Pain 0/10; ls4 21:16 respiratory in room assessing patient. ls4 ED Course: 20:20 Patient arrived in ED. ds1 20:23 Radha [facility]C [facility]. snw 20:23 Reynaldo Joyce MD is Attending Physician. snw 20:39 Triage completed. lp1 20:39 Arm band placed on. lp1 20:42 Patient has correct armband on for positive identification. Placed in gown. Bed in low lp1 position. Call light in reach. web press operator helper offset on. Pulse ox on. NIBP on. 20:47 Chest Single View XRAY In Process Unspecified. EDMS 20:48 No provider procedures requiring assistance completed. Inserted saline lock: 20 gauge ls4 in right antecubital area, using aseptic technique. Blood collected. 20:54 Lisa Verdugo, RN is Primary Nurse. ls4 21:56 Mitchell Mahmood is Hospitalizing Provider. snw 23:06 Patient admitted, IV remains in place. lp1 23:48 BIPAP: 10/12 60% Sent. ls4 Administered Medications: 22:42 Drug: Decadron - Dexamethasone 10 mg Route: IVP; Site: right antecubital; ls4 23:52 Follow up: Response: No adverse reaction ls4 22:45 Drug: Ativan 1 mg Route: IVP; Site: right antecubital; ls4 23:15 Follow up: Response: No adverse reaction; Marked relief of symptoms ls4 22:54 Drug: Zithromax 500 mg Route: IVPB; Infused Over: 1 hrs; Site: right antecubital; ls4 23:53 Follow up: IV Status: Infusion continued upon admission ls4 Outcome: 21:57 Decision to Hospitalize by Provider. snw 23:05 Admitted to ICU via wheelchair, room 6, with oxygen, on monitor, with chart, Report ls4 called to VIKTORIYA Roe 23:05 critical 23:05 Instructed on the need for admit. 23:54 Patient left the ED. ls4 Signatures: Dispatcher [employer] EDMS Radha Marie FNP-C MASTER MOTORCYCLE TECHNICIAN-CsnEmmy Knox ds1 Anita Bower RN RN lp1 Lisa Verdugo, VIKTORIYA RN ls4 Corrections: (The following items were deleted from the chart) 21:56 21:12 General: Appears distressed, uncomfortable, Behavior is calm, cooperative, ls4 ls4 :00 21:12 Cardiovascular: Reports fatigue, lightheadedness, shortness of breath, ls4 ls4 :00 21:12 Respiratory: Airway is patent Respiratory effort is labored, with nasal flaring, ls4 pursed lip, using tripod position, Respiratory pattern is tachypnea Breath sounds are diminished bilaterally. the patient has severe shortness of breath ls4 :00 :12 Derm: Skin is intact, ls4 ls4 ::12 Cardiovascular: Rhythm is ls4 ls4 : 21:12 General: Appears distressed, uncomfortable, Behavior is anxious, fussy, restless, ls4 Reports ls4 :00 :56 Pain: Denies pain. ls4 ls4 22:00 21:57 Reassessment: ls4 ls4 23:54 23:05 Admitted to ICU via stretcher, room 6, with oxygen, on monitor, with chart, ls4 Report called to VIKTORIYA Roe lp1
[2019-11-11] MEDS ORDERED: NA CHLORIDE 0.9% 250 ML ONE (22:38)
[2019-11-11] MEDS ORDERED: AZITHROMYCIN 500 MG INJ IVPB ONE (22:38)
[2019-11-11] MEDS ORDERED: dexAMETHasone 10 MG/ML VIAL ONE (22:38)
[2019-11-11] MEDS ORDERED: LORazepam 2 MG/ML VIAL ONE (22:52)
--- NOTE | 2019-11-11 23:32 | P.HP ---
Certification for Inpatient Patient admitted to: Inpatient With expected LOS: >2 Midnights Practitioner: I am a practitioner with admitting privileges, knowledge of patient current condition, hospital course, and medical plan of care. Services: Services provided to patient in accordance with Admission requirements found in Title 42 Section 412.3 of the Code of Federal Regulations Patient History Date of Service: 11/11/19 Reason for admission: Shortness of breath History of Present Illness: 54-year-old morbidly obese gentleman with a history of end-stage renal disease on hemodialysis, admitted yesterday for COVID pneumonia and discharged this morning after completing dialysis presented to the emergency department again with worsening shortness of breath. Chest x-ray again demonstrated extensive bilateral infiltrates. Patient was hypoxic and in respiratory to in the ED and needed BiPAP ventilation. He is admitted for further management. Allergies No Known Allergies Allergy (Verified 08/14/19 14:26) Home Medications: Allopurinol 300 mg PO DAILY 11/10/17 Furosemide 20 mg PO DAILY 11/10/17 Zinc Sulfate [Zinc Sulfate*] 220 mg PO DAILY 11/10/17 Apixaban [Eliquis] 5 mg PO BID #60 tablet 08/14/19 Atorvastatin Calcium [Lipitor] 80 mg PO BEDTIME #30 tab 08/14/19 Metoprolol Tartrate [Lopressor*] 25 mg PO BID 6AM 6PM #60 tab 08/14/19 Docusate/Senna [Senokot-S*] 2 tab PO BEDTIME #60 tab 09/12/19 Aspirin [Aspirin EC 81 MG] 1 tab PO DAILY 11/10/19 Fluticasone [Flonase 50MCG Nasal [place]*] 1 spray EMANUEL DAILY 11/10/19 Insulin Glargine Human [Lantus*] 20 units SQ BEDTIME 11/10/19 Insulin Glargine Human [Lantus*] 25 units SQ DAILY 11/10/19 Levothyroxine [Synthroid*] 1 tab PO DAILY 11/10/19 Sucroferric Oxyhydroxide [Velphoro] 2 tab PO TIDWM 11/10/19 Prednisone [Sterapred Ds] 10 mg PO BID #20 tab.ds.pk 11/11/19 - Past Medical/Surgical History Diabetic: Yes -: Diastolic CHF -: Hypertension -: Hypothyroidism -: Diabetes mellitus type 2 -: End-stage renal disease on hemodialysis -: CAD -: Paroxysmally atrial fibrillation -: Hyperlipidemia -: Prior left BKA. -: Left BKA -: Carotid stents Psychosocial/ Personal History: Patient lives at home - Social History Alcohol use: No CD- Drugs: No Caffeine use: No Review of Systems Other: Except as documented, all other systems reviewed and negative. Physical Examination - Physical Exam General: Alert, Moderate distress, Obese HEENT: Normocephalic, Other (BIPAP) Neck: Supple, No Thyromegaly Respiratory: Diminished, Crackles/rales (Bilateral) Cardiovascular: Normal S1 S2, Irregular heart rate/rhythm Gastrointestinal: Normal bowel sounds, Soft and benign, No tenderness Musculoskeletal: No swelling, No erythema Integumentary: No rashes Neurological: Normal strength at 5/5 x4 extr, Cranial nerves 3-12 intact Assessment and Plan - Problems (Diagnosis) (1) Pneumonia due to COVID-19 virus Current Visit: Yes Status: Acute (2) ESRD (end stage renal disease) on dialysis Current Visit: No Status: Acute (3) Pulmonary edema Current Visit: No Status: Acute (4) Diabetes Current Visit: No Status: Chronic Qualifiers: Diabetes mellitus type: type 2 Diabetes mellitus assisted insulin use: without assisted use Diabetes mellitus complication status: with skin complications Diabetes mellitus complication detail: with foot ulcer Qualified Code(s): E11.621 - Type 2 diabetes mellitus with foot ulcer; L97.509 - Non-pressure chronic ulcer of other part of unspecified foot with unspecified severity (5) Morbid obesity with BMI of 50.0-59.9, adult Onset Date: 11/08/17 Current Visit: No Status: Chronic - Plan Admit to the ICU Intermittent BIPAP therapy Titrate oxygen. IV Dexamethasone Consulted Pulmonary Consult to nephrology for hemodialysis. Insulin sliding scale for glucose management. - Advance Directives Does patient have a Living Will: No Does patient have a Durable POA for Healthcare: No
[2019-11-12] MEDS ORDERED: LORazepam 2 MG/ML VIAL IV ONE (00:50)
[2019-11-12] MEDS: HEPARIN 5000 UNIT/ML 1 ML VIAL SQ SCH ×3 (00:58→17:23)
[2019-11-12] MEDS: dexAMETHasone 10 MG/ML VIAL IV SCH ×3 (00:58→17:23)
[2019-11-12 01:16] LABS: Arterial Blood Carboxyhemoglob 1.5 % (0-1.5); Blood O2 Saturation 87.2 % (92-98.5)
[2019-11-12 05:47] LABS: Absolute Lymphocytes (CBC) 0.2 K/uL (0.7-4.9); Basophils % 0.1 % (0-1.3); Lymphocytes % 1.3 % (15.3-44.8); MPV 10.2 fL (7.6-11.3); RBC Red Blood Cell Count 2.76 M/uL (4.33-5.43)
[2019-11-12 06:10] LABS: Phosphorus 8.1 mg/dL (2.5-4.9)
[2019-11-12 06:17] LABS: Potassium 6.1 mmol/L (3.5-5.1)
[2019-11-12 08:00] LABS: Blood Morphology Comment NOT SEEN (NOT SEEN); Platelet Estimate ADEQ
[2019-11-12] MEDS: INSULIN -REGULAR HUMAN 50 UNIT/0.5 ML ML SQ SCH ×4 (09:12→21:08)
--- NOTE | 2019-11-12 10:20 | P.PN ---
Subjective Date of Service: 11/12/19 Chief Complaint: Shortness of breath Subjective: No new changes Review of Systems 10-point ROS is otherwise unremarkable Physical Examination - Vital Signs Temperature: 97.8 F Blood Pressure: 147/53 Pulse: 86 Respirations: 22 Pulse Ox (%): 96 - Physical Exam General: Alert, Obese HEENT: Atraumatic, Normocephalic Neck: Supple Respiratory: Diminished, Crackles/rales Cardiovascular: Normal pulses, Regular rate/rhythm Capillary refill: <2 Seconds Gastrointestinal: Soft and benign, W/out hepatosplenomegaly Musculoskeletal: No clubbing, No swelling Integumentary: No rashes, No breakdown Neurological: Normal speech, Normal strength at 5/5 x4 extr Lymphatics: No axilla or inguinal lymphadenopathy Assessment & Plan Physician Review Additional Text: Pneumonia due to COVID-19 virus ESRD (end stage renal disease) on dialysis Pulmonary edema Diabetes Hyperglycemia Hyperkalemia Morbid obesity with BMI of 50.0-59.9, adult - Plan Admit to the ICU Intermittent BIPAP therapy Titrate oxygen. IV Dexamethasone Consulted Pulmonary Consult to nephrology for hemodialysis. Insulin sliding scale for glucose management. Monitor closely under telemetry Antihyperkalemic measures with Kayexalate, insulin and calcium Aggressive diuresis Patient may need dialysis Oxygen supplementation Antianxiety medication Continue home medications and titrate as needed Titrate antihypertensives Pulmonology consult Time Spent Managing Pts Care (In Minutes): 45
[2019-11-12] MEDS ORDERED: GLUCAGON 1 MG/VIAL IM PRN (10:39)
[2019-11-12] MEDS ORDERED: D50W 25 GM/50 ML SYRINGE/VIAL IV PRN (10:39)
[2019-11-12] MEDS: INSULIN GLARGINE 100 UNITS/ML SQ SCH ×2 (10:40→21:09)
[2019-11-12] MEDS ORDERED: CALCIUM GLUC 10% INJ 4.65 MEQ in NA CHLORIDE 0.9% 100 ML IV ONE (10:42)
[2019-11-12] MEDS ORDERED: SOD POLYSTYREN SUL 15 GM/60 ML UCUP PO ONE (10:42)
[2019-11-12] MEDS ORDERED: ZIPRASIDONE MESYLA 20 MG/VIAL IM ONE (11:02)
[2019-11-12] MEDS: WATER FOR INJ,STERILE 10 ML IM PRN (11:53)
--- NOTE | 2019-11-12 12:56 | P.CNS ---
Date of Consult: 11/12/19 Reason for Consult: Hyperkalemia , fluid overload Chief Complaint: Shortness of breath History of Present Illness: HPI 54 Y/o man with HX of ESRD on HD TTsat, CAD , admitted for AMS , Afib , CVA pt was admitted for SOB pt was discahrged yesterday after he was admitted for COVID related hypozis, at home pt again have dyspnea in ER K 6.1, CXR with fluid overload no wsymptoms improved denied chest pain, palpitation, fever , chills, nausea, vomiting or diarrhea Physical Examination: General: seeping, , obese neck: supple, no elevated JVD Heart: RRR, normal S1,2 no murmur or rub chest CTAB, no rales or whezes Abdomen: soft , NT ext : lt BKA , Rt leg trace edema ESRD on HD TTSAt next HD today and then Wednesday Cont HD , renal dose meds COVID 19 pneumonia cont supportive care hypoxic resp failure due t COVID cont O2 Anemia of chronic disease start epogen metabolic bone disaese cont binders DM on insulin HTN controlled Allergies No Known Allergies Allergy (Verified 08/14/19 14:26) Home Medications: Allopurinol 300 mg PO DAILY 11/10/17 Furosemide 20 mg PO DAILY 11/10/17 Zinc Sulfate [Zinc Sulfate*] 220 mg PO DAILY 11/10/17 Apixaban [Eliquis] 5 mg PO BID #60 tablet 08/14/19 Atorvastatin Calcium [Lipitor] 80 mg PO BEDTIME #30 tab 08/14/19 Metoprolol Tartrate [Lopressor*] 25 mg PO BID 6AM 6PM #60 tab 08/14/19 Docusate/Senna [Senokot-S*] 2 tab PO BEDTIME #60 tab 09/12/19 Aspirin [Aspirin EC 81 MG] 1 tab PO DAILY 11/10/19 Fluticasone [Flonase 50MCG Nasal [place]*] 1 spray EMANUEL DAILY 11/10/19 Insulin Glargine Human [Lantus*] 20 units SQ BEDTIME 11/10/19 Insulin Glargine Human [Lantus*] 25 units SQ DAILY 11/10/19 Levothyroxine [Synthroid*] 1 tab PO DAILY 11/10/19 Sucroferric Oxyhydroxide [Velphoro] 2 tab PO TIDWM 11/10/19 Prednisone [Sterapred Ds] 10 mg PO BID #20 tab.ds.pk 11/11/19 - Past Medical/Surgical History Diabetic: Yes -: Diastolic CHF -: Hypertension -: Hypothyroidism -: Diabetes mellitus type 2 -: End-stage renal disease on hemodialysis -: CAD -: Paroxysmally atrial fibrillation -: Hyperlipidemia -: Prior left BKA. -: Left BKA -: Carotid stents Psychosocial/ Personal History: Patient lives at home - Social History Smoking Status: Unknown if ever smoked Alcohol use: No CD- Drugs: No Caffeine use: No Place of Residence: Home Physical Examination Temp Pulse Resp BP Pulse Ox 97.8 F 86 22 H 147/53 H 96 11/12/19 10:46 11/12/19 10:46 11/12/19 10:46 11/12/19 10:46 11/12/19 10:46
[2019-11-12] MEDS ORDERED: EPOETIN 4,000 UNIT/ML VIAL IV SCH (13:00)
[2019-11-12] MEDS: METOPROLOL TAR 25 MG TAB PO SCH (17:20)
[2019-11-12] MEDS: FUROSEMIDE 40 MG/4 ML VIAL IV SCH (17:23)
[2019-11-12 18:56] LABS: Albumin 2.5 g/dL (3.4-5.0); Bilirubin Total 0.4 mg/dL (0.2-1.0); Protein, Total 7.9 g/dL (6.4-8.2)
[2019-11-12 18:57] LABS: Potassium 6.2 mmol/L (3.5-5.1)
[2019-11-12] MEDS ORDERED: APIXABAN 5 MG TABLET PO SCH (21:00)
[2019-11-12] MEDS: DOCUSATE NA/SENNA CONC 1 TAB PO SCH (21:09)
[2019-11-12] MEDS: ATORVASTATIN 80 MG TAB PO SCH (21:43)
[2019-11-13] MEDS: dexAMETHasone 10 MG/ML VIAL IV SCH ×2 (00:07→08:07)
[2019-11-13] MEDS: FUROSEMIDE 40 MG/4 ML VIAL IV SCH ×3 (00:07→17:22)
[2019-11-13] MEDS: HEPARIN 5000 UNIT/ML 1 ML VIAL SQ SCH ×2 (00:08→08:07)
[2019-11-13] MEDS: ZIPRASIDONE MESYLA 20 MG/VIAL IM PRN ×3 (05:13→21:12)
[2019-11-13] MEDS ORDERED: WATER FOR INJ,STERILE 10 ML ONE (05:19)
[2019-11-13] MEDS: METOPROLOL TAR 25 MG TAB PO SCH ×2 (05:31→17:22)
[2019-11-13] MEDS: LEVOTHYROXINE SOD 0.125 MG TAB PO SCH (05:36)
[2019-11-13] MEDS: INSULIN -REGULAR HUMAN 50 UNIT/0.5 ML ML SQ SCH ×4 (08:05→21:12)
[2019-11-13] MEDS: ASPIRIN EC 81 MG TAB PO SCH (08:06)
[2019-11-13] MEDS: INSULIN GLARGINE 100 UNITS/ML SQ SCH ×2 (08:06→21:13)
[2019-11-13] MEDS: allopurinoL 300 MG TAB PO SCH (08:07)
[2019-11-13] MEDS: ACETAMINOPHEN 500 MG TAB PO PRN ×2 (08:07→20:26)
[2019-11-13] MEDS: ZINC SULFATE 220 MG CAP PO SCH (08:07)
[2019-11-13] MEDS: FLUTICASONE 50MCG NASAL SPRAY NAS SCH (08:30)
[2019-11-13 08:32] LABS: Absolute Lymphocytes (CBC) 0.2 K/uL (0.7-4.9); Basophils % 0.1 % (0-1.3); Hematocrit 28.6 % (39.6-49.0); Lymphocytes % 1.7 % (15.3-44.8); MPV 8.9 fL (7.6-11.3); RBC Red Blood Cell Count 2.88 M/uL (4.33-5.43)
[2019-11-13 08:54] LABS: Potassium 4.9 mmol/L (3.5-5.1)
--- NOTE | 2019-11-13 09:54 | P.PN ---
Subjective Date of Service: 11/13/19 Chief Complaint: Shortness of breath Subjective: No new changes, Other (Sleeping comfortably has Agitation) Review of Systems is unable to be obtained Physical Examination - Vital Signs Temperature: 98.9 F Blood Pressure: 128/50 Pulse: 105 Respirations: 23 Pulse Ox (%): 93 - Physical Exam General: Obese, Other (Sleeping ) HEENT: Atraumatic, Normocephalic Neck: Supple Respiratory: Diminished, Crackles/rales Cardiovascular: Normal pulses, Regular rate/rhythm Capillary refill: <2 Seconds Gastrointestinal: Soft and benign, W/out hepatosplenomegaly Musculoskeletal: No clubbing Integumentary: No rashes Neurological: Other (Drowsy ) Lymphatics: No axilla or inguinal lymphadenopathy Assessment & Plan Physician Review Additional Text: Pneumonia due to COVID-19 virus ESRD (end stage renal disease) on dialysis Pulmonary edema Diabetes Hyperglycemia Hyperkalemia Morbid obesity with BMI of 50.0-59.9, adult - Plan Admit to the ICU on BIPAP therapy Titrate oxygen. IV Dexamethasone Appreciate help from pulmonology and nephrology hemodialysis. Insulin sliding scale for glucose management. Monitor closely under telemetry Antianxiety medication Continue home medications and titrate as needed Titrate antihypertensives Disposition: Will try to wean off oxygen Patient may need replacement post discharge Time Spent Managing Pts Care (In Minutes): 45
[2019-11-13] MEDS ORDERED: METHYLPREDNISOLONE 40 MG INJ IV SCH ×2 (12:18→21:00)
--- NOTE | 2019-11-13 12:22 | P.PN ---
Subjective Date of Service: 11/13/19 Chief Complaint: Respiratory failure Patient is requiring high concentrations of oxygen he was discharged return back again he is currently agitated Physical Examination - Vital Signs Temperature: 98.9 F Blood Pressure: 128/50 Pulse: 105 Respirations: 23 Pulse Ox (%): 93 Assessment & Plan - Problems (Diagnosis) (1) Pneumonia due to COVID-19 virus Current Visit: Yes Status: Acute Plan: Patient admitted with respiratory failure from coronal virus infection started him on high doses of steroids patient is in renal failure continues to remain agitated
[2019-11-13] MEDS: APIXABAN 5 MG TABLET PO SCH (20:25)
[2019-11-13] MEDS: MELATONIN 3 MG TABLET PO SCH (20:26)
[2019-11-13] MEDS: DOCUSATE NA/SENNA CONC 1 TAB PO SCH (20:26)
[2019-11-13] MEDS: WATER FOR INJ,STERILE 10 ML IM PRN (21:12)
[2019-11-13] MEDS: ATORVASTATIN 80 MG TAB PO SCH (21:14)
[2019-11-14] MEDS: FUROSEMIDE 40 MG/4 ML VIAL IV SCH ×3 (00:46→17:11)
--- NOTE | 2019-11-14 00:51 | PN ---
Date of Progress Note: 11/13/2019 Chief Complaint: End-stage renal dialysis, on dialysis on TTS schedule; coronary artery disease. History Of Present Illness: The patient is admitted for altered mental status, atrial fibrillation, CVA. The patient was found to have hyperkalemia, fluid overload. Dialysis was done with emergent pr ocedure yesterday. Potassium level has improved. The patient has fluid overload. Plan is to contin ue dialysis and has ultrafiltration as tolerated. The patient is in ICU. Potassium level was 6.1, after dialysis has improved to normal ranges. The patient denies nausea, vo miting, fever, and chills. Review of Systems: The patient is lethargic, although he denies fever, chills, and diarrhea. Physical Examination: Lungs: Diminished breath sounds at bases. No rhonchi. No rales. Neck: No elevated JVD. Heart: S1, S2. No pericardial friction rub. Extremities: Edema trace in both ankles. Assessment: 1.End-stage renal disease, dialysis. Next dialysis will be done tomorrow first thing in the morning . The patient will continue p.o. fluid restriction. 2.Pneumonia, COVID infection, hypoxemic respiratory failure. Continue to advance ultrafiltration to prevent fluid overload. 3.Anemia due to chronic kidney disease. Start Epogen and adjust dose to hemoglobin target range acc ordingly. 4.History of coronary artery disease. Continue to monitor troponin level. 5.Renal osteodystrophy. Monitor phosphorus level. Adjust binders. EB/MODL Voice ID: [id number] Report ID: [id number]
[2019-11-14] MEDS: METOPROLOL TAR 25 MG TAB PO SCH ×2 (05:27→17:12)
[2019-11-14] MEDS: LEVOTHYROXINE SOD 0.125 MG TAB PO SCH (05:34)
[2019-11-14 06:41] LABS: Ferritin 4971.4 ng/mL (26-388)
[2019-11-14] MEDS: INSULIN -REGULAR HUMAN 50 UNIT/0.5 ML ML SQ SCH ×4 (07:30→17:28)
[2019-11-14] MEDS: ASPIRIN EC 81 MG TAB PO SCH (09:00)
[2019-11-14] MEDS ORDERED: METHYLPREDNISOLONE 125 MG INJ IV SCH ×2 (09:00→21:00)
[2019-11-14] MEDS: allopurinoL 300 MG TAB PO SCH (09:00)
[2019-11-14] MEDS: ZINC SULFATE 220 MG CAP PO SCH (09:00)
[2019-11-14] MEDS: INSULIN GLARGINE 100 UNITS/ML SQ SCH (09:00)
[2019-11-14] MEDS: APIXABAN 5 MG TABLET PO SCH ×2 (09:00→22:09)
[2019-11-14] MEDS: FLUTICASONE 50MCG NASAL SPRAY NAS SCH (09:00)
--- NOTE | 2019-11-14 09:06 | P.PN ---
Subjective Date of Service: 11/14/19 Chief Complaint: Shortness of breath Subjective: No new changes, Other (Still drowsy) Review of Systems is unable to be obtained Physical Examination - Vital Signs Temperature: 98.2 F Blood Pressure: 169/70 Pulse: 99 Respirations: 30 Pulse Ox (%): 95 - Physical Exam General: Obese, Other (Drowsy ) HEENT: Atraumatic, Normocephalic Neck: Supple, 2+ carotid pulse no bruit Respiratory: Diminished, Crackles/rales Cardiovascular: Regular rate/rhythm, Normal S1 S2 Capillary refill: <2 Seconds Gastrointestinal: Soft and benign, Non-distended Musculoskeletal: No clubbing Integumentary: No rashes Neurological: Other (Drowsy ) Lymphatics: No axilla or inguinal lymphadenopathy Assessment & Plan Physician Review Additional Text: Pneumonia due to COVID-19 virus ESRD (end stage renal disease) on dialysis Pulmonary edema Diabetes Hyperglycemia Hyperkalemia Morbid obesity with BMI of 50.0-59.9, adult - Plan Admit to the ICU on BIPAP Titrate oxygen. IV Dexamethasone Appreciate help from pulmonology and nephrology hemodialysis. Insulin sliding scale for glucose management. Monitor closely under telemetry Patient still drowsy We stop Sedatives Continue home medications and titrate as needed Titrate antihypertensives Disposition: Will try to wean off oxygen Patient may need placement post discharge Will get a physical therapy evaluation once more alert awake Time Spent Managing Pts Care (In Minutes): 42
--- NOTE | 2019-11-14 12:57 | P.PN ---
Subjective Date of Service: 11/14/19 Chief Complaint: Respiratory failure Patient is not doing well still requiring BiPAP and high concentrations of oxygen patient is very agitated requiring some sedatives Physical Examination - Vital Signs Temperature: 98.2 F Blood Pressure: 166/67 Pulse: 102 Respirations: 30 Pulse Ox (%): 92 Assessment & Plan - Problems (Diagnosis) (1) Pneumonia due to COVID-19 virus Current Visit: Yes Status: Acute Plan: Respiratory failure secondary to lai virus CRP levels are significantly elevated Josep increase the dose of the steroids
[2019-11-14 16:51] LABS: Potassium 6.5 mmol/L (3.5-5.1)
[2019-11-14] MEDS ORDERED: D50W 25 GM/50 ML SYRINGE/VIAL IV PRN ×2 (17:24→18:44)
[2019-11-14] MEDS ORDERED: GLUCAGON 1 MG/VIAL IM PRN ×2 (17:24→18:44)
[2019-11-14 17:41] LABS: Arterial Blood Carboxyhemoglob 1.3 % (0-1.5); Blood Gas Oxyhemoglobin 91.5 % (94-97); Blood O2 Saturation 93.8 % (92-98.5)
[2019-11-14] MEDS ORDERED: RSI MEDICATION KIT IV ONE (18:36)
[2019-11-14] MEDS ORDERED: MIDAZOLAM HCL 2 MG/2 ML INJ ONE (18:43)
--- NOTE | 2019-11-14 18:58 | RAD REPORT ---
EXAM DESCRIPTION: CT - Head Brain Wo Cont - 11/14/2019 6:38 pm CLINICAL HISTORY: Alteration of awareness/confusion COMPARISON: September 2019 TECHNIQUE: Computed axial tomography of the head was obtained. IV contrast was not requested. All CT scans are performed using dose optimization technique as appropriate and may include automated exposure control or mA/KV adjustment according to patient size. FINDINGS: 8 centimeter low-density area within the left cerebrum compatible with late subacute infar ct. The previously described blood within the infarct has almost completely resolved. There is a 3 mi llimeter area of increased density likely representing small amount of residual blood. The ventricles are normal in caliber. No extra-axial fluid collection is noted. Fluid within the sinuses/ mastoids is not seen. IMPRESSION: Almost all of the blood within the left cerebral subacute infarct has resolved.
[2019-11-14] MEDS ORDERED: SODIUM BICARB 50 MEQ/50ML VIAL IV ONE (19:00)
[2019-11-14] MEDS ORDERED: CALCIUM GLUC 10% INJ 4.65 MEQ in NA CHLORIDE 0.9% 100 ML IV ONE (19:00)
[2019-11-14] MEDS ORDERED: INSULIN -REGULAR HUMAN 50 UNIT/0.5 ML ML IV ONE (19:00)
--- NOTE | 2019-11-14 19:11 | RAD REPORT ---
EXAM DESCRIPTION: [place] Single View11/14/2019 7:03 pm CLINICAL HISTORY: Device placement endotracheal tube placement IMPRESSION: An endotracheal tube has been inserted with its tip 3.3 above the florentin. A nasogastric tube appears to enter the right mainstem bronchus with its tip in the lower right chest presumably in the bronchus Exam was discussed with Dr. Samano 7:05 p.m. November 14, 2019
[2019-11-14] MEDS ORDERED: NA CHLORIDE 0.9% 250 ML IV PRN (19:15)
[2019-11-14] MEDS ORDERED: propofoL 1,000 MG/100 ML VIAL IV PRN (19:15)
[2019-11-14] MEDS ORDERED: HALOPERIDOL LACT 5 MG/ML INJ IV PRN (19:15)
[2019-11-14] MEDS ORDERED: ALBUTEROL 2.5 MG/3 ML NEB SOL NEB ONE (20:32)
[2019-11-14] MEDS ORDERED: SODIUM BICARB 50 MEQ/50ML VIAL ONE (20:36)
[2019-11-14] MEDS ORDERED: CALCIUM GLUCONATE 1 GM IVPB 1 GM/50 ML BAG IV ONE (20:36)
[2019-11-14 20:40] LABS: Absolute Lymphocytes (CBC) 0.1 K/uL (0.7-4.9); Basophils % 0.1 % (0-1.3); Hematocrit 26.4 % (39.6-49.0); Lymphocytes % 1.7 % (15.3-44.8); MPV 9.9 fL (7.6-11.3); RBC Red Blood Cell Count 2.52 M/uL (4.33-5.43)
[2019-11-14 20:41] LABS: Albumin 2.4 g/dL (3.4-5.0); Bilirubin Total 0.6 mg/dL (0.2-1.0); CKMB Creatine Kinase MB 1.2 ng/mL (0.3-3.6); Protein, Total 7.5 g/dL (6.4-8.2)
[2019-11-14 20:42] LABS: Potassium 6.3 mmol/L (3.5-5.1)
[2019-11-14] MEDS: FAMOTIDINE 20 MG/2 ML VIAL IV SCH (20:43)
[2019-11-14 20:47] LABS: Troponin I 0.53 ng/mL (0.0-0.045)
--- NOTE | 2019-11-14 20:56 | RAD REPORT ---
EXAM DESCRIPTION: [place] Single View11/14/2019 8:42 pm CLINICAL HISTORY: Device placement nasogastric tube placement IMPRESSION: A nasogastric tube has been placed into the stomach.
[2019-11-14 21:31] LABS: Blood Morphology Comment NOT SEEN (NOT SEEN); Platelet Estimate DECR; Urine White Blood Cell Casts OK
[2019-11-14] MEDS: MELATONIN 3 MG TABLET PO SCH (22:09)
[2019-11-14] MEDS: DOCUSATE NA/SENNA CONC 1 TAB PO SCH (22:10)
[2019-11-14] MEDS: ATORVASTATIN 80 MG TAB PO SCH (22:11)
[2019-11-14 22:13] LABS: Arterial Blood Carboxyhemoglob 1.6 % (0-1.5); Blood Gas Oxyhemoglobin 94.8 % (94-97); Blood O2 Saturation 97.1 % (92-98.5)
--- NOTE | 2019-11-15 00:28 | PN ---
Date of Progress Note: 11/14/2019 Subjective: The patient was admitted with respiratory failure secondary to COVID pneumonia. The pat ient is being on BiPAP. The patient with altered mental status. Physical Examination: Vital Signs: Blood pressure 159/49, pulse of 100. Chest: Crackles bilateral. Heart: S1, S2. Systolic murmur. Abdomen: Soft, nontender. Extremities: Below-knee amputation. Laboratory Data: PH 7.24, CO2 51, O2 of 60. Sodium 134, potassium 4.9, bicarb 24, BUN 73, creatinin e 7.8, calcium 9.8. Assessment And Plan: 1.End-stage renal disease. I am going to continue the patient on his schedule of dialysis. 2.Secondary hyperparathyroidism. We will hold on the binder. 3.Hypertension, currently controlled, optimal. Continue current treatment. 4.Anemia of chronic kidney disease, stable. Continue CRISTIANO. 5.Hyperkalemia, status post dialysis, resolved. 6.Respiratory failure secondary to COVID pneumonia, hypercapnic respiratory failure. We will follow up with Pulmonary. Continue current treatment. Current Medications: The patient on include: 1.Eliquis. 2.Epogen. 3.Heparin. 4.Metoprolol. 5.Atorvastatin. 6.Lasix. SHERLYN/LYUDMILA Voice ID: [id number] Report ID: [id number]
[2019-11-15] MEDS: INSULIN -REGULAR HUMAN 50 UNIT/0.5 ML ML SQ SCH ×4 (00:29→17:59)
[2019-11-15] MEDS: FUROSEMIDE 40 MG/4 ML VIAL IV SCH ×3 (00:30→17:20)
[2019-11-15] MEDS ORDERED: D5W IV STA (05:39)
[2019-11-15] MEDS ORDERED: AMIODARONE HCL IV STA (05:39)
[2019-11-15] MEDS: LEVOTHYROXINE SOD 0.125 MG TAB PO SCH (05:46)
[2019-11-15] MEDS: METOPROLOL TAR 25 MG TAB PO SCH ×2 (05:47→17:21)
[2019-11-15] MEDS ORDERED: AMIODARONE HCL 150 MG/3 ML INJ IV ONE ×2 (06:00→06:08)
[2019-11-15 07:31] LABS: Albumin 2.5 g/dL (3.4-5.0); Bilirubin Total 0.8 mg/dL (0.2-1.0); Ferritin 5843.5 ng/mL (26-388); Magnesium 2.5 mg/dL (1.8-2.4); Phosphorus 4.7 mg/dL (2.5-4.9); Potassium 3.7 mmol/L (3.5-5.1); Protein, Total 8.1 g/dL (6.4-8.2)
[2019-11-15 07:40] LABS: Hematocrit 27.1 % (39.6-49.0); MPV 9.7 fL (7.6-11.3); RBC Red Blood Cell Count 2.75 M/uL (4.33-5.43)
[2019-11-15] MEDS ORDERED: AMIODARONE HCL 450 MG in D5W 241 ML IV SCH (08:00)
[2019-11-15] MEDS: FLUTICASONE 50MCG NASAL SPRAY NAS SCH (09:00)
[2019-11-15] MEDS: APIXABAN 5 MG TABLET PO SCH ×2 (10:28→20:41)
[2019-11-15] MEDS: ZINC SULFATE 220 MG CAP PO SCH (10:28)
[2019-11-15] MEDS: allopurinoL 300 MG TAB PO SCH (10:28)
[2019-11-15] MEDS: ASPIRIN 81 MG CHEWABLE TABLET PO SCH (10:28)
[2019-11-15 11:00] LABS: Blood Morphology Comment NOT SEEN (NOT SEEN); Platelet Estimate ADEQ
[2019-11-15] MEDS: LORazepam 2 MG/ML VIAL IV PRN ×2 (11:00→22:45)
--- NOTE | 2019-11-15 11:09 | P.PN ---
Subjective Date of Service: 11/15/19 Chief Complaint: Shortness of breath Subjective: Other (Patient had a code blue last evening had to be intubated and on mechanical ventilator support) Review of Systems is unable to be obtained Physical Examination - Vital Signs Temperature: 97.9 F Blood Pressure: 141/43 Pulse: 76 Respirations: 18 Pulse Ox (%): 94 - Physical Exam General: Obese, Other (Sedated) HEENT: Atraumatic, Normocephalic Neck: Supple Respiratory: Diminished, Crackles/rales Cardiovascular: Regular rate/rhythm, Normal S1 S2 Capillary refill: <2 Seconds Gastrointestinal: Soft and benign, W/out hepatosplenomegaly Musculoskeletal: No clubbing, No swelling, Other (Amputation ) Integumentary: No rashes Neurological: Other (Sedated) Lymphatics: No axilla or inguinal lymphadenopathy Assessment & Plan Physician Review Additional Text: Pneumonia due to COVID-19 virus Acute encephalopathy possibly metabolic versus ischemic ESRD (end stage renal disease) on dialysis Pulmonary edema Diabetes Hyperglycemia Hyperkalemia Morbid obesity with BMI of 50.0-59.9, adult - Plan Admit to the ICU on BIPAP Titrate oxygen. IV Dexamethasone Appreciate help from pulmonology and nephrology hemodialysis. Insulin sliding scale for glucose management. Monitor closely under telemetry Patient still drowsy We stop Sedatives Continue home medications and titrate as needed Titrate antihypertensives Disposition: Will try to wean off oxygen Patient may need placement post discharge Will get a physical therapy evaluation once more alert awake 11/15/2019 Patient had a code blue last evening Patient had a CT scan which was done because of the acute encephalopathy patient has a history of CVA in the past CT showing late subacute hemorrhagic infarct with 8 cm Size With the resolution of blood inside infarct . Patient had to be intubated and on mechanical ventilator support Hypokalemia was noted and was treated with anti hyperkalemia measures including Sodium bicarb, calcium Status post dialysis Monitor closely Continue steroids CRP trending down Appreciate help from pulmonology Prognosis is guarded member services representative consulted for possible LTAC placement Time Spent Managing Pts Care (In Minutes): 42
[2019-11-15] MEDS ORDERED: Pharmacy Consult 1 EA XX PRN (12:53)
--- NOTE | 2019-11-15 12:56 | P.PN ---
Subjective Date of Service: 11/15/19 Chief Complaint: respiratory failure patient's condition deteriorated yesterday after the CT scan appeared to have a stroke was intubated transferred here to the ICU Physical Examination - Vital Signs Temperature: 97.9 F Blood Pressure: 141/43 Pulse: 76 Respirations: 18 Pulse Ox (%): 94 - Physical Exam General: Unresponsive Assessment & Plan - Problems (Diagnosis) (1) Pneumonia due to COVID-19 virus Current Visit: Yes Status: Acute Plan: patient's chest x-ray looks very abnormal increase the dose of steroids has chronic renal failure patient's ferritin level CRP is a very high 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 (2) Respiratory failure Current Visit: Yes Status: Acute Plan: patient has not developed respiratory failure his hypoxic acidotic hypercapnic chest x-ray very abnormal of added antibiotics meropenem vancomycin repeat blood gases are satisfactory patient is on pressure control ventilation FiO2 now down to 45% consider transfer to an LTAC vent settings reviewed Qualifiers: Chronicity: acute Physician Review Additional Text: Pneumonia due to COVID-19 virus ESRD (end stage renal disease) on dialysis Pulmonary edema Diabetes Hyperglycemia Hyperkalemia Morbid obesity with BMI of 50.0-59.9, adult - Plan Admit to the ICU on BIPAP Titrate oxygen. IV Dexamethasone Appreciate help from pulmonology and nephrology hemodialysis. Insulin sliding scale for glucose management. Monitor closely under telemetry Patient still drowsy We stop Sedatives Continue home medications and titrate as needed Titrate antihypertensives Disposition: Will try to wean off oxygen Patient may need placement post discharge Will get a physical therapy evaluation once more alert awake
[2019-11-15] MEDS ORDERED: VANCOMYCIN/NS 1 gm 1 GM/250 ML BAG IV SCH (13:15)
[2019-11-15] MEDS: Meropenem 500 MG in NA CHLORIDE 0.9% 100 ML IV SCH ×2 (15:20→19:44)
[2019-11-15] MEDS ORDERED: Meropenem 500 MG VIAL IV SCH (17:00)
[2019-11-15] MEDS: METHYLPREDNISOLONE 125 MG INJ IV SCH (17:20)
--- NOTE | 2019-11-15 18:58 | PN ---
Date of Progress Note: 11/15/2019 Subjective: The patient was admitted with COVID pneumonia. The patient had yesterday respiratory distress, has to be intubated. The patient underwent dialysis. We managed to remove 2.5 L. Physical Examination: Vital Signs: Blood pressure 141/67, pulse of 88. Chest: Crackles bilateral. Heart: S1, S2. Systolic murmur. Abdomen: Obese. No organomegaly. Extremities: Left below-knee amputation. Right venous stasis with trace edema. Neuro: The patient is sedated on vent . Laboratory Data: H and H 8.9/27.1, platelets 128. Sodium 142, potassium 3.7, bicarb 24, BUN 79, creatinine 6.6, calcium 9.1, phosphorus 4.7. BNP 64,000. Chest x-ray, cardiomegaly with congestion, more prominent on the left-sided with clear effusion. Current Medications: The patient on include, 1. Aspirin. 2. Meropenem. 3. Vancomycin. 4. Epogen. 5. Amiodarone. 6. Metoprolol. 7. Sedation. 8. Insulin. 9. Levothyroxine. Assessment And Plan: 1. End-stage renal disease, hyperkalemia, status post dialysis yesterday. Hyperkalemia resolved. The patient still over volume. The patient is going to need another session of dialysis today. We will arrange for the dialysis today. 2. Hypertension. We will utilize blood pressure for more dialysis and ultrafiltration. 3. Hyperkalemia, resolved. 4. Respiratory failure secondary to over volume and COVID pneumonia. We will try to challenge the patient again today and we will follow up. 5. Hypercapnic respiratory failure. Continue vancomycin. Follow up with Primary and Pulmonary. 6. Acidosis secondary to renal failure. Going to be corrected on dialysis. SHERLYN/MODL Voice ID: [id number] Report ID: [id number] YEFRI
[2019-11-15] MEDS: FAMOTIDINE 20 MG/2 ML VIAL IV SCH (19:45)
[2019-11-15] MEDS: ATORVASTATIN 80 MG TAB PO SCH (20:42)
[2019-11-15] MEDS: MELATONIN 3 MG TABLET PO SCH (20:42)
[2019-11-15] MEDS: DOCUSATE NA/SENNA CONC 1 TAB PO SCH (20:42)
[2019-11-16] MEDS: INSULIN -REGULAR HUMAN 50 UNIT/0.5 ML ML SQ SCH ×4 (00:24→17:22)
[2019-11-16] MEDS: FUROSEMIDE 40 MG/4 ML VIAL IV SCH ×2 (02:00→09:26)
[2019-11-16] MEDS: METHYLPREDNISOLONE 125 MG INJ IV SCH ×3 (02:00→17:21)
[2019-11-16] MEDS: LORazepam 2 MG/ML VIAL IV PRN ×5 (04:00→21:00)
[2019-11-16] MEDS ORDERED: D50W 25 GM/50 ML SYRINGE/VIAL IV PRN (04:08)
[2019-11-16] MEDS ORDERED: GLUCAGON 1 MG/VIAL IM PRN (04:08)
--- NOTE | 2019-11-16 04:29 | P.PN ---
Date of Service: 11/15/19 11/15/2019 @0500 Was notified the patient was tachyarrhythmic. Strip revealed patient was in AFib with RVR. Patient was hypotensive as well. Patient was receiving hemodialysis at this time. Unable to give digoxin as this would filter out. Went ahead and gave low-dose of amiodarone to load the patient and started amiodarone drip. Will get cardiology consultation, and monitor patient closely. Echocardiogram pending. Continue with anticoagulation if no bleeding. Will need to monitor liver function testing as well.
[2019-11-16] MEDS: METOPROLOL TAR 25 MG TAB PO SCH ×2 (06:31→17:27)
[2019-11-16] MEDS: LEVOTHYROXINE SOD 0.125 MG TAB PO SCH (06:32)
[2019-11-16 07:23] LABS: Absolute Lymphocytes (CBC) 0.3 K/uL (0.7-4.9); Lymphocytes % 4.8 % (15.3-44.8); MPV 9.8 fL (7.6-11.3); RBC Red Blood Cell Count 2.95 M/uL (4.33-5.43)
--- NOTE | 2019-11-16 07:34 | EKG ---
Test Date: 2019-11-15 Test Time: 05:51:30 Chief Medical Physicist: RT MEASUREMENT RESULTS: Intervals: Rate: 149 NE: QRSD: 102 QT: 302 QTc: 475 [place]: P: NE: QRS: 140 T: -44 INTERPRETIVE STATEMENTS: Suspect arm lead reversal, interpretation assumes no reversal Atrial fibrillation with rapid ventricular response Incomplete right bundle branch block Possible Right ventricular hypertrophy Lateral infarct, possibly acute Marked ST abnormality, possible inferior subendocardial injury ACUTE DE Abnormal ECG Compared to ECG 11/09/2019 22:56:31 Myocardial infarct finding now present Sinus rhythm no longer present T-wave abnormality no longer present ST (T wave) deviation still present Electronically Signed On 11-16-19 07:32:37 CDT by Kalen Saldivar
--- NOTE | 2019-11-16 07:45 | CON ---
Date of Consultation: 11/15/2019 Reason For Consultation: Atrial fibrillation and congestive heart failure. History Of Present Illness: Mr. Pinedo is a 54-year-old who has COVID. He was admitted on 11/11/2019 with multiple issues including shortness of breath, hypoxia requiring intubation yesterday. His las t blood gas is 104 PO2, PCO2 of 41, and pH of 7.24. He is a hemodialysis patient with end-stage italo l disease. He has diabetes, hypertension, dyslipidemia, and hypothyroidism. He has a history of sei zure disorders and chronic diastolic congestive heart failure. He is status post left BKA for PAD fr om diabetes. His last creatinine is 11.6, hemoglobin is 8.3, glucose is 246. He is in atrial fibril lation at rate of 143. His atrial fibrillation is paroxysmal, he takes Eliquis for that at home. Past Medical History: As stated above. Allergies: NONE. Review of Systems: Negative. Social History: Unobtainable. Family History: Negative. Medications: At home include Eliquis, aspirin, Lipitor, metoprolol, Lasix, prednisone, insulin, and Synthroid. Physical Examination: General: Presently, he is intubated. Vital Signs: He is in atrial fibrillation at rate of 143, blood pressure is within normal range. HEENT: Negative. Neck: Supple, with no bruit. Chest: Reveals crackles throughout. Cardiac: Revealed atrial fibrillation. Abdomen: Benign. Extremities: Revealed status post left BKA. Diagnostic Data: Stated earlier. Also, troponin was 0.53, potassium was 6.3. Impression And Plan: 1.Respiratory failure secondary to COVID, requiring intubation. 2.Paroxysmal atrial fibrillation, rate of 143. The patient is not really a good candidate for amiod arone with his pulmonary status. He is on Eliquis at home. He should be on Lovenox now. 3.Congestive heart failure, acute on chronic, diastolic. He is on Lasix. 4.Diabetes, on insulin. 5.Hypothyroidism, on Synthroid. He is receiving steroids for his infection. Nephrology is following him. Pulmonology is following h im. It may be cervantes to get an echocardiogram on him. I am hoping that his heart rate will come down as his oxygenation and pulmonary status improve. I would rather avoid amiodarone if we do not have t o. We can give him IV beta blockers, 5 mg of Lopressor every 2 hours if his heart rate stays over 12 0. I agree with his present regimen otherwise. JESUS/LYUDMILA Voice ID: [id number] Report ID: [id number]
[2019-11-16 07:50] LABS: Albumin 2.6 g/dL (3.4-5.0); Ferritin 5518.1 ng/mL (26-388); Magnesium 2.5 mg/dL (1.8-2.4); Phosphorus 3.6 mg/dL (2.5-4.9); Potassium 3.6 mmol/L (3.5-5.1)
[2019-11-16] MEDS ORDERED: INSULIN GLARGINE 100 UNITS/ML SQ SCH (08:00)
--- NOTE | 2019-11-16 08:09 | RAD REPORT ---
EXAM DESCRIPTION: Taylor Single View11/16/2019 5:53 am CLINICAL HISTORY: Chest pain COMPARISON: November 14, 2019 FINDINGS: Bilateral pulmonary opacities shown mild improvement The heart remains enlarged Endotracheal nasogastric tubes in position IMPRESSION: Mild improvement in bilateral pulmonary opacities probably pneumonia
[2019-11-16] MEDS ORDERED: NEPRO 1,000 ML BOT RTH SCH (09:00)
[2019-11-16] MEDS: FLUTICASONE 50MCG NASAL SPRAY NAS SCH (09:00)
[2019-11-16] MEDS ORDERED: ATROPINE SULFATE 1 MG/ML INJ IM ONE (09:22)
[2019-11-16] MEDS ORDERED: ROCURONIUM 50 MG/5 ML VIAL IV ONE (09:22)
--- NOTE | 2019-11-16 09:24 | P.PN ---
Subjective Date of Service: 11/16/19 Chief Complaint: Shortness of breath Subjective: No new changes Review of Systems 10-point ROS is otherwise unremarkable Physical Examination - Vital Signs Temperature: 98 F Blood Pressure: 176/51 Pulse: 74 Respirations: 19 Pulse Ox (%): 94 - Physical Exam General: Obese, Other (Sedated ) HEENT: Atraumatic, Normocephalic Neck: Supple Respiratory: Diminished, Crackles/rales Cardiovascular: Regular rate/rhythm, Normal S1 S2 Capillary refill: <2 Seconds Gastrointestinal: Soft and benign, W/out hepatosplenomegaly Musculoskeletal: No clubbing, No swelling Integumentary: No rashes Neurological: Other (Sedated) Lymphatics: No axilla or inguinal lymphadenopathy Assessment & Plan - Problems (Diagnosis) (1) CVA (cerebral vascular accident) Current Visit: Yes Status: Acute Qualifiers: Laterality of affected vessel: left (2) Pneumonia due to COVID-19 virus Current Visit: Yes Status: Acute (3) Respiratory failure Current Visit: Yes Status: Acute Qualifiers: Chronicity: acute (4) Chronic diastolic heart failure Current Visit: No Status: Chronic (5) ESRD (end stage renal disease) on dialysis Current Visit: No Status: Chronic (6) Hyperkalemia Onset Date: 11/08/17 Current Visit: No Status: Acute (7) Pneumonia due to human coronavirus Current Visit: No Status: Acute (8) Congestive heart failure Current Visit: No Status: Chronic (9) Diabetes Current Visit: No Status: Chronic Qualifiers: Diabetes mellitus type: type 2 Diabetes mellitus tank terminal gauger insulin use: without tank terminal gauger use Diabetes mellitus complication status: with skin complications Diabetes mellitus complication detail: with foot ulcer Qualified Code(s): E11.621 - Type 2 diabetes mellitus with foot ulcer; L97.509 - Non-pressure chronic ulcer of other part of unspecified foot with unspecified severity (10) Gout Current Visit: No Status: Chronic Qualifiers: Gout site: knee Gout etiology: unspecified cause Chronicity: chronic Laterality: unspecified laterality Qualified Code(s): M1A.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, unspecified knee, without tophus (tophi) (11) History of left below knee amputation Current Visit: No Status: Chronic (12) Morbid obesity with BMI of 50.0-59.9, adult Onset Date: 11/08/17 Current Visit: No Status: Chronic Physician Review Additional Text: Pneumonia due to COVID-19 virus Acute encephalopathy possibly metabolic versus ischemic ESRD (end stage renal disease) on dialysis Pulmonary edema Diabetes Hyperglycemia Hyperkalemia Morbid obesity with BMI of 50.0-59.9, adult - Plan Admit to the ICU on BIPAP Titrate oxygen. IV Dexamethasone Appreciate help from pulmonology and nephrology hemodialysis. Insulin sliding scale for glucose management. Monitor closely under telemetry Patient still drowsy We stop Sedatives Continue home medications and titrate as needed Titrate antihypertensives Disposition: Will try to wean off oxygen Patient may need placement post discharge Will get a physical therapy evaluation once more alert awake 11/15/2019 Patient had a code blue last evening Patient had a CT scan which was done because of the acute encephalopathy patient has a history of CVA in the past CT showing late subacute hemorrhagic infarct with 8 cm Size With the resolution of blood inside infarct . Patient had to be intubated and on mechanical ventilator support Hypokalemia was noted and was treated with anti hyperkalemia measures including Sodium bicarb, calcium Status post dialysis Monitor closely Continue steroids CRP trending down Appreciate help from pulmonology Prognosis is guarded director career services consulted for possible LTAC placement 11/16/2019 Intubated on mechanical ventilator support Patient had AFib with RVR for which amiodarone was started Will stop Amiodarone as the patient has converted back to sinus Appreciate help from cardiology Will continue beta blockers p.r.n. Start on tube feeding Nepro Appreciate help from pulmonology and nephrology CRP is trending down continue steroids Blood cultures pending so far Hyperglycemia noted Will start on Lantus as well as insulin sliding scale Will add on aspirin and statin Continue anticoagulation Carotid Doppler done in july shows no carotid stenosis Will get a repeat echocardiogram Time Spent Managing Pts Care (In Minutes): 45
[2019-11-16] MEDS: APIXABAN 5 MG TABLET PO SCH ×2 (09:27→19:59)
[2019-11-16] MEDS: ASPIRIN 81 MG CHEWABLE TABLET PO SCH (09:27)
[2019-11-16] MEDS: Meropenem 500 MG in NA CHLORIDE 0.9% 100 ML IV SCH ×2 (09:27→19:57)
[2019-11-16] MEDS: allopurinoL 300 MG TAB PO SCH (09:27)
[2019-11-16] MEDS: ZINC SULFATE 220 MG CAP PO SCH (09:27)
[2019-11-16] MEDS ORDERED: EPINEPHrine 1 MG/10 ML SYR IV ONE (11:58)
[2019-11-16] MEDS ORDERED: SODIUM CHLORIDE 0.9% 10ML INJ IV ONE (11:58)
[2019-11-16] MEDS ORDERED: NA CHLORIDE 0.9% 1,000 ML IV ONE (12:01)
[2019-11-16] MEDS: FENTANYL CITR 100 MCG/2 ML IV PRN ×2 (12:53→17:58)
--- NOTE | 2019-11-16 16:06 | PN ---
Date of Progress Note: 11/16/2019 Subjective: The patient was admitted with COVID pneumonia. The patient had respiratory failure, has been intubated. Objective: Vital Signs: Blood pressure 167/47, pulse of 56. General: The patient had dialysis today, we managed to remove 2200. Chest: Crackles bilateral. Heart: S1 and S2. Systolic murmur. Abdomen: Soft, nontender. Extremities: Left below-knee amputation. Right has dressing on the legs. Venous stasis. Laboratory Data: WBC 5.9, H and H 9.6/29, platelets 160. Sodium 135, potassium 3.6, bicarb 24, BUN 64, creatinine 5, calcium 9.4, phosphorus 3.6. Magnesium 2.5. Current Medications: The patient on it includes: 1.Meropenem. 2.Vancomycin. 3.Eliquis. 4.Epogen. 5.Heparin. 6.Amiodarone. 7.Atorvastatin. 8.Metoprolol 25 b.i.d. 9.Haloperidol. 10.Renvela. Assessment And Plan: 1.End-stage renal disease over volume. I am going to go ahead and arrange for another session of di alysis tomorrow. We will try to establish better volume control for the patient. 2.Hypertension. We will utilize blood pressure for ultrafiltration. I am going to go ahead and dec rease metoprolol to 12.5. The blood pressure to be held, the metoprolol on the morning of the dialys is. 3.COVID pneumonia. Continue current treatment. 4.Cerebrovascular accident. Continue supportive treatment. SHERLYN/LYUDMILA Voice ID: [id number] Report ID: [id number]
[2019-11-16] MEDS: DOCUSATE NA/SENNA CONC 1 TAB PO SCH (19:59)
[2019-11-16] MEDS: ATORVASTATIN 80 MG TAB PO SCH (19:59)
[2019-11-16] MEDS: MELATONIN 3 MG TABLET PO SCH (19:59)
[2019-11-16] MEDS: FAMOTIDINE 20 MG/2 ML VIAL IV SCH (20:00)
[2019-11-16] MEDS: MIDAZOLAM HCL 2 MG/2 ML INJ IV PRN (23:03)
[2019-11-17] MEDS: METHYLPREDNISOLONE 125 MG INJ IV SCH ×2 (00:03→06:30)
[2019-11-17] MEDS: FENTANYL CITR 100 MCG/2 ML IV PRN ×3 (00:03→22:27)
[2019-11-17] MEDS: INSULIN -REGULAR HUMAN 50 UNIT/0.5 ML ML SQ SCH ×4 (00:24→17:07)
[2019-11-17] MEDS: LORazepam 2 MG/ML VIAL IV PRN ×3 (03:37→20:07)
[2019-11-17] MEDS: MIDAZOLAM HCL 2 MG/2 ML INJ IV PRN (04:15)
[2019-11-17 05:55] LABS: Albumin 2.2 g/dL (3.4-5.0); Bilirubin Direct 0.2 mg/dL (0-0.2); Bilirubin Total 0.7 mg/dL (0.2-1.0); C-Reactive Protein 68.1 mg/L (<3.00); Magnesium 2.9 mg/dL (1.8-2.4); Phosphorus 8.5 mg/dL (2.5-4.9); Potassium 4.9 mmol/L (3.5-5.1); Protein, Total 7.1 g/dL (6.4-8.2)
[2019-11-17] MEDS: METOPROLOL TAR 25 MG TAB PO SCH ×2 (06:00→17:05)
[2019-11-17] MEDS ORDERED: INSULIN 70/30 100 UNITS/ML SQ ONE ×2 (06:03→06:33)
[2019-11-17] MEDS: LEVOTHYROXINE SOD 0.125 MG TAB PO SCH (06:31)
[2019-11-17] MEDS: ZINC SULFATE 220 MG CAP PO SCH (07:54)
[2019-11-17] MEDS: ASPIRIN 81 MG CHEWABLE TABLET PO SCH (07:54)
[2019-11-17] MEDS: Meropenem 500 MG in NA CHLORIDE 0.9% 100 ML IV SCH ×2 (07:54→20:06)
[2019-11-17] MEDS: FLUTICASONE 50MCG NASAL SPRAY NAS SCH (07:55)
[2019-11-17] MEDS: APIXABAN 5 MG TABLET PO SCH ×2 (07:55→20:05)
[2019-11-17] MEDS: allopurinoL 300 MG TAB PO SCH (07:55)
--- NOTE | 2019-11-17 07:58 | RAD REPORT ---
EXAM DESCRIPTION: Joset Single View11/17/2019 5:59 am CLINICAL HISTORY: Cough COMPARISON: November 15 FINDINGS: Mild worsening in left and no significant change in right pulmonary opacities consistent w ith pneumonia Heart remains enlarged Endotracheal tube in good position Nasogastric tube is not well visualized but probably lies within stomach
[2019-11-17] MEDS ORDERED: INSULIN GLARGINE 100 UNITS/ML SQ SCH (08:00)
[2019-11-17] MEDS ORDERED: D50W 25 GM/50 ML SYRINGE/VIAL IV PRN ×3 (08:47→11:28)
[2019-11-17] MEDS ORDERED: GLUCAGON 1 MG/VIAL IM PRN ×3 (08:47→11:28)
[2019-11-17] MEDS ORDERED: SEVELAMER CARBONATE 800 MG TABLET PO SCH (09:00)
[2019-11-17] MEDS: INSULIN GLARGINE 100 UNITS/ML SQ SCH ×2 (09:00→20:58)
[2019-11-17] MEDS: SEVELAMER CARBONATE 0.8 GM PO SCH ×3 (10:02→17:08)
--- NOTE | 2019-11-17 10:40 | P.PN ---
Subjective Date of Service: 11/17/19 Chief Complaint: Shortness of breath Subjective: Other (Sedated) Review of Systems is unable to be obtained Physical Examination - Vital Signs Temperature: 98.5 F Blood Pressure: 192/51 Pulse: 81 Respirations: 19 Pulse Ox (%): 93 - Physical Exam General: Obese, Other (Sedated ) HEENT: Atraumatic, Normocephalic Neck: Supple Respiratory: Diminished, Crackles/rales Cardiovascular: Regular rate/rhythm, Normal S1 S2 Capillary refill: <2 Seconds Gastrointestinal: Soft and benign, W/out hepatosplenomegaly Musculoskeletal: No clubbing, Other (Amputation Left leg) Integumentary: No rashes, No breakdown Neurological: Other (Sedated ) Lymphatics: No axilla or inguinal lymphadenopathy Assessment & Plan - Problems (Diagnosis) (1) CVA (cerebral vascular accident) Current Visit: Yes Status: Acute Qualifiers: Laterality of affected vessel: left (2) Pneumonia due to COVID-19 virus Current Visit: Yes Status: Acute (3) Respiratory failure Current Visit: Yes Status: Acute Qualifiers: Chronicity: acute (4) Chronic diastolic heart failure Current Visit: No Status: Chronic (5) ESRD (end stage renal disease) on dialysis Current Visit: No Status: Chronic (6) Hyperkalemia Onset Date: 11/08/17 Current Visit: No Status: Acute (7) Pneumonia due to human coronavirus Current Visit: No Status: Acute (8) Congestive heart failure Current Visit: No Status: Chronic (9) Diabetes Current Visit: No Status: Chronic Qualifiers: Diabetes mellitus type: type 2 Diabetes mellitus long wall mining machine helper insulin use: without long wall mining machine helper use Diabetes mellitus complication status: with skin complications Diabetes mellitus complication detail: with foot ulcer Qualified Code(s): E11.621 - Type 2 diabetes mellitus with foot ulcer; L97.509 - Non-pressure chronic ulcer of other part of unspecified foot with unspecified severity (10) Gout Current Visit: No Status: Chronic Qualifiers: Gout site: knee Gout etiology: unspecified cause Chronicity: chronic Laterality: unspecified laterality Qualified Code(s): M1A.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, unspecified knee, without tophus (tophi) (11) History of left below knee amputation Current Visit: No Status: Chronic (12) Morbid obesity with BMI of 50.0-59.9, adult Onset Date: 11/08/17 Current Visit: No Status: Chronic Physician Review Additional Text: Pneumonia due to COVID-19 virus Acute hypoxic respiratory failure status post intubation and on mechanical ventilator so Acute encephalopathy possibly metabolic versus ischemic Subacute CVA ESRD (end stage renal disease) on dialysis Pulmonary edema Diabetes with Severe Hyperglycemia Hyperkalemia Morbid obesity with BMI of 50.0-59.9, adult AFib with RVR resolved - Plan 11/15/2019 Patient had a code blue last evening Patient had a CT scan which was done because of the acute encephalopathy patient has a history of CVA in the past CT showing late subacute hemorrhagic infarct with 8 cm Size With the resolution of blood inside infarct . Patient had to be intubated and on mechanical ventilator support Hypokalemia was noted and was treated with anti hyperkalemia measures including Sodium bicarb, calcium Status post dialysis Monitor closely Continue steroids CRP trending down Appreciate help from pulmonology Prognosis is guarded director of volunteer services consulted for possible LTAC placement 11/16/2019 Intubated on mechanical ventilator support Patient had AFib with RVR for which amiodarone was started Will stop Amiodarone as the patient has converted back to sinus Appreciate help from cardiology Will continue beta blockers p.r.n. Start on tube feeding Nepro Appreciate help from pulmonology and nephrology CRP is trending down continue steroids Blood cultures pending so far Hyperglycemia noted Will start on Lantus as well as insulin sliding scale Will add on aspirin and statin Continue anticoagulation Carotid Doppler done in of July shows no carotid stenosis Will get a repeat echocardiogram 11/17/2019 Patient still intubated on mechanical ventilator support Will try to wean off and possible extubation today Getting dialysis today Appreciate help from pulmonology, nephrology, cardiology Severe hyperglycemia noted Possibly induced by steroids Started on basal insulin and sliding scale As the hyperglycemia is still high , will start on insulin drip Monitor CRP levels Continue IV steroids Continue anticoagulation Patient is still in sinus rhythm Electrolytes monitored and replaced accordingly Discusses his mom Radha [phone] and updated on his status director of volunteer services consulted for LTAC placement Awaiting placement Time Spent Managing Pts Care (In Minutes): 42
[2019-11-17] MEDS ORDERED: INSULIN -REGULAR HUMAN 50 UNIT/0.5 ML ML SQ ONE ×2 (11:06)
--- NOTE | 2019-11-17 11:25 | P.PN ---
Subjective Date of Service: 11/17/19 Chief Complaint: Respiratory failure Patient is not very responsive is agitated still requiring high concentrations of oxygen CRP levels elevated Physical Examination - Vital Signs Temperature: 98.5 F Blood Pressure: 192/51 Pulse: 81 Respirations: 19 Pulse Ox (%): 93 Assessment & Plan - Problems (Diagnosis) (1) Pneumonia due to COVID-19 virus Current Visit: Yes Status: Acute Plan: Respiratory failure I have increase the dose of his steroidi blood sugars elevated need aggressive control is still requiring 40-50% oxygen waiting transfer to an LTAC (2) Respiratory failure Current Visit: Yes Status: Acute Plan: Continue to monitor his oxygen levels are stable less than 50% is not very responsive still agitated chest x-ray no change Qualifiers: Chronicity: acute Physician Review Additional Text: Pneumonia due to COVID-19 virus Acute encephalopathy possibly metabolic versus ischemic ESRD (end stage renal disease) on dialysis Pulmonary edema Diabetes Hyperglycemia Hyperkalemia Morbid obesity with BMI of 50.0-59.9, adult - Plan Admit to the ICU on BIPAP Titrate oxygen. IV Dexamethasone Appreciate help from pulmonology and nephrology hemodialysis. Insulin sliding scale for glucose management. Monitor closely under telemetry Patient still drowsy We stop Sedatives Continue home medications and titrate as needed Titrate antihypertensives Disposition: Will try to wean off oxygen Patient may need placement post discharge Will get a physical therapy evaluation once more alert awake 11/15/2019 Patient had a code blue last evening Patient had a CT scan which was done because of the acute encephalopathy patient has a history of CVA in the past CT showing late subacute hemorrhagic infarct with 8 cm Size With the resolution of blood inside infarct . Patient had to be intubated and on mechanical ventilator support Hypokalemia was noted and was treated with anti hyperkalemia measures including Sodium bicarb, calcium Status post dialysis Monitor closely Continue steroids CRP trending down Appreciate help from pulmonology Prognosis is guarded guest services director consulted for possible LTAC placement 11/16/2019 Intubated on mechanical ventilator support Patient had AFib with RVR for which amiodarone was started Will stop Amiodarone as the patient has converted back to sinus Appreciate help from cardiology Will continue beta blockers p.r.n. Start on tube feeding Nepro Appreciate help from pulmonology and nephrology CRP is trending down continue steroids Blood cultures pending so far Hyperglycemia noted Will start on Lantus as well as insulin sliding scale Will add on aspirin and statin Continue anticoagulation Carotid Doppler done in of July shows no carotid stenosis Will get a repeat echocardiogram
--- NOTE | 2019-11-17 11:29 | P.PN ---
Subjective Date of Service: 11/17/19 Chief Complaint: Respiratory failure Condition has been stabilized blood sugars very elevated oxygen levels stable agitated unresponsive Physical Examination - Vital Signs Temperature: 98.5 F Blood Pressure: 192/51 Pulse: 81 Respirations: 19 Pulse Ox (%): 93 Assessment & Plan - Problems (Diagnosis) (1) Pneumonia due to COVID-19 virus Current Visit: Yes Status: Acute Plan: Positive a lai virus (2) Respiratory failure Current Visit: Yes Status: Acute Plan: CRP levels have decreased significantly will decrease the dose of IV steroids patient is in chronic renal failure ferritin level is over 5000 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 Start on IV insulin drip Dc vancomycin blood cultures are negative chest x-ray and no significant change oxygen requirements in her on 45% not weanable the at blood pressure elevated Qualifiers: Chronicity: acute Physician Review Additional Text: Pneumonia due to COVID-19 virus Acute encephalopathy possibly metabolic versus ischemic ESRD (end stage renal disease) on dialysis Pulmonary edema Diabetes Hyperglycemia Hyperkalemia Morbid obesity with BMI of 50.0-59.9, adult - Plan Admit to the ICU on BIPAP Titrate oxygen. IV Dexamethasone Appreciate help from pulmonology and nephrology hemodialysis. Insulin sliding scale for glucose management. Monitor closely under telemetry Patient still drowsy We stop Sedatives Continue home medications and titrate as needed Titrate antihypertensives Disposition: Will try to wean off oxygen Patient may need placement post discharge Will get a physical therapy evaluation once more alert awake 11/15/2019 Patient had a code blue last evening Patient had a CT scan which was done because of the acute encephalopathy patient has a history of CVA in the past CT showing late subacute hemorrhagic infarct with 8 cm Size With the resolution of blood inside infarct . 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 Start on tube feeding Nepro Appreciate help from pulmonology and nephrology CRP is trending down continue steroids Blood cultures pending so far Hyperglycemia noted Will start on Lantus as well as insulin sliding scale Will add on aspirin and statin Continue anticoagulation Carotid Doppler done in of July shows no carotid stenosis Will get a repeat echocardiogram
[2019-11-17] MEDS: METHYLPREDNISOLONE 40 MG INJ IV SCH ×3 (11:36→23:39)
[2019-11-17] MEDS: DOCUSATE NA/SENNA CONC 1 TAB PO SCH (20:05)
[2019-11-17] MEDS: ATORVASTATIN 80 MG TAB PO SCH (20:06)
[2019-11-17] MEDS: MELATONIN 3 MG TABLET PO SCH (20:06)
[2019-11-17] MEDS: FAMOTIDINE 20 MG/2 ML VIAL IV SCH (20:07)
[2019-11-17 22:30] LABS: Potassium 6.6 mmol/L (3.5-5.1)
[2019-11-17] MEDS ORDERED: CALCIUM GLUC 10% INJ 4.65 MEQ in NA CHLORIDE 0.9% 100 ML IV ONE (22:46)
[2019-11-17] MEDS ORDERED: SODIUM BICARB 50 MEQ/50ML VIAL ONE (23:21)
--- NOTE | 2019-11-18 00:13 | PN ---
Date of Progress Note: 11/17/2019 Chief Complaint: End-stage renal dialysis, COVID pneumonia. Subjective: The patient has respiratory failure. He remains intubated. Dialysis was done to contro l fluid overload. The patient has history of hypertension. Blood pressure has been well controlled. The patient is on metoprolol, dose was reduced to avoid intradialytic hypotension. The patient is on treatment for COVID pneumonia. Pulmonary service is following the patient. Review of Systems: Unobtainable. Physical Examination: Heart: Systolic murmur present. S1, S2. Chest: Crackles. EXTREMITIES: Left below-knee amputation. Laboratory Data: Hemoglobin 9.6, WBC 5.9, platelet count 160,000. Sodium 133, potassium 4.9, chlori de 96, CO2 22, BUN 130, creatinine 8.68, glucose 707, magnesium 2.9, phosphorus 8.5. Glucose has imp roved to 365. Impression And Plan: 1.End-stage renal disease. Continue dialysis. The patient may need extra dialysis to control azote georgina. BUN is elevated. The patient has hypermetabolic condition due to infection and pneumonia due t o COVID-19 virus. He has acute encephalopathy possibly due to metabolic versus ischemic changes. Re cently, he developed stroke. 2.Hyperglycemia. The patient was started on insulin drip. Vancomycin was discontinued. The patien t had blood culture done and chest x-ray was done. The patient's oxygen requirement at this point is 45%. 3.Pulmonary edema. The patient will have dialysis with daily treatment to control volume overload. The patient remains intubated. EB/MODL Voice ID: [id number] Report ID: [id number]
[2019-11-18] MEDS: INSULIN -REGULAR HUMAN 50 UNIT/0.5 ML ML SQ SCH ×4 (00:37→18:36)
[2019-11-18] MEDS: SEVELAMER CARBONATE 0.8 GM PO SCH ×3 (01:23→18:36)
[2019-11-18] MEDS: LORazepam 2 MG/ML VIAL IV PRN ×3 (03:15→20:48)
[2019-11-18] MEDS: FENTANYL CITR 100 MCG/2 ML IV PRN ×2 (04:30→09:39)
[2019-11-18] MEDS: LEVOTHYROXINE SOD 0.125 MG TAB PO SCH (05:09)
[2019-11-18] MEDS: METOPROLOL TAR 25 MG TAB PO SCH ×2 (05:11→18:35)
[2019-11-18 05:14] LABS: Absolute Lymphocytes (CBC) 0.1 K/uL (0.7-4.9); Basophils % 0.6 % (0-1.3); Hematocrit 26.7 % (39.6-49.0); Lymphocytes % 2.6 % (15.3-44.8); MPV 10.6 fL (7.6-11.3); RBC Red Blood Cell Count 2.68 M/uL (4.33-5.43)
[2019-11-18 05:20] VITALS: BMI 44.4
[2019-11-18 05:38] LABS: Albumin 2.2 g/dL (3.4-5.0); C-Reactive Protein 44.9 mg/L (<3.00); Potassium 4.6 mmol/L (3.5-5.1)
[2019-11-18 06:23] LABS: Phosphorus 8.7 mg/dL (2.5-4.9)
[2019-11-18] MEDS: METHYLPREDNISOLONE 40 MG INJ IV SCH ×3 (06:29→18:35)
[2019-11-18] MEDS ORDERED: INSULIN 70/30 100 UNITS/ML SQ ONE (06:45)
[2019-11-18] MEDS: FLUTICASONE 50MCG NASAL SPRAY NAS SCH (09:00)
[2019-11-18] MEDS: INSULIN GLARGINE 100 UNITS/ML SQ SCH (09:00)
[2019-11-18] MEDS: APIXABAN 5 MG TABLET PO SCH ×2 (09:12→20:39)
[2019-11-18] MEDS: Meropenem 500 MG in NA CHLORIDE 0.9% 100 ML IV SCH ×2 (09:12→20:40)
[2019-11-18] MEDS: ASPIRIN 81 MG CHEWABLE TABLET PO SCH (09:12)
[2019-11-18] MEDS: allopurinoL 300 MG TAB PO SCH (09:12)
[2019-11-18] MEDS: ZINC SULFATE 220 MG CAP PO SCH (09:12)
[2019-11-18] MEDS ORDERED: INSULIN GLARGINE 100 UNITS/ML SQ SCH ×2 (10:00→21:00)
--- NOTE | 2019-11-18 16:58 | P.PN ---
Subjective Date of Service: 11/18/19 Chief Complaint: Shortness of breath Subjective: Other (Patient remains intubated. Patient appears stable at this time. Vital signs reviewed. Case discussed in detail with nurse. Patient has been approved for long-term acute care facility placement. Awaiting for bed at this time.) Physical Examination - Vital Signs Temperature: 98.2 F Blood Pressure: 189/57 Pulse: 88 Respirations: 18 Pulse Ox (%): 90 - Physical Exam General: Other (Patient currently intubated and sedated.) Neck: Supple Respiratory: Other (Patient intubated) Cardiovascular: Normal pulses, Regular rate/rhythm Gastrointestinal: Normal bowel sounds Neurological: Normal speech, Normal strength at 5/5 x4 extr, Normal tone - Studies Medications List Reviewed: Yes Assessment & Plan Discharge Plan: LTAC Plan to discharge in: 24 Hours Physician Review Additional Text: Impression: Acute hypoxic respiratory failure secondary to COVID 19 pneumonia complicated with pulmonary edema Acute encephalopathy possibly metabolic versus ischemic Subacute CVA ESRD (end stage renal disease) on dialysis Pulmonary edema Diabetes with Severe Hyperglycemia Hyperkalemia Morbid obesity with BMI of 50.0-59.9, adult AFib with RVR resolved, now on chronic anti coagulation therapy Hypothyroidism Hyperlipidemia Plan: Acute hypoxic respiratory failure secondary to COVID 19 pneumonia complicated with pulmonary edema: Patient remains intubated. Continue to monitor closely. Patient has been accepted to long-term acute care facility. Awaiting bed at this time. Continue to adjust basal insulin. Patient remains on IV steroids. Patient on IV antibiotic therapy to cover for possible secondary bacterial pneumonia. Continue current medications at this time. Anticipate discharge in the next 24 hr. Acute encephalopathy likely related to above: Overall stable. Will continue to monitor closely. Subacute CVA: Overall stable. Continue to monitor closely. End-stage renal disease on hemodialysis: Continue with hemodialysis. Nephrology to further adjust Diabetes mellitus type 2 insulin-dependent with hyperglycemia: Continue to adjust basal insulin. Will consider sliding scale if blood sugar remains elevated. Morbid obesity: This can be further monitored and addressed Atrial fibrillation with RVR resolved now on chronic anti coagulation therapy: Continue with beta-brittany therapy. Patient on Eliquis. Hypothyroidism: Continue medication Hyperlipidemia: Continue medication Time Spent Managing Pts Care (In Minutes): 55
[2019-11-18] MEDS ORDERED: INSULIN -REGULAR HUMAN 50 UNIT/0.5 ML ML IV PRN (18:38)
[2019-11-18] MEDS ORDERED: NA CHLORIDE 0.9% 100 ML ONE (18:52)
[2019-11-18] MEDS ORDERED: D50W 25 GM/50 ML SYRINGE/VIAL IV PRN (19:56)
[2019-11-18] MEDS ORDERED: GLUCAGON 1 MG/VIAL IM PRN (19:56)
[2019-11-18] MEDS: MELATONIN 3 MG TABLET PO SCH (20:40)
[2019-11-18] MEDS: DOCUSATE NA/SENNA CONC 1 TAB PO SCH (20:40)
[2019-11-18] MEDS: FAMOTIDINE 20 MG/2 ML VIAL IV SCH (20:40)
[2019-11-18] MEDS: ATORVASTATIN 80 MG TAB PO SCH (20:40)
--- NOTE | 2019-11-18 23:17 | PN ---
Date of Progress Note: 11/18/2019 Chief Complaint: End-stage renal disease, COVID pneumonia. Subjective: The patient remains intubated. The patient has respiratory failure. He has hyperazotem ia. He was dialyzed yesterday. Potassium was checked and subsequently was re-evaluated due to fact that specimen was hemolyzed. The patient received IV sodium bicarbonate for borderline metabolic aci dosis. The patient has respiratory acidosis. He remains intubated. Pulmonary service is following the patient. Review of Systems: Unobtainable. Physical Examination: Heart: Systolic murmur present. S1, S2. Chest: Crackles at bases. Extremities: Left below-knee amputation. Laboratory Data: Hemoglobin 8.8, WBC 4.5, platelet count 111,000. Sodium 134, potassium 4.6, chlori de 93, CO2 28, BUN 100, creatinine 6.94, glucose 712, phosphorus 8.7. Impression And Plan: 1.Diabetes mellitus, uncontrolled. The patient is on insulin drip. 2.Hyperazotemia. The patient will have dialysis tomorrow. 3.Fluid overload. The patient received dialysis yesterday and ultrafiltration was obtained to contr ol pulmonary edema. The patient remains intubated. The patient has COVID infection and has acute en cephalopathy, possibly due to metabolic versus ischemic changes. The patient recently developed stro ke. 4.Hyperkalemia. Continue insulin drip. 5.The patient is on oxygen requirement at this point of 40%. 6.Pulmonary edema. The patient had ultrafiltration done to control volemia yesterday. Next dialysi s tomorrow. EB/MODL Voice ID: [id number] Report ID: [id number]
[2019-11-19] MEDS: METHYLPREDNISOLONE 40 MG INJ IV SCH ×2 (01:05→06:15)
[2019-11-19] MEDS: SEVELAMER CARBONATE 0.8 GM PO SCH ×3 (02:30→18:23)
[2019-11-19] MEDS ORDERED: INSULIN GLARGINE 100 UNITS/ML SQ ONE (02:54)
[2019-11-19] MEDS: INSULIN -REGULAR HUMAN 100 UNIT in NA CHLORIDE 0.9% 100 ML IV SCH ×2 (04:39→10:47)
[2019-11-19] MEDS ORDERED: NA CHLORIDE 0.9% 100 ML ONE (04:44)
[2019-11-19] MEDS ORDERED: INSULIN -REGULAR HUMAN 50 UNIT/0.5 ML ML ONE (04:44)
[2019-11-19 05:49] VITALS: O2SAT 96
[2019-11-19] MEDS: METOPROLOL TAR 25 MG TAB PO SCH ×2 (06:00→18:23)
[2019-11-19] MEDS: LEVOTHYROXINE SOD 0.125 MG TAB PO SCH (06:16)
[2019-11-19] MEDS: LORazepam 2 MG/ML VIAL IV PRN ×2 (07:47→18:23)
[2019-11-19] MEDS: allopurinoL 300 MG TAB PO SCH (08:48)
[2019-11-19] MEDS: ZINC SULFATE 220 MG CAP PO SCH (08:48)
[2019-11-19] MEDS: APIXABAN 5 MG TABLET PO SCH (08:48)
[2019-11-19] MEDS: Meropenem 500 MG in NA CHLORIDE 0.9% 100 ML IV SCH (08:48)
[2019-11-19] MEDS: ASPIRIN 81 MG CHEWABLE TABLET PO SCH (08:48)
[2019-11-19] MEDS: FLUTICASONE 50MCG NASAL SPRAY NAS SCH (08:49)
--- NOTE | 2019-11-19 10:10 | P.PN ---
Subjective Date of Service: 11/19/19 Chief Complaint: Respiratory failure Patient is still on a ventilator family responsive awaiting transferred to LTAC Physical Examination - Vital Signs Temperature: 98.1 F Blood Pressure: 114/39 Pulse: 65 Respirations: 19 Pulse Ox (%): 98 - Physical Exam General: Unresponsive - Studies Medications List Reviewed: Yes Assessment & Plan - Problems (Diagnosis) (1) Respiratory failure Current Visit: Yes Status: Acute Plan: Respiratory failure from lai virus is see for pre level is less than 50 he is on insulin drip will order another x-rays peak pressures have remained the same and he required with more oxygen this morning on when I rounded reduce the dose of steroids continue with IV insulin another chest x-ray blood cultures negative history of stroke minimally responsive continued titrate his O2 down consider SIMV Qualifiers: Chronicity: acute
--- NOTE | 2019-11-19 10:55 | P.DS ---
Admission Date: 11/11/19 Discharge Date: 11/19/19 Primary Care Provider: unknown Disposition: [facility] Discharge Condition: FAIR Reason for Admission: Respiratory failure Consultations: Pulmonary-Dr. Beal Nephrology-Dr. Tse Cardiology-Dr. Saldivar Procedures: CXR: FINDINGS: Bilateral airspace opacification is present throughout the lung oakley with relative sparing of the left apex. This pattern is similar to November 08 imaging. Cardiomegaly is present. Vasculature is prominent. No pneumothorax or enlarging pleural effusion. No acute bony abnormality seen. No acute aortic findings suspected. IMPRESSION: Extensive bilateral airspace opacification. This could be bilateral pneumonia, volume overload, failure or a combination. Chest pattern is not substantially different from November 08. CT scan: FINDINGS: 8 centimeter low-density area within the left cerebrum compatible with late subacute infarct. The previously described blood within the infarct has almost completely resolved. There is a 3 millimeter area of increased density likely representing small amount of residual blood. The ventricles are normal in caliber. No extra-axial fluid collection is noted. Fluid within the sinuses/ mastoids is not seen. IMPRESSION: Almost all of the blood within the left cerebral subacute infarct has resolved. Impression: Acute hypoxic respiratory failure secondary to COVID 19 pneumonia complicated with pulmonary edema Acute encephalopathy likely metabolic versus ischemic History of CVA, CT scan showing 8 cm low-density area within the left cerebrum compatible with late subacute infarct with previously described blood within the infarct almost completely resolved End-stage renal disease on hemodialysis Diabetes mellitus type 2 insulin-dependent with hyperglycemia Atrial fibrillation with RVR, resolved now on chronic anti coagulation therapy Hypothyroidism Hyperlipidemia Morbid obesity, BMI 44 Suspect underlying obstructive sleep apnea Brief History of Present Illness: 54-year-old male with multiple medical problems including diabetes mellitus type 2 insulin dependent, chronic atrial fibrillation on chronic anti coagulation therapy, hyperlipidemia, hypothyroidism, and end-stage renal disease on hemodialysis. Patient was a readmission after he was recently discharged for COVID 19 pneumonia. Patient presented with increasing shortness of breath. Chest x-ray showed extensive bilateral infiltrates. Patient was also hypoxic. Patient required BiPAP. Patient admitted for further evaluation and treatment. Nephrology and pulmonology were consulted. Hospital Course: Patient presented with readmission secondary to acute hypoxic respiratory failure secondary to bilateral COVID 19 pneumonia complicated with pulmonary edema. Patient with underlying history of end-stage renal disease on hemodialysis, diabetes mellitus type 2 insulin dependent, chronic atrial fibrillation on chronic anti coagulation therapy, hypothyroidism, hyperlipidemi a, suspected obstructive sleep apnea and morbid obesity. The course of his stay was complicated. Patient also developed acute encephalopathy. This was likely multifactorial. During the course of his stay, Madhav colmenares was called and required intubation. Patient also found to have atrial fibrillation with RVR. This resolved. Patient with prior history of CVA. CT scan done during the course of his stay showed 8 cm low-density area within the left cerebrum compatible with late subacute infarct with previously described blood within the infarct almost completely resolved. The patient was seen by pulmonology and nephrology. The patient has received dialysis during the course of his stay. The patient remained stable on ventilator. Patient currently on assist-control at 80% FiO2. The patient was evaluated for long-term acute [facility] facility placement. Patient has been accepted. Prior to transfer to [facility], the patient will receive dialysis. His acute respiratory failure related to COVID 19 pneumonia appears improved with improved CRP levels. IV Solu-Medrol has been decreased. Will need to continue to wean off ventilator at the [facility]. Patient on IV steroids. Patient also on Eliquis and metoprolol for his atrial fibrillation. Patient has underlying diabetes mellitus type 2 insulin dependent. Patient with hyperglycemia. Pat ient had to be started on an insulin drip. This can be further adjusted and tapered back to basal insulin at the long-[facility] facility. Current medications include meropenem 500 mg IV twice daily to cover for possible secondary infection; Eliquis 5 mg twice daily with metoprolol 12.5 mg twice daily for atrial fibrillation; levothyroxine 125 mcg daily for hypothyroidism; Solu-Medrol 40 mg twice daily for COVID 19; Lipitor 80 mg daily for hyperlipidemia. Further adjustment in medication and ventilator settings can be done at the long-term acute care facility. Will recommend neurology, n ephrology, and pulmonology consultation at the [facility] acute [facility] facility to follow his multiple medical problems. Case discussed at length with pulmonology and nephrology. Patient medically stable this time for transfer. Vital Signs/Physical Exam: Temp Pulse Resp BP Pulse Ox 98.1 F 65 19 114/39 L 98 11/19/19 10:10 11/19/19 10:10 11/19/19 10:10 11/19/19 10:10 11/19/19 10:10 General: Other (Patient remains intubated. ) Neck: Supple Respiratory: Other (Patient intubated) Cardiovascular: Normal pulses Neurological: Other (Strength appear stable. No significant purposeful movement noted.) Laboratory Data at Discharge: WBC 4.5 K/uL (4.3-10.9) D 11/18/19 04:57 Hgb 8.8 g/dL (13.6-17.9) L 11/18/19 04:57 Hct 26.7 % (39.6-49.0) L 11/18/19 04:57 Plt Count 111 K/uL (152-406) L D 11/18/19 04:57 APTT 28.6 SECONDS (21.7-34.4) 11/15/19 06:50 Sodium 134 mmol/L (136-145) L 11/18/19 04:57 Potassium 4.6 mmol/L (3.5-5.1) 11/18/19 04:57 BUN 105 mg/dL (7-18) H 11/18/19 04:57 Creatinine 6.94 mg/dL (0.55-1.3) H* 11/18/19 04:57 Glucose 593 mg/dL (74-106) H* 11/19/19 04:45 Phosphorus 8.7 mg/dL (2.5-4.9) H* 11/18/19 04:57 Magnesium 2.9 mg/dL (1.8-2.4) H 11/17/19 04:55 Total Bilirubin Cancelled 11/17/19 05:00 AST Cancelled 11/17/19 05:00 ALT Cancelled 11/17/19 05:00 Alkaline Phosphatase Cancelled 11/17/19 05:00 Troponin I 0.53 ng/mL (0.0-0.045) H* 11/14/19 19:50 Triglycerides 146 mg/dL (<150) 11/12/19 04:21 Cholesterol 83 mg/dL (<200) 11/12/19 04:21 HDL Cholesterol 7 mg/dL (40-60) L 11/12/19 04:21 Cholesterol/HDL Ratio 11.86 11/12/19 04:21 Home Medications: Allopurinol 300 mg PO DAILY 11/10/17 Furosemide 20 mg PO DAILY 11/10/17 Zinc Sulfate [Zinc Sulfate*] 220 mg PO DAILY 11/10/17 Apixaban [Eliquis] 5 mg PO BID #60 tablet 08/14/19 Atorvastatin Calcium [Lipitor] 80 mg PO BEDTIME #30 tab 08/14/19 Metoprolol Tartrate [Lopressor*] 25 mg PO BID 6AM 6PM #60 tab 08/14/19 Docusate/Senna [Senokot-S*] 2 tab PO BEDTIME #60 tab 09/12/19 Aspirin [Aspirin EC 81 MG] 1 tab PO DAILY 11/10/19 Fluticasone [Flonase 50MCG Nasal Marine*] 1 spray EMANUEL DAILY 11/10/19 Insulin Glargine Human [Lantus*] 20 units SQ BEDTIME 11/10/19 Insulin Glargine Human [Lantus*] 25 units SQ DAILY 11/10/19 Levothyroxine [Synthroid*] 1 tab PO DAILY 11/10/19 Sucroferric Oxyhydroxide [Velphoro] 2 tab PO TIDWM 11/10/19 Prednisone [Sterapred Ds] 10 mg PO BID #20 tab.ds.pk 11/11/19 Patient Discharge Instructions: Patient stable for transfer to long-term acute care facility after dialysis today. Continue current medication. Further adjustment can be done at the long-term acute care facility. Diet: Continue NG tube feeds Activity: Bedrest Time spent managing pt's care (in minutes): 60
--- NOTE | 2019-11-19 12:32 | RAD REPORT ---
EXAM DESCRIPTION: Taylor Single View11/19/2019 12:20 pm CLINICAL HISTORY: Shortness breath COMPARISON: November 16 FINDINGS: Endotracheal tube has its tip well above florentin Mild improvement in the bilateral pulmonary opacities The heart remains enlarged IMPRESSION: Mild improvement in the bilateral pulmonary opacities
[2019-11-19] MEDS: FENTANYL CITR 100 MCG/2 ML IV PRN ×2 (13:39→19:27)
[2019-11-19 14:30] VITALS: TEMP 98.6
[2019-11-19 18:13] VITALS: BP 179/59
[2019-11-19] MEDS ORDERED: METHYLPREDNISOLONE 40 MG INJ IV SCH (21:00)
--- NOTE | 2019-11-19 22:27 | PN ---
Date of Progress Note: 11/19/2019 Chief Complaint: End-stage renal disease, on dialysis; COVID pneumonia. Subjective: The patient is intubated, has respiratory failure, hyperazotemia. He was dialyzed on Wednesday. Today, he will have additional dialysis treatment to obtain metabolic clearance, control hyperazotemia. BUN is over 100. The patient was found to have hyperkalemia, received sodium bicarbonate drip. Assessment was hemolyzed and rechecked potassium level was within normal limits. Today, the patient is undergoing dialysis with 2 potassium dialysis, potassium was 4.8 today and ultrafiltration was obtained to control pulmonary edema. The patient has COVID pneumonia and has been treated by [facility]. The patient has diabetes and hyperglycemia. He is on insulin drip. Review of Systems: Unobtainable. Physical Examination: Heart: Systolic murmur present. S1, S2. Lungs: Crackles at bases. EXTREMITIES: Left below-knee amputation. Laboratory Data: Platelet count 111,000. Sodium 134, potassium 4.6, chloride 93, BUN 100, creatinine 6.94, glucose 720, phosphorus 8.7. Impression And Plan: 1. Diabetes mellitus, uncontrolled. Continue insulin drip. Adjust dose accordingly. 2. Hyperazotemia. Continue extra dialysis treatment, today scheduled with ultrafiltration. Monitor blood pressure and adjust treatment with ultrafiltration according to parameters. 3. Fluid overload, COVID pneumonia, respiratory failure, and pulmonary edema. The patient may need extra treatment with daily dialysis. Next dialysis will be done tomorrow. 4. Hyperkalemia. Continue insulin drip and sodium bicarbonate was given to control hyperkalemia. Hemolyzed specimen was although found when potassium was elevated and assessment with recheck sample was obtained and the patient did not have hyperkalemia. Potassium was normal. 5. Respiratory failure. Continue oxygenation requirement of 40% per Pulmonary Service. 6. Hyperphosphatemia. The patient will have frequent dialysis and binders were started with tube feeding. EB/MODL Voice ID: [id number] Report ID: [id number]
[2019-11-20] MEDS ORDERED: THIAMINE 200 MG/2 ML INJ IVP SCH (09:00)
[2019-11-22 05:15] LABS: HBsAG Nonreactive (Nonreactive)
== END 2019-11-19 19:40 | DRG 207 ==
LOC: ER 20:19 → 3RD-ICU 23:08
PROVIDERS: ADMIT Internal Medicine; ATTEND Family Medicine
PROC: 5A1D70Z Performance of Urinary Filtration, Intermittent, Less than 6 Hours Per Day (ICD-10-PCS; 2019-11-11)
PROC: 8E0ZXY6 Isolation (ICD-10-PCS; 2019-11-11)
PROC: 5A1955Z Respiratory Ventilation, Greater than 96 Consecutive Hours (ICD-10-PCS; principal; 2019-11-14)
PROC: 0BH17EZ Insertion of Endotracheal Airway into Trachea, Via Natural or Artificial Opening (ICD-10-PCS; 2019-11-14)
PROC: 5A12012 Performance of Cardiac Output, Single, Manual (ICD-10-PCS; 2019-11-14)
DX: U07.1 COVID-19 (principal); J12.89 Other viral pneumonia; N18.6 End stage renal disease; J96.01 Acute respiratory failure with hypoxia; I50.33 Acute on chronic diastolic (congestive) heart failure; G93.41 Metabolic encephalopathy; I13.2 Hypertensive heart and chronic kidney disease with heart failure and with stage 5 chronic kidney disease, or end stage renal disease; Z68.43 Body mass index [BMI] 50.0-59.9, adult; E87.2 Acidosis; N25.81 Secondary hyperparathyroidism of renal origin; Z99.2 Dependence on renal dialysis; Z79.01 Long term (current) use of anticoagulants; Z79.82 Long term (current) use of aspirin; Z79.890 Hormone replacement therapy; Z79.52 Long term (current) use of systemic steroids; Z79.899 Other long term (current) drug therapy; E11.22 Type 2 diabetes mellitus with diabetic chronic kidney disease; E03.9 Hypothyroidism, unspecified; E78.5 Hyperlipidemia, unspecified; I25.10 Atherosclerotic heart disease of native coronary artery without angina pectoris; Z89.512 Acquired absence of left leg below knee; E66.01 Morbid (severe) obesity due to excess calories; E11.621 Type 2 diabetes mellitus with foot ulcer; L97.509 Non-pressure chronic ulcer of other part of unspecified foot with unspecified severity; Z79.4 Long term (current) use of insulin; E11.65 Type 2 diabetes mellitus with hyperglycemia; E87.5 Hyperkalemia; D63.8 Anemia in other chronic diseases classified elsewhere; E87.6 Hypokalemia; D63.1 Anemia in chronic kidney disease; N25.0 Renal osteodystrophy; M1A.0690 Idiopathic chronic gout, unspecified knee, without tophus (tophi); I48.0 Paroxysmal atrial fibrillation; E83.39 Other disorders of phosphorus metabolism; G47.33 Obstructive sleep apnea (adult) (pediatric)
CPT/HCPCS: 36415; 70450; 71045; 80048; 80053; 80061; 80069; 80076; 82553; 82728; 82805; 82947; 83605; 83735; 83880; 84100; 84132; 84145; 84484; 85025; 85379; 85730; 86140; 86317; 87040; 87340; 90935; 93005; 94002; 94003; 94640; 94660; 94760; 96365; 96375; 99285; J0171; J0282; J0456; J0461; J0610; J1100; J1644; J1815; J1940; J2250; J2920; J2930; J3010; J3370; J3486; J7030; J7050; J7060; Q5105